=== PATIENT | male | born 1940 | race Caucasian/White ===

== ENCOUNTER 2020-04-28 11:06 | Outpatient (CLI) | payer OTHER, SELFPAY ==
[2020-04-28 11:53] LABS: Basophils Percent Auto 0.7 % (0.2-1.2); Eosinophils Absolute Auto 0.3 K/mm3 (0-0.3); Eosinophils Percent Auto 4.1 % (0-4.4); Hematocrit 39.8 % (42.0-52.0); Hemoglobin 13.3 g/dL (14.0-18.0); Immature Granulocyte Absolute 0.02 K/mm3 (0.00-0.031); Immature Granulocyte Percent A 0.3 % (0-0.5); Lymphocytes Absolute Auto 1.04 K/mm3 (0.9-3.2); Mean Corpuscular HGB Conc 33.4 g/dl (32-36); Mean Corpuscular Hemoglobin 31.4 pg (26-34); Mean Corpuscular Volume 93.9 fl (80-100); Mean Platelet Volume 10.3 fl (7.4-10.4); Monocytes Absolute Auto 0.9 K/mm3 (0.1-0.6); Monocytes Percent Auto 14.2 % (2.6-8.5); Neutrophils Absolute Auto 3.9 K/mm3 (1.3-6.7); Neutrophils Percent Auto 63.7 % (45.5-73.1); Platelet Count Result 193 k/mm3 (150-375); Red Blood Count 4.24 M/mm3 (4.6-6.20); White Blood Count 6.1 K/mm3 (4.5-10.0)
[2020-04-28 12:00] LABS: Add Urine Microscopic? YES; Appearance Urine Clear (Clear); Bilirubin Urine Negative (Negative); Blood Urine Negative (Negative); Color Urine Yellow (Yellow); Glucose Urine UA 1+ mg/dL (Negative); Ketones Urine Negative (Negative); Leukocyte Esterase Ur Negative LEU/UL (NEGATIVE); Mucus Urine Rare /lpf; Nitrate Urine Negative (Negative); Protein Urine Negative (Negative); RBC Urine 0-2 /hpf (0-2); Specific Grav Ur 1.014 (1.001-1.035); Urobilinogen Urine Negative mg/dL (<2.0); WBC Urine 0-3 /hpf (0-3)
[2020-04-28 12:05] LABS: Alanine Aminotransferase 19 U/L (4-50); Albumin Level 4.1 g/dL (3.5-5.1); Alkaline Phosphatase 49 U/L (38-126); Anion Gap 9 mmol/L (8-16); Aspartate Amino Transferase 22 U/L (17-59); Bilirubin,Total 0.3 mg/dL (0.2-1.3); Blood Urea Nitrogen 14 mg/dL (9-20); Calcium 9.5 mg/dL (8.4-10.2); Carbon Dioxide 29 mmol/L (22-30); Chloride 103 mmol/L (98-107); Cholesterol 138 mg/dL (0-200); Creatine Kinase 101 U/L (55-170); Estimated Glomerular Filt Rate > 60; Glucose 181 mg/dL (75-110); HDL Direct 45 mg/dL; Potassium 4.6 mmol/L (3.4-5.0); Sodium 141 mmol/L (137-145); Triglycerides 148 mg/dL (<150)
[2020-04-28 12:17] LABS: LDL Cholesterol Direct 77 mg/dL
[2020-04-28 12:23] LABS: Creatinine Urine 61.7 mg/dL
[2020-04-28 12:29] LABS: MALB Creatinine Ratio 45.5 mg/g (0-30); Microalbumin Urine Random 28.1 mg/L (0-16.7)
[2020-04-28 12:36] LABS: Vitamin D 25 Hydroxy 51.5 ng/mL
[2020-04-29 11:33] LABS: Hemoglobin A1C 7.3 % (<5.7)
== END 2020-04-28 11:07 | disposition home or self-care (01) ==
LOC: ANHLAB 11:16
PROVIDERS: PCP Internal Medicine; Visit Provider Internal Medicine
DX: E11.9 Type 2 diabetes mellitus without complications (principal); Z13.29 Encounter for screening for other suspected endocrine disorder; Z13.21 Encounter for screening for nutritional disorder; Z13.228 Encounter for screening for other metabolic disorders; Z13.0 Encounter for screening for diseases of the blood and blood-forming organs and certain disorders involving the immune mechanism
CPT/HCPCS: 36415; 80053; 80061; 81001; 82043; 82306; 82550; 83036; 84443; 85025

== ENCOUNTER 2025-03-27 08:26 | Inpatient (IN) | payer MEDICARE, SELFPAY ==
--- OUTSIDE RECORDS SUMMARY | 2010-05-13 03:30 | XMS_ITS | Continuity of Care Document ---
Author Organization [facility] Address [address] [place] [address] [address] [place] [address] Phone Care Team Providers Care Cash Applications Associate Name Role Phone Luis Alberto Luna Unavailable Unavailable Procedures Procedure Date Office/outpatient Visit, Est Eye Exam & Treatment Refraction Eye Exam & Treatment Refraction Office/outpatient Visit, Est Advance Directives Directive Yes / No Effective Date File Name No Information Encounters Encounter Description Practice Location Reason(s) For Visit Diagnoses Date Provider Providers Copied on Encounter Office/outpat ient Visit, Est [facility], [address] [place] [address] [address], [place], [place], [address], tel:[phone] SEC [facility] No Information 5-201 0 Jeremy Sahu. [facility] [place] , [address], [place], [place], [facility], . tel:[phone] [facility], [address] [place] [address] [address], [place], [place], [address], [place] tel:[phone] SEC [facility] [place] No Information Sep- 0-201 0 Jeremy Sahu. [address] [facility] [place] [address], [address], [place], [place], [facility], [place]. tel:[phone] [facility], [address], [place], [place], [address], tel:[phone] [facility] [place] No Information Mar-0 9-200 9 Jeremy Sahu. [address] [facility] , [address], [place], [address], [place]. tel:[phone] Office/outpat ient Visit, [facility] Eye [facility], [address], [place], [place], [address], [place] tel:[phone] SEC [facility] No Information 200 8 Jeremy Sahu. [address] [facility] , [address], [place], [address], [place]. tel:[phone] Family History Family Member Type Diagnosis Age [...]
[2025-03-27] VITALS (32 sets, daily range): BP systolic 93–170; BP diastolic 51–92; PULSE 93–124; RESP 20–45; TEMP 36.7–38.6; O2SAT 92–99; BMI 31.1
--- NOTE | ~2025-03-27 | XR_ITS ---
EXAMINATION: XR catheter cholangiogram DATE: 03/31/2025 08:30 INDICATION: Assess cystic and common duct patency TECHNIQUE: Multiple fluoroscopic images of the right upper quadrant were obtained during injection of 60 mL Omnipaque 240 water-soluble contrast and flush with 20 mL sterile saline through the patient's percutaneous cholecystostomy tube. A total of 12 fluoroscopic images were recorded. The amount of fluoroscopy time used during this procedure was 0.7 minutes. Total DAP was 7.955 mGycm^2. COMPARISON: Chest CT dated 03/27/2025 FINDINGS: Cholecystostomy tube with distal loop formed within the fundus of the gallbladder. Contrast injection demonstrates a lucent filling defect within the gallbladder which persists following evacuation of the contrast consistent with a gallstone. Contrast extends into the cystic duct and outlines a small ovoid lucent filling defect in mid duct likely representing an additional obstructing stone. Contrast does not extend beyond the mid cystic duct with no opacification of the common bile duct. A bilobed atherosclerotic calcification in the common hepatic artery project slightly lateral to the lower thoracic spine as confirmed on prior CT. IMPRESSION: 1. Cholelithiasis with obstructing filling defect in the mid cystic duct likely representing a small gallstone. Reviewed, dictated and finalized at location A.
--- NOTE | ~2025-03-27 | US_ITS ---
EXAMINATION: US perc cholecystostomy w imag DATE: 03/27/2025 16:15 INDICATION: Acute cholecystitis TECHNIQUE: The procedure including the risks and benefits was discussed with the patient. Risks discussed included bleeding including hemorrhage and bile peritonitis. Oral and written consent were obtained. The patient was confirmed to be receiving appropriate antibiotic coverage. The skin overlying the liver and gallbladder was prepped and draped in usual sterile fashion. Anesthetic was administered with 1% lidocaine subcutaneously. An 8.5 Fr catheter was inserted directly into the gallbladder by trocar technique. The metal stiffener and trocar needle were removed, and the pigtail tip was locked. Bile was aspirated and sent for culture. The catheter was stitched to the skin with suture. There w ere no immediate complications. FINDINGS: The gallbladder is dilated with wall thickening and stones and sludge, consistent with acute cholecystitis. Ultrasound images demonstrate the catheter within the gallbladder. 120 mL bile was aspirated with 60 cm per Gram stain and aerobic, anaerobic and fungal cultures. Final images show the formed pigtail catheter tip in the gallbladder. IMPRESSION: 1. Successful ultrasound-guided cholecystostomy tube placement. 2. 60 mL bile was sent for aerobic, anaerobic, and fungal cultures. 3. The catheter will be managed by Dr. Whelan. A catheter cholangiogram may be performed not less than 48 hours after tube placement if clinically indicated to assess cystic duct patency. If cholecystectomy is not eventually performed and the infectious episode has resolved, the tube may be removed over a guidewire, preferably not less than 3 weeks after placement to allow time for a mature catheter tract to form to prevent bile leakage and peritonitis. Reviewed, dictated and finalized at location A. IMPRESSION: 1. Successful ultrasound-guided cholecystostomy tube placement. 2. 60 mL bile was sent for aerobic, anaerobic, and fungal cultures. 3. The catheter will be managed by Dr. Whelan. A catheter cholangiogram may be pe rformed not less than 48 hours after tube placement if clinically indicated to assess cystic duct patency. If cholecystectomy is not eventually performed and the infectious episode has resolved, the tube may be removed over a guidewire, preferably not less than 3 weeks after placement to allow time for a mature ca theter tract to form to prevent bile leakage and peritonitis.
--- NOTE | ~2025-03-27 | CT_ITS ---
EXAMINATION: CT cervical spine wo bruna, 03/27/2025 9:10 CDT HISTORY: trauma COMPARISON: No comparisons available. Technique: Axial images were obtained of the spine per protocol. One or more of the following dose reduction techniques were used: automated exposure control, adjustment of the mA and/or kV according to patient size, use of iterative reconstruction technique. Unless otherwise stated, incidental findings do not require dedicated follow up imaging Findings: Grade 1 anterolisthesis of C3 on C4 and C4-C5, no fracture is identified. Moderate loss of disc height at C4-5 C5-6 and C6-7 with moderate canal and foraminal stenosis, outpatient MRI is suggested. Soft tissues unremarkable Impression: No acute abnormality. Reviewed, dictated and finalized at location A. Impression: No acute abnormality.
--- NOTE | ~2025-03-27 | XR_ITS ---
EXAMINATION: XR chest 1V portable DATE: 03/29/2025 14:59 INDICATION: Shortness of breath TECHNIQUE: frontal view of the chest was obtained. COMPARISON: Chest radiograph and CT dated 03/27/2025 FINDINGS: Unchanged linear band of discoid atelectasis/scarring in the right lower lobe extending caudally from the accessory fissure the basilar segments of the superior segment. No other airspace opacities, pulmonary edema, pleural effusion or pneumothorax. Heart size is normal. There are bridging osteophytes at multiple levels consistent with diffuse idiopathic skeletal hyperostosis (DISH). IMPRESSION: 1. Mild discoid atelectasis/scarring in the right lower lobe. No other acute cardiopulmonary disease. Reviewed, dictated and finalized at location A. IMPRESSION: 1. Mild discoid atelectasis/scarring in the right lower lobe. No other acute ca rdiopulmonary disease.
--- NOTE | ~2025-03-27 | XR_ITS ---
EXAMINATION: XR chest 1V, 03/27/2025 9:15 CDT HISTORY: weakness COMPARISON: No comparisons available. Technique: Single view. Findings: The lungs are clear, no effusion. No pneumothorax. Heart is normal size. Mediastinal and hilar contours are within normal limits. Bony thorax no acute abnormality. Impression: No acute cardiopulmonary abnormality. Reviewed, dictated and finalized at location A. Impression: No acute cardiopulmonary abnormality.
--- NOTE | ~2025-03-27 | CT_ITS ---
EXAMINATION: CT brain wo bruna, 03/27/2025 9:10 CDT HISTORY: trauma COMPARISON: No comparisons available. Technique: Axial images obtained of the brain without contrast. One or more of the following dose reduction techniques were used: automated exposure control, adjustment of the mA and/or kV according to patient size, use of iterative reconstruction technique. Findings: No acute hemorrhage or infarct. Moderate probable chronic periventricular ischemic changes, no midline shift or mass effect, no extra-axial fluid collections. Mastoid air cells unremarkable. Severe right maxillary sinusitis with underlying polyp formation suspected. No acute fracture. No significant facial or scalp soft tissue swelling evident. No radiopaque foreign body is seen. Impression: 1.No acute intracranial abnormality. Reviewed, dictated and finalized at location A. Impression: 1.No acute intracranial abnormality.
--- NOTE | ~2025-03-27 | CT_ITS ---
EXAMINATION: CT chest abdomen pelvis w con, 03/27/2025 10:10 CDT HISTORY: Generalized weakness COMPARISON: No comparisons available. TECHNIQUE: CT scan of the chest, abdomen and pelvis was performed with contrast Isovue 300, 92cc injected IV. One or more of the following dose reduction techniques were used: automated exposure control, adjustment of the mA and/or kV according to patient size, use of iterative reconstruction technique. Unless otherwise stated, incidental findings do not require dedicated follow up imaging FINDINGS: CT chest: No significant coronary calcification is present ([id number]) LUNGS: No tracheomalacia. No bronchiectasis. Minimal emphysematous changes. No areas of bullous formation. No significant pulmonary fibrotic changes. Basilar areas of linear atelectasis. Elevation left hemidiaphragm. HEART AND PERICARDIUM: Within normal limits. AORTA: Normal caliber aorta. MEDIASTINUM: Unremarkable. THYROID: The thyroid is unremarkable. CT abdomen: LIVER: The liver demonstrates a heterogeneous appearance. Within the liver adjacent to the gallbladder there are rim-enhancing subcentimeter foci suspicious for abscess formation of the largest 1 x 1 cm. The main portal vein is patent. There is no intrahepatic bile duct dilatation. SPLEEN: Unremarkable, no splenomegaly. KIDNEYS: Right Kidney: Right kidney midpole 2 mm calculus, no hydronephrosis or hydroureter ureter. Left Kidney: Unremarkable. No calculi. No hydronephrosis ADRENAL GLANDS: Unremarkable. PANCREAS: Mild pancreatic atrophy. GALLBLADDER/BILIARY: The gallbladder is distended with hyperemia of the gallbladder, thickening of the gallbladder wall and pericholecystic fluid., No gross cholelithiasis. The CBD appears normal. STOMACH AND ESOPHAGUS: Visualized stomach and esophagus within normal limits. BOWEL/MESENTERY: Severe diverticulosis, no colitis or diverticulitis. Appendix normal. There is stranding within the mesentery in the right upper quadrant. No dilated small bowel loops. RETROPERITONEUM: Unremarkable AORTA/VASCULATURE: Normal caliber aorta. FREE FLUID OR FREE AIR: No free fluid.. CT pelvis: SOLID ORGANS/REPRODUCTIVE: The prostate is enlarged, correlate with PSA. BLADDER: Within normal limits. LYMPHADENOPATHY: No lymphadenopathy. OSSEOUS STRUCTURES: Moderate degenerative changes lumbar spine, no sclerotic or lytic lesions. There are severe degenerative changes of the left glenohumeral joint. OVERLYING SOFT TISSUES: Moderate fat-containing umbilical hernia. Small bilateral fat-containing inguinal hernia. IMPRESSION: 1. Findings are concerning for acute cholecystitis, questionable areas of liver abscess formation detailed above. Reviewed, dictated and finalized at location A.
--- NOTE | ~2025-03-27 | US_ITS ---
US abdomen limited INDICATION: Cholecystitis PROCEDURE: Realtime right upper abdominal ultrasound. COMPARISON: CT dated 03/27/2025 FINDINGS: The pancreas is normal without focal mass or pancreatic ductal dilation. Gallbladder wall appears thickened. There is intrahepatic biliary dilatation. There is fatty infiltration of the liver. There is a focal hyperechoic lesion measuring 2.2 cm adjacent to the gallbladder, nonspecific. No definite abscess identified. There is questionable trace pericholecystic fluid. There is hepatomegaly. Free fluid noted adjacent to the left hepatic lobe posteriorly. Study limited by bowel gas and patient body habitus. There is normal directional flow in the portal vein. IMPRESSION: 1: Hepatomegaly with fatty infiltration of the liver. Hyperechoic lesion present adjacent to the gallbladder wall, indeterminate. There is possible pericholecystic fluid. There is gallbladder wall thickening. Findings suspicious for cholecystitis. Clinically correlate. No definite abscess identified. Reviewed, dictated and finalized at location O. IMPRESSION: 1: Hepatomegaly with fatty infiltration of the liver. Hyperechoic lesion presen t adjacent to the gallbladder wall, indeterminate. There is possible pericholec ystic fluid. There is gallbladder wall thickening. Findings suspicious for chol ecystitis. Clinically correlate. No definite abscess identified.
--- NOTE | 2025-03-27 08:35 | ED.GENADULT ---
HPI - General Adult General Chief complaint: Weakness Stated complaint: weakness History of Present Illness HPI narrative: 84-year-old male presented to the emergency department for evaluation increased generalized weakness over the last 4 days. Patient denies any specific complaints other than feeling increased generalized weakness. Patient did have a ground level fall yesterday and struck his head. Patient denies any loss of consciousness. Patient denies any chest pain or shortness of breath, denies any nausea vomiting or diarrhea. Denies any coughs cold symptoms fevers. denies any pain with urination. After further conversation patient states he has been having some bilateral upper abdominal pain for the last few days. Patient has had no previous abdominal surgeries. Patient is on insulin for type 2 diabetes. Related Data Home Medications ?Medication ?Instructions ?Recorded ?Confirmed ?Last Taken ?Type amlodipine 10 mg tablet 10 mg PO DAILY 06/25/19 03/27/25 07/05/19 History atenolol 100 mg tablet 50 mg PO DAILY 06/25/19 03/27/25 07/05/19 History cetirizine 10 mg capsule (Zyrtec) 10 mg PO DAILY 06/25/19 03/27/25 07/04/19 History finasteride 5 mg tablet 5 mg PO DAILY 06/25/19 03/27/25 07/04/19 History glipizide 5 mg tablet 5 mg PO DAILY 06/25/19 03/27/25 07/05/19 History liraglutide 0.6 mg/0.1 mL (18 mg/3 1.8 mg subcut DAILY 06/25/19 03/27/25 07/06/19 History mL) subcutaneous pen injector (Victoza 3-Ricardo) lisinopril 40 mg tablet 40 mg PO DAILY 06/25/19 03/27/25 07/04/19 History metformin 1,000 mg tablet 1,000 mg PO BID 06/25/19 03/27/25 07/04/19 History msqctkfj-zs-jvdeu 300 mcg-K 60 1 tablet PO DAILY 06/25/19 03/27/25 07/04/19 History mcg-lycop 600 mcg-lutein 300 mcg tablet (Centrum Silver Men) omega 4-ojq-ibt-fish oil 1,000 mg 1 cap PO DAILY 06/25/19 03/27/25 07/04/19 History (120 mg-180 mg) capsule (Fish Oil) simvastatin 80 mg tablet 80 mg PO HS 06/25/19 03/27/25 07/04/19 History tamsulosin 0.4 mg capsule (Flomax) 0.4 mg PO HS 06/25/19 03/27/25 07/04/19 History Allergies Allergy/AdvReac Type Severity Reaction Status Date / Time No Known Allergies Allergy Verified 03/27/25 08:43 Review of Systems Review of Systems: All systems reviewed & are unremarkable except as noted in HPI and below [facility] Past Medical History Medical History (Updated 03/27/25 @ 17:33 by Tom Sarkar MD) Umbilical hernia DJD (degenerative joint disease) BPH (benign prostatic hyperplasia) DMII (diabetes mellitus, type 2) Hypertension Hyperlipidemia IVETT (obstructive sleep apnea) CPAP CAD (coronary artery disease) Surgical History Surgical History (Updated 07/12/19 @ 13:31 by Ld Alegria) H/O hemorrhoidectomy (~1979) Status post total left knee replacement (~07/07/19) History of total right knee replacement (~2006) History of coronary artery stent placement (~12/1998) 1998 Family History Family History Mother Family history of Alzheimer's disease Father Family history of heart disease in male family member before age 55 Social History Social History Social History: Patient lives with , gAgie, whom he designates as his surrogate decision maker. He is listed as a full code. His primary is Dr. Underwood. 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) Smoking status: Current every day smoker Tobacco type: cigars Additional smoking assessment comments: 2 cigars/day Alcohol intake: current Drinks per week: 1 Substance use: never Substance use type: does not use Lack of Transportation: No Lack of Food: Never True Current Housing: I Have Housing Concerned About Future Housing: No Difficulty Paying Gas/Electric Bills: No Difficulty Paying for Meds: No Currently Unemployed: No Education: Decline to Answer Difficulty w/ Childcare or Family Care: No Additional living arrangements comments: Lives with at home Occupation/Education: retired Gender identity (if verbalized by the patient): Male Spiritual care concerns: No Agree to blood products: Yes Exam Narrative: APPEARANCE: Ill-appearing HEAD: normocephalic, atraumatic. EYES: PERRLA/EOMI, conjunctivae clear. NOSE: Normal no drainage EARS:TMS clear with good light reflex. THROAT: Pharynx clear, no exudate. NECK: Supple. No adenopathy, no masses. RESPIRATORY: Airway patent, respirations nonlabored. Clear to auscultation bilaterally, no rales, rhonchi, wheezing. CARDIOVASCULAR: Regular rate and rhythm without murmurs rubs or gallops. ABDOMINAL: My upper quadrant tenderness to palpation MUSCULOSKELETAL: Moves all extremities. Strength/ROM intact, No edema, No calf tenderness. NEURO: Alert. Cranial nerves II through XII intact. Grossly intact SKIN: Warm, dry. Normal Color Course Vital Signs Vital signs: Vital Signs Temperature 98.1 F 03/27/25 08:26 Pulse Rate 93 03/27/25 08:26 Respiratory Rate 26 H 03/27/25 08:26 Blood Pressure 112/63 03/27/25 08:26 Pulse Oximetry 98 03/27/25 08:26 Oxygen Delivery Room Air 03/27/25 08:26 Temperature 101.4 F H 03/27/25 16:00 Pulse Rate 118 H 03/27/25 16:00 Respiratory Rate 32 H 03/27/25 16:00 Blood Pressure 136/67 03/27/25 16:00 Pulse Oximetry 98 03/27/25 16:00 Oxygen Delivery Nasal Cannula 03/27/25 11:06 Oxygen Flow Rate 2 03/27/25 11:06 Medical Decision Making [facility] Narrative Medical decision making narrative: 84-year-old male present to the emergency department for evaluation for increased generalized weakness over the last 4 days with abdominal pain. Patient is currently afebrile but does have a leukocytosis of 15 and hemoglobin of 13.1. Patient's INR is 1.1. Patient does have a creatinine of 1.62 which is higher than his typical baseline. Patient's blood glucose was elevated at 252. Patient was treated with 1 L of lactated Ringer's. Patient's initial lactic acid was 1.7. Patient has no elevation in T bili AST ALT alk-phos or lipase. Patient's CRP is elevated at 44.9. The patient's urine was not significant for urinary tract infection. Patient was negative for influenza RSV and for COVID. Patient did have a fall with head injury yesterday but patient had negative CT head and cervical spine. CT chest abdomen pelvis was ordered to evaluate for source of infection and does show evidence of acute cholecystitis. Patient does have a reproducible right upper quadrant tenderness to palpation. Blood cultures were ordered and patient was provided Zosyn for infection. Surgery was consulted. Differential Diagnosis Differential Diagnosis: Subdural hematoma, subarachnoid hemorrhage, cervical spine fracture, pneumonia, COVID, RSV influenza, UTI, appendicitis, cholecystitis, colitis, diverticulitis Vital Signs Vital Signs: Vital Signs Temperature 98.1 F 03/27/25 08:26 Pulse Rate 93 03/27/25 08:26 Respiratory Rate 26 H 03/27/25 08:26 Blood Pressure 112/63 03/27/25 08:26 Pulse Oximetry 98 03/27/25 08:26 Oxygen Delivery Room Air 03/27/25 08:26 Temperature 101.4 F H 03/27/25 16:00 Pulse Rate 118 H 03/27/25 16:00 Respiratory Rate 32 H 03/27/25 16:00 Blood Pressure 136/67 03/27/25 16:00 Pulse Oximetry 98 03/27/25 16:00 Oxygen Delivery Nasal Cannula 03/27/25 11:06 Oxygen Flow Rate 2 03/27/25 11:06 Lab Data Lab results reviewed: Yes I reviewed the patient's lab results. 03/27/25 08:46 03/27/25 08:46 Labs: Lab Results 03/27/25 Range/Units 08:46 WBC 15.0 H (4.5-10.0) K/mm3 RBC 4.38 L (4.6-6.20) M/mm3 Hgb 13.1 L (14.0-18.0) g/dL Hct 39.6 L (42.0-52.0) % MCV 90.4 (80-100) fl MCH 29.9 (26-34) pg MCHC 33.1 (32-36) g/dl RDW 14.3 (11.5-14.5) % Plt Count 79 L D (150-375) k/mm3 MPV 11.9 H (7.4-10.4) fl Immature Gran % (Auto) 0.4 (0-0.5) % Neut % (Auto) 90.5 H (45.5-73.1) % Lymph % (Auto) 1.8 L (18.3-44.2) % [place] % (Auto) 7.1 (2.6-8.5) % Eos % (Auto) 0.0 (0-4.4) % Baso % (Auto) 0.2 (0.2-1.2) % Lymph # (Auto) 0.27 L (0.9-3.2) K/mm3 [place] # (Auto) 1.1 H (0.1-0.6) K/mm3 Eos # (Auto) 0.0 (0-0.3) K/mm3 Baso # (Auto) 0.0 (0.0-0.1) K/mm3 Abs Immat Gran (auto) 0.06 H (0.00-0.031) K/mm3 Absolute Neuts (auto) 13.6 H (1.3-6.7) K/mm3 Absolute Nucleated RBC 0.000 (0.0-0.012) K/mm3 Nucleated RBC % 0.0 (0.0-0.2) % % Immature Plt Fraction 9.7 (0.9-11.2) % PT 14.8 H (11.1-14.7) Seconds INR 1.1 APTT 26.9 (22.3-36.8) Seconds Sodium 135 L (137-145) mmol/L Potassium 3.5 (3.4-5.0) mmol/L Chloride 99 (98-107) mmol/L Carbon Dioxide 26 (22-30) mmol/L Anion Gap 10 (4-12) mmol/L BUN 54 H D (9-20) mg/dL Creatinine 1.62 H (0.7-1.3) mg/dL Estim Creat Clear Calc 39 ml/min Estimated GFR 41 L (59 - ) Glucose 252 H (65-110) mg/dL Hemoglobin A1c 7.0 H (<5.7) % Lactic Acid 1.7 (0.7-2.0) mmol/L Calcium 8.8 (8.4-10.2) mg/dL Total Bilirubin 1.2 (0.2-1.3) mg/dL AST 51 (17-59) U/L ALT 50 (6-50) U/L Alkaline Phosphatase 88 (38-126) U/L Total Creatine Kinase 274 H (55-170) U/L C-Reactive Protein 44.9 H (<1.0) mg/dL NT-Pro-B Natriuret Pep 2170 H (19.9-100) pg/mL Total Protein 6.7 (6.3-8.2) g/dL Albumin 3.4 L (3.5-5.1) g/dL Lipase 48 (23-300) U/L Procalcitonin 5.0 ng/mL Urine Color Dark yellow (Yellow) Urine Appearance Turbid H (Clear) Urine pH 5.0 (5.0-9.0) Ur Specific [place] 1.022 (1.001-1.035) Urine Protein 2+ H (Negative) mg/dL Urine Glucose (UA) Negative (Negative) mg/dL Urine Ketones Trace H (Negative) mg/dL Ur Blood (Man) Negative (Negative) Urine Nitrate Negative (Negative) Urine Bilirubin 1+ H (Negative) Urine Urobilinogen 1.0 (<2.0) mg/dL Add Ur Microanalysis Reviewed Leukocyte Esterase Rfl Trace H (Negative) KEYON/UL Urine RBC 0-2 (0-2) /hpf Urine WBC 0-5 (0-3) /hpf Ur Squamous Epith Cells Few (Few) /hpf Urine Bacteria None seen /hpf Urine Casts >20 Hyaline Casts Present (None) /lpf Influenza A (RT-PCR) Negative (Negative) Influenza B (RT-PCR) Negative (Negative) RSV (RT-PCR) Negative (Negative) SARS-CoV-2 RNA (RT-PCR) Negative (Negative) Imaging Data Radiologist's impression: Impressions Head CT 03/27/25 09:20 Impression: 1.No acute intracranial abnormality. Cervical Spine CT 03/27/25 09:22 Impression: No acute abnormality. Chest X-Ray 03/27/25 09:28 Impression: No acute cardiopulmonary abnormality. Chest/Abdomen/Pelvis CT 03/27/25 10:27 IMPRESSION: 1. Findings are concerning for acute cholecystitis, questionable areas of liver abscess formation detailed above. Abdomen Ultrasound 03/27/25 11:42 IMPRESSION: 1: Hepatomegaly with fatty infiltration of the liver. Hyperechoic lesion present adjacent to the gallbladder wall, indeterminate. There is possible pericholecystic fluid. There is gallbladder wall thickening. Findings suspicious for cholecystitis. Clinically correlate. No definite abscess identified. Discharge Plan Discharge Clinical Impression: Acute cholecystitis Patient Disposition: Still a Patient Condition: Serious
[2025-03-27 08:55] LABS: Hematocrit 39.6 % (42.0-52.0); Hemoglobin 13.1 g/dL (14.0-18.0); Immature Granulocyte Percent A 0.4 % (0-0.5); Immature Platelet Fraction Pct 9.7 % (0.9-11.2); Lymphocytes Absolute Auto 0.27 K/mm3 (0.9-3.2); Mean Corpuscular HGB Conc 33.1 g/dl (32-36); Mean Corpuscular Hemoglobin 29.9 pg (26-34); Mean Corpuscular Volume 90.4 fl (80-100); Nucleated Red Blood Cells Absolute Auto 0.000 K/mm3 (0.0-0.012); Nucleated Red Blood Cells Perc 0.0 % (0.0-0.2); Platelet Count Result 79 k/mm3 (150-375); Red Blood Count 4.38 M/mm3 (4.6-6.20); White Blood Count 15.0 K/mm3 (4.5-10.0)
[2025-03-27 09:07] LABS: INR 1.1; Prothrombin Time 14.8 Seconds (11.1-14.7)
[2025-03-27 09:08] LABS: Partial Thromboplastin Time 26.9 Seconds (22.3-36.8)
[2025-03-27 09:13] LABS: Alanine Aminotransferase 50 U/L (6-50); Albumin Level 3.4 g/dL (3.5-5.1); Alkaline Phosphatase 88 U/L (38-126); Anion Gap 10 mmol/L (4-12); Aspartate Amino Transferase 51 U/L (17-59); Bilirubin,Total 1.2 mg/dL (0.2-1.3); Blood Urea Nitrogen 54 mg/dL (9-20); Calcium 8.8 mg/dL (8.4-10.2); Carbon Dioxide 26 mmol/L (22-30); Chloride 99 mmol/L (98-107); Estimated CRCL calculation 39 ml/min; Estimated Glomerular Filt Rate 41; Glucose 252 mg/dL (65-110); Lipase 48 U/L (23-300); Potassium 3.5 mmol/L (3.4-5.0); Sodium 135 mmol/L (137-145); Total Protein 6.7 g/dL (6.3-8.2)
[2025-03-27 09:17] LABS: Add Urine Microscopic? YES; Appearance Urine Turbid (Clear); Glucose Urine UA Negative (Negative); Leukocyte Esterase Ur Trace LEU/UL (Negative); Need Manual Microscopic Reviewed; Nitrate Urine Negative (Negative); Non Pathogenic Casts >20; Specific Grav Ur 1.022 (1.001-1.035)
[2025-03-27 09:30] LABS: Influenza A QL RT-PCR Negative (Negative); Influenza B QL RT-PCR Negative (Negative); RSV RNA, RT-PCR Negative (Negative); SARS-CoV-2 RNA PCR Negative (Negative)
[2025-03-27] MEDS: LACTATED RINGERS 1,000 ML 999 ML IV CONT ×3 (09:41→17:15)
[2025-03-27 09:44] LABS: CRP 44.9 mg/dL (<1.0)
[2025-03-27 09:59] LABS: Procalcitonin 5.0 ng/mL
--- NOTE | 2025-03-27 10:54 | ECG_ITS ---
Test Date: 2025-03-27 10:58:48 Measurements Intervals [place] Rate: 116 P: 29 [place]: 112 QRS: -48 QRSD: 133 T: 104 QT: 332 QTc: 461 Interpretive Statements SINUS TACHYCARDIA LEFT AXIS DEVIATION LEFT BUNDLE BRANCH BLOCK BASELINE ARTIFACT- I, II, AVR, AVL ABNORMAL ECG No previous ECG available for comparison Electronically Signed On 03-27-2025 11:13:36 CDT by Christiano Jara D.O.
--- NOTE | 2025-03-27 12:21 | P.HP_ITS ---
H&P: HPI History of Present Illness Date/Time: 03/27/25 12:21 Chief Complaint: Acute weakness Narrative: 84-year-old male past medical history BPH, diabetes, hypertension hyperlipidemia and CAD presents the hospital with acute weakness. Patient states that he has had increased weakness over the last 4 days. Yesterday he fell and hit his head. Per family may states that the patient will not complain of pain or other issues. His daughters believe that he laid on the floor for a while as he fell until the night at his did not know about it. He may laid on the floor for as long as 2-3 hours. Even though patient is on oxygen using accessory muscles he denies that he is in pain or that he short of breath. Family denies a history of CHF. Lab work in the ED shows leukocytosis at 15.0, hemoglobin 13.1, sodium of 135, BUN of 54, creatinine of 1.62 with baseline being 0.8 GFR 41, glucose is 252, UA is turbid with trace leukocytes esterase negative for nitrates. Influenza A/B RSV COVID negative. Head CT negative for acute processes. Cervical CT negative for acute process. Chest x-ray negative for acute process. CT abdomen shows findings concerning for acute cholecystitis and questionable areas of liver abscess. Hyperechoic lesion present adjacent to the gallbladder wall, indeterminate. There is possible pericholecystic fluid. There is gallbladder wall thickening. Findings suspicious for cholecystitis. Patient was started on Zosyn and surgery was consulted. Review of Systems Review of Systems: 12 systems were reviewed and are negativ e except for as per HPI. [facility] Past Medical History Medical History (Updated 03/27/25 @ 23:54 by Cherelle Castro, AME) Umbilical hernia DJD (degenerative joint disease) BPH (benign prostatic hyperplasia) DMII (diabetes mellitus, type 2) Hypertension Hyperlipidemia IVETT (obstructive sleep apnea) CPAP CAD (coronary artery disease) Surgical History Surgical History (Updated 07/12/19 @ 13:31 by Ld Alegria) H/O hemorrhoidectomy (~1979) Status post total left knee replacement (~07/07/19) History of total right knee replacement (~2006) History of coronary artery stent placement (~12/1998) 1998 Family History Family History Mother Family history of Alzheimer's disease Father Family history of heart disease in male family member before age 55 Social History Social History Social History: Patient lives with , Aggie, whom he designates as his surrogate decision maker. He is listed as a full code. His primary is Dr. Underwood. 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) Smoking status: Current every day smoker Tobacco type: cigars Additional smoking assessment comments: 2 cigars/day Alcohol intake: current Drinks per week: 1 Substance use: never Substance use type: does not use Lack of Transportation: No Lack of Food: Never True Current Housing: I Have Housing Concerned About Future Housing: No Difficulty Paying Gas/Electric Bills: No Difficulty Paying for Meds: No Currently Unemployed: No Education: Decline to Answer Difficulty w/ Childcare or Family Care: No Additional living arrangements comments: Lives with at home Occupation/Education: retired Gender identity (if verbalized by the patient): Male Spiritual care concerns: No Agree to blood products: Yes Meds Home Medications and Allergies Home Medications ?Medication ?Instructions ?Recorded ?Confirmed ?Type amlodipine 10 mg tablet 10 mg PO DAILY 06/25/1902/28 History atenolol 100 mg tablet 50 mg PO DAILY 06/25/1902/28 History cetirizine 10 mg capsule (Zyrtec) 10 mg PO DAILY 06/2503/27/25 History finasteride 5 mg tablet 5 mg PO DAILY 06/25/1903/27 History glipizide 5 mg tablet 5 mg PO DAILY 06/25/1903/27 History liraglutide 0.6 mg/0.1 mL (18 mg/3 1.8 mg subcut DAILY 06/25/19 03/27/25 History mL) subcutaneous pen injector (Victoza 3-Ricardo) lisinopril 40 mg tablet 40 mg PO DAILY 06/25/1902/28 History metformin 1,000 mg tablet 1,000 mg PO BID 06/25/19 History bgwrcfbu-uf-dormx 300 mcg-K 60 1 tablet PO DAILY 06/2503/27/25 History mcg-lycop 600 mcg-lutein 300 mcg tablet (Centrum Silver Men) omega 8-wzg-weg-fish oil 1,000 mg 1 cap PO DAILY 06/2503/27/25 History (120 mg-180 mg) capsule (Fish Oil) simvastatin 80 mg tablet 80 mg PO HS 06/25/19 5 History tamsulosin 0.4 mg capsule (Flomax) 0.4 mg PO HS 03/27/25 History aspirin 325 mg tablet,delayed 325 mg PO BID #60 tabs 1 09/09/18 03/27/25 Rx release (Ecotrin) celecoxib 200 mg capsule (Celebrex) 200 mg PO BIDWM #6 0 caps 07/09/19 03/27/25 Rx cephalexin 500 mg capsule 500 mg PO Q6HR #26 caps 06/2903/27/25 Rx docusate sodium 100 mg capsule 100 mg PO Q12HR #60 cap s 07/09/19 03/27/25 Rx enoxaparin 30 mg/0.3 mL 30 mg (0.3 mL) subcut Q12HR #25 mL 07/09/19 03/27/25 Rx subcutaneous syringe oxycodone 5 mg capsule 2.5 mg (1/2 x 5 mg) PO Q4HR #50 07/09/19 03/27/25 Rx caps polyethylene glycol 3350 17 gram 17 g PO QAM #30 ea 03/27/25 Rx oral powder packet (Miralax) Allergies Allergy/AdvReac Type Severity Reaction Status Date / Time No Known Allergies Allergy Verified 03/27/25 08:43 Vital Signs Vital Signs - 24 hr 03/27/25 08:26 03/27/25 08:34 03/27/25 08:44 Temperature 98.1 F Pulse Rate 93 95 94 Respiratory Rate 26 H 30 H Blood Pressure 112/63 112/63 Pulse Oximetry 98 95 Oxygen Delivery Room Air Oxygen Flow Rate 03/27/25 08:47 03/27/25 08:57 03/27/25 09:02 Temperature Pulse Rate 96 93 Respiratory Rate 23 H 34 H Blood Pressure 124/55 L 117/51 L Pulse Oximetry 98 94 99 Oxygen Delivery Room Air Oxygen Flow Rate 03/27/25 10:03 03/27/25 10:39 03/27/25 10:40 Temperature Pulse Rate 95 117 H 116 H Respiratory Rate 25 H 30 H 31 H Blood Pressure 129/76 149/89 H Pulse Oximetry 92 93 94 Oxygen Delivery Oxygen Flow Rate 03/27/25 10:45 03/27/25 10:46 03/27/25 11:00 Temperature 99.3 F Pulse Rate 116 H 115 H 117 H Respiratory Rate 27 H 45 H 30 H Blood Pressure 145/68 H 153/82 H Pulse Oximetry 93 93 98 Oxygen Delivery Oxygen Flow Rate 03/27/25 11:01 03/27/25 11:06 03/27/25 11:15 Temperature Pulse Rate 116 H 119 H Respiratory Rate 31 H 30 H Blood Pressure Pulse Oximetry 97 97 98 Oxygen Delivery Nasal Cannula Oxygen Flow Rate 2 03/27/25 11:17 03/27/25 11:30 03/27/25 11:46 Temperature Pulse Rate 123 H 124 H 115 H Respiratory Rate 34 H 29 H Blood Pressure Pulse Oximetry 97 Oxygen Delivery Oxygen Flow Rate 03/27/25 12:00 03/27/25 12:14 03/27/25 12:15 Temperature Pulse Rate 113 H 117 H 118 H Respiratory Rate 34 H 33 H 33 H Blood Pressure 160/87 H 168/86 H Pulse Oximetry 97 98 98 Oxygen Delivery Oxygen Flow Rate Exam Narrative: General: Mild distress HEENT: normocephalic, atraumatic. Mucous membranes moist. EOMI, PERRLA, bilate ral sclera anicteric, no conjunctival injection. Neck supple without JVD, lymphadenopathy, or bruit. Respiratory: clear to ascultation bilaterally. No rales/rhonic/wheezes. Tachypneic Cardiovascular: Regular rate and rhythm, normal S1-S2 upon ascultation. No murmurs, rubs, or clicks. PMI is nondisplaced, capillary refill less than 3 second. Abdomen: Obese Soft, round, no pulsatile masses, nondistended aNo rebound, no guarding. No CVA tenderness, no hepatosplenomegaly. Bowel sounds present to all four quadrants. No high pitch or tinkling sounds, resonant to percussion. Positive Delvalle sign Extremities: No cyanosis, clubbing, Pulses are palpable 2/2. Active ROM to all four extremities. 1+ Neuro: Alert and orientated x 4. PERRLA. Cranial nerves 2-12 intact without focal deficit. Skin: Warm, dry, and intact, without rash, erythema, or lesion. Psych: pleasant, cooperative, normal speech, normal affect, no hallucinations, no dysarthia H&P: Results Labs Labs: Short CBC 03/27/25 Range/Units 08:46 WBC 15.0 H (4.5-10.0) K/mm3 Hgb 13.1 L (14.0-18.0) g/dL Hct 39.6 L (42.0-52.0) % Plt Count 79 L D (150-375) k/mm3 BMP 03/27/25 08:46 Sodium 135 L Potassium 3.5 Chloride 99 Carbon Dioxide 26 BUN 54 H D Creatinine 1.62 H Glucose 252 H Calcium 8.8 Liver Function 03/27/25 Range/Units 08:46 Total Bilirubin 1.2 (0.2-1.3) mg/dL AST 51 (17-59) U/L ALT 50 (6-50) U/L Alkaline Phosphatase 88 (38-126) U/L Albumin 3.4 L (3.5-5.1) g/dL Urine 03/27/25 Range/Units 08:46 Urine Color Dark yellow (Yellow) Urine Appearance Turbid H (Clear) Urine pH 5.0 (5.0-9.0) Ur Specific [place] 1.022 (1.001-1.035) Urine Protein 2+ H (Negative) mg/dL Urine Glucose (UA) Negative (Negative) mg/dL Assessment and Plan Assessment and plan (1) Acute cholecystitis: Code(s): K81.0 - Acute cholecystitis Status: Acute Assessment and Plan: Surgery consulted Plan for percutaneous cholecystostomy tube today NPO IV Zosyn Gallbladder cultures pending Blood cultures pending (2) Elevated brain natriuretic peptide (BNP) level: Code(s): R79.89 - Other specified abnormal findings of blood chemistry Status: Acute Assessment and Plan: Patient appears to be in acute respiratory distress with hypoxia however he has no known lung disease, he has received aggressive fluid hydration today, family denies history of CHF, patient has 1+ lower extremity edema BMP ordered is slightly elevated Echocardiogram pending (3) JAYY (acute kidney injury): Code(s): N17.9 - Acute kidney failure, unspecified Status: Acute Assessment and Plan: 2 L IV fluid followed by IVF BMP in the morning (4) Hypertension: Code(s): I10 - Essential (primary) hypertension Status: Acute Assessment and Plan: Holding antihypertensives due to soft blood pressure (5) CAD (coronary artery disease): Code(s): I25.10 - Atherosclerotic heart disease of [place] coronary artery without angina pectoris Status: Acute Assessment and Plan: Continue aspirin, statin Holding blood pressure meds due to hypotension (6) Hyperlipidemia: Code(s): E78.5 - Hyperlipidemia, unspecified Status: Acute Assessment and Plan: Continue statin (7) DMII (diabetes mellitus, type 2): Code(s): E11.9 - Type 2 diabetes mellitus without complications Status: Acute Assessment and Plan: Hold home oral diabetic medications while in hospital Joel HEARD Patient will need a diabetic diet (8) BPH (benign prostatic hyperplasia): Code(s): N40.0 - Benign prostatic hyperplasia without lower urinary tract symptoms Status: Acute Assessment and Plan: Restart Proscar and Flomax (9) Tachycardia: Code(s): R00.0 - Tachycardia, unspecified Status: Acute Assessment and Plan: Patient is still tachycardic after aggressive fluid hydration Restart atenolol Quality VTE Prophylaxis VTE prophylaxis: mechanical ordered If No VTE Prophylaxis Answer both mechanical and pharmacologic: Reason no pharmacologic proph: medical contraindication Hospitalist MIPS Advance Care Plan I have confirmed that the patient's Advanced Care Plan is present, code status is documented, or surrogate decision maker is listed in patient medical record.: Yes Medication Reconciliation I have utilized all available resources to obtain, update and review the patients current medications (includes all prescriptions, OTC, herbals, cannabis, and nutritional supplements).: Yes
--- NOTE | 2025-03-27 12:48 | ADMGEN ---
This patient, Alban Graff, was admitted to IMU Room 201-01 @ 1248. Patient/family oriented to hospital policies and general routines including ID bracelet, bed and alarms, visiting hours, pain management, procedures, bathroom and other care routines, personal items, smoking policy, room service/diet, and visiting hours. Information on how to activate the Rapid Response Team has been discussed. Patient/Family are encouraged to report perceived risks to care and to ask questions if they do not understand what they are told or what they should do.
[2025-03-27] MEDS: PIPERACILLIN/TAZOBACTAM SOD 3.375 GM in SODIUM CHLORIDE 0.9% IV 50 ML 100 ML IVPB ×2 (13:19→18:34)
[2025-03-27] MEDS: LACTATED RINGERS 1,000 ML 125 ML IV CONT ×2 (13:20→22:40)
[2025-03-27] MEDS: MORPHINE SULFATE (*CRX) 2 MG/ML INJ IV PUSH ×2 (13:22→18:22)
--- NOTE | 2025-03-27 13:33 | PM.CNGS ---
Assessment and Plan Assessment and plan (1) Acute cholecystitis: Code(s): K81.0 - Acute cholecystitis Status: Acute Assessment and Plan: Patient initially presented to the ED this morning for generalized weakness, but later admitted to upper abdominal pain that have been going on for a few days. Denies any nausea or vomiting. CT scan was obtained and demonstrated a distended and hyperemic gallbladder with wall thickening and pericholecystic fluid. Also demonstrated was a rim enhancing foci in the liver suspicious for abscess formation. Ultrasound was then performed and demonstrated michel megaly with fatty infiltration of the liver. Hyperechoic lesion present adjacent to the gallbladder wall. Patient has been tachycardic and tachypneic since admission. Elevated blood pressures with most recent 170/79. Afebrile. WBC 15.0. Patient is not a great surgical candidate due to his health status and comorbidities at this time, so ultrasound-guided percutaneous cholecystostomy tube has been ordered. Patient may need laparoscopic cholecystectomy in the future, but other medical issues need to be addressed first. We will continue to monitor with serial abdominal exams and labs. Continue IV antibiotics and fluids. Continue pain control with morphine. (2) Hypertension: Code(s): I10 - Essential (primary) hypertension Status: Acute Assessment and Plan: Manage per hospitalist team (3) Hyperlipidemia: Code(s): E78.5 - Hyperlipidemia, unspecified Status: Acute (4) JAYY (acute kidney injury): Code(s): N17.9 - Acute kidney failure, unspecified Status: Acute Plan Discussed patient's case and plan of care with Dr. Whelan. History of Present Illness Consult details Consult date: 03/27/25 Reason for consult: other (Acute cholecystitis) Requesting physician: Tom Sarkar MD Narrative: Patient is an 84-year-old male with history of diabetes, hypertension, hyperlipidemia, and CAD who we have been asked to see in surgical consultation for acute cholecystitis. Patient presented to the ED this morning with complaints of generalized weakness. Per chart review and family at bedside, patient did have a ground level fall yesterday and struck his head. Denies loss of consciousness. Head CT and cervical spine CT demonstrated no acute abnormalities. Patient later admitted that he had been having some upper abdominal pain for the past few days. A CT of the abdomen and pelvis was obtained and demonstrated a distended gallbladder with hyperemia and thickening of the wall and pericholecystic fluid concerning for cholecystitis. Also noted was a rim enhancing subcentimeter foci suspicious for abscess formation on the liver. Right upper quadrant ultrasound was then performed and demonstrated hepatomegaly with fatty infiltration of the liver. Hyperechoic lesion present adjacent to the gallbladder wall, indeterminate. There is possible pericholecystic fluid there is gallbladder wall thickening. Findings suspicious for cholecystitis. Labs demonstrated a white blood cell count of 15.0. Hemoglobin 13.1. BUN and creatinine elevated. Bilirubin and all other liver enzymes normal. Tachycardic, tachypneic, and hypertensive. Currently on 2 L of oxygen via nasal cannula satting at 98. Patient denies any history of abdominal surgeries. Denies nausea or vomiting. Started on Zosyn. Patient was admitted to medical floor. [facility] Past Medical History Medical History (Updated 03/27/25 @ 12:54 by Cherelle Castro, YARN EXAMINER) Umbilical hernia DJD (degenerative joint disease) BPH (benign prostatic hyperplasia) DMII (diabetes mellitus, type 2) Hypertension Hyperlipidemia IVETT (obstructive sleep apnea) CPAP CAD (coronary artery disease) Surgical History Surgical History (Updated 07/12/19 @ 13:31 by Ld Alegria) H/O hemorrhoidectomy (~1979) Status post total left knee replacement (~07/07/19) History of total right knee replacement (~2006) History of coronary artery stent placement (~12/1998) 1998 Family History Family History Mother Family history of Alzheimer's disease Father Family history of heart disease in male family member before age 55 Social History Social History Social History: Patient lives with , Aggie, whom he designates as his surrogate decision maker. He is listed as a full code. His primary is Dr. Underwood. 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) Smoking status: Current some day smoker Tobacco type: cigars Alcohol intake: current Drinks per week: 2 Substance use: never Additional living arrangements comments: Lives with at home Occupation/Education: retired Gender identity (if verbalized by the patient): Male Spiritual care concerns: No Agree to blood products: Yes Meds Home Medications and Allergies Home Medications ?Medication ?Instructions ?Recorded ?Confirmed ?Type amlodipine 10 mg tablet 10 mg PO DAILY 06/25/19 07/07/19 History aspirin 81 mg tablet,delayed 81 mg PO DAILY 06/25/19 07/07/19 History release (Aspir-) atenolol 100 mg tablet 50 mg PO DAILY 06/25/19 07/07/19 History cetirizine 10 mg capsule (Zyrtec) 10 mg PO DAILY 06/25/19 07/07/19 History finasteride 5 mg tablet 5 mg PO DAILY 06/25/19 07/07/19 History glipizide 5 mg tablet 5 mg PO DAILY 06/25/19 07/07/19 History liraglutide 0.6 mg/0.1 mL (18 mg/3 1.8 mg subcut DAILY 06/25/19 07/07/19 History mL) subcutaneous pen injector (Victoza 3-Ricardo) lisinopril 40 mg tablet 40 mg PO DAILY 06/25/19 07/07/19 History metformin 1,000 mg tablet 1,000 mg PO BID 06/25/19 07/07/19 History dfaddrkj-ur-ciqks 300 mcg-K 60 1 tablet PO DAILY 06/25/19 07/07/19 History mcg-lycop 600 mcg-lutein 300 mcg tablet (Centrum Silver Men) omega 0-drs-ywt-fish oil 1,000 mg 1 cap PO DAILY 06/25/19 07/07/19 History (120 mg-180 mg) capsule (Fish Oil) simvastatin 80 mg tablet 80 mg PO HS 06/25/19 07/07/19 History tamsulosin 0.4 mg capsule (Flomax) 0.4 mg PO HS 06/25/19 07/07/19 History aspirin 325 mg tablet,delayed 325 mg PO BID #60 tabs 07/09/19 Rx release (Ecotrin) celecoxib 200 mg capsule (Celebrex) 200 mg PO BIDWM #60 caps 07/09/19 Rx cephalexin 500 mg capsule 500 mg PO Q6HR #26 caps 07/09/19 Rx docusate sodium 100 mg capsule 100 mg PO Q12HR #60 caps 07/09/19 Rx enoxaparin 30 mg/0.3 mL 30 mg (0.3 mL) subcut Q12HR #25 mL 07/09/19 Rx subcutaneous syringe oxycodone 5 mg capsule 2.5 mg (1/2 x 5 mg) PO Q4HR #50 07/09/19 Rx caps polyethylene glycol 3350 17 gram 17 g PO QAM #30 ea 07/09/19 Rx oral powder packet (Miralax) Allergies Allergy/AdvReac Type Severity Reaction Status Date / Time No Known Allergies Allergy Verified 03/27/25 08:43 Vital Signs Vital Signs - 24 hr 03/27/25 08:26 03/27/25 08:34 03/27/25 08:44 Temperature 98.1 F Pulse Rate 93 95 94 Respiratory Rate 26 H 30 H Blood Pressure 112/63 112/63 Pulse Oximetry 98 95 Oxygen Delivery Room Air Oxygen Flow Rate 03/27/25 08:47 03/27/25 08:57 03/27/25 09:02 Temperature Pulse Rate 96 93 Respiratory Rate 23 H 34 H Blood Pressure 124/55 L 117/51 L Pulse Oximetry 98 94 99 Oxygen Delivery Room Air Oxygen Flow Rate 03/27/25 10:03 03/27/25 10:39 03/27/25 10:40 Temperature Pulse Rate 95 117 H 116 H Respiratory Rate 25 H 30 H 31 H Blood Pressure 129/76 149/89 H Pulse Oximetry 92 93 94 Oxygen Delivery Oxygen Flow Rate 03/27/25 10:45 03/27/25 10:46 03/27/25 11:00 Temperature 99.3 F Pulse Rate 116 H 115 H 117 H Respiratory Rate 27 H 45 H 30 H Blood Pressure 145/68 H 153/82 H Pulse Oximetry 93 93 98 Oxygen Delivery Oxygen Flow Rate 03/27/25 11:01 03/27/25 11:06 03/27/25 11:15 Temperature Pulse Rate 116 H 119 H Respiratory Rate 31 H 30 H Blood Pressure Pulse Oximetry 97 97 98 Oxygen Delivery Nasal Cannula Oxygen Flow Rate 2 03/27/25 11:17 03/27/25 11:30 03/27/25 11:46 Temperature Pulse Rate 123 H 124 H 115 H Respiratory Rate 34 H 29 H Blood Pressure Pulse Oximetry 97 Oxygen Delivery Oxygen Flow Rate 03/27/25 12:00 03/27/25 12:14 03/27/25 12:15 Temperature Pulse Rate 113 H 117 H 118 H Respiratory Rate 34 H 33 H 33 H Blood Pressure 160/87 H 168/86 H Pulse Oximetry 97 98 98 Oxygen Delivery Oxygen Flow Rate 03/27/25 12:16 03/27/25 12:30 03/27/25 12:31 Temperature Pulse Rate 119 H 122 H 122 H Respiratory Rate 30 H 37 H 29 H Blood Pressure 167/92 H Pulse Oximetry 98 98 Oxygen Delivery Oxygen Flow Rate 03/27/25 13:17 Temperature 99.5 F Pulse Rate 123 H Respiratory Rate 39 H Blood Pressure 170/79 H Pulse Oximetry 98 Oxygen Delivery Oxygen Flow Rate Exam Const: General: comfortable and no acute distress Eyes: General: appearance normal, both eyes and all related structures Neck: Neck: supple Resp: Other: Tachypneic Cardio: Rate: tachycardic GI: Inspection: non-distended GI Palp: Yes Soft to palpation, Yes Tenderness to palpation present (GI) (Focal tenderness to right upper quadrant) and Yes Hernia present umbilical (Reducible) 3-10 cm : General: Yes bladder normal to palpation Skin: General skin exam: normal color and no rashes or lesions noted Neuro: Speech: normal speech Sensory Exam: normal sensation Extrem: General: normal to inspection Psych: Mental Status: mental status grossly normal Results Labs 03/27/25 08:46 03/27/25 08:46 Labs: Abnormal lab results 03/27/25 03/27/25 Range/Units 08:46 11:57 WBC 15.0 H (4.5-10.0) K/mm3 RBC 4.38 L (4.6-6.20) M/mm3 Hgb 13.1 L (14.0-18.0) g/dL Hct 39.6 L (42.0-52.0) % Plt Count 79 L D (150-375) k/mm3 MPV 11.9 H (7.4-10.4) fl Neut % (Auto) 90.5 H (45.5-73.1) % Lymph % (Auto) 1.8 L (18.3-44.2) % Lymph # (Auto) 0.27 L (0.9-3.2) K/mm3 [place] # (Auto) 1.1 H (0.1-0.6) K/mm3 Abs Immat Gran (auto) 0.06 H (0.00-0.031) K/mm3 Absolute Neuts (auto) 13.6 H (1.3-6.7) K/mm3 PT 14.8 H (11.1-14.7) Seconds Sodium 135 L (137-145) mmol/L BUN 54 H D (9-20) mg/dL Creatinine 1.62 H (0.7-1.3) mg/dL Estimated GFR 41 L (59 - ) Glucose 252 H (65-110) mg/dL POC Capillary Glucose 206 H (65-105) mg/dl C-Reactive Protein 44.9 H (<1.0) mg/dL Albumin 3.4 L (3.5-5.1) g/dL Urine Appearance Turbid H (Clear) Urine Protein 2+ H (Negative) mg/dL Urine Ketones Trace H (Negative) mg/dL Urine Bilirubin 1+ H (Negative) Leukocyte Esterase Rfl Trace H (Negative) KEYON/UL Diabetes panel 03/27/25 Range/Units 08:46 Sodium 135 L (137-145) mmol/L Potassium 3.5 (3.4-5.0) mmol/L Chloride 99 (98-107) mmol/L Carbon Dioxide 26 (22-30) mmol/L BUN 54 H D (9-20) mg/dL Creatinine 1.62 H (0.7-1.3) mg/dL Glucose 252 H (65-110) mg/dL Calcium 8.8 (8.4-10.2) mg/dL AST 51 (17-59) U/L ALT 50 (6-50) U/L Alkaline Phosphatase 88 (38-126) U/L Total Protein 6.7 (6.3-8.2) g/dL Albumin 3.4 L (3.5-5.1) g/dL Calcium panel 03/27/25 Range/Units 08:46 Calcium 8.8 (8.4-10.2) mg/dL Albumin 3.4 L (3.5-5.1) g/dL Pituitary panel 03/27/25 Range/Units 08:46 Sodium 135 L (137-145) mmol/L Potassium 3.5 (3.4-5.0) mmol/L Chloride 99 (98-107) mmol/L Carbon Dioxide 26 (22-30) mmol/L BUN 54 H D (9-20) mg/dL Creatinine 1.62 H (0.7-1.3) mg/dL Glucose 252 H (65-110) mg/dL Calcium 8.8 (8.4-10.2) mg/dL Adrenal panel 03/27/25 Range/Units 08:46 Sodium 135 L (137-145) mmol/L Potassium 3.5 (3.4-5.0) mmol/L Chloride 99 (98-107) mmol/L Carbon Dioxide 26 (22-30) mmol/L BUN 54 H D (9-20) mg/dL Creatinine 1.62 H (0.7-1.3) mg/dL Glucose 252 H (65-110) mg/dL Calcium 8.8 (8.4-10.2) mg/dL Total Bilirubin 1.2 (0.2-1.3) mg/dL AST 51 (17-59) U/L ALT 50 (6-50) U/L Alkaline Phosphatase 88 (38-126) U/L Total Protein 6.7 (6.3-8.2) g/dL Albumin 3.4 L (3.5-5.1) g/dL All other labs normal.
[2025-03-27 14:30] LABS: Hemoglobin A1C 7.0 % (<5.7)
[2025-03-27 16:28] LABS: Creatine Kinase 274 U/L (55-170)
[2025-03-27 16:38] LABS: NT Pro B Type Natriuretic Pept 2170 pg/mL (19.9-100)
[2025-03-27] MEDS: ACETAMINOPHEN 325 MG TABLET 650 MG PO (18:22)
[2025-03-27] MEDS: SIMVASTATIN 20 MG TABLET 80 MG PO (21:23)
[2025-03-28] VITALS (16 sets, daily range): BP systolic 110–143; BP diastolic 60–77; PULSE 74–105; RESP 18–22; TEMP 36.4–37.1; O2SAT 93–97
--- NOTE | 2025-03-28 | ECHO_ITS ---
Patient Info Name: Alban Graff Age: 84 years : 1940 Gender: Male Ht: 72 in Wt: 229 lbs BSA: 2.32 m2 HR: 95 bpm BP: 111 / 73 mmHg Technical Quality: Good Exam Date: 03/28/2025 7:48 AM Patient Status: I Admit Date: 03/27/2025 Exam Type: CA echo doppler color flow Complete two-dimensional, color flow and Doppler transthoracic echocardiogram is performed. Staff Referring Physician: Tom Sarkar Senior Bookkeeper: Nika Li Attending Provider: Rashawn Jasmine MD Summary 1. Complete two-dimensional, color flow and Doppler transthoracic echocardiogram is performed. 2. Left ventricular systolic function is normal, estimated at 60-65. 3. There is moderately increased left ventricular wall thickness. 4. The left ventricular diastolic function is grade II diastolic dysfunction. 5. Left atrial chamber dimension is moderately enlarged. 6. There is mild mitral valve regurgitation. 7. There is mild mitral valve calcification. 8. There is mild tricuspid valve regurgitation. 9. Moderate pulmonary hypertension, estimated pulmonary arterial systolic pressure is 50 mmHg. Left Ventricle Left ventricular chamber dimension is normal. Left ventricular systolic function is normal, estimated at 60-65. There is moderately increased left ventricular wall thickness. Left ventricular septal wall motion is normal. The left ventricular diastolic function is grade II diastolic dysfunction. Right Ventricle Right ventricular chamber dimension is normal. Right ventricular systolic function is normal. Left Atria Left atrial chamber dimension is moderately enlarged. Right Atria Right atrial chamber dimension is normal. Aortic Valve The aortic valve is probable trileaflet. There is moderate aortic valve sclerosis. There is no aortic valve stenosis. There is no aortic valve regurgitation. Pulmonic Valve The pulmonic valve is normal. There is no pulmonic valve stenosis. There is no pulmonic regurgitation. Mitral Valve The mitral valve has normal leaflets. There is no mitral valve stenosis. There is mild mitral valve regurgitation. There is mild mitral valve calcification. Tricuspid Valve The tricuspid valve leaflets are normal. There is no significant tricuspid valve stenosis. There is mild tricuspid valve regurgitation. Moderate pulmonary hypertension, estimated pulmonary arterial systolic pressure is 50 mmHg. Pericardium/Pleural The pericardium appears normal. There is no pericardial effusion. Inferior Vena Cava Dilated inferior vena cava with <50% collapse upon inspiration consistent with normal right atrial pressure, 5 mmHg. Aorta The aortic root size at the sinus of Valsalva is normal. The prox ascending aorta size is normal. Left Ventricular Outflow Tract Name Value Normal LVOT 2D LVOT Diameter 2.0 cm LVOT Doppler LVOT Peak Velocity 198 cm/s LVOT Peak Gradient 14 mmHg LVOT Mean Gradient 7 mmHg LVOT VTI 42 cm LVOT VTI/AV VTI Ratio 0.8 LVOT Stroke Volume 139 ml Pulmonic Valve Name Value Normal RVOT Doppler RVOT Peak Velocity 94 cm/s RVOT Peak Gradient 4 mmHg PV Doppler PV Peak Velocity 125 cm/s PV Peak Gradient 6 mmHg Mitral Valve Name Value Normal MV Doppler MV Peak Gradient 14 mmHg MV Mean Gradient 8 mmHg MV PHT 82 ms MV Area (PHT) 2.7 cm2 4.0-5.0 MV Area (Cont Eq VTI) 2.5 cm2 MV Diastolic Function MV E Peak Velocity 6 cm/s MV A Peak Velocity 5 cm/s MV E/A 1.1 MV Decel Time (PW) 93 ms MV Annular TDI MV E/e' (Septal) 12.8 MV E/e' (Lateral) 14.2 MV E/e' (Average) 13.5 Tricuspid Valve Name Value Normal TV Regurgitation Doppler TR Peak Velocity 337 cm/s TR Peak Gradient 45 mmHg Estimated PAP/RSVP RA Pressure 5 mmHg <=5 PA Systolic Pressure 50 mmHg <36 RV Systolic Pressure 50 mmHg <36 Aorta Name Value Normal Ascending Aorta Sinus of Valsalva Diameter 3.8 cm 3.1-3.7 Sinus of Valsalva Index 1.6 cm/m2 1.5-1.9 Ao [place] Diameter 3.2 cm 2.6-3.2 Aortic Valve Name Value Normal AV Doppler AV Peak Velocity 272 cm/s AV Peak Gradient 28 mmHg AV Mean Gradient 15 mmHg AV VTI 56 cm AV Area (Cont Eq VTI) 2.5 cm2 >=3.0 AV Area (Cont Eq Kar) 2.4 cm2 AV DI (Kar) 0.73 AV Regurgitation 2D LVOT Area 3.3 cm2 Ventricles Name Value Normal LV Dimensions 2D/MM IVS Diastolic Thickness (2D) 1.4 cm 0.6-1.0 LVID Diastole (2D) 5.4 cm 4.2-5.8 LVIW Diastolic Thickness (2D) 0.9 cm 0.6-1.0 LVID Systole (2D) 3.3 cm 2.5-4.0 LVOT Diameter 2.0 cm LV Mass (2D Cubed) 250.49 g 88.00-224.00 LV Mass Index (2D Cubed) 108 g/m2 49-115 Relative Wall Thickness (2D) 0.32 <=0.42 LV Fractional Shortening/Ejection Fraction 2D/MM LV Fractional Shortening (2D) 37 % 25-43 LV EF (2D Teichholz) 69 % LV Diastolic Volume (4C MOD) 113 ml LV EF (4C MOD) 54 % LV Diastolic Volume (2C MOD) 132 ml LV EF (2C MOD) 53 % LV Diastolic Volume (BP MOD) 123 ml 62-150 LV Diastolic Volume Index (BP MOD) 53 ml/m2 34-74 LV Systolic Volume (BP MOD) 58 ml 21-61 LV Systolic Volume Index (BP MOD) 25 ml/m2 11-31 LV EF (BP MOD) 53 % 52-72 LV Diastolic Length (4C) 8.6 cm LV Systolic Length (4C) 7.1 cm LV Stroke Volume (4C MOD) 60 ml RV Dimensions 2D/MM TAPSE 2.0 cm >=1.7 Atria Name Value Normal LA Dimensions LA Volume (4C A-L) 89 ml LA Volume (BP A-L) 92 ml RA Dimensions RA Systolic Major [place] Length (4C) 6.6 cm 2.1-2.7 RA Area (4C) 14.0 cm2 <=18.0 Report Signatures
[2025-03-28] MEDS: INSULIN ASPART (*BKC) 100 UNITS/ML SUB-Q ×3 (00:29→20:15)
[2025-03-28] MEDS: ALBUMIN HUMAN 25% 25 GM/100 ML 200 ML IVPB (00:30)
[2025-03-28] MEDS: PIPERACILLIN/TAZOBACTAM SOD 3.375 GM in SODIUM CHLORIDE 0.9% IV 50 ML 100 ML IVPB ×4 (00:32→20:15)
[2025-03-28 04:15] LABS: Hematocrit 32.8 % (42.0-52.0); Hemoglobin 10.6 g/dL (14.0-18.0); Immature Platelet Fraction Pct 12.6 % (0.9-11.2); Mean Corpuscular HGB Conc 32.3 g/dl (32-36); Mean Corpuscular Hemoglobin 29.9 pg (26-34); Mean Corpuscular Volume 92.4 fl (80-100); Red Blood Count 3.55 M/mm3 (4.6-6.20); White Blood Count 15.6 K/mm3 (4.5-10.0)
[2025-03-28 04:28] LABS: Platelet Count Result 54 k/mm3 (150-375)
[2025-03-28 04:39] LABS: Anion Gap 8 mmol/L (4-12); Blood Urea Nitrogen 53 mg/dL (9-20); Calcium 8.0 mg/dL (8.4-10.2); Carbon Dioxide 25 mmol/L (22-30); Chloride 104 mmol/L (98-107); Estimated CRCL calculation 45 ml/min; Estimated Glomerular Filt Rate 52; Glucose 229 mg/dL (65-110); Potassium 3.7 mmol/L (3.4-5.0); Sodium 137 mmol/L (137-145)
[2025-03-28 04:43] LABS: Band Neutrophils Percent 1 % (0-6); Eosinophils Absolute Manual 0.15 K/mm3 (0.02-0.50); Eosinophils Percent Manual 1 % (0-4); Lymphocytes Absolute Manual 1.24 K/mm3 (1.1-4.5); Lymphocytes Percent Manual 8.0 % (18-44); Monocytes Absolute Manual 1.09 K/mm3 (0.1-0.90); Monocytes Percent Manual 7 % (3-9); Neutrophils Absolute Manual 13.10 K/mm3 (1.3-6.7); Neutrophils Percent Manual 83 % (46-73); Total Cells Counted 100
[2025-03-28 04:44] LABS: Anisocytosis 1+; Burr Cells 1+; Ovalocytes 1+; Schistocytes None Seen
[2025-03-28 05:47] LABS: CRP 32.8 mg/dL (<1.0)
[2025-03-28] MEDS: LACTATED RINGERS 1,000 ML 125 ML IV CONT ×2 (06:15→15:29)
[2025-03-28] MEDS: ASPIRIN 325 MG ENTERIC TABLET PO ×2 (08:23→20:34)
[2025-03-28] MEDS: LORATADINE 10 MG TABLET PO (08:23)
[2025-03-28] MEDS: DOCUSATE SODIUM 100 MG CAPSULE PO ×2 (08:23→20:35)
[2025-03-28] MEDS: FINASTERIDE 5 MG TABLET PO (08:23)
[2025-03-28] MEDS: ACETAMINOPHEN 325 MG TABLET 650 MG PO (08:23)
[2025-03-28] MEDS: CELECOXIB 200 MG CAPSULE PO (08:23)
--- NOTE | 2025-03-28 15:49 | PM.PNGS ---
Progress Note: A&P Assessment and Plan (1) Cholelithiasis and acute cholecystitis without obstruction: Code(s): K80.00 - Calculus of gallbladder with acute cholecystitis without obstruction Status: Acute Assessment and Plan: Improving after cholecystostomy tube placed yesterday. Patient is still septic with altered mental status, fever, tachycardia. Continue IV Zosyn and catheter drainage (2) CAD (coronary artery disease): Qualifiers: Coronary Disease-Associated Artery/Lesion type: [place] artery [place] vs. 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: without senior care use Diabetes mellitus complication status: without complication Qualified Code(s): E11.9 - Type 2 diabetes mellitus without complications Code(s): E11.9 - Type 2 diabetes mellitus without complications Status: Chronic (4) IVETT (obstructive sleep apnea): Code(s): G47.33 - Obstructive sleep apnea (adult) (pediatric) Status: Chronic Assessment and Plan: On CPAP (5) Umbilical hernia: Qualifiers: Obstruction and gangrene presence: without obstruction or gangrene Qualified Code(s): K42.9 - Umbilical hernia without obstruction or gangrene Code(s): K42.9 - Umbilical hernia without obstruction or gangrene Status: Chronic Assessment and Plan: Reducible (6) Thrombocytopenia: Code(s): D69.6 - Thrombocytopenia, unspecified Status: Acute Assessment and Plan: 79,000 yesterday, 54,000 today. Continue to watch, no active bleeding Subjective Subjective Date/Time Seen: 03/28/25 15:49 Patient reports: feels better, pain is less, tolerating liquids well, no bowel movement and fever Review of Systems Review of Systems: All systems reviewed & are unremarkable except as noted in HPI and below (HPI) Exam Const: General: cooperative, comfortable, alert and awake Nutritional Appearance: overweight Orientation/consciousness: No oriented to person, oriented to place ([facility]) and oriented to time (February) Other: Patient febrile to 38.6? at 4:00 p.m. and 6:30 p.m. yesterday, this was following placement cholecystostomy tube Resp: Effort & Inspection: normal respiratory effort, no audible wheezes, no cough, no stridor and not tachypneic Auscultation: clear to auscultation bilaterally, no crackles, no rhonchi and no wheezes Cardio: Rate: tachycardic (Improving) Rhythm: regular rhythm Heart sounds: no murmurs and no rubs GI: Inspection: non-distended and other (Cholecystostomy tube draining bloody bile) GI Palp: Yes Soft to palpation, No Tenderness to palpation present (GI) and No Guarding due to palpation present (GI) Auscultation: Hypoactive bowel sounds present Urinary Catheter: Urinary Catheter: patent and draining Neuro: General: oriented to place, oriented to time and moves all extremities Cranial nerves: Yes facial symmetry and Yes Midline tongue present Speech: normal speech Objective Data Vital Signs Vital Signs: Vital Signs - 24 hr 03/27/25 16:00 03/27/25 16:00 03/27/25 16:00 Temperature 38.6 C H Pulse Rate 118 H 118 H Respiratory Rate 32 H Blood Pressure 136/67 Pulse Oximetry 98 98 Oxygen Delivery Nasal Cannula Oxygen Flow Rate 2 Fraction of Inspired Oxygen 03/27/25 18:00 03/27/25 18:22 03/27/25 19:22 Temperature 38.6 C H 36.9 C Pulse Rate 107 H Respiratory Rate Blood Pressure Pulse Oximetry Oxygen Delivery Oxygen Flow Rate Fraction of Inspired Oxygen 03/27/25 20:00 03/27/25 20:00 03/27/25 20:38 Temperature 36.9 C Pulse Rate 124 H 105 H 124 H Respiratory Rate 20 20 Blood Pressure 93/53 L Pulse Oximetry 94 94 Oxygen Delivery CPAP Oxygen Flow Rate Fraction of Inspired Oxygen 21 03/27/25 22:00 03/27/25 23:40 03/28/25 00:00 Temperature 37.1 C Pulse Rate 100 74 Respiratory Rate 22 H Blood Pressure 110/64 Pulse Oximetry 93 Oxygen Delivery Room Air Oxygen Flow Rate Fraction of Inspired Oxygen 03/28/25 00:00 03/28/25 00:08 03/28/25 02:00 Temperature Pulse Rate 76 74 75 Respiratory Rate 22 H Blood Pressure Pulse Oximetry 93 Oxygen Delivery CPAP Oxygen Flow Rate Fraction of Inspired Oxygen 21 03/28/25 04:00 03/28/25 04:00 03/28/25 04:00 Temperature 37.1 C Pulse Rate 93 93 85 Respiratory Rate 18 18 Blood Pressure 122/60 Pulse Oximetry 95 95 Oxygen Delivery CPAP Oxygen Flow Rate Fraction of Inspired Oxygen 21 03/28/25 06:00 03/28/25 07:59 03/28/25 08:00 Temperature 36.4 C Pulse Rate 82 91 Respiratory Rate 20 Blood Pressure 133/65 Pulse Oximetry 95 95 Oxygen Delivery Room Air Oxygen Flow Rate Fraction of Inspired Oxygen 03/28/25 08:00 03/28/25 10:00 03/28/25 11:38 Temperature 36.6 C Pulse Rate 92 104 H 89 Respiratory Rate 20 Blood Pressure 132/63 Pulse Oximetry 94 Oxygen Delivery Oxygen Flow Rate Fraction of Inspired Oxygen 03/28/25 12:00 Temperature Pulse Rate Respiratory Rate Blood Pressure Pulse Oximetry 94 Oxygen Delivery Room Air Oxygen Flow Rate Fraction of Inspired Oxygen Intake/Output Intake/Output: Intake & Output 03/25/25 03/26/25 03/27/25 03/28/25 23:59 23:59 23:59 23:59 Intake Total 4100 3497.9 Output Total 630 418 Balance 3470 3079.9 Meds/Results Medications: Active Medications Generic Name Dose Route Start Last Admin Trade Name Freq PRN Reason Stop Dose Admin Acetaminophen 650 mg 03/27/25 16:53 03/28/25 08:23 Acetaminophen 325 Mg Tablet PO 650 mg Q6H PRN Administration Mild Pain (1-3) or Fever Aspirin 325 mg 03/28/25 09:00 03/28/25 08:23 Aspirin 325 Mg Enteric Tablet PO 325 mg Q12HR CEE Administration Celecoxib 200 mg 03/28/25 08:00 03/28/25 08:23 Celecoxib 200 Mg Capsule PO 200 mg BIDWM CEE Administration Dextrose 12.5 gm 03/27/25 13:42 Dextrose 50% 25 Gm/50 Ml Syringe IV PUSH PRN PRN Hypoglycemia Protocol Docusate Sodium 100 mg 03/28/25 09:00 03/28/25 08:23 Docusate Sodium 100 Mg Capsule PO 100 mg Q12HR CEE Administration Finasteride 5 mg 03/28/25 09:00 03/28/25 08:23 Finasteride 5 Mg Tablet PO 5 mg DAILY CEE Administration Glucagon 1 mg 03/27/25 13:42 Glucagon For Inj 1 Mg Vial IM PRN PRN Hypoglycemia Protocol Glucose 15 gm 03/27/25 13:42 Glucose Oral Gel 15 Gm Of Glucse In 37.5 Gm Tube PO PRN PRN Hypoglycemia Protocol Piperacillin Sod/Tazobactam 50 mls @ 100 mls/hr 03/27/25 18:00 03/28/25 12:35 Sod 3.375 gm/ Sodium Chloride IVPB Infused Q6HR CEE Infusion Lactated Ringer's 1,000 mls @ 125 mls/hr 03/27/25 11:55 03/28/25 15:29 Lr - Lactated Ringers Iv IV CONT 125 mls/hr .Q8H CEE Administration Dextrose 1,000 mls @ 100 mls/hr 03/27/25 13:42 Dextrose 5% 1,000 Ml IVPB PRN PRN Hypoglycemia Protocol Insulin Aspart 2 - 5 units 03/27/25 18:00 03/28/25 12:07 Insulin Aspart (*Bkc) 100 Units/Ml SUB-Q 3 units Q6HR CEE Administration Protocol Loratadine 10 mg 03/28/25 09:00 03/28/25 08:23 Loratadine 10 Mg Tablet PO 10 mg QAM CEE Administration Morphine Sulfate 2 mg 03/27/25 13:02 03/27/25 18:22 Morphine Sulfate (*Crx) 2 Mg/Ml Inj IV PUSH 2 mg Q2HR PRN Administration Pain Rated 7-10 Ondansetron HCl 4 mg 03/27/25 11:54 Ondansetron Inj 4 Mg/2 Ml Vial IV PUSH Q4H PRN Nausea Perflutren Lipid Microsphere 0 ml 03/27/25 16:47 Perflutren Lipid Microspheres 1.5 Ml Vial Diluted To 10 Ml Total Volume IV PUSH 03/30/25 16:47 ONCE PRN adequate visualization Protocol Simvastatin 80 mg 03/27/25 21:00 03/27/25 21:23 Simvastatin 20 Mg Tablet PO 80 mg HS CEE Administration Tamsulosin HCl 0.4 mg 03/27/25 21:00 03/28/25 00:04 Tamsulosin Hcl 0.4 Mg Capsule PO Not Given HS CEE Radiology Results: ITS Impressions Head CT 03/27/25 09:20 Impression: 1.No acute intracranial abnormality. Cervical Spine CT 03/27/25 09:22 Impression: No acute abnormality. Chest X-Ray 03/27/25 09:28 Impression: No acute cardiopulmonary abnormality. Chest/Abdomen/Pelvis CT 03/27/25 10:27 IMPRESSION: 1. Findings are concerning for acute cholecystitis, questionable areas of liver abscess formation detailed above. Abdomen Ultrasound 03/27/25 11:42 IMPRESSION: 1: Hepatomegaly with fatty infiltration of the liver. Hyperechoic lesion present adjacent to the gallbladder wall, indeterminate. There is possible pericholecystic fluid. There is gallbladder wall thickening. Findings suspicious for cholecystitis. Clinically correlate. No definite abscess identified. Cholecystostomy 03/27/25 16:29 IMPRESSION: 1. Successful ultrasound-guided cholecystostomy tube placement. 2. 60 mL bile was sent for aerobic, anaerobic, and fungal cultures. 3. The catheter will be managed by Dr. Whelan. A catheter cholangiogram may be performed not less than 48 hours after tube placement if clinically indicated to assess cystic duct patency. If cholecystectomy is not eventually performed and the infectious episode has resolved, the tube may be removed over a guidewire, preferably not less than 3 weeks after placement to allow time for a mature catheter tract to form to prevent bile leakage and peritonitis. Labs Labs: Laboratory Results - last 24 hr 03/27/25 03/27/25 03/28/25 08:46 18:13 00:10 WBC RBC Hgb Hct MCV MCH MCHC RDW Plt Count MPV Immature Gran % (Auto) Neut % (Auto) Lymph % (Auto) Luna % (Auto) Eos % (Auto) Baso % (Auto) Lymph # (Auto) Luna # (Auto) Eos # (Auto) Baso # (Auto) Abs Immat Gran (auto) Absolute Neuts (auto) Absolute Nucleated RBC Total Counted Neutrophils % (Manual) Band Neutrophils % Lymphocytes % (Manual) Monocytes % (Manual) Eosinophils % (Manual) Nucleated RBC % Abs Neuts (Manual) Abs Lymphs (Manual) Abs Monocytes (Manual) Absolute Eos (Manual) Platelet Estimate % Immature Plt Fraction Anisocytosis Ovalocytes Steve Cells Schistocytes Sodium Potassium Chloride Carbon Dioxide Anion Gap BUN Creatinine Estim Creat Clear Calc Estimated GFR Glucose POC Capillary Glucose 233 H 276 H Calcium Total Creatine Kinase 274 H C-Reactive Protein NT-Pro-B Natriuret Pep 2170 H 03/28/25 03/28/25 03/28/25 03:30 05:50 11:28 WBC 15.6 H RBC 3.55 L Hgb 10.6 L Hct 32.8 L MCV 92.4 MCH 29.9 MCHC 32.3 RDW 14.8 H Plt Count 54 L MPV 13.0 H Immature Gran % (Auto) Not Reportable Neut % (Auto) Not Reportable Lymph % (Auto) Not Reportable Luna % (Auto) Not Reportable Eos % (Auto) Not Reportable Baso % (Auto) Not Reportable Lymph # (Auto) Not Reportable Luna # (Auto) Not Reportable Eos # (Auto) Not Reportable Baso # (Auto) Not Reportable Abs Immat Gran (auto) Not Reportable Absolute Neuts (auto) Not Reportable Absolute Nucleated RBC Not Reportable Total Counted 100 Neutrophils % (Manual) 83 H Band Neutrophils % 1 Lymphocytes % (Manual) 8.0 L Monocytes % (Manual) 7 Eosinophils % (Manual) 1 Nucleated RBC % Not Reportable Abs Neuts (Manual) 13.10 H Abs Lymphs (Manual) 1.24 Abs Monocytes (Manual) 1.09 H Absolute Eos (Manual) 0.15 Platelet Estimate Decreased % Immature Plt Fraction 12.6 H Anisocytosis 1+ Ovalocytes 1+ Steve Cells 1+ Schistocytes None seen Sodium 137 Potassium 3.7 Chloride 104 Carbon Dioxide 25 Anion Gap 8 BUN 53 H Creatinine 1.31 H Estim Creat Clear Calc 45 Estimated GFR 52 L Glucose 229 H POC Capillary Glucose 191 H 257 H Calcium 8.0 L Total Creatine Kinase C-Reactive Protein 32.8 H NT-Pro-B Natriuret Pep Platelet count decreased today to 54,000
--- NOTE | 2025-03-28 16:40 | P.PNIM_ITS ---
Progress Note: A&P Assessment and Plan (1) Sepsis: Code(s): A41.9 - Sepsis, unspecified organism Status: Acute Assessment and Plan: Patient presents with weakness and found to have fever, tachycardia, thrombocy topenia, leukocytosis and JAYY. CT Ch/A/P showing acute cholecystitis with possible 1cm liver abscess. Source of sepsis is acute cholecystitis with possible liver abscess. Received 30cc/kg and started on IV fluids. Cholecystostomy tube placed by IR (03/27) BCx - pending GB Culture - pending Started on Zosyn (03/27). WBC unchanged but tachycardia better and fever resolving. Continue IV abx. Follow up on Cx results. (2) Acute cholecystitis: Code(s): K81.0 - Acute cholecystitis Status: Acute Assessment and Plan: General Surgery consulted and appreciate their input Percutaneous cholecystostomy tube placed. Tube management per GenSurg Diet started. Follow up on Cx results. Continue IV abx. (3) Liver abscess: Code(s): K75.0 - Abscess of liver Status: Acute Assessment and Plan: As above. (4) Acute respiratory distress: Code(s): R06.03 - Acute respiratory distress Status: Acute Assessment and Plan: BNP 2170. Given his age, this is only mildly elevated. He appeared in acute respiratory distress with hypoxia in ED but imaging did not show CHF. He received aggressive fluid hydration in ED Echo showing EF 60-65% and Grade II diastolic dysfunction. Moderate pHTN noted. [place] that his tachypnea was related to the sepsis picture and less likely fluid overload On room air now. Monitor UOP. Monitor resp status (5) Atrial fib/flutter, transient: Code(s): I48.91 - Unspecified atrial fibrillation; I48.92 - Unspecified atrial flutter Status: Acute Assessment and Plan: Patient with transient AFib overnight felt related to sepsis picture. Converted to NSR spontaneously. Echo as above. [id number] 5 (HTN, Age, DM, CAD) He remains off Atenolol currently. No Heparin drip due to low plt count. Cardiology consult. Change ASA to Eliquis if and when able. Check TSH (6) JAYY (acute kidney injury): Code(s): N17.9 - Acute kidney failure, unspecified Status: Acute Assessment and Plan: No recent Cr to review. Cr 1.6 on admission. Received appropriate fluid resuscitation in ED. Repeat Cr 1.3 today. UOP not brisk. Remains on IV fluids. Wean off IV fluids. Follow (7) Hypertension: Code(s): I10 - Essential (primary) hypertension Status: Acute Assessment and Plan: Patient's blood pressure was reviewed on 03/28 Blood pressure remains well controlled. Will continue to monitor (8) CAD (coronary artery disease): Qualifiers: Coronary Disease-Associated Artery/Lesion type: [place] artery [place] vs. transplanted heart: [place] heart Associated angina: unspecified whether angina present Qualified Code(s): I25.10 - Atherosclerotic heart disease of [place] coronary artery without angina pectoris Code(s): I25.10 - Atherosclerotic heart disease of [place] coronary artery without angina pectoris Status: Chronic Assessment and Plan: Patient with CAD s/p stent placement. Continue Zocor and ASA. 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 Continue AccuCheks covering with sliding scale. Hypoglycemia protocol available as needed. Add lantus at night since diet resumed. Continue to monitor (10) BPH (benign prostatic hyperplasia): Code(s): N40.0 - Benign prostatic hyperplasia without lower urinary tract symptoms Status: Acute Assessment and Plan: Patient with urine retention requiring Jeffrey placement. Related to above. Proscar and Flomax restarted Voiding trial when patient more ambulatory (11) Fall: Code(s): W19.XXXA - Unspecified fall, initial encounter Status: Acute Assessment and Plan: Patient did have a ground level fall 03/26 and struck his head. Patient denies any loss of consciousness. CT head showing no acute findings CT cervical spine showing no acute process Start PT/OT (12) Thrombocytopenia: Code(s): D69.6 - Thrombocytopenia, unspecified Status: Acute Assessment and Plan: Plt count normal in 2019 but no values since Plt count 79K -> 54K MPV elevated. Possibly consumptive from infection vs chronic. Follow Plan DVT Prophylaxis - SCDs Code status - full Subjective Date/time seen: 03/28/25 16:40 Interval history: 84yo male with BPH, DM, HTN, HLD and CAD presents the hospital with acute weakness. Slept okay. Tolerated CPAP. no abd paulino. No BM . No n/v. No Cp or SOb Exam Narrative: Tm 101.4 97.8 132/63 89 20 94% ra Gen - NARD Chest - bibasilar rhonchi, nml RR CV - RRR S1/S2; Tele showing AFib overnight that converted to NSR. Abd - Soft, NT/ND, Positive BS. RUQ cholecystostomy drain in place with bilious fluid with old blood in bag. - Jeffrey secured draining clear yellow urine Ext - periankle pedal edema Psych - Nml mood and affect Skin - Warm and dry Objective Data Vital Signs Vital Signs: Vital Signs - 24 hr 03/27/25 18:00 03/27/25 18:22 03/27/25 19:22 Temperature 101.4 F H 98.4 F Pulse Rate 107 H Respiratory Rate Blood Pressure Pulse Oximetry Oxygen Delivery Fraction of Inspired Oxygen 03/27/25 20:00 03/27/25 20:00 03/27/25 20:38 Temperature 98.4 F Pulse Rate 124 H 105 H 124 H Respiratory Rate 20 20 Blood Pressure 93/53 L Pulse Oximetry 94 94 Oxygen Delivery CPAP Fraction of Inspired Oxygen 03/27/25 22:00 03/27/25 23:40 03/28/25 00:00 Temperature 98.7 F Pulse Rate 100 74 Respiratory Rate 22 H Blood Pressure 110/64 Pulse Oximetry 93 Oxygen Delivery Room Air Fraction of Inspired Oxygen 03/28/25 00:00 03/28/25 00:08 03/28/25 02:00 Temperature Pulse Rate 76 74 75 Respiratory Rate 22 H Blood Pressure Pulse Oximetry 93 Oxygen Delivery CPAP Fraction of Inspired Oxygen 03/28/25 04:00 03/28/25 04:00 03/28/25 04:00 Temperature 98.8 F Pulse Rate 93 93 85 Respiratory Rate 18 18 Blood Pressure 122/60 Pulse Oximetry 95 95 Oxygen Delivery CPAP Fraction of Inspired Oxygen 03/28/25 06:00 03/28/25 07:59 03/28/25 08:00 Temperature 97.6 F Pulse Rate 82 91 Respiratory Rate 20 Blood Pressure 133/65 Pulse Oximetry 95 95 Oxygen Delivery Room Air Fraction of Inspired Oxygen 03/28/25 08:00 03/28/25 10:00 03/28/25 11:38 Temperature 97.8 F Pulse Rate 92 104 H 89 Respiratory Rate 20 Blood Pressure 132/63 Pulse Oximetry 94 Oxygen Delivery Fraction of Inspired Oxygen 03/28/25 12:00 Temperature Pulse Rate Respiratory Rate Blood Pressure Pulse Oximetry 94 Oxygen Delivery Room Air Fraction of Inspired Oxygen Intake/Output Intake/Output: Intake & Output 03/25/25 03/26/25 03/27/25 03/28/25 23:59 23:59 23:59 23:59 Intake Total 4100 3497.9 Output Total 630 418 Balance 3470 3079.9 Meds/Results Medications: Active Medications Generic Name Dose Route Start Last Admin Trade Name Freq PRN Reason Stop Dose Admin Acetaminophen 650 mg 03/27/25 16:53 03/28/25 08:23 Acetaminophen 325 Mg Tablet PO 650 mg Q6H PRN Administration Mild Pain (1-3) or Fever Aspirin 325 mg 03/28/25 09:00 03/28/25 08:23 Aspirin 325 Mg Enteric Tablet PO 325 mg Q12HR CEE Administration Celecoxib 200 mg 03/28/25 08:00 03/28/25 08:23 Celecoxib 200 Mg Capsule PO 200 mg BIDWM CEE Administration Dextrose 12.5 gm 03/27/25 13:42 Dextrose 50% 25 Gm/50 Ml Syringe IV PUSH PRN PRN Hypoglycemia Protocol Docusate Sodium 100 mg 03/28/25 09:00 03/28/25 08:23 Docusate Sodium 100 Mg Capsule PO 100 mg Q12HR CEE Administration Finasteride 5 mg 03/28/25 09:00 03/28/25 08:23 Finasteride 5 Mg Tablet PO 5 mg DAILY CEE Administration Glucagon 1 mg 03/27/25 13:42 Glucagon For Inj 1 Mg Vial IM PRN PRN Hypoglycemia Protocol Glucose 15 gm 03/27/25 13:42 Glucose Oral Gel 15 Gm Of Glucse In 37.5 Gm Tube PO PRN PRN Hypoglycemia Protocol Piperacillin Sod/Tazobactam 50 mls @ 100 mls/hr 03/27/25 18:00 03/28/25 12:35 Sod 3.375 gm/ Sodium Chloride IVPB Infused Q6HR CEE Infusion Lactated Ringer's 1,000 mls @ 125 mls/hr 03/27/25 11:55 03/28/25 15:29 Lr - Lactated Ringers Iv IV CONT 125 mls/hr .Q8H CEE Administration Dextrose 1,000 mls @ 100 mls/hr 03/27/25 13:42 Dextrose 5% 1,000 Ml IVPB PRN PRN Hypoglycemia Protocol Insulin Aspart 2 - 5 units 03/27/25 18:00 03/28/25 12:07 Insulin Aspart (*Bkc) 100 Units/Ml SUB-Q 3 units Q6HR CEE Administration Protocol Loratadine 10 mg 03/28/25 09:00 03/28/25 08:23 Loratadine 10 Mg Tablet PO 10 mg QAM CEE Administration Morphine Sulfate 2 mg 03/27/25 13:02 03/27/25 18:22 Morphine Sulfate (*Crx) 2 Mg/Ml Inj IV PUSH 2 mg Q2HR PRN Administration Pain Rated 7-10 Ondansetron HCl 4 mg 03/27/25 11:54 Ondansetron Inj 4 Mg/2 Ml Vial IV PUSH Q4H PRN Nausea Perflutren Lipid Microsphere 0 ml 03/27/25 16:47 Perflutren Lipid Microspheres 1.5 Ml Vial Diluted To 10 Ml Total Volume IV PUSH 03/30/25 16:47 ONCE PRN adequate visualization Protocol Simvastatin 80 mg 03/27/25 21:00 03/27/25 21:23 Simvastatin 20 Mg Tablet PO 80 mg HS CEE Administration Tamsulosin HCl 0.4 mg 03/27/25 21:00 03/28/25 00:04 Tamsulosin Hcl 0.4 Mg Capsule PO Not Given HS CEE Radiology Results: ITS Impressions Head CT 03/27/25 09:20 Impression: 1.No acute intracranial abnormality. Cervical Spine CT 03/27/25 09:22 Impression: No acute abnormality. Chest X-Ray 03/27/25 09:28 Impression: No acute cardiopulmonary abnormality. Chest/Abdomen/Pelvis CT 03/27/25 10:27 IMPRESSION: 1. Findings are concerning for acute cholecystitis, questionable areas of liver abscess formation detailed above. Abdomen Ultrasound 03/27/25 11:42 IMPRESSION: 1: Hepatomegaly with fatty infiltration of the liver. Hyperechoic lesion present adjacent to the gallbladder wall, indeterminate. There is possible pericholecystic fluid. There is gallbladder wall thickening. Findings suspicious for cholecystitis. Clinically correlate. No definite abscess identified. Cholecystostomy 03/27/25 16:29 IMPRESSION: 1. Successful ultrasound-guided cholecystostomy tube placement. 2. 60 mL bile was sent for aerobic, anaerobic, and fungal cultures. 3. The catheter will be managed by Dr. Whelan. A catheter cholangiogram may be performed not less than 48 hours after tube placement if clinically indicated to assess cystic duct patency. If cholecystectomy is not eventually performed and the infectious episode has resolved, the tube may be removed over a guidewire, preferably not less than 3 weeks after placement to allow time for a mature catheter tract to form to prevent bile leakage and peritonitis. Labs Labs: Laboratory Results - last 24 hr 03/27/25 03/28/25 03/28/25 18:13 00:10 03:30 WBC 15.6 H RBC 3.55 L Hgb 10.6 L Hct 32.8 L MCV 92.4 MCH 29.9 MCHC 32.3 RDW 14.8 H Plt Count 54 L MPV 13.0 H Immature Gran % (Auto) Not Reportable Neut % (Auto) Not Reportable Lymph % (Auto) Not Reportable Cloud % (Auto) Not Reportable Eos % (Auto) Not Reportable Baso % (Auto) Not Reportable Lymph # (Auto) Not Reportable [place] # (Auto) Not Reportable Eos # (Auto) Not Reportable Baso # (Auto) Not Reportable Abs Immat Gran (auto) Not Reportable Absolute Neuts (auto) Not Reportable Absolute Nucleated RBC Not Reportable Total Counted 100 Neutrophils % (Manual) 83 H Band Neutrophils % 1 Lymphocytes % (Manual) 8.0 L Monocytes % (Manual) 7 Eosinophils % (Manual) 1 Nucleated RBC % Not Reportable Abs Neuts (Manual) 13.10 H Abs Lymphs (Manual) 1.24 Abs Monocytes (Manual) 1.09 H Absolute Eos (Manual) 0.15 Platelet Estimate Decreased % Immature Plt Fraction 12.6 H Anisocytosis 1+ Ovalocytes 1+ [place] Cells 1+ Schistocytes None seen Sodium 137 Potassium 3.7 Chloride 104 Carbon Dioxide 25 Anion Gap 8 BUN 53 H Creatinine 1.31 H Estim Creat Clear Calc 45 Estimated GFR 52 L Glucose 229 H POC Capillary Glucose 233 H 276 H Calcium 8.0 L C-Reactive Protein 32.8 H 03/28/25 03/28/25 03/28/25 05:50 11:28 15:45 WBC RBC Hgb Hct MCV MCH MCHC RDW Plt Count MPV Immature Gran % (Auto) Neut % (Auto) Lymph % (Auto) Cloud % (Auto) Eos % (Auto) Baso % (Auto) Lymph # (Auto) [place] # (Auto) Eos # (Auto) Baso # (Auto) Abs Immat Gran (auto) Absolute Neuts (auto) Absolute Nucleated RBC Total Counted Neutrophils % (Manual) Band Neutrophils % Lymphocytes % (Manual) Monocytes % (Manual) Eosinophils % (Manual) Nucleated RBC % Abs Neuts (Manual) Abs Lymphs (Manual) Abs Monocytes (Manual) Absolute Eos (Manual) Platelet Estimate % Immature Plt Fraction Anisocytosis Ovalocytes Steve Cells Schistocytes Sodium Potassium Chloride Carbon Dioxide Anion Gap BUN Creatinine Estim Creat Clear Calc Estimated GFR Glucose POC Capillary Glucose 191 H 257 H 326 H Calcium C-Reactive Protein
[2025-03-28] MEDS: INSULIN GLARGINE (*BKC) 100 UNITS/ML 10 UNITS SUB-Q (20:21)
[2025-03-28] MEDS: SIMVASTATIN 20 MG TABLET 80 MG PO (20:35)
[2025-03-28] MEDS: TAMSULOSIN HCL 0.4 MG CAPSULE PO (20:36)
[2025-03-29] VITALS (18 sets, daily range): BP systolic 121–152; BP diastolic 73–87; PULSE 99–131; RESP 17–28; TEMP 36.3–37.1; O2SAT 96–99
[2025-03-29] MEDS: INSULIN ASPART (*BKC) 100 UNITS/ML SUB-Q ×5 (00:17→21:17)
[2025-03-29] MEDS: PIPERACILLIN/TAZOBACTAM SOD 3.375 GM in SODIUM CHLORIDE 0.9% IV 50 ML 100 ML IVPB ×5 (00:17→23:30)
[2025-03-29 04:09] LABS: Hematocrit 38.8 % (42.0-52.0); Hemoglobin 12.4 g/dL (14.0-18.0); Immature Granulocyte Percent A 0.6 % (0-0.5); Immature Platelet Fraction Pct 12.4 % (0.9-11.2); Lymphocytes Absolute Auto 0.48 K/mm3 (0.9-3.2); Mean Corpuscular HGB Conc 32.0 g/dl (32-36); Mean Corpuscular Hemoglobin 29.2 pg (26-34); Mean Corpuscular Volume 91.5 fl (80-100); Nucleated Red Blood Cells Absolute Auto 0.000 K/mm3 (0.0-0.012); Nucleated Red Blood Cells Perc 0.0 % (0.0-0.2); Platelet Count Result 56 k/mm3 (150-375); Red Blood Count 4.24 M/mm3 (4.6-6.20); White Blood Count 14.0 K/mm3 (4.5-10.0)
[2025-03-29 04:32] LABS: Alanine Aminotransferase 141 U/L (6-50); Albumin Level 2.9 g/dL (3.5-5.1); Alkaline Phosphatase 92 U/L (38-126); Anion Gap 7 mmol/L (4-12); Aspartate Amino Transferase 202 U/L (17-59); Bilirubin,Total 1.4 mg/dL (0.2-1.3); Blood Urea Nitrogen 46 mg/dL (9-20); Calcium 8.3 mg/dL (8.4-10.2); Carbon Dioxide 27 mmol/L (22-30); Chloride 103 mmol/L (98-107); Estimated CRCL calculation 56 ml/min; Estimated Glomerular Filt Rate > 60; Glucose 248 mg/dL (65-110); Potassium 3.1 mmol/L (3.4-5.0); Sodium 137 mmol/L (137-145); Total Protein 5.7 g/dL (6.3-8.2)
[2025-03-29 04:56] LABS: CRP 21.0 mg/dL (<1.0)
[2025-03-29 05:00] LABS: Thyroid Stimulating Hormone Reflex 1.390 uIU/mL (0.465-4.68)
--- NOTE | 2025-03-29 06:50 | PC.NURSE ---
03/28/252139-Pt's , Aggie Graff called and updated this RN with Pt's current medication list via Pt's home medication bottles. Pt's home medication list updated in the computer.
[2025-03-29] MEDS: ASPIRIN 81 MG ENTERIC TABLET PO (08:25)
[2025-03-29] MEDS: FINASTERIDE 5 MG TABLET PO (08:26)
[2025-03-29] MEDS: POTASSIUM CHLORIDE 20 MEQ ER TABLET 40 MEQ PO (08:26)
[2025-03-29] MEDS: LORATADINE 10 MG TABLET PO (08:26)
--- NOTE | 2025-03-29 10:30 | P.CONCA_ITS ---
Assessment and Plan Assessment and plan (1) Paroxysmal atrial fibrillation: Code(s): I48.0 - Paroxysmal atrial fibrillation Status: Acute Plan Proximal atrial fibrillation with RVR Sepsis acute cholecystitis status post cholecystectomy Hypertension controlled Thrombocytopenia Hypokalemia JAYY improving Coronary artery disease history of PCI Morbid obesity Plan Start metoprolol 25 mg q.i.d. Start oral anticoagulation 1 platelet count is stable and improving History of Present Illness History of Present Illness Consult date/time: 03/29/25 10:30 Reason For Visit: Acute Cholecystitis/Liver Abscess Narrative: 84-year-old male patient presents to the hospital with acute weakness and found down by his daughter. He was breathing hard and was in significant pain with shortness of breath. He was noted to have leukocytosis acute cholecystitis with possible liver abscess. Status post cholecystectomy and drainage of abscess. Patient was improving and noted to have atrial fibrillation with RVR on telemetry. Patient does not recall any history of atrial fibrillation. 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 He is listed as a full code. His primary is Dr. Underwood. 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) Smoking status: Current every day smoker Tobacco type: cigars Additional smoking assessment comments: 2 cigars/day Alcohol intake: current Drinks per week: 1 Substance use: never Substance use type: does not use Lack of Transportation: No Lack of Food: Never True Current Housing: I Have Housing Concerned About Future Housing: No Difficulty Paying Gas/Electric Bills: No Difficulty Paying for Meds: No Currently Unemployed: No Education: Decline to Answer Difficulty w/ Childcare or Family Care: No Additional living arrangements comments: Lives with at home Occupation/Education: retired Gender identity (if verbalized by the patient): Male Spiritual care concerns: No Agree to blood products: Yes Meds Home Medications and Allergies Home Medications ?Medication ?Instructions ?Recorded ?Confirmed ?Type amlodipine 10 mg tablet 10 mg PO DAILY 06/25/1903/01 History atenolol 100 mg tablet 50 mg PO DAILY 06/25/1903/01 History cetirizine 10 mg capsule (Zyrtec) 10 mg PO DAILY 06/2503/28/25 History finasteride 5 mg tablet 5 mg PO DAILY 06/25/1903/28 History glipizide 5 mg tablet 10 mg PO DAILY 06/25/1903/01 History lisinopril 40 mg tablet 40 mg PO DAILY 06/25/1903/01 History metformin 1,000 mg tablet 1,000 mg PO BID 06/25/19 History raohocyz-sm-zkveb 300 mcg-K 60 1 tablet PO DAILY 06/2503/28/25 History mcg-lycop 600 mcg-lutein 300 mcg tablet (Centrum Silver Men) omega 8-tmu-rzy-fish oil 1,000 mg 1 cap PO DAILY 06/2503/28/25 History (120 mg-180 mg) capsule (Fish Oil) simvastatin 80 mg tablet 40 mg PO HS 06/25/19 5 History insulin degludec 100 unit/mL (3 10 unit subcut QPM 03/28/25 History mL) subcutaneous pen (Tresiba FlexTouch U-100 insulin) Prevagen w/Apoaequorin and Vitamin 50 mg PO DAILY 03/0103/29/25 History D ascorbic acid (vitamin C) 1,000 mg 1,000 mg PO DAILY 0 03/29/25 03/29/25 History tablet (Vitamin C) aspirin 81 mg tablet 81 mg PO DAILY 03/29/2503/01 History vitamins A,C,Z-nylb-yjgldj 4,296 1 cap PO DAILY 03/29/25 History mcg-226 mg-90 mg capsule (PreserVision AREDS) Allergies Allergy/AdvReac Type Severity Reaction Status Date / Time No Known Allergies Allergy Verified 03/27/25 08:43 Vital Signs Vital Signs - 24 hr 03/28/25 11:38 03/28/25 12:00 03/28/25 14:00 Temperature 36.6 C Pulse Rate 89 96 Respiratory Rate 20 Blood Pressure 132/63 Pulse Oximetry 94 94 Oxygen Delivery Room Air Fraction of Inspired Oxygen 03/28/25 16:00 03/28/25 16:00 03/28/25 16:00 Temperature 36.4 C Pulse Rate 90 94 Respiratory Rate 20 Blood Pressure 143/65 H Pulse Oximetry 96 96 Oxygen Delivery Room Air Fraction of Inspired Oxygen 03/28/25 18:00 03/28/25 20:00 03/28/25 20:00 Temperature 36.9 C Pulse Rate 96 103 H 105 H Respiratory Rate 20 Blood Pressure 138/77 Pulse Oximetry 97 Oxygen Delivery Fraction of Inspired Oxygen 03/28/25 20:08 03/28/25 22:00 03/29/25 00:00 Temperature 36.9 C Pulse Rate 103 H 104 H 118 H Respiratory Rate 20 18 Blood Pressure 152/84 H Pulse Oximetry 97 98 Oxygen Delivery Room Air Fraction of Inspired Oxygen 03/29/25 00:00 03/29/25 00:03 03/29/25 00:13 Temperature Pulse Rate 106 H 118 H Respiratory Rate 18 Blood Pressure Pulse Oximetry 98 Oxygen Delivery Autopap CPAP Fraction of Inspired Oxygen 03/29/25 01:21 03/29/25 04:00 03/29/25 04:00 Temperature 37.1 C Pulse Rate 99 117 H 113 H Respiratory Rate 18 Blood Pressure 152/80 H Pulse Oximetry 97 Oxygen Delivery Fraction of Inspired Oxygen 03/29/25 04:00 03/29/25 05:13 03/29/25 07:57 Temperature Pulse Rate 113 H 114 H 124 H Respiratory Rate 18 20 Blood Pressure Pulse Oximetry 97 97 Oxygen Delivery CPAP Room Air Fraction of Inspired Oxygen 03/29/25 08:00 03/29/25 08:34 Temperature 36.7 C Pulse Rate 122 H Respiratory Rate 28 H Blood Pressure 121/73 Pulse Oximetry 96 Oxygen Delivery Room Air Fraction of Inspired Oxygen Exam 2 Const: General: comfortable and no acute distress Other: Able to lie flat HENMT: Face/Nose/Sinus: Normal nares present and no epistaxis Mouth: Yes moist mucous membranes Eyes: Sclera: sclerae normal Pupils: Equal, round and reactive pupils present Neck: Neck: supple and no JVD Carotids: no bruits Resp: Auscultation: clear to auscultation bilaterally and lung sounds not diminished Other: No chest wall tenderness Cardio: Rate: regular rate Rhythm: regular rhythm Heart sounds: no gallops, no murmurs and no rubs GI: GI Palp: Yes Soft to palpation and No Tenderness to palpation present (GI) Auscultation: normal bowel sounds Skin: General skin exam: normal color, rashes and/or lesions noted and no erythema Other: Warm Neuro: Cranial nerves: Yes Equal, round and reactive pupils present Speech: normal speech Other: No obvious focal deficit or facial asymmetry Extrem: General: no edema Other: Normal capillary refills Intact distal pulses. Results Labs and Meds 03/29/25 03:38 03/29/25 03:38 Lab results: Cardiac Enzymes 03/29/25 Range/Units 03:38 AST 202 H (17-59) U/L CBC 03/29/25 Range/Units 03:38 WBC 14.0 H (4.5-10.0) K/mm3 RBC 4.24 L (4.6-6.20) M/mm3 Hgb 12.4 L (14.0-18.0) g/dL Hct 38.8 L (42.0-52.0) % Plt Count 56 L (150-375) k/mm3 Lymph # (Auto) 0.48 L (0.9-3.2) K/mm3 [place] # (Auto) 1.5 H (0.1-0.6) K/mm3 Eos # (Auto) 0.1 (0-0.3) K/mm3 Baso # (Auto) 0.0 (0.0-0.1) K/mm3 Comprehensive Metabolic Panel 03/29/25 Range/Units 03:38 Sodium 137 (137-145) mmol/L Potassium 3.1 L (3.4-5.0) mmol/L Chloride 103 (98-107) mmol/L Carbon Dioxide 27 (22-30) mmol/L BUN 46 H (9-20) mg/dL Creatinine 1.08 (0.7-1.3) mg/dL Glucose 248 H (65-110) mg/dL Calcium 8.3 L (8.4-10.2) mg/dL AST 202 H (17-59) U/L ALT 141 H (6-50) U/L Alkaline Phosphatase 92 (38-126) U/L Total Protein 5.7 L (6.3-8.2) g/dL Albumin 2.9 L (3.5-5.1) g/dL Intake and Output 03/28/25 03/29/25 03/29/25 23:59 07:59 15:59 Intake Total 896.3 613.7 Output Total 635 965 Balance 261.3 -351.3 Intake: IV 656.3 493.7 Lactated Ringers 1,000 ml @ 60 606.3 393.7 mls/hr IV CONT .[id number] [facility] Rx# :[id number] Piperacillin/Tazobactam Sod 3. 50 100 375 gm In Sodium Chloride 0.9% IV 50 ml @ 100 mls/hr IVPB Q6HR [facility] Rx#:[id number] Oral 240 120 Output: Catheter Urine 475 950 Urethral Catheter 475 950 Drain 160 15 Percutaneous Right Upper 160 15 Abdomen Other: Number of Bowel Movements Today 0 0 Patient Weight 03/29/25 23:59 Weight 107.1 kg
[2025-03-29] MEDS: METOPROLOL TARTRATE 25 MG TABLET PO ×2 (13:00→21:14)
--- NOTE | 2025-03-29 14:37 | PM.IMPN ---
Progress Note: A&P Assessment and Plan (1) Sepsis: Code(s): A41.9 - Sepsis, unspecified organism Status: Acute Assessment and Plan: Patient presents with weakness and found to have fever, tachycardia, thrombocytopenia, leukocytosis and JAYY. CT Ch/A/P showing acute cholecystitis with possible 1cm liver abscess. Source of sepsis is acute cholecystitis with possible liver abscess. Received 30cc/kg and started on IV fluids. Cholecystostomy tube placed by IR (03/27) BCx - NGTD Gram stain noted but GB Culture pending Started on Zosyn (03/27). WBC slightly better. Tachycardia but related to AFib with RVR. Fever has resolved. Continue IV abx. Follow up on Cx results. (2) Acute cholecystitis: Code(s): K81.0 - Acute cholecystitis Status: Acute Assessment and Plan: General Surgery consulted and appreciate their input Percutaneous cholecystostomy tube placed. Tube management per GenSurg Diet started. Follow up on Cx results. Continue IV abx. (3) Liver abscess: Code(s): K75.0 - Abscess of liver Status: Acute Assessment and Plan: As above. (4) Acute respiratory distress: Code(s): R06.03 - Acute respiratory distress Status: Acute Assessment and Plan: BNP 2170. Given his age, this is only mildly elevated. He appeared in acute respiratory distress with hypoxia in ED but imaging did not show CHF. He received aggressive fluid hydration in ED Echo showing EF 60-65% and Grade II diastolic dysfunction. Moderate pHTN noted. [place] that his tachypnea was related to the sepsis. Sepsis picture better but still tachypneic. Remains on room air. Consider fluid overload. Monitor UOP. Monitor resp status. Check CXR. Re-check BNP (5) Atrial fib/flutter, transient: Code(s): I48.91 - Unspecified atrial fibrillation; I48.92 - Unspecified atrial flutter Status: Acute Assessment and Plan: Patient with paroxysmal AFib with recurrence overnight felt related to sepsis picture. Echo as above. [id number] (HTN, Age, DM, CAD) TSH normal. He was on Atenolol on admission but changed to metoprolol. No Heparin drip due to low plt count. Cardiology consulted and appreciate their input. Continue ASA for now. Add Eliquis if and when able. Check TSH (6) JAYY (acute kidney injury): Code(s): N17.9 - Acute kidney failure, unspecified Status: Acute Assessment and Plan: No recent Cr to review. Cr 1.6 on admission. Received appropriate fluid resuscitation in ED. Repeat Cr 1.08 today. UOP better. He is off IV fluids. Follow (7) Hypertension: Code(s): I10 - Essential (primary) hypertension Status: Acute Assessment and Plan: Patient's blood pressure was reviewed on 03/29 Blood pressure remains reasonably well controlled. Metoprolol added. Will continue to monitor (8) CAD (coronary artery disease): Qualifiers: Coronary Disease-Associated Artery/Lesion type: [place] artery [place] vs. transplanted heart: [place] heart Associated angina: unspecified whether angina present Qualified Code(s): I25.10 - Atherosclerotic heart disease of [place] coronary artery without angina pectoris Code(s): I25.10 - Atherosclerotic heart disease of [place] coronary artery without angina pectoris Status: Chronic Assessment and Plan: Patient with CAD s/p stent placement. Continue Zocor and ASA. Atenolol changed to metoprolol Patient is not on high dose ASA; changed to ASA 81mg daily (9) DMII (diabetes mellitus, type 2): Qualifiers: Diabetes mellitus salvage determiner insulin use: without care home use Diabetes mellitus complication status: without complication Qualified Code(s): E11.9 - Type 2 diabetes mellitus without complications Code(s): E11.9 - Type 2 diabetes mellitus without complications Status: Chronic Assessment and Plan: The patient's blood glucose was reviewed on 03/29 he takes Tresiba, metformin and glipizide at home Glucose poorly controlled. Continue AccuCheks covering with sliding scale. Hypoglycemia protocol available as needed. Advance lantus. Continue diabetic diet. Continue to monitor (10) BPH (benign prostatic hyperplasia): Code(s): N40.0 - Benign prostatic hyperplasia without lower urinary tract symptoms Status: Acute Assessment and Plan: Patient with urine retention requiring Jeffrey placement. Related to above. Proscar restarted. Was not on Flomax at home but will continue since he has retention. Voiding trial when patient more ambulatory (11) Fall: Code(s): W19.XXXA - Unspecified fall, initial encounter Status: Acute Assessment and Plan: Patient did have a ground level fall 03/26 and struck his head. Patient denies any loss of consciousness. CT head showing no acute findings CT cervical spine showing no acute process Continue PT/OT (12) Thrombocytopenia: Code(s): D69.6 - Thrombocytopenia, unspecified Status: Acute Assessment and Plan: Plt count normal in 2019 but no values since Plt count 79K -> 54K -> 56K MPV elevated. Possibly consumptive from infection vs chronic. Follow Plan DVT Prophylaxis - SCDs Code status - full Subjective Date/time seen: 03/29/25 14:37 Interval history: 84yo male with BPH, DM, HTN, HLD and CAD presents the hospital with acute weakness. No hx of AFib. No CP or SOB. Went back into AFib overnight. No n/v. Still feels very weak. Therapy had patient up to a chair. No abd pain. No recent BM. No abd pain with eating. Eating okay. Exam Narrative: AF 98.0 146/83 116 28 98% ra Gen - NARD Chest - bibasilar crackles, nml RR CV - irregularly irregular; Tele showing back in AFib overnight since last night Abd - Soft, NT/ND, Positive BS. RUQ cholecystostomy drain in place with bilious red fluid in bag - Jeffrey secured draining clear yellow urine Ext - periankle pedal edema Psych - Nml mood and affect Skin - Warm and dry Objective Data Vital Signs Vital Signs: Vital Signs - 24 hr 03/28/25 16:00 03/28/25 16:00 03/28/25 16:00 Temperature 97.6 F Pulse Rate 90 94 Respiratory Rate 20 Blood Pressure 143/65 H Pulse Oximetry 96 96 Oxygen Delivery Room Air Fraction of Inspired Oxygen 03/28/25 18:00 03/28/25 20:00 03/28/25 20:00 Temperature 98.4 F Pulse Rate 96 103 H 105 H Respiratory Rate 20 Blood Pressure 138/77 Pulse Oximetry 97 Oxygen Delivery Fraction of Inspired Oxygen 03/28/25 20:08 03/28/25 22:00 03/29/25 00:00 Temperature 98.5 F Pulse Rate 103 H 104 H 118 H Respiratory Rate 20 18 Blood Pressure 152/84 H Pulse Oximetry 97 98 Oxygen Delivery Room Air Fraction of Inspired Oxygen 03/29/25 00:00 03/29/25 00:03 03/29/25 00:13 Temperature Pulse Rate 106 H 118 H Respiratory Rate 18 Blood Pressure Pulse Oximetry 98 Oxygen Delivery Autopap CPAP Fraction of Inspired Oxygen 21 03/29/25 01:21 03/29/25 04:00 03/29/25 04:00 Temperature 98.7 F Pulse Rate 99 117 H 113 H Respiratory Rate 18 Blood Pressure 152/80 H Pulse Oximetry 97 Oxygen Delivery Fraction of Inspired Oxygen 03/29/25 04:00 03/29/25 05:13 03/29/25 07:57 Temperature Pulse Rate 113 H 114 H 124 H Respiratory Rate 18 20 Blood Pressure Pulse Oximetry 97 97 Oxygen Delivery CPAP Room Air Fraction of Inspired Oxygen 21 03/29/25 08:00 03/29/25 08:00 03/29/25 08:34 Temperature 98.1 F Pulse Rate 122 H Respiratory Rate 28 H Blood Pressure 121/73 Pulse Oximetry 96 98 Oxygen Delivery Room Air Room Air Fraction of Inspired Oxygen 03/29/25 12:00 03/29/25 12:00 03/29/25 13:00 Temperature 98.0 F Pulse Rate 122 H 116 H Respiratory Rate 28 H Blood Pressure 146/83 H Pulse Oximetry 98 98 Oxygen Delivery Room Air Fraction of Inspired Oxygen Intake/Output Intake/Output: Intake & Output 03/26/25 03/27/25 03/28/25 03/29/25 23:59 23:59 23:59 23:59 Intake Total 4100 4394.2 663.7 Output Total 630 1053 965 Balance 3470 3341.2 -301.3 Meds/Results Medications: Active Medications Generic Name Dose Route Start Last Admin Trade Name Freq PRN Reason Stop Dose Admin Acetaminophen 650 mg 03/27/25 16:53 03/28/25 08:23 Acetaminophen 325 Mg Tablet PO 650 mg Q6H PRN Administration Mild Pain (1-3) or Fever Aspirin 81 mg 03/29/25 09:00 03/29/25 08:25 Aspirin 81 Mg Enteric Tablet PO 81 mg QAM CEE Administration Dextrose 12.5 gm 03/27/25 13:42 Dextrose 50% 25 Gm/50 Ml Syringe IV PUSH PRN PRN Hypoglycemia Protocol Docusate Sodium 100 mg 03/28/25 09:00 03/29/25 08:29 Docusate Sodium 100 Mg Capsule PO Not Given Q12HR [facility] Finasteride 5 mg 03/28/25 09:00 03/29/25 08:26 Finasteride 5 Mg Tablet PO 5 mg DAILY CEE Administration Glucagon 1 mg 03/27/25 13:42 Glucagon For Inj 1 Mg Vial IM PRN PRN Hypoglycemia Protocol Glucose 15 gm 03/27/25 13:42 Glucose Oral Gel 15 Gm Of Glucse In 37.5 Gm Tube PO PRN PRN Hypoglycemia Protocol Piperacillin Sod/Tazobactam 50 mls @ 100 mls/hr 03/27/25 18:00 03/29/25 12:12 Sod 3.375 gm/ Sodium Chloride IVPB Infused Q6HR CEE Infusion Dextrose 1,000 mls @ 100 mls/hr 03/27/25 13:42 Dextrose 5% 1,000 Ml IVPB PRN PRN Hypoglycemia Protocol Insulin Aspart 2 - 5 units 03/27/25 18:00 03/29/25 11:50 Insulin Aspart (*Bkc) 100 Units/Ml SUB-Q 3 units Q6HR CEE Administration Protocol Insulin Glargine 15 units 03/29/25 21:00 Insulin Glargine (*Bkc) 100 Units/Ml SUB-Q HS CEE Loratadine 10 mg 03/28/25 09:00 03/29/25 08:26 Loratadine 10 Mg Tablet PO 10 mg QAM CEE Administration Metoprolol Tartrate 25 mg 03/29/25 14:00 03/29/25 13:00 Metoprolol Tartrate 25 Mg Tablet PO 25 mg Q8HR CEE Administration Morphine Sulfate 2 mg 03/27/25 13:02 03/27/25 18:22 Morphine Sulfate (*Crx) 2 Mg/Ml Inj IV PUSH 2 mg Q2HR PRN Administration Pain Rated 7-10 Ondansetron HCl 4 mg 03/27/25 11:54 Ondansetron Inj 4 Mg/2 Ml Vial IV PUSH Q4H PRN Nausea Perflutren Lipid Microsphere 0 ml 03/27/25 16:47 Perflutren Lipid Microspheres 1.5 Ml Vial Diluted To 10 Ml Total Volume IV PUSH 03/30/25 16:47 ONCE PRN adequate visualization Protocol Simvastatin 80 mg 03/27/25 21:00 03/28/25 20:35 Simvastatin 20 Mg Tablet PO 80 mg HS CEE Administration Tamsulosin HCl 0.4 mg 03/27/25 21:00 03/28/25 20:36 Tamsulosin Hcl 0.4 Mg Capsule PO 0.4 mg HS CEE Administration Radiology Results: ITS Impressions Head CT 03/27/25 09:20 Impression: 1.No acute intracranial abnormality. Cervical Spine CT 03/27/25 09:22 Impression: No acute abnormality. Chest X-Ray 03/27/25 09:28 Impression: No acute cardiopulmonary abnormality. Chest/Abdomen/Pelvis CT 03/27/25 10:27 IMPRESSION: 1. Findings are concerning for acute cholecystitis, questionable areas of liver abscess formation detailed above. Abdomen Ultrasound 03/27/25 11:42 IMPRESSION: 1: Hepatomegaly with fatty infiltration of the liver. Hyperechoic lesion present adjacent to the gallbladder wall, indeterminate. There is possible pericholecystic fluid. There is gallbladder wall thickening. Findings suspicious for cholecystitis. Clinically correlate. No definite abscess identified. Cholecystostomy 03/27/25 16:29 IMPRESSION: 1. Successful ultrasound-guided cholecystostomy tube placement. 2. 60 mL bile was sent for aerobic, anaerobic, and fungal cultures. 3. The catheter will be managed by Dr. Whelan. A catheter cholangiogram may be performed not less than 48 hours after tube placement if clinically indicated to assess cystic duct patency. If cholecystectomy is not eventually performed and the infectious episode has resolved, the tube may be removed over a guidewire, preferably not less than 3 weeks after placement to allow time for a mature catheter tract to form to prevent bile leakage and peritonitis. Labs Labs: Laboratory Results - last 24 hr 03/28/25 03/28/25 03/28/25 15:45 20:09 23:58 WBC RBC Hgb Hct MCV MCH MCHC RDW Plt Count MPV Immature Gran % (Auto) Neut % (Auto) Lymph % (Auto) [place] % (Auto) Eos % (Auto) Baso % (Auto) Lymph # (Auto) [place] # (Auto) Eos # (Auto) Baso # (Auto) Abs Immat Gran (auto) Absolute Neuts (auto) Absolute Nucleated RBC Nucleated RBC % % Immature Plt Fraction Sodium Potassium Chloride Carbon Dioxide Anion Gap BUN Creatinine Estim Creat Clear Calc Estimated GFR Glucose POC Capillary Glucose 326 H 306 H 229 H Calcium Total Bilirubin AST ALT Alkaline Phosphatase C-Reactive Protein Total Protein Albumin TSH (Reflex) 03/29/25 03/29/25 03/29/25 03:38 06:05 11:46 WBC 14.0 H RBC 4.24 L Hgb 12.4 L Hct 38.8 L MCV 91.5 MCH 29.2 MCHC 32.0 RDW 14.8 H Plt Count 56 L MPV 12.8 H Immature Gran % (Auto) 0.6 H Neut % (Auto) 84.9 H Lymph % (Auto) 3.4 L [place] % (Auto) 10.5 H Eos % (Auto) 0.4 Baso % (Auto) 0.2 Lymph # (Auto) 0.48 L [place] # (Auto) 1.5 H Eos # (Auto) 0.1 Baso # (Auto) 0.0 Abs Immat Gran (auto) 0.08 H Absolute Neuts (auto) 11.9 H Absolute Nucleated RBC 0.000 Nucleated RBC % 0.0 % Immature Plt Fraction 12.4 H Sodium 137 Potassium 3.1 L Chloride 103 Carbon Dioxide 27 Anion Gap 7 BUN 46 H Creatinine 1.08 Estim Creat Clear Calc 56 Estimated GFR > 60 Glucose 248 H POC Capillary Glucose 256 H 251 H Calcium 8.3 L Total Bilirubin 1.4 H AST 202 H ALT 141 H Alkaline Phosphatase 92 C-Reactive Protein 21.0 H Total Protein 5.7 L Albumin 2.9 L TSH (Reflex) 1.390
--- NOTE | 2025-03-29 17:16 | PM.PNGS ---
Progress Note: A&P Assessment and Plan (1) Cholelithiasis and acute cholecystitis without obstruction: Code(s): K80.00 - Calculus of gallbladder with acute cholecystitis without obstruction Status: Acute Assessment and Plan: Continues to improve. Will advance to regular diabetic diet. Afebrile but still some tachycardia and tachypnea. White cell count still 14,000. Mental status improving. Continue IV antibiotics. Discussed patient with Dr. Jasmine. (2) CAD (coronary artery disease): Qualifiers: Coronary Disease-Associated Artery/Lesion type: [place] artery [place] vs. transplanted heart: [place] heart Associated angina: unspecified whether angina present Qualified Code(s): I25.10 - Atherosclerotic heart disease of [place] coronary artery without angina pectoris Code(s): I25.10 - Atherosclerotic heart disease of [place] coronary artery without angina pectoris Status: Chronic (3) DMII (diabetes mellitus, type 2): Qualifiers: Diabetes mellitus assisted insulin use: without assisted use Diabetes mellitus complication status: without complication Qualified Code(s): E11.9 - Type 2 diabetes mellitus without complications Code(s): E11.9 - Type 2 diabetes mellitus without complications Status: Chronic (4) IVETT (obstructive sleep apnea): Code(s): G47.33 - Obstructive sleep apnea (adult) (pediatric) Status: Chronic Assessment and Plan: On CPAP (5) Umbilical hernia: Qualifiers: Obstruction and gangrene presence: without obstruction or gangrene Qualified Code(s): K42.9 - Umbilical hernia without obstruction or gangrene Code(s): K42.9 - Umbilical hernia without obstruction or gangrene Status: Chronic Assessment and Plan: Reducible, asymptomatic (6) Thrombocytopenia: Code(s): D69.6 - Thrombocytopenia, unspecified Status: Acute Assessment and Plan: 79,000 03/27, 54,000 8/, 56,000 today. Continue to monitor, no active bleeding Subjective Subjective Date/Time Seen: 03/29/25 17:16 Patient reports: feels better, pain is less, tolerating a regular diet, no bowel movement and afebrile Review of Systems Review of Systems: All systems reviewed & are unremarkable except as noted in HPI and below (HPI) Exam Const: General: cooperative, comfortable, alert, awake and other (More awake and alert) Nutritional Appearance: well nourished Orientation/consciousness: patient oriented x3 GI: Inspection: no abdominal wall ecchymosis, non-distended and other (Bloody bile draining from cholecystostomy tube) GI Palp: Yes Soft to palpation and No Tenderness to palpation present (GI) Auscultation: normal bowel sounds Objective Data Vital Signs Vital Signs: Vital Signs - 24 hr 03/28/25 18:00 03/28/25 20:00 03/28/25 20:00 Temperature 36.9 C Pulse Rate 96 103 H 105 H Respiratory Rate 20 Blood Pressure 138/77 Pulse Oximetry 97 Oxygen Delivery Fraction of Inspired Oxygen 03/28/25 20:08 03/28/25 22:00 03/29/25 00:00 Temperature 36.9 C Pulse Rate 103 H 104 H 118 H Respiratory Rate 20 18 Blood Pressure 152/84 H Pulse Oximetry 97 98 Oxygen Delivery Room Air Fraction of Inspired Oxygen 03/29/25 00:00 03/29/25 00:03 03/29/25 00:13 Temperature Pulse Rate 106 H 118 H Respiratory Rate 18 Blood Pressure Pulse Oximetry 98 Oxygen Delivery Autopap CPAP Fraction of Inspired Oxygen 21 03/29/25 01:21 03/29/25 04:00 03/29/25 04:00 Temperature 37.1 C Pulse Rate 99 117 H 113 H Respiratory Rate 18 Blood Pressure 152/80 H Pulse Oximetry 97 Oxygen Delivery Fraction of Inspired Oxygen 03/29/25 04:00 03/29/25 05:13 03/29/25 07:57 Temperature Pulse Rate 113 H 114 H 124 H Respiratory Rate 18 20 Blood Pressure Pulse Oximetry 97 97 Oxygen Delivery CPAP Room Air Fraction of Inspired Oxygen 21 03/29/25 08:00 03/29/25 08:00 03/29/25 08:00 Temperature 36.7 C Pulse Rate 122 H 120 H Respiratory Rate 28 H Blood Pressure 121/73 Pulse Oximetry 96 98 Oxygen Delivery Room Air Fraction of Inspired Oxygen 03/29/25 08:34 03/29/25 10:00 03/29/25 12:00 Temperature 36.7 C Pulse Rate 116 H 122 H Respiratory Rate 28 H Blood Pressure 146/83 H Pulse Oximetry 98 Oxygen Delivery Room Air Fraction of Inspired Oxygen 03/29/25 12:00 03/29/25 12:00 03/29/25 13:00 Temperature Pulse Rate 131 H 116 H Respiratory Rate Blood Pressure Pulse Oximetry 98 Oxygen Delivery Room Air Fraction of Inspired Oxygen 03/29/25 14:00 03/29/25 16:00 03/29/25 16:00 Temperature 36.3 C L Pulse Rate 115 H 119 H Respiratory Rate 24 H Blood Pressure 147/87 H Pulse Oximetry 98 98 Oxygen Delivery Room Air Fraction of Inspired Oxygen Intake/Output Intake/Output: Intake & Output 03/26/25 03/27/25 03/28/25 03/29/25 23:59 23:59 23:59 23:59 Intake Total 4100 4394.2 663.7 Output Total 630 1053 965 Balance 3470 3341.2 -301.3 Meds/Results Medications: Active Medications Generic Name Dose Route Start Last Admin Trade Name Freq PRN Reason Stop Dose Admin Acetaminophen 650 mg 03/27/25 16:53 03/28/25 08:23 Acetaminophen 325 Mg Tablet PO 650 mg Q6H PRN Administration Mild Pain (1-3) or Fever Aspirin 81 mg 03/29/25 09:00 03/29/25 08:25 Aspirin 81 Mg Enteric Tablet PO 81 mg QAM CEE Administration Dextrose 12.5 gm 03/27/25 13:42 Dextrose 50% 25 Gm/50 Ml Syringe IV PUSH PRN PRN Hypoglycemia Protocol Docusate Sodium 100 mg 03/28/25 09:00 03/29/25 08:29 Docusate Sodium 100 Mg Capsule PO Not Given Q12HR CEE Finasteride 5 mg 03/28/25 09:00 03/29/25 08:26 Finasteride 5 Mg Tablet PO 5 mg DAILY CEE Administration Glucagon 1 mg 03/27/25 13:42 Glucagon For Inj 1 Mg Vial IM PRN PRN Hypoglycemia Protocol Glucose 15 gm 03/27/25 13:42 Glucose Oral Gel 15 Gm Of Glucse In 37.5 Gm Tube PO PRN PRN Hypoglycemia Protocol Piperacillin Sod/Tazobactam 50 mls @ 100 mls/hr 03/27/25 18:00 03/29/25 12:12 Sod 3.375 gm/ Sodium Chloride IVPB Infused Q6HR CEE Infusion Dextrose 1,000 mls @ 100 mls/hr 03/27/25 13:42 Dextrose 5% 1,000 Ml IVPB PRN PRN Hypoglycemia Protocol Insulin Aspart 2 - 5 units 03/27/25 18:00 03/29/25 11:50 Insulin Aspart (*Bkc) 100 Units/Ml SUB-Q 3 units Q6HR CEE Administration Protocol Insulin Glargine 15 units 03/29/25 21:00 Insulin Glargine (*Bkc) 100 Units/Ml SUB-Q HS CEE Loratadine 10 mg 03/28/25 09:00 03/29/25 08:26 Loratadine 10 Mg Tablet PO 10 mg QAM CEE Administration Metoprolol Tartrate 25 mg 03/29/25 14:00 03/29/25 13:00 Metoprolol Tartrate 25 Mg Tablet PO 25 mg Q8HR CEE Administration Morphine Sulfate 2 mg 03/27/25 13:02 03/27/25 18:22 Morphine Sulfate (*Crx) 2 Mg/Ml Inj IV PUSH 2 mg Q2HR PRN Administration Pain Rated 7-10 Ondansetron HCl 4 mg 03/27/25 11:54 Ondansetron Inj 4 Mg/2 Ml Vial IV PUSH Q4H PRN Nausea Perflutren Lipid Microsphere 0 ml 03/27/25 16:47 Perflutren Lipid Microspheres 1.5 Ml Vial Diluted To 10 Ml Total Volume IV PUSH 03/30/25 16:47 ONCE PRN adequate visualization Protocol Simvastatin 80 mg 03/27/25 21:00 03/28/25 20:35 Simvastatin 20 Mg Tablet PO 80 mg HS CEE Administration Tamsulosin HCl 0.4 mg 03/27/25 21:00 03/28/25 20:36 Tamsulosin Hcl 0.4 Mg Capsule PO 0.4 mg HS CEE Administration Radiology Results: ITS Impressions Head CT 03/27/25 09:20 Impression: 1.No acute intracranial abnormality. Cervical Spine CT 03/27/25 09:22 Impression: No acute abnormality. Chest/Abdomen/Pelvis CT 03/27/25 10:27 IMPRESSION: 1. Findings are concerning for acute cholecystitis, questionable areas of liver abscess formation detailed above. Abdomen Ultrasound 03/27/25 11:42 IMPRESSION: 1: Hepatomegaly with fatty infiltration of the liver. Hyperechoic lesion present adjacent to the gallbladder wall, indeterminate. There is possible pericholecystic fluid. There is gallbladder wall thickening. Findings suspicious for cholecystitis. Clinically correlate. No definite abscess identified. Cholecystostomy 03/27/25 16:29 IMPRESSION: 1. Successful ultrasound-guided cholecystostomy tube placement. 2. 60 mL bile was sent for aerobic, anaerobic, and fungal cultures. 3. The catheter will be managed by Dr. Whelan. A catheter cholangiogram may be performed not less than 48 hours after tube placement if clinically indicated to assess cystic duct patency. If cholecystectomy is not eventually performed and the infectious episode has resolved, the tube may be removed over a guidewire, preferably not less than 3 weeks after placement to allow time for a mature catheter tract to form to prevent bile leakage and peritonitis. Labs Labs: Laboratory Results - last 24 hr 03/28/25 03/28/25 03/29/25 20:09 23:58 03:38 WBC 14.0 H RBC 4.24 L Hgb 12.4 L Hct 38.8 L MCV 91.5 MCH 29.2 MCHC 32.0 RDW 14.8 H Plt Count 56 L MPV 12.8 H Immature Gran % (Auto) 0.6 H Neut % (Auto) 84.9 H Lymph % (Auto) 3.4 L [place] % (Auto) 10.5 H Eos % (Auto) 0.4 Baso % (Auto) 0.2 Lymph # (Auto) 0.48 L [place] # (Auto) 1.5 H Eos # (Auto) 0.1 Baso # (Auto) 0.0 Abs Immat Gran (auto) 0.08 H Absolute Neuts (auto) 11.9 H Absolute Nucleated RBC 0.000 Nucleated RBC % 0.0 % Immature Plt Fraction 12.4 H Sodium 137 Potassium 3.1 L Chloride 103 Carbon Dioxide 27 Anion Gap 7 BUN 46 H Creatinine 1.08 Estim Creat Clear Calc 56 Estimated GFR > 60 Glucose 248 H POC Capillary Glucose 306 H 229 H Calcium 8.3 L Total Bilirubin 1.4 H AST 202 H ALT 141 H Alkaline Phosphatase 92 C-Reactive Protein 21.0 H Total Protein 5.7 L Albumin 2.9 L TSH (Reflex) 1.390 03/29/25 03/29/25 06:05 11:46 WBC RBC Hgb Hct MCV MCH MCHC RDW Plt Count MPV Immature Gran % (Auto) Neut % (Auto) Lymph % (Auto) [place] % (Auto) Eos % (Auto) Baso % (Auto) Lymph # (Auto) [place] # (Auto) Eos # (Auto) Baso # (Auto) Abs Immat Gran (auto) Absolute Neuts (auto) Absolute Nucleated RBC Nucleated RBC % % Immature Plt Fraction Sodium Potassium Chloride Carbon Dioxide Anion Gap BUN Creatinine Estim Creat Clear Calc Estimated GFR Glucose POC Capillary Glucose 256 H 251 H Calcium Total Bilirubin AST ALT Alkaline Phosphatase C-Reactive Protein Total Protein Albumin TSH (Reflex)
[2025-03-29] MEDS: SIMVASTATIN 20 MG TABLET 80 MG PO (21:13)
[2025-03-29] MEDS: DOCUSATE SODIUM 100 MG CAPSULE PO (21:13)
[2025-03-29] MEDS: TAMSULOSIN HCL 0.4 MG CAPSULE PO (21:13)
[2025-03-29] MEDS: MELATONIN 5 MG TABLET PO (21:13)
[2025-03-29] MEDS: INSULIN GLARGINE (*BKC) 100 UNITS/ML 15 UNITS SUB-Q (21:17)
[2025-03-30] VITALS (18 sets, daily range): BP systolic 118–143; BP diastolic 65–87; PULSE 85–119; RESP 17–24; TEMP 36.6–36.8; O2SAT 97–99
[2025-03-30 03:48] LABS: Hematocrit 34.9 % (42.0-52.0); Hemoglobin 11.6 g/dL (14.0-18.0); Immature Granulocyte Percent A 1.4 % (0-0.5); Immature Platelet Fraction Pct 9.4 % (0.9-11.2); Lymphocytes Absolute Auto 0.58 K/mm3 (0.9-3.2); Mean Corpuscular HGB Conc 33.2 g/dl (32-36); Mean Corpuscular Hemoglobin 30.1 pg (26-34); Mean Corpuscular Volume 90.6 fl (80-100); Nucleated Red Blood Cells Absolute Auto 0.000 K/mm3 (0.0-0.012); Nucleated Red Blood Cells Perc 0.0 % (0.0-0.2); Red Blood Count 3.85 M/mm3 (4.6-6.20); White Blood Count 14.1 K/mm3 (4.5-10.0)
[2025-03-30 03:58] LABS: INR 1.0; Prothrombin Time 13.8 Seconds (11.1-14.7)
[2025-03-30 03:59] LABS: Partial Thromboplastin Time 26.6 Seconds (22.3-36.8)
[2025-03-30 04:09] LABS: Alanine Aminotransferase 114 U/L (6-50); Albumin Level 2.7 g/dL (3.5-5.1); Alkaline Phosphatase 86 U/L (38-126); Anion Gap 6 mmol/L (4-12); Aspartate Amino Transferase 71 U/L (17-59); Bilirubin,Total 1.4 mg/dL (0.2-1.3); Blood Urea Nitrogen 33 mg/dL (9-20); Calcium 8.2 mg/dL (8.4-10.2); Carbon Dioxide 25 mmol/L (22-30); Chloride 104 mmol/L (98-107); Estimated CRCL calculation 64 ml/min; Estimated Glomerular Filt Rate > 60; Glucose 275 mg/dL (65-110); Magnesium 2.3 mg/dL (1.6-2.3); Potassium 3.3 mmol/L (3.4-5.0); Sodium 135 mmol/L (137-145); Total Protein 5.4 g/dL (6.3-8.2)
[2025-03-30 04:13] LABS: NT Pro B Type Natriuretic Pept 3450 pg/mL (19.9-100)
[2025-03-30 04:14] LABS: Platelet Count Result 82 k/mm3 (150-375)
[2025-03-30 04:28] LABS: CRP 8.7 mg/dL (<1.0)
[2025-03-30] MEDS: METOPROLOL TARTRATE 25 MG TABLET PO (05:48)
[2025-03-30] MEDS: PIPERACILLIN/TAZOBACTAM SOD 3.375 GM in SODIUM CHLORIDE 0.9% IV 50 ML 100 ML IVPB ×4 (05:49→23:53)
[2025-03-30] MEDS: DOCUSATE SODIUM 100 MG CAPSULE PO ×2 (08:43→20:18)
[2025-03-30] MEDS: ASPIRIN 81 MG ENTERIC TABLET PO (08:44)
[2025-03-30] MEDS: FINASTERIDE 5 MG TABLET PO (08:44)
[2025-03-30] MEDS: LORATADINE 10 MG TABLET PO (08:44)
[2025-03-30] MEDS: POTASSIUM CHLORIDE 20 MEQ ER TABLET 40 MEQ PO (08:44)
[2025-03-30] MEDS: INSULIN ASPART (*BKC) 100 UNITS/ML SUB-Q ×4 (08:44→20:21)
--- NOTE | 2025-03-30 10:42 | PM.PNCARD ---
Progress Note: A&P Assessment and Plan (1) Atrial fib/flutter, transient: Code(s): I48.91 - Unspecified atrial fibrillation; I48.92 - Unspecified atrial flutter Status: Acute Plan Persistent atrial fibrillation with RVR Sepsis acute cholecystitis status post cholecystectomy Hypertension controlled Thrombocytopenia Hypokalemia Coronary artery disease history of PCI Morbid obesity Plan Increase metoprolol to 100 mg BID Start oral anticoagulation when platelet count is stable and improving Subjective Date/time seen: 03/30/25 10:42 Interval history: seen for atrial fibrillation with rapid ventricular response No acute events Telemetry AFib with RVR heart rate 100 Review of Systems Review of Systems: All systems reviewed & are unremarkable except as noted in HPI and below Exam Const: General: comfortable and no acute distress Other: Able to lie flat HENMT: Face/Nose/Sinus: Normal nares present and no epistaxis Mouth: Yes moist mucous membranes Eyes: Sclera: sclerae normal Pupils: Equal, round and reactive pupils present Neck: Neck: supple and no JVD Carotids: no bruits Resp: Auscultation: clear to auscultation bilaterally and lung sounds not diminished Other: No chest wall tenderness Cardio: Rate: regular rate Rhythm: regular rhythm Heart sounds: no gallops, no murmurs and no rubs GI: GI Palp: Yes Soft to palpation and No Tenderness to palpation present (GI) Auscultation: normal bowel sounds Skin: General skin exam: normal color, rashes and/or lesions noted and no erythema Other: Warm Neuro: Cranial nerves: Yes Equal, round and reactive pupils present Speech: normal speech Other: No obvious focal deficit or facial asymmetry Extrem: General: no edema Other: Normal capillary refills Intact distal pulses. Objective Data Vital Signs Vital Signs: Vital Signs - 24 hr 03/29/25 12:00 03/29/25 12:00 03/29/25 12:00 Temperature 36.7 C Pulse Rate 122 H 131 H Respiratory Rate 28 H Blood Pressure 146/83 H Pulse Oximetry 98 98 Oxygen Delivery Room Air Fraction of Inspired Oxygen 03/29/25 13:00 03/29/25 14:00 03/29/25 16:00 Temperature Pulse Rate 116 H 115 H Respiratory Rate Blood Pressure Pulse Oximetry 98 Oxygen Delivery Room Air Fraction of Inspired Oxygen 03/29/25 16:00 03/29/25 16:00 03/29/25 18:00 Temperature 36.3 C L Pulse Rate 119 H 122 H 120 H Respiratory Rate 24 H Blood Pressure 147/87 H Pulse Oximetry 98 Oxygen Delivery Fraction of Inspired Oxygen 03/29/25 19:12 03/29/25 20:00 03/29/25 20:00 Temperature 36.9 C Pulse Rate 112 H 120 H 120 H Respiratory Rate 17 17 Blood Pressure 133/75 Pulse Oximetry 99 99 Oxygen Delivery Room Air Fraction of Inspired Oxygen 21 03/29/25 21:14 03/29/25 22:00 03/29/25 22:02 Temperature Pulse Rate 120 H 114 H Respiratory Rate Blood Pressure Pulse Oximetry Oxygen Delivery CPAP Fraction of Inspired Oxygen 03/29/25 23:58 03/29/25 23:58 03/30/25 00:00 Temperature 36.7 C Pulse Rate 102 H 102 H 99 Respiratory Rate 20 17 Blood Pressure 118/72 Pulse Oximetry 99 98 Oxygen Delivery CPAP Fraction of Inspired Oxygen 21 03/30/25 02:00 03/30/25 02:57 03/30/25 03:56 Temperature 36.8 C Pulse Rate 104 H 110 H 104 H Respiratory Rate 17 17 Blood Pressure 139/76 Pulse Oximetry 97 97 Oxygen Delivery CPAP Fraction of Inspired Oxygen 21 03/30/25 03:56 03/30/25 05:48 03/30/25 06:00 Temperature Pulse Rate 104 H 104 H 104 H Respiratory Rate Blood Pressure Pulse Oximetry Oxygen Delivery Fraction of Inspired Oxygen 03/30/25 07:22 03/30/25 09:40 Temperature 36.6 C Pulse Rate 104 H Respiratory Rate 20 Blood Pressure 143/87 H Pulse Oximetry 99 Oxygen Delivery Room Air Fraction of Inspired Oxygen Intake/Output Intake/Output: Intake & Output 03/27/25 03/28/25 03/29/25 03/30/25 23:59 23:59 23:59 23:59 Intake Total 4100 4394.2 1683.7 340 Output Total 630 1053 1865 870 Balance 3470 3341.2 -181.3 -530 Meds/Results Medications: Active Medications Generic Name Dose Route Start Last Admin Trade Name Freq PRN Reason Stop Dose Admin Acetaminophen 650 mg 03/27/25 16:53 03/28/25 08:23 Acetaminophen 325 Mg Tablet PO 650 mg Q6H PRN Administration Mild Pain (1-3) or Fever Aspirin 81 mg 03/29/25 09:00 03/30/25 08:44 Aspirin 81 Mg Enteric Tablet PO 81 mg QAM CEE Administration Dextrose 12.5 gm 03/27/25 13:42 Dextrose 50% 25 Gm/50 Ml Syringe IV PUSH PRN PRN Hypoglycemia Protocol Docusate Sodium 100 mg 03/28/25 09:00 03/30/25 08:43 Docusate Sodium 100 Mg Capsule PO 100 mg Q12HR CEE Administration Finasteride 5 mg 03/28/25 09:00 03/30/25 08:44 Finasteride 5 Mg Tablet PO 5 mg DAILY CEE Administration Glucagon 1 mg 03/27/25 13:42 Glucagon For Inj 1 Mg Vial IM PRN PRN Hypoglycemia Protocol Glucose 15 gm 03/27/25 13:42 Glucose Oral Gel 15 Gm Of Glucse In 37.5 Gm Tube PO PRN PRN Hypoglycemia Protocol Piperacillin Sod/Tazobactam 50 mls @ 100 mls/hr 03/27/25 18:00 03/30/25 06:20 Sod 3.375 gm/ Sodium Chloride IVPB Infused Q6HR CEE Infusion Dextrose 1,000 mls @ 100 mls/hr 03/27/25 13:42 Dextrose 5% 1,000 Ml IVPB PRN PRN Hypoglycemia Protocol Insulin Aspart 1 - 2 units 03/29/25 21:00 03/29/25 21:17 Insulin Aspart (*Bkc) 100 Units/Ml SUB-Q 1 units HS CEE Administration Protocol Insulin Aspart 2 - 5 units 03/30/25 08:00 03/30/25 08:44 Insulin Aspart (*Bkc) 100 Units/Ml SUB-Q 3 units TIDWM CEE Administration Protocol Insulin Glargine 15 units 03/29/25 21:00 03/29/25 21:17 Insulin Glargine (*Bkc) 100 Units/Ml SUB-Q 15 units HS CEE Administration Loratadine 10 mg 03/28/25 09:00 03/30/25 08:44 Loratadine 10 Mg Tablet PO 10 mg QAM CEE Administration Melatonin 5 mg 03/29/25 21:00 03/29/25 21:13 Melatonin 5 Mg Tablet PO 5 mg HS CEE Administration Metoprolol Tartrate 25 mg 03/29/25 14:00 03/30/25 05:48 Metoprolol Tartrate 25 Mg Tablet PO 25 mg Q8HR CEE Administration Morphine Sulfate 2 mg 03/27/25 13:02 03/27/25 18:22 Morphine Sulfate (*Crx) 2 Mg/Ml Inj IV PUSH 2 mg Q2HR PRN Administration Pain Rated 7-10 Ondansetron HCl 4 mg 03/27/25 11:54 Ondansetron Inj 4 Mg/2 Ml Vial IV PUSH Q4H PRN Nausea Perflutren Lipid Microsphere 0 ml 03/27/25 16:47 Perflutren Lipid Microspheres 1.5 Ml Vial Diluted To 10 Ml Total Volume IV PUSH 03/30/25 16:47 ONCE PRN adequate visualization Protocol Simvastatin 80 mg 03/27/25 21:00 03/29/25 21:13 Simvastatin 20 Mg Tablet PO 80 mg HS CEE Administration Tamsulosin HCl 0.4 mg 03/27/25 21:00 03/29/25 21:13 Tamsulosin Hcl 0.4 Mg Capsule PO 0.4 mg HS CEE Administration Radiology Results: ITS Impressions Head CT 03/27/25 09:20 Impression: 1.No acute intracranial abnormality. Cervical Spine CT 03/27/25 09:22 Impression: No acute abnormality. Chest/Abdomen/Pelvis CT 03/27/25 10:27 IMPRESSION: 1. Findings are concerning for acute cholecystitis, questionable areas of liver abscess formation detailed above. Abdomen Ultrasound 03/27/25 11:42 IMPRESSION: 1: Hepatomegaly with fatty infiltration of the liver. Hyperechoic lesion present adjacent to the gallbladder wall, indeterminate. There is possible pericholecystic fluid. There is gallbladder wall thickening. Findings suspicious for cholecystitis. Clinically correlate. No definite abscess identified. Cholecystostomy 03/27/25 16:29 IMPRESSION: 1. Successful ultrasound-guided cholecystostomy tube placement. 2. 60 mL bile was sent for aerobic, anaerobic, and fungal cultures. 3. The catheter will be managed by Dr. Whelan. A catheter cholangiogram may be performed not less than 48 hours after tube placement if clinically indicated to assess cystic duct patency. If cholecystectomy is not eventually performed and the infectious episode has resolved, the tube may be removed over a guidewire, preferably not less than 3 weeks after placement to allow time for a mature catheter tract to form to prevent bile leakage and peritonitis. Chest X-Ray 03/29/25 17:28 IMPRESSION: 1. Mild discoid atelectasis/scarring in the right lower lobe. No other acute cardiopulmonary disease. Labs Labs: Laboratory Results - last 24 hr 03/29/25 03/29/25 03/29/25 11:46 16:48 20:16 WBC RBC Hgb Hct MCV MCH MCHC RDW Plt Count MPV Immature Gran % (Auto) Neut % (Auto) Lymph % (Auto) [place] % (Auto) Eos % (Auto) Baso % (Auto) Lymph # (Auto) [place] # (Auto) Eos # (Auto) Baso # (Auto) Abs Immat Gran (auto) Absolute Neuts (auto) Absolute Nucleated RBC Nucleated RBC % % Immature Plt Fraction PT INR APTT Sodium Potassium Chloride Carbon Dioxide Anion Gap BUN Creatinine Estim Creat Clear Calc Estimated GFR Glucose POC Capillary Glucose 251 H 296 H 287 H Calcium Magnesium Total Bilirubin AST ALT Alkaline Phosphatase C-Reactive Protein NT-Pro-B Natriuret Pep Total Protein Albumin 03/30/25 03/30/25 03:21 07:27 WBC 14.1 H RBC 3.85 L Hgb 11.6 L Hct 34.9 L MCV 90.6 MCH 30.1 MCHC 33.2 RDW 14.6 H Plt Count 82 L MPV 12.8 H Immature Gran % (Auto) 1.4 H Neut % (Auto) 83.5 H Lymph % (Auto) 4.1 L [place] % (Auto) 10.6 H Eos % (Auto) 0.3 Baso % (Auto) 0.1 L Lymph # (Auto) 0.58 L [place] # (Auto) 1.5 H Eos # (Auto) 0.0 Baso # (Auto) 0.0 Abs Immat Gran (auto) 0.20 H Absolute Neuts (auto) 11.7 H Absolute Nucleated RBC 0.000 Nucleated RBC % 0.0 % Immature Plt Fraction 9.4 PT 13.8 INR 1.0 APTT 26.6 Sodium 135 L Potassium 3.3 L Chloride 104 Carbon Dioxide 25 Anion Gap 6 BUN 33 H D Creatinine 0.92 Estim Creat Clear Calc 64 Estimated GFR > 60 Glucose 275 H POC Capillary Glucose 282 H Calcium 8.2 L Magnesium 2.3 Total Bilirubin 1.4 H AST 71 H ALT 114 H Alkaline Phosphatase 86 C-Reactive Protein 8.7 H NT-Pro-B Natriuret Pep 3450 H Total Protein 5.4 L Albumin 2.7 L
--- NOTE | 2025-03-30 12:08 | PM.PNGS ---
Progress Note: A&P Assessment and Plan (1) Gram-negative bacteremia: Code(s): R78.81 - Bacteremia Status: Acute Assessment and Plan: both sets of blood cultures were positive for Gram-negative rods. Cultures were drawn on 03/27/2025. Patient did have fever to 38.6 on that day. He also had his cholecystostomy tube placed on 03/27/2025. bile sent for Gram stain and culture when cholecystostomy tube was placed. Bile also showing gram-negative rods on Gram stain. Believe the bacteremia is due to severe cholecystitis and sepsis. (2) Cholelithiasis and acute cholecystitis without obstruction: Code(s): K80.00 - Calculus of gallbladder with acute cholecystitis without obstruction Status: Acute Assessment and Plan: no complaints of abdominal pain. No upper abdominal tenderness. Pigtail catheter draining bile. Patient tolerating diabetic diet. Will get cholecystogram tomorrow. White blood cell count still 14,000. LFTs slightly better than yesterday but still elevated. (3) Paroxysmal atrial fibrillation: Code(s): I48.0 - Paroxysmal atrial fibrillation Status: Acute Assessment and Plan: Metoprolol dose increased. Anticoagulation to be started once platelet count more normal and stable. Will start prophylactic dose of Lovenox has platelet count is up to 82,000 today. (4) Thrombocytopenia: Code(s): D69.6 - Thrombocytopenia, unspecified Status: Acute Assessment and Plan: Platelet count up to 82,000 today. Continue to monitor, no active bleeding (5) CAD (coronary artery disease): Qualifiers: Coronary Disease-Associated Artery/Lesion type: [place] artery [place] vs. 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 (7) IVETT (obstructive sleep apnea): Code(s): G47.33 - Obstructive sleep apnea (adult) (pediatric) Status: Chronic Assessment and Plan: On CPAP (8) Umbilical hernia: Qualifiers: Obstruction and gangrene presence: without obstruction or gangrene Qualified Code(s): K42.9 - Umbilical hernia without obstruction or gangrene Code(s): K42.9 - Umbilical hernia without obstruction or gangrene Status: Chronic Assessment and Plan: Reducible, asymptomatic Subjective Subjective Date/Time Seen: 03/30/25 12:08 Post Op day: 3 ( day 3 after cholecystostomy tube placed) Patient reports: no new complaints ( Only complaint is that his buttocks and lower back are sore from the bed. Denies abdominal pain), pain is less ( no abdominal pain nausea or emesis, tolerating diabetic diet), voiding w/o difficulty, no bowel movement and afebrile Review of Systems Review of Systems: All systems reviewed & are unremarkable except as noted in HPI and below ( HPI) Exam Const: General: alert, awake, tired appearing and uncomfortable; No acute distress GI: Inspection: non-distended and other ( bile draining from cholecystostomy tube) GI Palp: Yes Soft to palpation and No Tenderness to palpation present (GI) Auscultation: normal bowel sounds Objective Data Vital Signs Vital Signs: Vital Signs - 24 hr 03/29/25 13:00 03/29/25 14:00 03/29/25 16:00 Temperature Pulse Rate 116 H 115 H Respiratory Rate Blood Pressure Pulse Oximetry 98 Oxygen Delivery Room Air Fraction of Inspired Oxygen 03/29/25 16:00 03/29/25 16:00 03/29/25 18:00 Temperature 36.3 C L Pulse Rate 119 H 122 H 120 H Respiratory Rate 24 H Blood Pressure 147/87 H Pulse Oximetry 98 Oxygen Delivery Fraction of Inspired Oxygen 03/29/25 19:12 03/29/25 20:00 03/29/25 20:00 Temperature 36.9 C Pulse Rate 112 H 120 H 120 H Respiratory Rate 17 17 Blood Pressure 133/75 Pulse Oximetry 99 99 Oxygen Delivery Room Air Fraction of Inspired Oxygen 21 03/29/25 21:14 03/29/25 22:00 03/29/25 22:02 Temperature Pulse Rate 120 H 114 H Respiratory Rate Blood Pressure Pulse Oximetry Oxygen Delivery CPAP Fraction of Inspired Oxygen 03/29/25 23:58 03/29/25 23:58 03/30/25 00:00 Temperature 36.7 C Pulse Rate 102 H 102 H 99 Respiratory Rate 20 17 Blood Pressure 118/72 Pulse Oximetry 99 98 Oxygen Delivery CPAP Fraction of Inspired Oxygen 03/30/25 02:00 03/30/25 02:57 03/30/25 03:56 Temperature 36.8 C Pulse Rate 104 H 110 H 104 H Respiratory Rate 17 17 Blood Pressure 139/76 Pulse Oximetry 97 97 Oxygen Delivery CPAP Fraction of Inspired Oxygen 03/30/25 03:56 03/30/25 05:48 03/30/25 06:00 Temperature Pulse Rate 104 H 104 H 104 H Respiratory Rate Blood Pressure Pulse Oximetry Oxygen Delivery Fraction of Inspired Oxygen 03/30/25 07:22 03/30/25 08:00 03/30/25 09:40 Temperature 36.6 C Pulse Rate 104 H Respiratory Rate 20 Blood Pressure 143/87 H Pulse Oximetry 99 99 Oxygen Delivery Room Air Room Air Fraction of Inspired Oxygen 03/30/25 11:41 Temperature 36.8 C Pulse Rate 109 H Respiratory Rate 24 H Blood Pressure 136/80 Pulse Oximetry 98 Oxygen Delivery Fraction of Inspired Oxygen Intake/Output Intake/Output: Intake & Output 03/27/25 03/28/25 03/29/25 03/30/25 23:59 23:59 23:59 23:59 Intake Total 4100 4394.2 1683.7 340 Output Total 630 1053 1865 870 Balance 3470 3341.2 -181.3 -530 Meds/Results Medications: Active Medications Generic Name Dose Route Start Last Admin Trade Name Freq PRN Reason Stop Dose Admin Acetaminophen 650 mg 03/27/25 16:53 03/28/25 08:23 Acetaminophen 325 Mg Tablet PO 650 mg Q6H PRN Administration Mild Pain (1-3) or Fever Aspirin 81 mg 03/29/25 09:00 03/30/25 08:44 Aspirin 81 Mg Enteric Tablet PO 81 mg QAM CEE Administration Dextrose 12.5 gm 03/27/25 13:42 Dextrose 50% 25 Gm/50 Ml Syringe IV PUSH PRN PRN Hypoglycemia Protocol Docusate Sodium 100 mg 03/28/25 09:00 03/30/25 08:43 Docusate Sodium 100 Mg Capsule PO 100 mg Q12HR CEE Administration Finasteride 5 mg 03/28/25 09:00 03/30/25 08:44 Finasteride 5 Mg Tablet PO 5 mg DAILY CEE Administration Glucagon 1 mg 03/27/25 13:42 Glucagon For Inj 1 Mg Vial IM PRN PRN Hypoglycemia Protocol Glucose 15 gm 03/27/25 13:42 Glucose Oral Gel 15 Gm Of Glucse In 37.5 Gm Tube PO PRN PRN Hypoglycemia Protocol Piperacillin Sod/Tazobactam 50 mls @ 100 mls/hr 03/27/25 18:00 03/30/25 06:20 Sod 3.375 gm/ Sodium Chloride IVPB Infused Q6HR CEE Infusion Dextrose 1,000 mls @ 100 mls/hr 03/27/25 13:42 Dextrose 5% 1,000 Ml IVPB PRN PRN Hypoglycemia Protocol Insulin Aspart 1 - 2 units 03/29/25 21:00 03/29/25 21:17 Insulin Aspart (*Bkc) 100 Units/Ml SUB-Q 1 units HS CEE Administration Protocol Insulin Aspart 2 - 5 units 03/30/25 08:00 03/30/25 08:44 Insulin Aspart (*Bkc) 100 Units/Ml SUB-Q 3 units TIDWM CEE Administration Protocol Insulin Glargine 15 units 03/29/25 21:00 03/29/25 21:17 Insulin Glargine (*Bkc) 100 Units/Ml SUB-Q 15 units HS CEE Administration Loratadine 10 mg 03/28/25 09:00 03/30/25 08:44 Loratadine 10 Mg Tablet PO 10 mg QAM CEE Administration Melatonin 5 mg 03/29/25 21:00 03/29/25 21:13 Melatonin 5 Mg Tablet PO 5 mg HS CEE Administration Metoprolol Tartrate 100 mg 03/30/25 21:00 Metoprolol Tartrate 50 Mg Tab PO Q12HR CEE Morphine Sulfate 2 mg 03/27/25 13:02 03/27/25 18:22 Morphine Sulfate (*Crx) 2 Mg/Ml Inj IV PUSH 2 mg Q2HR PRN Administration Pain Rated 7-10 Ondansetron HCl 4 mg 03/27/25 11:54 Ondansetron Inj 4 Mg/2 Ml Vial IV PUSH Q4H PRN Nausea Perflutren Lipid Microsphere 0 ml 03/27/25 16:47 Perflutren Lipid Microspheres 1.5 Ml Vial Diluted To 10 Ml Total Volume IV PUSH 03/30/25 16:47 ONCE PRN adequate visualization Protocol Simvastatin 80 mg 03/27/25 21:00 03/29/25 21:13 Simvastatin 20 Mg Tablet PO 80 mg HS CEE Administration Tamsulosin HCl 0.4 mg 03/27/25 21:00 03/29/25 21:13 Tamsulosin Hcl 0.4 Mg Capsule PO 0.4 mg HS CEE Administration Radiology Results: ITS Impressions Head CT 03/27/25 09:20 Impression: 1.No acute intracranial abnormality. Cervical Spine CT 03/27/25 09:22 Impression: No acute abnormality. Chest/Abdomen/Pelvis CT 03/27/25 10:27 IMPRESSION: 1. Findings are concerning for acute cholecystitis, questionable areas of liver abscess formation detailed above. Abdomen Ultrasound 03/27/25 11:42 IMPRESSION: 1: Hepatomegaly with fatty infiltration of the liver. Hyperechoic lesion present adjacent to the gallbladder wall, indeterminate. There is possible pericholecystic fluid. There is gallbladder wall thickening. Findings suspicious for cholecystitis. Clinically correlate. No definite abscess identified. Cholecystostomy 03/27/25 16:29 IMPRESSION: 1. Successful ultrasound-guided cholecystostomy tube placement. 2. 60 mL bile was sent for aerobic, anaerobic, and fungal cultures. 3. The catheter will be managed by Dr. Whelan. A catheter cholangiogram may be performed not less than 48 hours after tube placement if clinically indicated to assess cystic duct patency. If cholecystectomy is not eventually performed and the infectious episode has resolved, the tube may be removed over a guidewire, preferably not less than 3 weeks after placement to allow time for a mature catheter tract to form to prevent bile leakage and peritonitis. Chest X-Ray 03/29/25 17:28 IMPRESSION: 1. Mild discoid atelectasis/scarring in the right lower lobe. No other acute cardiopulmonary disease. Labs Labs: Laboratory Results - last 24 hr 03/29/25 03/29/25 03/29/25 11:46 16:48 20:16 WBC RBC Hgb Hct MCV MCH MCHC RDW Plt Count MPV Immature Gran % (Auto) Neut % (Auto) Lymph % (Auto) [place] % (Auto) Eos % (Auto) Baso % (Auto) Lymph # (Auto) [place] # (Auto) Eos # (Auto) Baso # (Auto) Abs Immat Gran (auto) Absolute Neuts (auto) Absolute Nucleated RBC Nucleated RBC % % Immature Plt Fraction PT INR APTT Sodium Potassium Chloride Carbon Dioxide Anion Gap BUN Creatinine Estim Creat Clear Calc Estimated GFR Glucose POC Capillary Glucose 251 H 296 H 287 H Calcium Magnesium Total Bilirubin AST ALT Alkaline Phosphatase C-Reactive Protein NT-Pro-B Natriuret Pep Total Protein Albumin 03/30/25 03/30/25 03:21 07:27 WBC 14.1 H RBC 3.85 L Hgb 11.6 L Hct 34.9 L MCV 90.6 MCH 30.1 MCHC 33.2 RDW 14.6 H Plt Count 82 L MPV 12.8 H Immature Gran % (Auto) 1.4 H Neut % (Auto) 83.5 H Lymph % (Auto) 4.1 L [place] % (Auto) 10.6 H Eos % (Auto) 0.3 Baso % (Auto) 0.1 L Lymph # (Auto) 0.58 L [place] # (Auto) 1.5 H Eos # (Auto) 0.0 Baso # (Auto) 0.0 Abs Immat Gran (auto) 0.20 H Absolute Neuts (auto) 11.7 H Absolute Nucleated RBC 0.000 Nucleated RBC % 0.0 % Immature Plt Fraction 9.4 PT 13.8 INR 1.0 APTT 26.6 Sodium 135 L Potassium 3.3 L Chloride 104 Carbon Dioxide 25 Anion Gap 6 BUN 33 H D Creatinine 0.92 Estim Creat Clear Calc 64 Estimated GFR > 60 Glucose 275 H POC Capillary Glucose 282 H Calcium 8.2 L Magnesium 2.3 Total Bilirubin 1.4 H AST 71 H ALT 114 H Alkaline Phosphatase 86 C-Reactive Protein 8.7 H NT-Pro-B Natriuret Pep 3450 H Total Protein 5.4 L Albumin 2.7 L Both sets blood cultures from 03/27/2025 are positive for Gram-negative rods
[2025-03-30] MEDS: ENOXAPARIN 40 MG/0.4 ML SYRINGE SUB-Q (12:58)
--- NOTE | 2025-03-30 15:34 | P.PNIM_ITS ---
Progress Note: A&P Assessment and Plan (1) Sepsis: Code(s): A41.9 - Sepsis, unspecified organism Status: Acute Assessment and Plan: Patient presents with weakness and found to have fever, tachycardia, thrombocy topenia, leukocytosis and JAYY. CT Ch/A/P showing acute cholecystitis with possible 1cm liver abscess. Source of sepsis is acute cholecystitis with possible liver abscess. Received 30cc/kg and started on IV fluids. Cholecystostomy tube placed by IR (03/27) BCx - EColi in both sets paulino sensitive. Gram stain noted but GB Culture growing GNB. Started on Zosyn (03/27). WBC about the same but CRP trending down. Tachycardia but related to AFib with RVR. Fever has resolved. Continue IV abx. (2) Acute cholecystitis: Code(s): K81.0 - Acute cholecystitis Status: Acute Assessment and Plan: General Surgery consulted and appreciate their input Percutaneous cholecystostomy tube placed. Tube management per GenSurg Diet started. Continue IV abx. (3) Liver abscess: Code(s): K75.0 - Abscess of liver Status: Acute Assessment and Plan: As above. May need repeat imaging to show resolution of abscess (4) Acute respiratory distress: Code(s): R06.03 - Acute respiratory distress Status: Acute Assessment and Plan: BNP 2170. Given his age, this is only mildly elevated. He appeared in acute respiratory distress with hypoxia in ED but imaging did not show CHF. He received aggressive fluid hydration in ED Echo showing EF 60-65% and Grade II diastolic dysfunction. Moderate pHTN noted. Groom that his tachypnea was related to the sepsis. Was still tachypneic but repeat CXR clear. Remains on room air. Monitor UOP. Monitor resp status. (5) Atrial fib/flutter, transient: Code(s): I48.91 - Unspecified atrial fibrillation; I48.92 - Unspecified atrial flutter Status: Acute Assessment and Plan: Patient with paroxysmal AFib with recurrence overnight felt related to sepsis picture. Echo as above. [id number] (HTN, Age, DM, CAD) TSH normal. He was on Atenolol on admission but changed to metoprolol. Metoprolol advanced. No Heparin drip due to low plt count. Cardiology consulted and appreciate their input. Continue ASA for now. Add Eliquis if and when able. (6) JAYY (acute kidney injury): Code(s): N17.9 - Acute kidney failure, unspecified Status: Acute Assessment and Plan: No recent Cr to review. Cr 1.6 on admission. Received appropriate fluid resuscitation in ED. Repeat Cr 0.9 today. UOP much better. Follow (7) Hypertension: Code(s): I10 - Essential (primary) hypertension Status: Acute Assessment and Plan: Patient's blood pressure was reviewed on 03/30 Blood pressure remains well controlled. Metoprolol added and dose advanced. Will continue to monitor (8) CAD (coronary artery disease): Qualifiers: Coronary Disease-Associated Artery/Lesion type: [place] artery [place] vs. transplanted heart: [place] heart Associated angina: unspecified whether angina present Qualified Code(s): I25.10 - Atherosclerotic heart disease of [place] coronary artery without angina pectoris Code(s): I25.10 - Atherosclerotic heart disease of [place] coronary artery without angina pectoris Status: Chronic Assessment and Plan: Patient with CAD s/p stent placement. Continue Zocor and ASA. Atenolol changed to metoprolol (9) DMII (diabetes mellitus, type 2): Qualifiers: Diabetes mellitus intermediate accountant insulin use: without [facility] use Diabetes mellitus complication status: without complication Qualified Code(s): E11.9 - Type 2 diabetes mellitus without complications Code(s): E11.9 - Type 2 diabetes mellitus without complications Status: Chronic Assessment and Plan: The patient's blood glucose was reviewed on 03/30 He takes Tresiba, metformin and glipizide at home but currently on hold Glucose poorly controlled. Continue AccuCheks covering with sliding scale. Hypoglycemia protocol available as needed. Advance lantus again. Continue diabetic diet. Continue to monitor (10) BPH (benign prostatic hyperplasia): Code(s): N40.0 - Benign prostatic hyperplasia without lower urinary tract symptoms Status: Acute Assessment and Plan: Patient with urine retention requiring Jeffrey placement. Related to above. Proscar restarted. Was not on Flomax at home but will continue since he has retention. Voiding trial today since ambulating well. (11) Fall: Code(s): W19.XXXA - Unspecified fall, initial encounter Status: Acute Assessment and Plan: Patient did have a ground level fall 03/26 and struck his head. Patient denies any loss of consciousness. CT head showing no acute findings CT cervical spine showing no acute process Continue PT/OT (12) Thrombocytopenia: Code(s): D69.6 - Thrombocytopenia, unspecified Status: Acute Assessment and Plan: Plt count normal in 2019 but no values since Plt count 79K -> 54K -> 56K -> 82K MPV elevated. Possibly consumptive from infection vs chronic. Follow Plan DVT Prophylaxis - SCDs Code status - full Subjective Date/time seen: 03/30/25 15:34 Interval history: 84yo male with BPH, DM, HTN, HLD and CAD presents the hospital with acute weakness. Walking in room. No CP or SOB. No n/v. No abd pain. Eating okay. Family and they were updated with patient's permission. Exam Narrative: AF 98.2 136/80 115 24 98% ra Gen - NARD Chest - CTA bilaterally, nml RR CV - irregularly irregular; Tele showing back in AFib with mild RVR (HR<120) Abd - Soft, NT/ND, Positive BS. RUQ cholecystostomy drain in place with bilious red fluid in bag - Jeffrey secured draining clear yellow urine Ext - no pedal edema Psych - Nml mood and affect Skin - Warm and dry Objective Data Vital Signs Vital Signs: Vital Signs - 24 hr 03/29/25 16:00 03/29/25 16:00 03/29/25 16:00 Temperature 97.4 F L Pulse Rate 119 H 122 H Respiratory Rate 24 H Blood Pressure 147/87 H Pulse Oximetry 98 98 Oxygen Delivery Room Air Fraction of Inspired Oxygen 03/29/25 18:00 03/29/25 19:12 03/29/25 20:00 Temperature 98.5 F Pulse Rate 120 H 112 H 120 H Respiratory Rate 17 17 Blood Pressure 133/75 Pulse Oximetry 99 99 Oxygen Delivery Room Air Fraction of Inspired Oxygen 21 03/29/25 20:00 03/29/25 21:14 03/29/25 22:00 Temperature Pulse Rate 120 H 120 H 114 H Respiratory Rate Blood Pressure Pulse Oximetry Oxygen Delivery Fraction of Inspired Oxygen 03/29/25 22:02 03/29/25 23:58 03/29/25 23:58 Temperature Pulse Rate 102 H 102 H Respiratory Rate 20 Blood Pressure Pulse Oximetry 99 Oxygen Delivery CPAP CPAP Fraction of Inspired Oxygen 03/30/25 00:00 03/30/25 02:00 03/30/25 02:57 Temperature 98.0 F 98.3 F Pulse Rate 99 104 H 110 H Respiratory Rate 17 17 Blood Pressure 118/72 139/76 Pulse Oximetry 98 97 Oxygen Delivery Fraction of Inspired Oxygen 03/30/25 03:56 03/30/25 03:56 03/30/25 05:48 Temperature Pulse Rate 104 H 104 H 104 H Respiratory Rate 17 Blood Pressure Pulse Oximetry 97 Oxygen Delivery CPAP Fraction of Inspired Oxygen 03/30/25 06:00 03/30/25 07:22 03/30/25 08:00 Temperature 97.8 F Pulse Rate 104 H 104 H Respiratory Rate 20 Blood Pressure 143/87 H Pulse Oximetry 99 99 Oxygen Delivery Room Air Fraction of Inspired Oxygen 03/30/25 08:00 03/30/25 09:40 03/30/25 10:00 Temperature Pulse Rate 109 H 107 H Respiratory Rate Blood Pressure Pulse Oximetry Oxygen Delivery Room Air Fraction of Inspired Oxygen 03/30/25 11:41 03/30/25 12:00 03/30/25 12:00 Temperature 98.2 F Pulse Rate 109 H 115 H Respiratory Rate 24 H Blood Pressure 136/80 Pulse Oximetry 98 98 Oxygen Delivery Room Air Fraction of Inspired Oxygen Intake/Output Intake/Output: Intake & Output 03/27/25 03/28/25 03/29/25 03/30/25 23:59 23:59 23:59 23:59 Intake Total 4100 4394.2 1683.7 580 Output Total 630 1053 1865 870 Balance 3470 3341.2 -181.3 -290 Meds/Results Medications: Active Medications Generic Name Dose Route Start Last Admin Trade Name Freq PRN Reason Stop Dose Admin Acetaminophen 650 mg 03/27/25 16:53 03/28/25 08:23 Acetaminophen 325 Mg Tablet PO 650 mg Q6H PRN Administration Mild Pain (1-3) or Fever Aspirin 81 mg 03/29/25 09:00 03/30/25 08:44 Aspirin 81 Mg Enteric Tablet PO 81 mg QAM CEE Administration Dextrose 12.5 gm 03/27/25 13:42 Dextrose 50% 25 Gm/50 Ml Syringe IV PUSH PRN PRN Hypoglycemia Protocol Docusate Sodium 100 mg 03/28/25 09:00 03/30/25 08:43 Docusate Sodium 100 Mg Capsule PO 100 mg Q12HR CEE Administration Enoxaparin Sodium 40 mg 03/31/25 09:00 Enoxaparin 40 Mg/0.4 Ml Syringe SUB-Q DAILY CEE Finasteride 5 mg 03/28/25 09:00 03/30/25 08:44 Finasteride 5 Mg Tablet PO 5 mg DAILY CEE Administration Glucagon 1 mg 03/27/25 13:42 Glucagon For Inj 1 Mg Vial IM PRN PRN Hypoglycemia Protocol Glucose 15 gm 03/27/25 13:42 Glucose Oral Gel 15 Gm Of Glucse In 37.5 Gm Tube PO PRN PRN Hypoglycemia Protocol Piperacillin Sod/Tazobactam 50 mls @ 100 mls/hr 03/27/25 18:00 03/30/25 12:16 Sod 3.375 gm/ Sodium Chloride IVPB 100 mls/hr Q6HR CEE Administration Dextrose 1,000 mls @ 100 mls/hr 03/27/25 13:42 Dextrose 5% 1,000 Ml IVPB PRN PRN Hypoglycemia Protocol Insulin Aspart 1 - 2 units 03/29/25 21:00 03/29/25 21:17 Insulin Aspart (*Bkc) 100 Units/Ml SUB-Q 1 units HS CEE Administration Protocol Insulin Aspart 2 - 5 units 03/30/25 08:00 03/30/25 12:16 Insulin Aspart (*Bkc) 100 Units/Ml SUB-Q 3 units TIDWM CEE Administration Protocol Insulin Glargine 15 units 03/29/25 21:00 03/29/25 21:17 Insulin Glargine (*Bkc) 100 Units/Ml SUB-Q 15 units HS CEE Administration Loratadine 10 mg 03/28/25 09:00 03/30/25 08:44 Loratadine 10 Mg Tablet PO 10 mg QAM CEE Administration Melatonin 5 mg 03/29/25 21:00 03/29/25 21:13 Melatonin 5 Mg Tablet PO 5 mg HS CEE Administration Metoprolol Tartrate 100 mg 03/30/25 21:00 Metoprolol Tartrate 50 Mg Tab PO Q12HR CEE Morphine Sulfate 2 mg 03/27/25 13:02 03/27/25 18:22 Morphine Sulfate (*Crx) 2 Mg/Ml Inj IV PUSH 2 mg Q2HR PRN Administration Pain Rated 7-10 Ondansetron HCl 4 mg 03/27/25 11:54 Ondansetron Inj 4 Mg/2 Ml Vial IV PUSH Q4H PRN Nausea Perflutren Lipid Microsphere 0 ml 03/27/25 16:47 Perflutren Lipid Microspheres 1.5 Ml Vial Diluted To 10 Ml Total Volume IV PUSH 03/30/25 16:47 ONCE PRN adequate visualization Protocol Simvastatin 80 mg 03/27/25 21:00 03/29/25 21:13 Simvastatin 20 Mg Tablet PO 80 mg HS CEE Administration Tamsulosin HCl 0.4 mg 03/27/25 21:00 03/29/25 21:13 Tamsulosin Hcl 0.4 Mg Capsule PO 0.4 mg HS CEE Administration Radiology Results: ITS Impressions Head CT 03/27/25 09:20 Impression: 1.No acute intracranial abnormality. Cervical Spine CT 03/27/25 09:22 Impression: No acute abnormality. Chest/Abdomen/Pelvis CT 03/27/25 10:27 IMPRESSION: 1. Findings are concerning for acute cholecystitis, questionable areas of liver abscess formation detailed above. Abdomen Ultrasound 03/27/25 11:42 IMPRESSION: 1: Hepatomegaly with fatty infiltration of the liver. Hyperechoic lesion present adjacent to the gallbladder wall, indeterminate. There is possible pericholecystic fluid. There is gallbladder wall thickening. Findings suspicious for cholecystitis. Clinically correlate. No definite abscess identified. Cholecystostomy 03/27/25 16:29 IMPRESSION: 1. Successful ultrasound-guided cholecystostomy tube placement. 2. 60 mL bile was sent for aerobic, anaerobic, and fungal cultures. 3. The catheter will be managed by Dr. Whelan. A catheter cholangiogram may be performed not less than 48 hours after tube placement if clinically indicated to assess cystic duct patency. If cholecystectomy is not eventually performed and the infectious episode has resolved, the tube may be removed over a guidewire, preferably not less than 3 weeks after placement to allow time for a mature catheter tract to form to prevent bile leakage and peritonitis. Chest X-Ray 03/29/25 17:28 IMPRESSION: 1. Mild discoid atelectasis/scarring in the right lower lobe. No other acute cardiopulmonary disease. Labs Labs: Laboratory Results - last 24 hr 03/29/25 03/29/25 03/30/25 16:48 20:16 03:21 WBC 14.1 H RBC 3.85 L Hgb 11.6 L Hct 34.9 L MCV 90.6 MCH 30.1 MCHC 33.2 RDW 14.6 H Plt Count 82 L MPV 12.8 H Immature Gran % (Auto) 1.4 H Neut % (Auto) 83.5 H Lymph % (Auto) 4.1 L [place] % (Auto) 10.6 H Eos % (Auto) 0.3 Baso % (Auto) 0.1 L Lymph # (Auto) 0.58 L [place] # (Auto) 1.5 H Eos # (Auto) 0.0 Baso # (Auto) 0.0 Abs Immat Gran (auto) 0.20 H Absolute Neuts (auto) 11.7 H Absolute Nucleated RBC 0.000 Nucleated RBC % 0.0 % Immature Plt Fraction 9.4 PT 13.8 INR 1.0 APTT 26.6 Sodium 135 L Potassium 3.3 L Chloride 104 Carbon Dioxide 25 Anion Gap 6 BUN 33 H D Creatinine 0.92 Estim Creat Clear Calc 64 Estimated GFR > 60 Glucose 275 H POC Capillary Glucose 296 H 287 H Calcium 8.2 L Magnesium 2.3 Total Bilirubin 1.4 H AST 71 H ALT 114 H Alkaline Phosphatase 86 C-Reactive Protein 8.7 H NT-Pro-B Natriuret Pep 3450 H Total Protein 5.4 L Albumin 2.7 L 03/30/25 03/30/25 07:27 11:34 WBC RBC Hgb Hct MCV MCH MCHC RDW Plt Count MPV Immature Gran % (Auto) Neut % (Auto) Lymph % (Auto) [place] % (Auto) Eos % (Auto) Baso % (Auto) Lymph # (Auto) [place] # (Auto) Eos # (Auto) Baso # (Auto) Abs Immat Gran (auto) Absolute Neuts (auto) Absolute Nucleated RBC Nucleated RBC % % Immature Plt Fraction PT INR APTT Sodium Potassium Chloride Carbon Dioxide Anion Gap BUN Creatinine Estim Creat Clear Calc Estimated GFR Glucose POC Capillary Glucose 282 H 277 H Calcium Magnesium Total Bilirubin AST ALT Alkaline Phosphatase C-Reactive Protein NT-Pro-B Natriuret Pep Total Protein Albumin
--- NOTE | 2025-03-30 16:51 | PC.NURSE ---
Jeffrey cath removed from patient at 1635. 650ml of addie colored urine drained from bag. Patient tolerated well. Voiced no complaints or concerns at this time. Family at bedside. Call light in reach. Chair alarm on. Will continue to monitor. Adri Abbott RN
[2025-03-30] MEDS: TAMSULOSIN HCL 0.4 MG CAPSULE PO (20:18)
[2025-03-30] MEDS: SIMVASTATIN 20 MG TABLET 80 MG PO (20:18)
[2025-03-30] MEDS: MELATONIN 5 MG TABLET PO (20:19)
[2025-03-30] MEDS: INSULIN GLARGINE (*BKC) 100 UNITS/ML 25 UNITS SUB-Q (20:20)
[2025-03-30] MEDS: METOPROLOL TARTRATE 50 MG TAB 100 MG PO (20:20)
[2025-03-31] VITALS (19 sets, daily range): BP systolic 128–152; BP diastolic 70–93; PULSE 63–136; RESP 17–24; TEMP 36.3–37.1; O2SAT 97–100
[2025-03-31 04:07] LABS: Hematocrit 36.8 % (42.0-52.0); Hemoglobin 12.0 g/dL (14.0-18.0); Immature Granulocyte Percent A 2.6 % (0-0.5); Lymphocytes Absolute Auto 1.18 K/mm3 (0.9-3.2); Mean Corpuscular HGB Conc 32.6 g/dl (32-36); Mean Corpuscular Hemoglobin 29.8 pg (26-34); Mean Corpuscular Volume 91.3 fl (80-100); Nucleated Red Blood Cells Absolute Auto 0.000 K/mm3 (0.0-0.012); Nucleated Red Blood Cells Perc 0.0 % (0.0-0.2); Platelet Count Result 152 k/mm3 (150-375); Red Blood Count 4.03 M/mm3 (4.6-6.20); White Blood Count 13.8 K/mm3 (4.5-10.0)
[2025-03-31 04:31] LABS: Alanine Aminotransferase 110 U/L (6-50); Albumin Level 2.9 g/dL (3.5-5.1); Alkaline Phosphatase 91 U/L (38-126); Anion Gap 6 mmol/L (4-12); Aspartate Amino Transferase 76 U/L (17-59); Bilirubin,Total 1.0 mg/dL (0.2-1.3); Blood Urea Nitrogen 27 mg/dL (9-20); Calcium 8.3 mg/dL (8.4-10.2); Carbon Dioxide 26 mmol/L (22-30); Chloride 104 mmol/L (98-107); Estimated CRCL calculation 65 ml/min; Estimated Glomerular Filt Rate > 60; Glucose 271 mg/dL (65-110); Potassium 3.4 mmol/L (3.4-5.0); Sodium 136 mmol/L (137-145); Total Protein 5.7 g/dL (6.3-8.2)
[2025-03-31] MEDS: PIPERACILLIN/TAZOBACTAM SOD 3.375 GM in SODIUM CHLORIDE 0.9% IV 50 ML 100 ML IVPB ×2 (05:19→12:16)
[2025-03-31] MEDS: FINASTERIDE 5 MG TABLET PO (09:26)
[2025-03-31] MEDS: LORATADINE 10 MG TABLET PO (09:26)
[2025-03-31] MEDS: ASPIRIN 81 MG ENTERIC TABLET PO (09:26)
[2025-03-31] MEDS: DOCUSATE SODIUM 100 MG CAPSULE PO ×2 (09:26→21:10)
[2025-03-31] MEDS: METOPROLOL TARTRATE 50 MG TAB 100 MG PO ×2 (09:26→21:10)
[2025-03-31] MEDS: ENOXAPARIN 40 MG/0.4 ML SYRINGE SUB-Q (09:26)
[2025-03-31] MEDS: INSULIN ASPART (*BKC) 100 UNITS/ML SUB-Q ×4 (09:27→17:04)
[2025-03-31] MEDS: POTASSIUM CHLORIDE 20 MEQ ER TABLET 40 MEQ PO (09:40)
--- NOTE | 2025-03-31 11:55 | P.PNGS_ITS ---
Progress Note: A&P Assessment and Plan (1) Gram-negative bacteremia: Code(s): R78.81 - Bacteremia Status: Acute Assessment and Plan: * Both blood and gallbladder cultures positive for E. coli. Bacteremia likely due to severe cholecystitis and sepsis. Afebrile overnight. WBC 13.8, down from 14.1 yesterday. * Continue IV Zosyn. (2) Cholelithiasis and acute cholecystitis without obstruction: Code(s): K80.00 - Calculus of gallbladder with acute cholecystitis without obstruction Status: Acute Assessment and Plan: * Denies any abdominal pain. Catheter draining brownish bile. Patient tolerating diabetic diet without nausea or vomiting. * Cholangiogram demonstrated cholelithiasis with obstruction filling defect in the mid cystic duct likely representing a small gallstone. * WBC slowly downtrending at 13.8. LFTs improving. (3) Paroxysmal atrial fibrillation: Code(s): I48.0 - Paroxysmal atrial fibrillation Status: Acute Assessment and Plan: Platelets up to 152 today. Continue prophylactic lovenox. (4) Thrombocytopenia: Code(s): D69.6 - Thrombocytopenia, unspecified Status: Acute Assessment and Plan: Resolved - Platelet count up to 152,000 today. Continue to monitor, no active bleeding. (5) CAD (coronary artery disease): Qualifiers: Coronary Disease-Associated Artery/Lesion type: [place] artery [place] vs. transplanted heart: [place] heart Associated angina: unspecified whether angina present Qualified Code(s): I25.10 - Atherosclerotic heart disease of [place] coronary artery without angina pectoris Code(s): I25.10 - Atherosclerotic heart disease of [place] coronary artery without angina pectoris Status: Chronic (6) DMII (diabetes mellitus, type 2): Qualifiers: Diabetes mellitus group home insulin use: without group home use Diabetes mellitus complication status: without complication Qualified Code(s): E11.9 - Type 2 diabetes mellitus without complications Code(s): E11.9 - Type 2 diabetes mellitus without complications Status: Chronic Assessment and Plan: Blood sugars still running in the 250s and sometimes 300s. (7) IVETT (obstructive sleep apnea): Code(s): G47.33 - Obstructive sleep apnea (adult) (pediatric) Status: Chronic Assessment and Plan: On CPAP (8) Umbilical hernia: Qualifiers: Obstruction and gangrene presence: without obstruction or gangrene Qualified Code(s): K42.9 - Umbilical hernia without obstruction or gangrene Code(s): K42.9 - Umbilical hernia without obstruction or gangrene Status: Chronic Assessment and Plan: Reducible, asymptomatic Plan Discussed patient's case and plan of care with Dr. Whelan. Subjective Subjective Date/Time Seen: 03/31/25 11:55 Patient reports: no new complaints, tolerating a regular diet (Diabetic diet), flatus and no bowel movement Interval history: Patient is doing well today. No new complaints. No abdominal pain. Sitting up in chair. Slightly tachycardic overnight. Exam Const: General: comfortable and no acute distress Objective Data Vital Signs Vital Signs: Vital Signs - 24 hr 03/30/25 12:00 03/30/25 12:00 03/30/25 14:00 Temperature Pulse Rate 115 H 115 H Respiratory Rate Blood Pressure Pulse Oximetry 98 Oxygen Delivery Room Air Fraction of Inspired Oxygen 03/30/25 15:59 03/30/25 16:00 03/30/25 16:00 Temperature 98.2 F Pulse Rate 119 H 109 H Respiratory Rate 20 Blood Pressure 142/71 H Pulse Oximetry 98 99 Oxygen Delivery Room Air Fraction of Inspired Oxygen 03/30/25 18:00 03/30/25 20:00 03/30/25 20:00 Temperature Pulse Rate 119 H 117 H 117 H Respiratory Rate 20 Blood Pressure Pulse Oximetry 99 Oxygen Delivery Room Air Fraction of Inspired Oxygen 03/30/25 20:00 03/30/25 20:20 03/30/25 20:36 Temperature 98.2 F Pulse Rate 111 H 85 Respiratory Rate 18 Blood Pressure 122/65 Pulse Oximetry 99 Oxygen Delivery CPAP Fraction of Inspired Oxygen 03/30/25 22:00 03/31/25 00:00 03/31/25 00:00 Temperature Pulse Rate 102 H 96 96 Respiratory Rate 18 Blood Pressure Pulse Oximetry 99 Oxygen Delivery Room Air Fraction of Inspired Oxygen 03/31/25 00:00 03/31/25 02:00 03/31/25 03:52 Temperature 98.7 F Pulse Rate 98 91 107 H Respiratory Rate 18 18 Blood Pressure 128/70 Pulse Oximetry 98 99 Oxygen Delivery CPAP Fraction of Inspired Oxygen 03/31/25 03:52 03/31/25 04:00 03/31/25 06:00 Temperature 98.5 F Pulse Rate 107 H 106 H 109 H Respiratory Rate 24 H Blood Pressure 130/71 Pulse Oximetry 99 Oxygen Delivery Fraction of Inspired Oxygen 03/31/25 07:42 03/31/25 08:00 03/31/25 08:00 Temperature 97.5 F L Pulse Rate 101 H 106 H Respiratory Rate 24 H Blood Pressure 151/93 H Pulse Oximetry 98 Oxygen Delivery Room Air Fraction of Inspired Oxygen 03/31/25 09:26 03/31/25 10:00 Temperature Pulse Rate 136 H 90 Respiratory Rate Blood Pressure Pulse Oximetry Oxygen Delivery Fraction of Inspired Oxygen Intake/Output Intake/Output: Intake & Output 03/28/25 03/29/25 03/30/25 03/31/25 23:59 23:59 23:59 23:59 Intake Total 4394.2 1683.7 2020 460 Output Total 1053 1865 1470 490 Balance 3341.2 -181.3 550 -30 Meds/Results Medications: Active Medications Generic Name Dose Route Start Last Admin Trade Name Freq PRN Reason Stop Dose Admin Acetaminophen 650 mg 03/27/25 16:53 03/28/25 08:23 Acetaminophen 325 Mg Tablet PO 650 mg Q6H PRN Administration Mild Pain (1-3) or Fever Aspirin 81 mg 03/29/25 09:00 03/31/25 09:26 Aspirin 81 Mg Enteric Tablet PO 81 mg QAM CEE Administration Dextrose 12.5 gm 03/27/25 13:42 Dextrose 50% 25 Gm/50 Ml Syringe IV PUSH PRN PRN Hypoglycemia Protocol Docusate Sodium 100 mg 03/28/25 09:00 03/31/25 09:26 Docusate Sodium 100 Mg Capsule PO 100 mg Q12HR CEE Administration Enoxaparin Sodium 40 mg 03/31/25 09:00 03/31/25 09:26 Enoxaparin 40 Mg/0.4 Ml Syringe SUB-Q 40 mg DAILY CEE Administration Finasteride 5 mg 03/28/25 09:00 03/31/25 09:26 Finasteride 5 Mg Tablet PO 5 mg DAILY CEE Administration Glucagon 1 mg 03/27/25 13:42 Glucagon For Inj 1 Mg Vial IM PRN PRN Hypoglycemia Protocol Glucose 15 gm 03/27/25 13:42 Glucose Oral Gel 15 Gm Of Glucse In 37.5 Gm Tube PO PRN PRN Hypoglycemia Protocol Piperacillin Sod/Tazobactam 50 mls @ 100 mls/hr 03/27/25 18:00 03/31/25 05:50 Sod 3.375 gm/ Sodium Chloride IVPB Infused Q6HR CEE Infusion Dextrose 1,000 mls @ 100 mls/hr 03/27/25 13:42 Dextrose 5% 1,000 Ml IVPB PRN PRN Hypoglycemia Protocol Insulin Aspart 1 - 2 units 03/29/25 21:00 03/30/25 20:21 Insulin Aspart (*Bkc) 100 Units/Ml SUB-Q 2 units HS CEE Administration Protocol Insulin Aspart 2 - 5 units 03/30/25 08:00 03/31/25 09:27 Insulin Aspart (*Bkc) 100 Units/Ml SUB-Q 3 units TIDWM CEE Administration Protocol Insulin Glargine 25 units 03/30/25 21:00 03/30/25 20:20 Insulin Glargine (*Bkc) 100 Units/Ml SUB-Q 25 units HS CEE Administration Loratadine 10 mg 03/28/25 09:00 03/31/25 09:26 Loratadine 10 Mg Tablet PO 10 mg QAM CEE Administration Melatonin 5 mg 03/29/25 21:00 03/30/25 20:19 Melatonin 5 Mg Tablet PO 5 mg HS CEE Administration Metoprolol Tartrate 100 mg 03/30/25 21:00 03/31/25 09:26 Metoprolol Tartrate 50 Mg Tab PO 100 mg Q12HR CEE Administration Morphine Sulfate 2 mg 03/27/25 13:02 03/27/25 18:22 Morphine Sulfate (*Crx) 2 Mg/Ml Inj IV PUSH 2 mg Q2HR PRN Administration Pain Rated 7-10 Ondansetron HCl 4 mg 03/27/25 11:54 Ondansetron Inj 4 Mg/2 Ml Vial IV PUSH Q4H PRN Nausea Simvastatin 80 mg 03/27/25 21:00 03/30/25 20:18 Simvastatin 20 Mg Tablet PO 80 mg HS CEE Administration Tamsulosin HCl 0.4 mg 03/27/25 21:00 03/30/25 20:18 Tamsulosin Hcl 0.4 Mg Capsule PO 0.4 mg HS CEE Administration Radiology Results: ITS Impressions Head CT 03/27/25 09:20 Impression: 1.No acute intracranial abnormality. Cervical Spine CT 03/27/25 09:22 Impression: No acute abnormality. Chest/Abdomen/Pelvis CT 03/27/25 10:27 IMPRESSION: 1. Findings are concerning for acute cholecystitis, questionable areas of liver abscess formation detailed above. Abdomen Ultrasound 03/27/25 11:42 IMPRESSION: 1: Hepatomegaly with fatty infiltration of the liver. Hyperechoic lesion present adjacent to the gallbladder wall, indeterminate. There is possible pericholecystic fluid. There is gallbladder wall thickening. Findings suspicious for cholecystitis. Clinically correlate. No definite abscess identified. Cholecystostomy 03/27/25 16:29 IMPRESSION: 1. Successful ultrasound-guided cholecystostomy tube placement. 2. 60 mL bile was sent for aerobic, anaerobic, and fungal cultures. 3. The catheter will be managed by Dr. Whelan. A catheter cholangiogram may be performed not less than 48 hours after tube placement if clinically indicated to assess cystic duct patency. If cholecystectomy is not eventually performed and the infectious episode has resolved, the tube may be removed over a guidewire, preferably not less than 3 weeks after placement to allow time for a mature catheter tract to form to prevent bile leakage and peritonitis. Chest X-Ray 03/29/25 17:28 IMPRESSION: 1. Mild discoid atelectasis/scarring in the right lower lobe. No other acute cardiopulmonary disease. Cholangiogram 03/31/25 09:32 IMPRESSION: 1. Cholelithiasis with obstructing filling defect in the mid cystic duct likely representing a small gallstone. Labs Labs: Laboratory Results - last 24 hr 03/30/25 03/30/25 03/30/25 11:34 15:40 19:48 WBC RBC Hgb Hct MCV MCH MCHC RDW Plt Count MPV Immature Gran % (Auto) Neut % (Auto) Lymph % (Auto) [place] % (Auto) Eos % (Auto) Baso % (Auto) Lymph # (Auto) [place] # (Auto) Eos # (Auto) Baso # (Auto) Abs Immat Gran (auto) Absolute Neuts (auto) Absolute Nucleated RBC Nucleated RBC % Sodium Potassium Chloride Carbon Dioxide Anion Gap BUN Creatinine Estim Creat Clear Calc Estimated GFR Glucose POC Capillary Glucose 277 H 245 H 323 H Calcium Total Bilirubin AST ALT Alkaline Phosphatase Total Protein Albumin 03/31/25 03/31/25 03/31/25 03:46 07:39 11:22 WBC 13.8 H RBC 4.03 L Hgb 12.0 L Hct 36.8 L MCV 91.3 MCH 29.8 MCHC 32.6 RDW 14.4 Plt Count 152 D MPV 11.9 H Immature Gran % (Auto) 2.6 H Neut % (Auto) 75.2 H Lymph % (Auto) 8.5 L [place] % (Auto) 12.6 H Eos % (Auto) 0.5 Baso % (Auto) 0.6 Lymph # (Auto) 1.18 [place] # (Auto) 1.7 H Eos # (Auto) 0.1 Baso # (Auto) 0.1 Abs Immat Gran (auto) 0.36 H Absolute Neuts (auto) 10.4 H Absolute Nucleated RBC 0.000 Nucleated RBC % 0.0 Sodium 136 L Potassium 3.4 Chloride 104 Carbon Dioxide 26 Anion Gap 6 BUN 27 H Creatinine 0.92 Estim Creat Clear Calc 65 Estimated GFR > 60 Glucose 271 H POC Capillary Glucose 261 H 286 H Calcium 8.3 L Total Bilirubin 1.0 AST 76 H ALT 110 H Alkaline Phosphatase 91 Total Protein 5.7 L Albumin 2.9 L
--- NOTE | 2025-03-31 12:46 | PM.IMPN ---
Progress Note: A&P Assessment and Plan (1) Sepsis: Code(s): A41.9 - Sepsis, unspecified organism Status: Acute Assessment and Plan: Patient presents with weakness and found to have fever, tachycardia, thrombocytopenia, leukocytosis and JAYY. CT Ch/A/P showing acute cholecystitis with possible 1cm liver abscess. Source of sepsis is acute cholecystitis with possible liver abscess. Received 30cc/kg and started on IV fluids. Cholecystostomy tube placed by IR (03/27) BCx - EColi in both sets paulino sensitive. GB Culture growing EColi Started on Zosyn (03/27). WBC about the same but CRP trending down. Tachycardia but related to AFib with RVR. Fever has resolved. Continue IV abx. (2) Acute cholecystitis: Code(s): K81.0 - Acute cholecystitis Status: Acute Assessment and Plan: General Surgery consulted and appreciate their input Percutaneous cholecystostomy tube placed. Cholangiogram showing cholelithiasis with obstructing filling defect in mid cystic duct. Tube management per GenSurg Diet started. Continue IV abx. (3) Liver abscess: Code(s): K75.0 - Abscess of liver Status: Acute Assessment and Plan: As above. May need repeat imaging to show resolution of abscess (4) Acute respiratory distress: Code(s): R06.03 - Acute respiratory distress Status: Acute Assessment and Plan: BNP 2170. Given his age, this is only mildly elevated. He appeared in acute respiratory distress with hypoxia in ED but imaging did not show CHF. He received aggressive fluid hydration in ED. Echo showing EF 60-65% and Grade II diastolic dysfunction. Moderate pHTN noted. [place] that his tachypnea was related to the sepsis. Repeat BNP higher but repeat CXR was clear. Remains on room air. Fluid positive +7L. Monitor UOP. Monitor resp status. Lasix X1 (5) Atrial fib/flutter, transient: Code(s): I48.91 - Unspecified atrial fibrillation; I48.92 - Unspecified atrial flutter Status: Acute Assessment and Plan: Patient with paroxysmal AFib with recurrence overnight felt related to sepsis picture. Echo as above. [id number] (HTN, Age, DM, CAD) TSH normal. He was on Atenolol on admission but changed to metoprolol. Metoprolol advanced. No Heparin drip due to low plt count. Cardiology consulted and appreciate their input. Platelet count better. Continue ASA for now. Add Eliquis if and when able. (6) JAYY (acute kidney injury): Code(s): N17.9 - Acute kidney failure, unspecified Status: Acute Assessment and Plan: No recent Cr to review. Cr 1.6 on admission. Received appropriate fluid resuscitation in ED. Repeat Cr 0.9 today. UOP much better. Follow (7) Hypertension: Code(s): I10 - Essential (primary) hypertension Status: Acute Assessment and Plan: Patient's blood pressure was reviewed on 03/31 Blood pressure remains well controlled. Metoprolol added and dose advanced. Will continue to monitor (8) CAD (coronary artery disease): Qualifiers: Associated angina: unspecified whether angina present Coronary Disease-Associated Artery/Lesion type: [place] artery [place] vs. transplanted heart: [place] heart Qualified Code(s): I25.10 - Atherosclerotic heart disease of [place] coronary artery without angina pectoris Code(s): I25.10 - Atherosclerotic heart disease of [place] coronary artery without angina pectoris Status: Chronic Assessment and Plan: Patient with CAD s/p stent placement. Continue Zocor and ASA. Atenolol changed to metoprolol (9) DMII (diabetes mellitus, type 2): Qualifiers: Diabetes mellitus complication status: without complication Diabetes mellitus halfway insulin use: without halfway use Qualified Code(s): E11.9 - Type 2 diabetes mellitus without complications Code(s): E11.9 - Type 2 diabetes mellitus without complications Status: Chronic Assessment and Plan: The patient's blood glucose was reviewed on 03/31 He takes Tresiba, metformin and glipizide at home but currently on hold Glucose poorly controlled. Continue AccuCheks covering with sliding scale. Hypoglycemia protocol available as needed. Advance lantus again. Add meal time insulin. Continue diabetic diet. Continue to monitor (10) BPH (benign prostatic hyperplasia): Code(s): N40.0 - Benign prostatic hyperplasia without lower urinary tract symptoms Status: Acute Assessment and Plan: Patient with urine retention requiring Jeffrey placement. Related to above. Proscar restarted. Was not on Flomax at home but will continue since he has retention. Voiding trial was successful. Monitor (11) Fall: Code(s): W19.XXXA - Unspecified fall, initial encounter Status: Acute Assessment and Plan: Patient did have a ground level fall 03/26 and struck his head. Patient denies any loss of consciousness. CT head showing no acute findings CT cervical spine showing no acute process Continue PT/OT (12) Thrombocytopenia: Code(s): D69.6 - Thrombocytopenia, unspecified Status: Acute Assessment and Plan: Plt count normal in 2019 but no values since Plt count 79K -> 54K -> 56K -> 82K -> 152K MPV elevated. Possibly consumptive from infection. Platelet count is normal now. Follow Plan DVT Prophylaxis - Lovenox Code status - full Subjective Date/time seen: 03/31/25 12:46 Interval history: 84yo male with BPH, DM, HTN, HLD and CAD presents the hospital with acute weakness. Trouble sleeping last night. Denies CP or SOB. No n/v. No recent BM. Passing flatus. Walking in halls. Eating okay. Exam Narrative: AF 97.4 132/80 89 18 99% ra Gen - NARD Chest - distant BS in the bases o/w clear CV - irregularly irregular; Tele showing AFib with controlled rate Abd - Soft, NT/ND, Positive BS. RUQ dressing clean, dry and intact. Cholecystostomy drain in place with reddish bilious fluid in bag Ext - no pedal edema Psych - Nml mood and affect Skin - Warm and dry Objective Data Vital Signs Vital Signs: Vital Signs - 24 hr 03/30/25 14:00 03/30/25 15:59 03/30/25 16:00 Temperature 98.2 F Pulse Rate 115 H 119 H Respiratory Rate 20 Blood Pressure 142/71 H Pulse Oximetry 98 99 Oxygen Delivery Room Air Fraction of Inspired Oxygen 03/30/25 16:00 03/30/25 18:00 03/30/25 20:00 Temperature Pulse Rate 109 H 119 H 117 H Respiratory Rate 20 Blood Pressure Pulse Oximetry 99 Oxygen Delivery Room Air Fraction of Inspired Oxygen 21 03/30/25 20:00 03/30/25 20:00 03/30/25 20:20 Temperature 98.2 F Pulse Rate 117 H 111 H 85 Respiratory Rate 18 Blood Pressure 122/65 Pulse Oximetry 99 Oxygen Delivery Fraction of Inspired Oxygen 03/30/25 20:36 03/30/25 22:00 03/31/25 00:00 Temperature Pulse Rate 102 H 96 Respiratory Rate 18 Blood Pressure Pulse Oximetry 99 Oxygen Delivery CPAP Room Air Fraction of Inspired Oxygen 21 03/31/25 00:00 03/31/25 00:00 03/31/25 02:00 Temperature 98.7 F Pulse Rate 96 98 91 Respiratory Rate 18 Blood Pressure 128/70 Pulse Oximetry 98 Oxygen Delivery Fraction of Inspired Oxygen 03/31/25 03:52 03/31/25 03:52 03/31/25 04:00 Temperature 98.5 F Pulse Rate 107 H 107 H 106 H Respiratory Rate 18 24 H Blood Pressure 130/71 Pulse Oximetry 99 99 Oxygen Delivery CPAP Fraction of Inspired Oxygen 21 03/31/25 06:00 03/31/25 07:42 03/31/25 08:00 Temperature 97.5 F L Pulse Rate 109 H 101 H Respiratory Rate 24 H Blood Pressure 151/93 H Pulse Oximetry 98 Oxygen Delivery Room Air Fraction of Inspired Oxygen 03/31/25 08:00 03/31/25 09:26 03/31/25 10:00 Temperature Pulse Rate 106 H 136 H 90 Respiratory Rate Blood Pressure Pulse Oximetry Oxygen Delivery Fraction of Inspired Oxygen 03/31/25 12:00 03/31/25 12:00 Temperature 97.4 F L Pulse Rate 89 Respiratory Rate 18 Blood Pressure 132/80 Pulse Oximetry 99 Oxygen Delivery Room Air Fraction of Inspired Oxygen Intake/Output Intake/Output: Intake & Output 03/28/25 03/29/25 03/30/25 03/31/25 23:59 23:59 23:59 23:59 Intake Total 4394.2 1683.7 2020 460 Output Total 1053 1865 1470 690 Balance 3341.2 -181.3 550 -230 Meds/Results Medications: Active Medications Generic Name Dose Route Start Last Admin Trade Name Freq PRN Reason Stop Dose Admin Acetaminophen 650 mg 03/27/25 16:53 03/28/25 08:23 Acetaminophen 325 Mg Tablet PO 650 mg Q6H PRN Administration Mild Pain (1-3) or Fever Aspirin 81 mg 03/29/25 09:00 03/31/25 09:26 Aspirin 81 Mg Enteric Tablet PO 81 mg QAM CEE Administration Dextrose 12.5 gm 03/27/25 13:42 Dextrose 50% 25 Gm/50 Ml Syringe IV PUSH PRN PRN Hypoglycemia Protocol Docusate Sodium 100 mg 03/28/25 09:00 03/31/25 09:26 Docusate Sodium 100 Mg Capsule PO 100 mg Q12HR CEE Administration Enoxaparin Sodium 40 mg 03/31/25 09:00 03/31/25 09:26 Enoxaparin 40 Mg/0.4 Ml Syringe SUB-Q 40 mg DAILY CEE Administration Finasteride 5 mg 03/28/25 09:00 03/31/25 09:26 Finasteride 5 Mg Tablet PO 5 mg DAILY CEE Administration Glucagon 1 mg 03/27/25 13:42 Glucagon For Inj 1 Mg Vial IM PRN PRN Hypoglycemia Protocol Glucose 15 gm 03/27/25 13:42 Glucose Oral Gel 15 Gm Of Glucse In 37.5 Gm Tube PO PRN PRN Hypoglycemia Protocol Piperacillin Sod/Tazobactam 50 mls @ 100 mls/hr 03/27/25 18:00 03/31/25 12:16 Sod 3.375 gm/ Sodium Chloride IVPB 100 mls/hr Q6HR CEE Administration Dextrose 1,000 mls @ 100 mls/hr 03/27/25 13:42 Dextrose 5% 1,000 Ml IVPB PRN PRN Hypoglycemia Protocol Insulin Aspart 1 - 2 units 03/29/25 21:00 03/30/25 20:21 Insulin Aspart (*Bkc) 100 Units/Ml SUB-Q 2 units HS CEE Administration Protocol Insulin Aspart 2 - 5 units 03/30/25 08:00 03/31/25 12:16 Insulin Aspart (*Bkc) 100 Units/Ml SUB-Q 3 units TIDWM CEE Administration Protocol Insulin Glargine 25 units 03/30/25 21:00 03/30/25 20:20 Insulin Glargine (*Bkc) 100 Units/Ml SUB-Q 25 units HS CEE Administration Loratadine 10 mg 03/28/25 09:00 03/31/25 09:26 Loratadine 10 Mg Tablet PO 10 mg QAM CEE Administration Melatonin 5 mg 03/29/25 21:00 03/30/25 20:19 Melatonin 5 Mg Tablet PO 5 mg HS CEE Administration Metoprolol Tartrate 100 mg 03/30/25 21:00 03/31/25 09:26 Metoprolol Tartrate 50 Mg Tab PO 100 mg Q12HR CEE Administration Morphine Sulfate 2 mg 03/27/25 13:02 03/27/25 18:22 Morphine Sulfate (*Crx) 2 Mg/Ml Inj IV PUSH 2 mg Q2HR PRN Administration Pain Rated 7-10 Ondansetron HCl 4 mg 03/27/25 11:54 Ondansetron Inj 4 Mg/2 Ml Vial IV PUSH Q4H PRN Nausea Simvastatin 80 mg 03/27/25 21:00 03/30/25 20:18 Simvastatin 20 Mg Tablet PO 80 mg HS CEE Administration Tamsulosin HCl 0.4 mg 03/27/25 21:00 03/30/25 20:18 Tamsulosin Hcl 0.4 Mg Capsule PO 0.4 mg HS CEE Administration Radiology Results: ITS Impressions Head CT 03/27/25 09:20 Impression: 1.No acute intracranial abnormality. Cervical Spine CT 03/27/25 09:22 Impression: No acute abnormality. Chest/Abdomen/Pelvis CT 03/27/25 10:27 IMPRESSION: 1. Findings are concerning for acute cholecystitis, questionable areas of liver abscess formation detailed above. Abdomen Ultrasound 03/27/25 11:42 IMPRESSION: 1: Hepatomegaly with fatty infiltration of the liver. Hyperechoic lesion present adjacent to the gallbladder wall, indeterminate. There is possible pericholecystic fluid. There is gallbladder wall thickening. Findings suspicious for cholecystitis. Clinically correlate. No definite abscess identified. Cholecystostomy 03/27/25 16:29 IMPRESSION: 1. Successful ultrasound-guided cholecystostomy tube placement. 2. 60 mL bile was sent for aerobic, anaerobic, and fungal cultures. 3. The catheter will be managed by Dr. Whelan. A catheter cholangiogram may be performed not less than 48 hours after tube placement if clinically indicated to assess cystic duct patency. If cholecystectomy is not eventually performed and the infectious episode has resolved, the tube may be removed over a guidewire, preferably not less than 3 weeks after placement to allow time for a mature catheter tract to form to prevent bile leakage and peritonitis. Chest X-Ray 03/29/25 17:28 IMPRESSION: 1. Mild discoid atelectasis/scarring in the right lower lobe. No other acute cardiopulmonary disease. Cholangiogram 03/31/25 09:32 IMPRESSION: 1. Cholelithiasis with obstructing filling defect in the mid cystic duct likely representing a small gallstone. Labs Labs: Laboratory Results - last 24 hr 03/30/25 03/30/25 03/31/25 15:40 19:48 03:46 WBC 13.8 H RBC 4.03 L Hgb 12.0 L Hct 36.8 L MCV 91.3 MCH 29.8 MCHC 32.6 RDW 14.4 Plt Count 152 D MPV 11.9 H Immature Gran % (Auto) 2.6 H Neut % (Auto) 75.2 H Lymph % (Auto) 8.5 L [place] % (Auto) 12.6 H Eos % (Auto) 0.5 Baso % (Auto) 0.6 Lymph # (Auto) 1.18 [place] # (Auto) 1.7 H Eos # (Auto) 0.1 Baso # (Auto) 0.1 Abs Immat Gran (auto) 0.36 H Absolute Neuts (auto) 10.4 H Absolute Nucleated RBC 0.000 Nucleated RBC % 0.0 Sodium 136 L Potassium 3.4 Chloride 104 Carbon Dioxide 26 Anion Gap 6 BUN 27 H Creatinine 0.92 Estim Creat Clear Calc 65 Estimated GFR > 60 Glucose 271 H POC Capillary Glucose 245 H 323 H Calcium 8.3 L Total Bilirubin 1.0 AST 76 H ALT 110 H Alkaline Phosphatase 91 Total Protein 5.7 L Albumin 2.9 L 03/31/25 03/31/25 07:39 11:22 WBC RBC Hgb Hct MCV MCH MCHC RDW Plt Count MPV Immature Gran % (Auto) Neut % (Auto) Lymph % (Auto) [place] % (Auto) Eos % (Auto) Baso % (Auto) Lymph # (Auto) [place] # (Auto) Eos # (Auto) Baso # (Auto) Abs Immat Gran (auto) Absolute Neuts (auto) Absolute Nucleated RBC Nucleated RBC % Sodium Potassium Chloride Carbon Dioxide Anion Gap BUN Creatinine Estim Creat Clear Calc Estimated GFR Glucose POC Capillary Glucose 261 H 286 H Calcium Total Bilirubin AST ALT Alkaline Phosphatase Total Protein Albumin
[2025-03-31] MEDS: FUROSEMIDE INJ 40 MG/4 ML VIAL 20 MG IV PUSH (14:22)
--- NOTE | 2025-03-31 16:51 | WPDIDCN ---
Assessment and Plan Assessment and plan (1) Cholelithiasis and acute cholecystitis without obstruction: Code(s): K80.00 - Calculus of gallbladder with acute cholecystitis without obstruction Status: Acute (2) Liver abscess: Code(s): K75.0 - Abscess of liver Status: Acute (3) E coli bacteremia: Code(s): R78.81 - Bacteremia; B96.20 - Unspecified Escherichia coli [E. coli] as the cause of diseases classified elsewhere Status: Acute Plan Cholelithiasis with acute cholecystitis and status post cholecystostomy drain placement. -- drainage culture positive for relatively pansensitive E coli. -- significant and rapid clinical improvement post cholecystostomy drain placement. E coli bacteremia with sepsis secondary to the above. Clinically improving. CT suggesting clover-gallbladder micro abscesses associated with the above cholecystitis. Plan: -- based on cultures would deescalate antibiotics by changing Zosyn to Unasyn 3 g IV q.6 hours. -- will plan a more extensive course of IV antibiotics given the association of clover- gallbladder liver micro abscesses; however, based on limited abscess size, likely association with E coli organism, and rapid clinical improvement post cholecystostomy drain placement should be able to complete treatment with oral antibiotics such as Augmentin. Further recommendations to follow. Thank you for the consult. Patient was seen via video telehealth consultation with the assistance of staff. Chart, data, and patient independently reviewed. Patient was located at [facility] while I was located in [facility] office. Received verbal consent from patient. HPI Data of Consult Date/Time: 03/31/25 16:51 Requesting Physician: Jonathan Jasmine MD Primary Care Provider: Naseem Underwood, Consult Narrative Reason for consult: Acute cholecystitis status post cholecystostomy tube tube placement Narrative: Alban Graff is a 84 year old male who presented to the ED 03/27/2025 with a several-day history of increasing weakness resulting in fall. Patient down for several hours and may have hit his head. Found to have a white count of 15, a creatinine increased to 1.62 from normal baseline, and hyperglycemia. CT of the head unremarkable. Chest x-ray unremarkable. However, CT scan identified acute cholecystitis with questionable areas of liver abscess ( within the liver adjacent to the gallbladder there are rim enhancing subcentimeter foci suspicious for abscess formation with the largest 1 x 1 cm ). Status post cholecystostomy tube placement 03/27/2025. Presentation blood cultures as well as cholecystostomy fluid drain culture positive for relatively pansensitive E coli. Patient has been receiving Zosyn. Cholangiogram performed today identifies cholelithiasis with obstructing filling defect in the mid cystic duct likely representing a small gallstone. Past medical history significant for diabetes, hypertension, hyperlipidemia, coronary artery disease, and BPH. Review of Systems Review of Systems: He specifically denies right upper quadrant tenderness at site of cholecystostomy tube. No nausea or vomiting. All systems reviewed & are unremarkable except as noted in HPI and below [facility] Past Medical History Medical History (Updated 03/31/25 @ 17:03 by Yaya Lu MD) Umbilical hernia DJD (degenerative joint disease) BPH (benign prostatic hyperplasia) DMII (diabetes mellitus, type 2) Hypertension Hyperlipidemia IVETT (obstructive sleep apnea) CPAP CAD (coronary artery disease) Surgical History Surgical History (Updated 07/12/19 @ 13:31 by Ld Alegria) H/O hemorrhoidectomy (~1979) Status post total left knee replacement (~07/07/19) History of total right knee replacement (~2006) History of coronary artery stent placement (~12/1998) 1998 Family History Family History Mother Family history of Alzheimer's disease Father Family history of heart disease in male family member before age 55 Social History Social History Social History: Patient lives with , Aggie, whom he designates as his surrogate decision maker. He is listed as a full code. His primary is Dr. Underwood. 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) Smoking status: Current every day smoker Tobacco type: cigars Additional smoking assessment comments: 2 cigars/day Alcohol intake: current Drinks per week: 1 Substance use: never Substance use type: does not use Lack of Transportation: No Lack of Food: Never True Current Housing: I Have Housing Concerned About Future Housing: No Difficulty Paying Gas/Electric Bills: No Difficulty Paying for Meds: No Currently Unemployed: No Education: Decline to Answer Difficulty w/ Childcare or Family Care: No Additional living arrangements comments: Lives with at home Occupation/Education: retired Gender identity (if verbalized by the patient): Male Spiritual care concerns: No Agree to blood products: Yes Meds Home Medications and Allergies Home Medications ?Medication ?Instructions ?Recorded ?Confirmed ?Type amlodipine 10 mg tablet 10 mg PO DAILY 06/25/19 03/28/25 History atenolol 100 mg tablet 50 mg PO DAILY 06/25/19 03/29/25 History cetirizine 10 mg capsule (Zyrtec) 10 mg PO DAILY 06/25/19 03/28/25 History finasteride 5 mg tablet 5 mg PO DAILY 06/25/19 03/28/25 History glipizide 5 mg tablet 10 mg PO DAILY 06/25/19 03/29/25 History lisinopril 40 mg tablet 40 mg PO DAILY 06/25/19 03/28/25 History metformin 1,000 mg tablet 1,000 mg PO BID 06/25/19 03/29/25 History uwlnsyft-ba-wrbka 300 mcg-K 60 1 tablet PO DAILY 06/25/19 03/28/25 History mcg-lycop 600 mcg-lutein 300 mcg tablet (Centrum Silver Men) omega 4-mgc-lkg-fish oil 1,000 mg 1 cap PO DAILY 06/25/19 03/28/25 History (120 mg-180 mg) capsule (Fish Oil) simvastatin 80 mg tablet 40 mg PO HS 06/25/19 03/29/25 History insulin degludec 100 unit/mL (3 10 unit subcut QPM 03/28/25 03/28/25 History mL) subcutaneous pen (Tresiba FlexTouch U-100 insulin) Prevagen w/Apoaequorin and Vitamin 50 mg PO DAILY 03/29/25 03/29/25 History D ascorbic acid (vitamin C) 1,000 mg 1,000 mg PO DAILY 03/29/25 03/29/25 History tablet (Vitamin C) aspirin 81 mg tablet 81 mg PO DAILY 03/29/25 03/29/25 History vitamins A,C,H-wfrb-fblbzh 4,296 1 cap PO DAILY 03/29/25 03/29/25 History mcg-226 mg-90 mg capsule (PreserVision AREDS) Allergies Allergy/AdvReac Type Severity Reaction Status Date / Time No Known Allergies Allergy Verified 03/27/25 08:43 Vital Signs Vital Signs - 24 hr 03/30/25 18:00 03/30/25 20:00 03/30/25 20:00 Temperature Pulse Rate 119 H 117 H 117 H Respiratory Rate 20 Blood Pressure Pulse Oximetry 99 Oxygen Delivery Room Air Fraction of Inspired Oxygen 21 03/30/25 20:00 03/30/25 20:20 03/30/25 20:36 Temperature 98.2 F Pulse Rate 111 H 85 Respiratory Rate 18 Blood Pressure 122/65 Pulse Oximetry 99 Oxygen Delivery CPAP Fraction of Inspired Oxygen 03/30/25 22:00 03/31/25 00:00 03/31/25 00:00 Temperature Pulse Rate 102 H 96 96 Respiratory Rate 18 Blood Pressure Pulse Oximetry 99 Oxygen Delivery Room Air Fraction of Inspired Oxygen 21 03/31/25 00:00 03/31/25 02:00 03/31/25 03:52 Temperature 98.7 F Pulse Rate 98 91 107 H Respiratory Rate 18 18 Blood Pressure 128/70 Pulse Oximetry 98 99 Oxygen Delivery CPAP Fraction of Inspired Oxygen 03/31/25 03:52 03/31/25 04:00 03/31/25 06:00 Temperature 98.5 F Pulse Rate 107 H 106 H 109 H Respiratory Rate 24 H Blood Pressure 130/71 Pulse Oximetry 99 Oxygen Delivery Fraction of Inspired Oxygen 03/31/25 07:42 03/31/25 08:00 03/31/25 08:00 Temperature 97.5 F L Pulse Rate 101 H 106 H Respiratory Rate 24 H Blood Pressure 151/93 H Pulse Oximetry 98 Oxygen Delivery Room Air Fraction of Inspired Oxygen 03/31/25 09:26 03/31/25 10:00 03/31/25 12:00 Temperature 97.4 F L Pulse Rate 136 H 90 89 Respiratory Rate 18 Blood Pressure 132/80 Pulse Oximetry 99 Oxygen Delivery Fraction of Inspired Oxygen 03/31/25 12:00 03/31/25 12:00 03/31/25 14:00 Temperature Pulse Rate 63 88 Respiratory Rate Blood Pressure Pulse Oximetry Oxygen Delivery Room Air Fraction of Inspired Oxygen 03/31/25 15:55 03/31/25 16:00 Temperature 97.5 F L Pulse Rate 88 Respiratory Rate 18 Blood Pressure 139/71 Pulse Oximetry 99 Oxygen Delivery Room Air Fraction of Inspired Oxygen Exam Narrative: He is awake, alert, and nontoxic in appearance. Normocephalic without conjunctivitis. Normal pulmonary effort. Abdomen without significant distention. Right upper quadrant with cholecystostomy tube drainage system. Bile-colored fluid in collecting bag. No right upper quadrant tenderness tenderness palpation. No rash. Results Labs 03/31/25 03:46 03/31/25 03:46 Labs: Short CBC 03/31/25 Range/Units 03:46 WBC 13.8 H (4.5-10.0) K/mm3 Hgb 12.0 L (14.0-18.0) g/dL Hct 36.8 L (42.0-52.0) % Plt Count 152 D (150-375) k/mm3 BMP 03/31/25 03:46 Sodium 136 L Potassium 3.4 Chloride 104 Carbon Dioxide 26 BUN 27 H Creatinine 0.92 Glucose 271 H Calcium 8.3 L Liver Function 03/31/25 Range/Units 03:46 Total Bilirubin 1.0 (0.2-1.3) mg/dL AST 76 H (17-59) U/L ALT 110 H (6-50) U/L Alkaline Phosphatase 91 (38-126) U/L Albumin 2.9 L (3.5-5.1) g/dL
[2025-03-31] MEDS: AMPICILLIN SODIUM/SULBACTAM 3 GM in SODIUM CHLORIDE 0.9% IV 100 ML 200 ML IVPB (17:03)
[2025-03-31] MEDS: SIMVASTATIN 20 MG TABLET 40 MG PO (21:09)
[2025-03-31] MEDS: TAMSULOSIN HCL 0.4 MG CAPSULE PO (21:09)
[2025-03-31] MEDS: MELATONIN 5 MG TABLET PO (21:11)
[2025-03-31] MEDS: INSULIN GLARGINE (*BKC) 100 UNITS/ML 34 UNITS SUB-Q (21:24)
[2025-04-01] VITALS (18 sets, daily range): BP systolic 123–184; BP diastolic 63–78; PULSE 69–92; RESP 17–25; TEMP 36.4–37; O2SAT 97–99
[2025-04-01] MEDS: AMPICILLIN SODIUM/SULBACTAM 3 GM in SODIUM CHLORIDE 0.9% IV 100 ML 200 ML IVPB ×2 (00:08→06:04)
[2025-04-01 04:14] LABS: Hematocrit 35.7 % (42.0-52.0); Hemoglobin 11.3 g/dL (14.0-18.0); Mean Corpuscular HGB Conc 31.7 g/dl (32-36); Mean Corpuscular Hemoglobin 29.9 pg (26-34); Mean Corpuscular Volume 94.4 fl (80-100); Platelet Count Result 173 k/mm3 (150-375); Red Blood Count 3.78 M/mm3 (4.6-6.20); White Blood Count 10.5 K/mm3 (4.5-10.0)
[2025-04-01 04:28] LABS: Alanine Aminotransferase 94 U/L (6-50); Albumin Level 2.7 g/dL (3.5-5.1); Alkaline Phosphatase 72 U/L (38-126); Anion Gap 6 mmol/L (4-12); Aspartate Amino Transferase 58 U/L (17-59); Bilirubin,Total 0.7 mg/dL (0.2-1.3); Blood Urea Nitrogen 22 mg/dL (9-20); Calcium 8.1 mg/dL (8.4-10.2); Carbon Dioxide 26 mmol/L (22-30); Chloride 106 mmol/L (98-107); Estimated CRCL calculation 66 ml/min; Estimated Glomerular Filt Rate > 60; Glucose 118 mg/dL (65-110); Sodium 138 mmol/L (137-145); Total Protein 5.4 g/dL (6.3-8.2)
[2025-04-01 04:37] LABS: Band Neutrophils Percent 8 % (0-6); Eosinophils Absolute Manual 0.42 K/mm3 (0.02-0.50); Eosinophils Percent Manual 4 % (0-4); Lymphocytes Absolute Manual 0.52 K/mm3 (1.1-4.5); Lymphocytes Percent Manual 5.0 % (18-44); Monocytes Absolute Manual 0.31 K/mm3 (0.1-0.90); Monocytes Percent Manual 3 % (3-9); Neutrophils Absolute Manual 9.24 K/mm3 (1.3-6.7); Neutrophils Percent Manual 80 % (46-73); Total Cells Counted 100
[2025-04-01 04:39] LABS: Burr Cells 2+; Ovalocytes 1+; Schistocytes None Seen
[2025-04-01 05:30] LABS: Potassium 3.5 mmol/L (3.4-5.0)
[2025-04-01] MEDS: INSULIN ASPART (*BKC) 100 UNITS/ML SUB-Q ×4 (09:21→18:04)
[2025-04-01] MEDS: LORATADINE 10 MG TABLET PO (09:23)
[2025-04-01] MEDS: METOPROLOL TARTRATE 50 MG TAB 100 MG PO (09:23)
[2025-04-01] MEDS: FINASTERIDE 5 MG TABLET PO (09:24)
[2025-04-01] MEDS: ASPIRIN 81 MG ENTERIC TABLET PO (09:24)
[2025-04-01] MEDS: DOCUSATE SODIUM 100 MG CAPSULE PO ×2 (09:24→20:44)
[2025-04-01] MEDS: ENOXAPARIN 40 MG/0.4 ML SYRINGE SUB-Q (09:24)
--- NOTE | 2025-04-01 10:15 | P.PNCA_ITS ---
Progress Note: A&P Assessment and Plan (1) Atrial fib/flutter, transient: Code(s): I48.91 - Unspecified atrial fibrillation; I48.92 - Unspecified atrial flutter Status: Acute Assessment and Plan: Will lower metoprolol down to 50 mg p.o. b.i.d.. If no plans to pursue inpatient cholecystectomy, would start anticoagulation with Eliquis 5 mg p.o. b.i.d.. If starting anticoagulation, DC enoxaparin. KCL 40 mEq p.o. x1 because of hypokalemia today. Will check an EKG Plan Persistent atrial fibrillation with RVR Sepsis acute cholecystitis status post cholecystectomy Hypertension controlled Thrombocytopenia Hypokalemia Coronary artery disease history of PCI Morbid obesity Hypokalemia Plan Lowering metoprolol because he is back in sinus rhythm. Replacing potassium. Will check an EKG today. Subjective Date/time seen: 04/01/25 10:15 Interval history: 84-year-old admitted with cholecystitis. Date of service 04/01/2025: Now back in sinus rhythm. Feeling better. No chest pain or shortness of breath Review of Systems Review of Systems: All systems reviewed & are unremarkable except as noted in HPI and below Constitutional: Constitutional: Denies body ache(s) Eyes: Eyes: Denies blurry vision ENT: Reports Normal hearing present Cardiovascular: Cardiovascular: Denies chest pain Respiratory: Respiratory: Denies chest congestion Gastrointestinal: Gastrointestinal: Denies abdominal pain Exam Narrative: Appears stated age Const: General: comfortable and no acute distress Other: Able to lie flat HENMT: Face/Nose/Sinus: Normal nares present and no epistaxis Mouth: Yes moist mucous membranes Eyes: General: appearance normal, both eyes and all related structures Sclera: sclerae normal Neck: Neck: supple and no JVD Carotids: no bruits Resp: Auscultation: clear to auscultation bilaterally and lung sounds not diminished Other: No chest wall tenderness Cardio: Rate: regular rate Rhythm: regular rhythm Heart sounds: no gallops, no murmurs and no rubs GI: Auscultation: normal bowel sounds Skin: General skin exam: normal color, rashes and/or lesions noted and no erythema Other: Warm Neuro: Speech: normal speech Sensory Exam: normal sensation Other: No obvious focal deficit or facial asymmetry Extrem: General: no edema Other: Normal capillary refills Intact distal pulses. Psych: Mental Status: mental status grossly normal Objective Data Vital Signs Vital Signs: Vital Signs - 24 hr 03/31/25 12:00 03/31/25 12:00 03/31/25 12:00 Temperature 36.3 C L Pulse Rate 89 63 Respiratory Rate 18 Blood Pressure 132/80 Pulse Oximetry 99 Oxygen Delivery Room Air 03/31/25 14:00 03/31/25 15:55 03/31/25 16:00 Temperature 36.4 C L Pulse Rate 88 88 Respiratory Rate 18 Blood Pressure 139/71 Pulse Oximetry 99 Oxygen Delivery Room Air 03/31/25 16:00 03/31/25 18:00 03/31/25 19:00 Temperature 36.3 C L Pulse Rate 91 95 96 Respiratory Rate 18 Blood Pressure 152/81 H Pulse Oximetry 98 Oxygen Delivery 03/31/25 20:00 03/31/25 20:00 03/31/25 20:00 Temperature Pulse Rate 96 83 Respiratory Rate Blood Pressure Pulse Oximetry 97 Oxygen Delivery CPAP Room Air 03/31/25 21:10 03/31/25 22:00 03/31/25 23:14 Temperature 36.7 C Pulse Rate 89 74 73 Respiratory Rate 17 Blood Pressure 146/80 H Pulse Oximetry 100 Oxygen Delivery 04/01/25 00:00 04/01/25 00:00 04/01/25 02:05 Temperature Pulse Rate 69 81 Respiratory Rate Blood Pressure Pulse Oximetry Oxygen Delivery CPAP 04/01/25 04:00 04/01/25 04:00 04/01/25 04:00 Temperature 36.9 C Pulse Rate 91 75 Respiratory Rate 17 Blood Pressure 184/78 H Pulse Oximetry 98 Oxygen Delivery CPAP 04/01/25 06:31 04/01/25 08:00 04/01/25 09:14 Temperature 36.4 C L Pulse Rate 81 87 Respiratory Rate 20 Blood Pressure 163/73 H Pulse Oximetry 98 99 Oxygen Delivery Room Air 04/01/25 09:23 Temperature Pulse Rate 92 Respiratory Rate Blood Pressure Pulse Oximetry Oxygen Delivery Intake/Output Intake/Output: Intake & Output 03/29/25 03/30/25 03/31/25 04/01/25 23:59 23:59 23:59 23:59 Intake Total 1683.7 2020 1040 200 Output Total 1865 1470 1290 550 Balance -181.3 550 -250 -350 Meds/Results Medications: Active Medications Generic Name Dose Route Start Last Admin Trade Name Freq PRN Reason Stop Dose Admin Acetaminophen 650 mg 03/27/25 16:53 03/28/25 08:23 Acetaminophen 325 Mg Tablet PO 650 mg Q6H PRN Administration Mild Pain (1-3) or Fever Aspirin 81 mg 03/29/25 09:00 04/01/25 09:24 Aspirin 81 Mg Enteric Tablet PO 81 mg QAM CEE Administration Dextrose 12.5 gm 03/27/25 13:42 Dextrose 50% 25 Gm/50 Ml Syringe IV PUSH PRN PRN Hypoglycemia Protocol Docusate Sodium 100 mg 03/28/25 09:00 04/01/25 09:24 Docusate Sodium 100 Mg Capsule PO 100 mg Q12HR CEE Administration Enoxaparin Sodium 40 mg 03/31/25 09:00 04/01/25 09:24 Enoxaparin 40 Mg/0.4 Ml Syringe SUB-Q 40 mg DAILY CEE Administration Finasteride 5 mg 03/28/25 09:00 04/01/25 09:24 Finasteride 5 Mg Tablet PO 5 mg DAILY CEE Administration Glucagon 1 mg 03/27/25 13:42 Glucagon For Inj 1 Mg Vial IM PRN PRN Hypoglycemia Protocol Glucose 15 gm 03/27/25 13:42 Glucose Oral Gel 15 Gm Of Glucse In 37.5 Gm Tube PO PRN PRN Hypoglycemia Protocol Dextrose 1,000 mls @ 100 mls/hr 03/27/25 13:42 Dextrose 5% 1,000 Ml IVPB PRN PRN Hypoglycemia Protocol Ampicillin Sodium/Sulbactam 100 mls @ 200 mls/hr 03/31/25 18:00 04/01/25 06:40 Sodium 3 gm/ Sodium Chloride IVPB Infused Q6H [facility] Infusion Insulin Aspart 1 - 2 units 03/29/25 21:00 03/31/25 21:29 Insulin Aspart (*Bkc) 100 Units/Ml SUB-Q Not Given HS [facility] Protocol Insulin Aspart 2 - 5 units 03/30/25 08:00 04/01/25 08:14 Insulin Aspart (*Bkc) 100 Units/Ml SUB-Q Not Given TIDWM [facility] Protocol Insulin Aspart 5 units 03/31/25 17:00 04/01/25 09:21 Insulin Aspart (*Bkc) 100 Units/Ml 0.05 units/kg (5 units) 5 units SUB-Q Administration TIDWM CEE Insulin Glargine 34 units 03/31/25 21:00 03/31/25 21:24 Insulin Glargine (*Bkc) 100 Units/Ml SUB-Q 34 units HS CEE Administration Loratadine 10 mg 03/28/25 09:00 04/01/25 09:23 Loratadine 10 Mg Tablet PO 10 mg QAM CEE Administration Melatonin 5 mg 03/29/25 21:00 03/31/25 21:11 Melatonin 5 Mg Tablet PO 5 mg HS CEE Administration Metoprolol Tartrate 100 mg 03/30/25 21:00 04/01/25 09:23 Metoprolol Tartrate 50 Mg Tab PO 100 mg Q12HR CEE Administration Morphine Sulfate 2 mg 03/27/25 13:02 03/27/25 18:22 Morphine Sulfate (*Crx) 2 Mg/Ml Inj IV PUSH 2 mg Q2HR PRN Administration Pain Rated 7-10 Ondansetron HCl 4 mg 03/27/25 11:54 Ondansetron Inj 4 Mg/2 Ml Vial IV PUSH Q4H PRN Nausea Polyethylene Glycol 17 gm 03/31/25 12:50 04/01/25 09:24 Polyethylene Glycol 3350 17 Gm Powd.Pack PO 17 gm QAM CEE Administration Simvastatin 40 mg 03/31/25 21:00 03/31/25 21:09 Simvastatin 20 Mg Tablet PO 40 mg HS CEE Administration Tamsulosin HCl 0.4 mg 03/27/25 21:00 03/31/25 21:09 Tamsulosin Hcl 0.4 Mg Capsule PO 0.4 mg HS CEE Administration Radiology Results: ITS Impressions Head CT 03/27/25 09:20 Impression: 1.No acute intracranial abnormality. Cervical Spine CT 03/27/25 09:22 Impression: No acute abnormality. Chest/Abdomen/Pelvis CT 03/27/25 10:27 IMPRESSION: 1. Findings are concerning for acute cholecystitis, questionable areas of liver abscess formation detailed above. Abdomen Ultrasound 03/27/25 11:42 IMPRESSION: 1: Hepatomegaly with fatty infiltration of the liver. Hyperechoic lesion present adjacent to the gallbladder wall, indeterminate. There is possible pericholecystic fluid. There is gallbladder wall thickening. Findings suspicious for cholecystitis. Clinically correlate. No definite abscess identified. Cholecystostomy 03/27/25 16:29 IMPRESSION: 1. Successful ultrasound-guided cholecystostomy tube placement. 2. 60 mL bile was sent for aerobic, anaerobic, and fungal cultures. 3. The catheter will be managed by Dr. Whelan. A catheter cholangiogram may be performed not less than 48 hours after tube placement if clinically indicated to assess cystic duct patency. If cholecystectomy is not eventually performed and the infectious episode has resolved, the tube may be removed over a guidewire, preferably not less than 3 weeks after placement to allow time for a mature catheter tract to form to prevent bile leakage and peritonitis. Chest X-Ray 03/29/25 17:28 IMPRESSION: 1. Mild discoid atelectasis/scarring in the right lower lobe. No other acute cardiopulmonary disease. Cholangiogram 03/31/25 09:32 IMPRESSION: 1. Cholelithiasis with obstructing filling defect in the mid cystic duct likely representing a small gallstone. Labs Labs: Laboratory Results - last 24 hr 03/31/25 03/31/25 04/01/25 11:22 16:21 03:54 WBC 10.5 H RBC 3.78 L Hgb 11.3 L Hct 35.7 L MCV 94.4 MCH 29.9 MCHC 31.7 L RDW 14.6 H Plt Count 173 MPV 11.4 H Immature Gran % (Auto) Not Reportable Neut % (Auto) Not Reportable Lymph % (Auto) Not Reportable [place] % (Auto) Not Reportable Eos % (Auto) Not Reportable Baso % (Auto) Not Reportable Lymph # (Auto) Not Reportable [place] # (Auto) Not Reportable Eos # (Auto) Not Reportable Baso # (Auto) Not Reportable Abs Immat Gran (auto) Not Reportable Absolute Neuts (auto) Not Reportable Absolute Nucleated RBC Not Reportable Total Counted 100 Neutrophils % (Manual) 80 H Band Neutrophils % 8 H Lymphocytes % (Manual) 5.0 L Monocytes % (Manual) 3 Eosinophils % (Manual) 4 Nucleated RBC % Not Reportable Abs Neuts (Manual) 9.24 H Abs Lymphs (Manual) 0.52 L Abs Monocytes (Manual) 0.31 Absolute Eos (Manual) 0.42 Platelet Estimate Adequate Ovalocytes 1+ Busby Cells 2+ Schistocytes None seen Sodium 138 Potassium 3.5 Chloride 106 Carbon Dioxide 26 Anion Gap 6 BUN 22 H Creatinine 0.89 Estim Creat Clear Calc 66 Estimated GFR > 60 Glucose 118 H POC Capillary Glucose 286 H 220 H Calcium 8.1 L Total Bilirubin 0.7 AST 58 ALT 94 H Alkaline Phosphatase 72 Total Protein 5.4 L Albumin 2.7 L 04/01/25 07:27 WBC RBC Hgb Hct MCV MCH MCHC RDW Plt Count MPV Immature Gran % (Auto) Neut % (Auto) Lymph % (Auto) [place] % (Auto) Eos % (Auto) Baso % (Auto) Lymph # (Auto) [place] # (Auto) Eos # (Auto) Baso # (Auto) Abs Immat Gran (auto) Absolute Neuts (auto) Absolute Nucleated RBC Total Counted Neutrophils % (Manual) Band Neutrophils % Lymphocytes % (Manual) Monocytes % (Manual) Eosinophils % (Manual) Nucleated RBC % Abs Neuts (Manual) Abs Lymphs (Manual) Abs Monocytes (Manual) Absolute Eos (Manual) Platelet Estimate Ovalocytes Steve Cells Schistocytes Sodium Potassium Chloride Carbon Dioxide Anion Gap BUN Creatinine Estim Creat Clear Calc Estimated GFR Glucose POC Capillary Glucose 145 H Calcium Total Bilirubin AST ALT Alkaline Phosphatase Total Protein Albumin
--- NOTE | 2025-04-01 10:20 | ECG_ITS ---
Test Date: 2025-04-01 13:13:54 Measurements Intervals [place] Rate: 76 P: 42 AK: 188 QRS: -43 QRSD: 125 T: 57 QT: 427 QTc: 482 Interpretive Statements SINUS RHYTHM POSSIBLE LEFT ATRIAL ENLARGEMENT [-0.1mV P-WAVE IN V1/V2] LEFT AXIS DEVIATION [QRS AXIS < -30] POSSIBLE RIGHT VENTRICULAR CONDUCTION DELAY [RSR (QR) IN V1/V2] SEPTAL MYOCARDIAL INFARCTION , OF INDETERMINATE AGE [40+ ms Q WAVE IN V1/V2] ABNORMAL ECG Compared to ECG 03/27/2025 10:58:48 Myocardial infarct finding now present Sinus tachycardia no longer present Left bundle-branch block no longer present Electronically Signed On 04-01-2025 15:39:35 CDT by Christian Paz M.D.
[2025-04-01] MEDS: POTASSIUM CHLORIDE 20 MEQ ER TABLET 40 MEQ PO (12:35)
[2025-04-01] MEDS: AMPICILLIN SODIUM/SULBACTAM 3 GM in SODIUM CHLORIDE 0.9% IV 100 ML IVPB ×2 (12:35→18:02)
--- NOTE | 2025-04-01 13:34 | P.PNGS_ITS ---
Progress Note: A&P Assessment and Plan (1) Gram-negative bacteremia: Code(s): R78.81 - Bacteremia Status: Acute Assessment and Plan: * Both blood and gallbladder cultures positive for E. coli. Bacteremia likely due to severe cholecystitis and sepsis. WBC trending down. * Continue antibiotics per ID who was consulted today. (2) Cholelithiasis and acute cholecystitis without obstruction: Code(s): K80.00 - Calculus of gallbladder with acute cholecystitis without obstruction Status: Acute Assessment and Plan: * Cholecystostomy tube functioning well. Cholangiogram demonstrated cholelithiasis with obstruction filling defect in the mid cystic duct likely representing a small gallstone. WBC count and LFTs continue to trend down. * If the patient is medically stable for discharge, he could be discharged with the cholecystostomy tube from a surgical standpoint and follow-up as an outpatient in the next 2 weeks to schedule an interval cholecystectomy. (3) Paroxysmal atrial fibrillation: Code(s): I48.0 - Paroxysmal atrial fibrillation Status: Acute Assessment and Plan: * Currently on prophylactic Lovenox. Cardiology is recommending starting Eliquis if he is not having an inpatient cholecystectomy. I discussed this with the Hospitalist, as timing of surgery depends on patient's medical status and narciso th of stay. If he is medically stable for discharge in the next few days, then he could be started on his anticoagulation and we can follow-up with him as an outpatient to schedule surgery. Although, if he remains in the hospital longer for IV antibiotics or other medical reasons, then we will continue to follow along to determine timing of surgery. (4) Thrombocytopenia: Code(s): D69.6 - Thrombocytopenia, unspecified Status: Acute Assessment and Plan: * Resolved (5) CAD (coronary artery disease): Qualifiers: Associated angina: unspecified whether angina present Coronary Disease- Associated Artery/Lesion type: [place] artery [place] vs. 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 (7) IVETT (obstructive sleep apnea): Code(s): G47.33 - Obstructive sleep apnea (adult) (pediatric) Status: Chronic (8) Umbilical hernia: Qualifiers: Obstruction and gangrene presence: without obstruction or gangrene Qualified Code(s): K42.9 - Umbilical hernia without obstruction or gangrene Code(s): K42.9 - Umbilical hernia without obstruction or gangrene Status: Chronic Assessment and Plan: * No acute issues, asymptomatic Plan Discussed patient's case and plan of care with Dr. Whelan. Subjective Subjective Date/Time Seen: 04/01/25 13:34 Patient reports: no new complaints, tolerating a regular diet and afebrile Interval history: Patient denies any abdominal pain, nausea, or vomiting. He reports eating well without issues. He does not have any specific complaints at this time. Exam Const: General: comfortable and no acute distress GI: Inspection: non-distended GI Palp: Yes Soft to palpation, No Tenderness to palpation present (GI), No Guarding due to palpation present (GI) and No Rebound tenderness present Auscultation: normal bowel sounds Other: Cholecystostomy tube with brown-bilious appearing output that is fairly clear. Dressing dry and intact. Objective Data Vital Signs Vital Signs: Vital Signs - 24 hr 03/31/25 14:00 03/31/25 15:55 03/31/25 16:00 Temperature 97.5 F L Pulse Rate 88 88 Respiratory Rate 18 Blood Pressure 139/71 Pulse Oximetry 99 Oxygen Delivery Room Air 03/31/25 16:00 03/31/25 18:00 03/31/25 19:00 Temperature 97.4 F L Pulse Rate 91 95 96 Respiratory Rate 18 Blood Pressure 152/81 H Pulse Oximetry 98 Oxygen Delivery 03/31/25 20:00 03/31/25 20:00 03/31/25 20:00 Temperature Pulse Rate 96 83 Respiratory Rate Blood Pressure Pulse Oximetry 97 Oxygen Delivery CPAP Room Air 03/31/25 21:10 03/31/25 22:00 03/31/25 23:14 Temperature 98.0 F Pulse Rate 89 74 73 Respiratory Rate 17 Blood Pressure 146/80 H Pulse Oximetry 100 Oxygen Delivery 04/01/25 00:00 04/01/25 00:00 04/01/25 02:05 Temperature Pulse Rate 69 81 Respiratory Rate Blood Pressure Pulse Oximetry Oxygen Delivery CPAP 04/01/25 04:00 04/01/25 04:00 04/01/25 04:00 Temperature 98.4 F Pulse Rate 91 75 Respiratory Rate 17 Blood Pressure 184/78 H Pulse Oximetry 98 Oxygen Delivery CPAP 04/01/25 06:31 04/01/25 08:00 04/01/25 08:00 Temperature 97.5 F L Pulse Rate 81 87 79 Respiratory Rate 20 Blood Pressure 163/73 H Pulse Oximetry 98 Oxygen Delivery 04/01/25 09:14 04/01/25 09:23 04/01/25 10:00 Temperature Pulse Rate 92 70 Respiratory Rate Blood Pressure Pulse Oximetry 99 Oxygen Delivery Room Air 04/01/25 11:28 Temperature 97.6 F Pulse Rate 75 Respiratory Rate 18 Blood Pressure 123/63 Pulse Oximetry 99 Oxygen Delivery Intake/Output Intake/Output: Intake & Output 03/29/25 03/30/25 03/31/25 04/01/25 23:59 23:59 23:59 23:59 Intake Total 1683.7 2020 1040 680 Output Total 1865 1470 1290 550 Balance -181.3 550 -250 130 Meds/Results Medications: Active Medications Generic Name Dose Route Start Last Admin Trade Name Freq PRN Reason Stop Dose Admin Acetaminophen 650 mg 03/27/25 16:53 03/28/25 08:23 Acetaminophen 325 Mg Tablet PO 650 mg Q6H PRN Administration Mild Pain (1-3) or Fever Aspirin 81 mg 03/29/25 09:00 04/01/25 09:24 Aspirin 81 Mg Enteric Tablet PO 81 mg QAM CEE Administration Dextrose 12.5 gm 03/27/25 13:42 Dextrose 50% 25 Gm/50 Ml Syringe IV PUSH PRN PRN Hypoglycemia Protocol Docusate Sodium 100 mg 03/28/25 09:00 04/01/25 09:24 Docusate Sodium 100 Mg Capsule PO 100 mg Q12HR CEE Administration Enoxaparin Sodium 40 mg 03/31/25 09:00 04/01/25 09:24 Enoxaparin 40 Mg/0.4 Ml Syringe SUB-Q 40 mg DAILY CEE Administration Finasteride 5 mg 03/28/25 09:00 04/01/25 09:24 Finasteride 5 Mg Tablet PO 5 mg DAILY CEE Administration Glucagon 1 mg 03/27/25 13:42 Glucagon For Inj 1 Mg Vial IM PRN PRN Hypoglycemia Protocol Glucose 15 gm 03/27/25 13:42 Glucose Oral Gel 15 Gm Of Glucse In 37.5 Gm Tube PO PRN PRN Hypoglycemia Protocol Dextrose 1,000 mls @ 100 mls/hr 03/27/25 13:42 Dextrose 5% 1,000 Ml IVPB PRN PRN Hypoglycemia Protocol Ampicillin Sodium/Sulbactam 100 mls @ 200 mls/hr 03/31/25 18:00 04/01/25 12:35 Sodium 3 gm/ Sodium Chloride IVPB 100 mls/hr Q6H CEE Administration Insulin Aspart 1 - 2 units 03/29/25 21:00 03/31/25 21:29 Insulin Aspart (*Bkc) 100 Units/Ml SUB-Q Not Given HS [facility] Protocol Insulin Aspart 2 - 5 units 03/30/25 08:00 04/01/25 12:41 Insulin Aspart (*Bkc) 100 Units/Ml SUB-Q 2 units TIDWM CEE Administration Protocol Insulin Aspart 5 units 03/31/25 17:00 04/01/25 12:40 Insulin Aspart (*Bkc) 100 Units/Ml 0.05 units/kg (5 units) 5 units SUB-Q Administration TIDWM CEE Insulin Glargine 34 units 03/31/25 21:00 03/31/25 21:24 Insulin Glargine (*Bkc) 100 Units/Ml SUB-Q 34 units HS CEE Administration Loratadine 10 mg 03/28/25 09:00 04/01/25 09:23 Loratadine 10 Mg Tablet PO 10 mg QAM CEE Administration Melatonin 5 mg 03/29/25 21:00 03/31/25 21:11 Melatonin 5 Mg Tablet PO 5 mg HS CEE Administration Metoprolol Tartrate 50 mg 04/01/25 21:00 Metoprolol Tartrate 50 Mg Tab PO Q12HR CEE Morphine Sulfate 2 mg 03/27/25 13:02 03/27/25 18:22 Morphine Sulfate (*Crx) 2 Mg/Ml Inj IV PUSH 2 mg Q2HR PRN Administration Pain Rated 7-10 Ondansetron HCl 4 mg 03/27/25 11:54 Ondansetron Inj 4 Mg/2 Ml Vial IV PUSH Q4H PRN Nausea Polyethylene Glycol 17 gm 03/31/25 12:50 04/01/25 09:24 Polyethylene Glycol 3350 17 Gm Powd.Pack PO 17 gm QAM CEE Administration Simvastatin 40 mg 03/31/25 21:00 03/31/25 21:09 Simvastatin 20 Mg Tablet PO 40 mg HS CEE Administration Tamsulosin HCl 0.4 mg 03/27/25 21:00 03/31/25 21:09 Tamsulosin Hcl 0.4 Mg Capsule PO 0.4 mg HS CEE Administration Radiology Results: ITS Impressions Head CT 03/27/25 09:20 Impression: 1.No acute intracranial abnormality. Cervical Spine CT 03/27/25 09:22 Impression: No acute abnormality. Chest/Abdomen/Pelvis CT 03/27/25 10:27 IMPRESSION: 1. Findings are concerning for acute cholecystitis, questionable areas of liver abscess formation detailed above. Abdomen Ultrasound 03/27/25 11:42 IMPRESSION: 1: Hepatomegaly with fatty infiltration of the liver. Hyperechoic lesion present adjacent to the gallbladder wall, indeterminate. There is possible pericholecystic fluid. There is gallbladder wall thickening. Findings suspicious for cholecystitis. Clinically correlate. No definite abscess identified. Cholecystostomy 03/27/25 16:29 IMPRESSION: 1. Successful ultrasound-guided cholecystostomy tube placement. 2. 60 mL bile was sent for aerobic, anaerobic, and fungal cultures. 3. The catheter will be managed by Dr. Whelan. A catheter cholangiogram may be performed not less than 48 hours after tube placement if clinically indicated to assess cystic duct patency. If cholecystectomy is not eventually performed and the infectious episode has resolved, the tube may be removed over a guidewire, preferably not less than 3 weeks after placement to allow time for a mature catheter tract to form to prevent bile leakage and peritonitis. Chest X-Ray 03/29/25 17:28 IMPRESSION: 1. Mild discoid atelectasis/scarring in the right lower lobe. No other acute cardiopulmonary disease. Cholangiogram 03/31/25 09:32 IMPRESSION: 1. Cholelithiasis with obstructing filling defect in the mid cystic duct likely representing a small gallstone. Labs Labs: Laboratory Results - last 24 hr 03/31/25 04/01/25 04/01/25 16:21 03:54 07:27 WBC 10.5 H RBC 3.78 L Hgb 11.3 L Hct 35.7 L MCV 94.4 MCH 29.9 MCHC 31.7 L RDW 14.6 H Plt Count 173 MPV 11.4 H Immature Gran % (Auto) Not Reportable Neut % (Auto) Not Reportable Lymph % (Auto) Not Reportable [place] % (Auto) Not Reportable Eos % (Auto) Not Reportable Baso % (Auto) Not Reportable Lymph # (Auto) Not Reportable [place] # (Auto) Not Reportable Eos # (Auto) Not Reportable Baso # (Auto) Not Reportable Abs Immat Gran (auto) Not Reportable Absolute Neuts (auto) Not Reportable Absolute Nucleated RBC Not Reportable Total Counted 100 Neutrophils % (Manual) 80 H Band Neutrophils % 8 H Lymphocytes % (Manual) 5.0 L Monocytes % (Manual) 3 Eosinophils % (Manual) 4 Nucleated RBC % Not Reportable Abs Neuts (Manual) 9.24 H Abs Lymphs (Manual) 0.52 L Abs Monocytes (Manual) 0.31 Absolute Eos (Manual) 0.42 Platelet Estimate Adequate Ovalocytes 1+ Steve Cells 2+ Schistocytes None seen Sodium 138 Potassium 3.5 Chloride 106 Carbon Dioxide 26 Anion Gap 6 BUN 22 H Creatinine 0.89 Estim Creat Clear Calc 66 Estimated GFR > 60 Glucose 118 H POC Capillary Glucose 220 H 145 H Calcium 8.1 L Total Bilirubin 0.7 AST 58 ALT 94 H Alkaline Phosphatase 72 Total Protein 5.4 L Albumin 2.7 L 04/01/25 11:14 WBC RBC Hgb Hct MCV MCH MCHC RDW Plt Count MPV Immature Gran % (Auto) Neut % (Auto) Lymph % (Auto) [place] % (Auto) Eos % (Auto) Baso % (Auto) Lymph # (Auto) [place] # (Auto) Eos # (Auto) Baso # (Auto) Abs Immat Gran (auto) Absolute Neuts (auto) Absolute Nucleated RBC Total Counted Neutrophils % (Manual) Band Neutrophils % Lymphocytes % (Manual) Monocytes % (Manual) Eosinophils % (Manual) Nucleated RBC % Abs Neuts (Manual) Abs Lymphs (Manual) Abs Monocytes (Manual) Absolute Eos (Manual) Platelet Estimate Ovalocytes Steve Cells Schistocytes Sodium Potassium Chloride Carbon Dioxide Anion Gap BUN Creatinine Estim Creat Clear Calc Estimated GFR Glucose POC Capillary Glucose 209 H Calcium Total Bilirubin AST ALT Alkaline Phosphatase Total Protein Albumin
--- NOTE | 2025-04-01 14:34 | P.PNINF_ITS ---
Progress Note: A&P Assessment and Plan (1) Cholelithiasis and acute cholecystitis without obstruction: Code(s): K80.00 - Calculus of gallbladder with acute cholecystitis without obstruction Status: Acute (2) Liver abscess: Code(s): K75.0 - Abscess of liver Status: Acute (3) E coli bacteremia: Code(s): R78.81 - Bacteremia; B96.20 - Unspecified Escherichia coli [E. coli] as the cause of diseases classified elsewhere Status: Acute Plan # Cholelithiasis with acute cholecystitis and status post cholecystostomy drain placement. -- drainage culture positive for relatively pansensitive E coli. -- significant and rapid clinical improvement post cholecystostomy drain placement. # E coli bacteremia with sepsis secondary to the above. Clinically improving. # CT suggesting [place]-gallbladder micro abscesses associated with the above cholecystitis. Plan: -- continue Unasyn 3 g IV q.6 hours until discharge. -- will plan a more extensive course of IV antibiotics given the association of [place]- gallbladder liver micro abscesses; however, based on limited abscess size, likely association with E coli organism, and rapid clinical improvement post cholecystostomy drain placement, should be able to complete treatment with oral antibiotics such as Augmentin 875mg Q 8 hours at discharge. Anticipate a total IV plus oral antibiotic course of 28 days. Patient was seen via video telehealth consultation with the assistance of staff. Chart, data, and patient independently reviewed. Patient was located at [facility] while I was located in [facility] office. Received verbal consent from patient. Subjective Date/time seen: 04/01/25 14:34 Interval history: 04/01/2025: Afebrile and with resolution of leukocytosis. Denies cholecystostomy tube site pain. Review of Systems Review of Systems: He specifically denies right upper quadrant tenderness at site of cholecystostomy tube. No nausea or vomiting. All systems reviewed & are unremarkable except as noted in HPI and below Exam Narrative: He is awake, alert, and nontoxic in appearance. Normocephalic without conjunctivitis. Normal pulmonary effort. Abdomen without significant distention. Right upper quadrant with cholecystostomy tube drainage system. Bile-colored fluid in collecting bag. No right upper quadrant tenderness tenderness palpation. No rash. Objective Data Vital Signs Vital Signs: Vital Signs - 24 hr 03/31/25 15:55 03/31/25 16:00 03/31/25 16:00 Temperature 97.5 F L Pulse Rate 88 91 Respiratory Rate 18 Blood Pressure 139/71 Pulse Oximetry 99 Oxygen Delivery Room Air 03/31/25 18:00 03/31/25 19:00 03/31/25 20:00 Temperature 97.4 F L Pulse Rate 95 96 96 Respiratory Rate 18 Blood Pressure 152/81 H Pulse Oximetry 98 97 Oxygen Delivery CPAP 03/31/25 20:00 03/31/25 20:00 03/31/25 21:10 Temperature Pulse Rate 83 89 Respiratory Rate Blood Pressure Pulse Oximetry Oxygen Delivery Room Air 03/31/25 22:00 03/31/25 23:14 04/01/25 00:00 Temperature 98.0 F Pulse Rate 74 73 Respiratory Rate 17 Blood Pressure 146/80 H Pulse Oximetry 100 Oxygen Delivery CPAP 04/01/25 00:00 04/01/25 02:05 04/01/25 04:00 Temperature Pulse Rate 69 81 Respiratory Rate Blood Pressure Pulse Oximetry Oxygen Delivery CPAP 04/01/25 04:00 04/01/25 04:00 04/01/25 06:31 Temperature 98.4 F Pulse Rate 91 75 81 Respiratory Rate 17 Blood Pressure 184/78 H Pulse Oximetry 98 Oxygen Delivery 04/01/25 08:00 04/01/25 08:00 04/01/25 09:14 Temperature 97.5 F L Pulse Rate 87 79 Respiratory Rate 20 Blood Pressure 163/73 H Pulse Oximetry 98 99 Oxygen Delivery Room Air 04/01/25 09:23 04/01/25 10:00 04/01/25 11:28 Temperature 97.6 F Pulse Rate 92 70 75 Respiratory Rate 18 Blood Pressure 123/63 Pulse Oximetry 99 Oxygen Delivery Intake/Output Intake/Output: Intake & Output 03/29/25 03/30/25 03/31/25 04/01/25 23:59 23:59 23:59 23:59 Intake Total 1683.7 2020 1040 680 Output Total 1865 1470 1290 550 Balance -181.3 550 -250 130 Meds/Results Medications: Active Medications Generic Name Dose Route Start Last Admin Trade Name Freq PRN Reason Stop Dose Admin Acetaminophen 650 mg 03/27/25 16:53 03/28/25 08:23 Acetaminophen 325 Mg Tablet PO 650 mg Q6H PRN Administration Mild Pain (1-3) or Fever Aspirin 81 mg 03/29/25 09:00 04/01/25 09:24 Aspirin 81 Mg Enteric Tablet PO 81 mg QAM CEE Administration Dextrose 12.5 gm 03/27/25 13:42 Dextrose 50% 25 Gm/50 Ml Syringe IV PUSH PRN PRN Hypoglycemia Protocol Docusate Sodium 100 mg 03/28/25 09:00 04/01/25 09:24 Docusate Sodium 100 Mg Capsule PO 100 mg Q12HR CEE Administration Enoxaparin Sodium 40 mg 03/31/25 09:00 04/01/25 09:24 Enoxaparin 40 Mg/0.4 Ml Syringe SUB-Q 40 mg DAILY CEE Administration Finasteride 5 mg 03/28/25 09:00 04/01/25 09:24 Finasteride 5 Mg Tablet PO 5 mg DAILY CEE Administration Glucagon 1 mg 03/27/25 13:42 Glucagon For Inj 1 Mg Vial IM PRN PRN Hypoglycemia Protocol Glucose 15 gm 03/27/25 13:42 Glucose Oral Gel 15 Gm Of Glucse In 37.5 Gm Tube PO PRN PRN Hypoglycemia Protocol Dextrose 1,000 mls @ 100 mls/hr 03/27/25 13:42 Dextrose 5% 1,000 Ml IVPB PRN PRN Hypoglycemia Protocol Ampicillin Sodium/Sulbactam 100 mls @ 200 mls/hr 03/31/25 18:00 04/01/25 12:35 Sodium 3 gm/ Sodium Chloride IVPB 100 mls/hr Q6H CEE Administration Insulin Aspart 1 - 2 units 03/29/25 21:00 03/31/25 21:29 Insulin Aspart (*Bkc) 100 Units/Ml SUB-Q Not Given HS [facility] Protocol Insulin Aspart 2 - 5 units 03/30/25 08:00 04/01/25 12:41 Insulin Aspart (*Bkc) 100 Units/Ml SUB-Q 2 units TIDWM [facility] Administration Protocol Insulin Aspart 5 units 03/31/25 17:00 04/01/25 12:40 Insulin Aspart (*Bkc) 100 Units/Ml 0.05 units/kg (5 units) 5 units SUB-Q Administration TIDWM [facility] Insulin Glargine 34 units 03/31/25 21:00 03/31/25 21:24 Insulin Glargine (*Bkc) 100 Units/Ml SUB-Q 34 units HS [facility] Administration Loratadine 10 mg 03/28/25 09:00 04/01/25 09:23 Loratadine 10 Mg Tablet PO 10 mg QAM CEE Administration Melatonin 5 mg 03/29/25 21:00 03/31/25 21:11 Melatonin 5 Mg Tablet PO 5 mg HS CEE Administration Metoprolol Tartrate 50 mg 04/01/25 21:00 Metoprolol Tartrate 50 Mg Tab PO Q12HR CEE Morphine Sulfate 2 mg 03/27/25 13:02 03/27/25 18:22 Morphine Sulfate (*Crx) 2 Mg/Ml Inj IV PUSH 2 mg Q2HR PRN Administration Pain Rated 7-10 Ondansetron HCl 4 mg 03/27/25 11:54 Ondansetron Inj 4 Mg/2 Ml Vial IV PUSH Q4H PRN Nausea Polyethylene Glycol 17 gm 03/31/25 12:50 04/01/25 09:24 Polyethylene Glycol 3350 17 Gm Powd.Pack PO 17 gm QAM CEE Administration Simvastatin 40 mg 03/31/25 21:00 03/31/25 21:09 Simvastatin 20 Mg Tablet PO 40 mg HS CEE Administration Tamsulosin HCl 0.4 mg 03/27/25 21:00 03/31/25 21:09 Tamsulosin Hcl 0.4 Mg Capsule PO 0.4 mg HS CEE Administration Radiology Results: ITS Impressions Head CT 03/27/25 09:20 Impression: 1.No acute intracranial abnormality. Cervical Spine CT 03/27/25 09:22 Impression: No acute abnormality. Chest/Abdomen/Pelvis CT 03/27/25 10:27 IMPRESSION: 1. Findings are concerning for acute cholecystitis, questionable areas of liver abscess formation detailed above. Abdomen Ultrasound 03/27/25 11:42 IMPRESSION: 1: Hepatomegaly with fatty infiltration of the liver. Hyperechoic lesion present adjacent to the gallbladder wall, indeterminate. There is possible pericholecystic fluid. There is gallbladder wall thickening. Findings suspicious for cholecystitis. Clinically correlate. No definite abscess identified. Cholecystostomy 03/27/25 16:29 IMPRESSION: 1. Successful ultrasound-guided cholecystostomy tube placement. 2. 60 mL bile was sent for aerobic, anaerobic, and fungal cultures. 3. The catheter will be managed by Dr. Whelan. A catheter cholangiogram may be performed not less than 48 hours after tube placement if clinically indicated to assess cystic duct patency. If cholecystectomy is not eventually performed and the infectious episode has resolved, the tube may be removed over a guidewire, preferably not less than 3 weeks after placement to allow time for a mature catheter tract to form to prevent bile leakage and peritonitis. Chest X-Ray 03/29/25 17:28 IMPRESSION: 1. Mild discoid atelectasis/scarring in the right lower lobe. No other acute cardiopulmonary disease. Cholangiogram 03/31/25 09:32 IMPRESSION: 1. Cholelithiasis with obstructing filling defect in the mid cystic duct likely representing a small gallstone. Labs Labs: Laboratory Results - last 24 hr 03/31/25 04/01/25 04/01/25 16:21 03:54 07:27 WBC 10.5 H RBC 3.78 L Hgb 11.3 L Hct 35.7 L MCV 94.4 MCH 29.9 MCHC 31.7 L RDW 14.6 H Plt Count 173 MPV 11.4 H Immature Gran % (Auto) Not Reportable Neut % (Auto) Not Reportable Lymph % (Auto) Not Reportable [place] % (Auto) Not Reportable Eos % (Auto) Not Reportable Baso % (Auto) Not Reportable Lymph # (Auto) Not Reportable [place] # (Auto) Not Reportable Eos # (Auto) Not Reportable Baso # (Auto) Not Reportable Abs Immat Gran (auto) Not Reportable Absolute Neuts (auto) Not Reportable Absolute Nucleated RBC Not Reportable Total Counted 100 Neutrophils % (Manual) 80 H Band Neutrophils % 8 H Lymphocytes % (Manual) 5.0 L Monocytes % (Manual) 3 Eosinophils % (Manual) 4 Nucleated RBC % Not Reportable Abs Neuts (Manual) 9.24 H Abs Lymphs (Manual) 0.52 L Abs Monocytes (Manual) 0.31 Absolute Eos (Manual) 0.42 Platelet Estimate Adequate Ovalocytes 1+ Steve Cells 2+ Schistocytes None seen Sodium 138 Potassium 3.5 Chloride 106 Carbon Dioxide 26 Anion Gap 6 BUN 22 H Creatinine 0.89 Estim Creat Clear Calc 66 Estimated GFR > 60 Glucose 118 H POC Capillary Glucose 220 H 145 H Calcium 8.1 L Total Bilirubin 0.7 AST 58 ALT 94 H Alkaline Phosphatase 72 Total Protein 5.4 L Albumin 2.7 L 04/01/25 11:14 WBC RBC Hgb Hct MCV MCH MCHC RDW Plt Count MPV Immature Gran % (Auto) Neut % (Auto) Lymph % (Auto) [place] % (Auto) Eos % (Auto) Baso % (Auto) Lymph # (Auto) [place] # (Auto) Eos # (Auto) Baso # (Auto) Abs Immat Gran (auto) Absolute Neuts (auto) Absolute Nucleated RBC Total Counted Neutrophils % (Manual) Band Neutrophils % Lymphocytes % (Manual) Monocytes % (Manual) Eosinophils % (Manual) Nucleated RBC % Abs Neuts (Manual) Abs Lymphs (Manual) Abs Monocytes (Manual) Absolute Eos (Manual) Platelet Estimate Ovalocytes [place] Cells Schistocytes Sodium Potassium Chloride Carbon Dioxide Anion Gap BUN Creatinine Estim Creat Clear Calc Estimated GFR Glucose POC Capillary Glucose 209 H Calcium Total Bilirubin AST ALT Alkaline Phosphatase Total Protein Albumin
--- NOTE | 2025-04-01 18:46 | PM.IMPN ---
Progress Note: A&P Assessment and Plan (1) Sepsis: Code(s): A41.9 - Sepsis, unspecified organism Status: Acute Assessment and Plan: Patient presents with weakness and found to have fever, tachycardia, thrombocytopenia, leukocytosis and JAYY. CT Ch/A/P showing acute cholecystitis with possible 1cm liver abscess. Source of sepsis is acute cholecystitis with possible liver abscess. Received 30cc/kg and started on IV fluids. Cholecystostomy tube placed by IR (03/27) BCx - EColi in both sets paulino sensitive. GB Culture growing EColi Started on Zosyn (03/27). WBC about the same but CRP trending down. Tachycardia but related to AFib with RVR. Fever has resolved. Continue IV abx. (2) Acute cholecystitis: Code(s): K81.0 - Acute cholecystitis Status: Acute Assessment and Plan: General Surgery consulted and appreciate their input Percutaneous cholecystostomy tube placed. Cholangiogram showing cholelithiasis with obstructing filling defect in mid cystic duct. Tube management per GenSurg Diet started. Continue IV abx. (3) Liver abscess: Code(s): K75.0 - Abscess of liver Status: Acute Assessment and Plan: As above. May need repeat imaging to show resolution of abscess (4) Acute respiratory distress: Code(s): R06.03 - Acute respiratory distress Status: Acute Assessment and Plan: BNP 2170. Given his age, this is only mildly elevated. He appeared in acute respiratory distress with hypoxia in ED but imaging did not show CHF. He received aggressive fluid hydration in ED. Echo showing EF 60-65% and Grade II diastolic dysfunction. Moderate pHTN noted. [place] that his tachypnea was related to the sepsis. Repeat BNP higher but repeat CXR was clear. Remains on room air. Fluid positive +7L. Monitor UOP. Monitor resp status. Lasix X1 (5) Atrial fib/flutter, transient: Code(s): I48.91 - Unspecified atrial fibrillation; I48.92 - Unspecified atrial flutter Status: Acute Assessment and Plan: Patient with paroxysmal AFib with recurrence overnight felt related to sepsis picture. Echo as above. [id number] (HTN, Age, DM, CAD) TSH normal. He was on Atenolol on admission but changed to metoprolol. Metoprolol advanced. No Heparin drip due to low plt count. Cardiology consulted and appreciate their input. Platelet count better. Continue ASA for now. Add Eliquis if and when able. (6) JAYY (acute kidney injury): Code(s): N17.9 - Acute kidney failure, unspecified Status: Acute Assessment and Plan: No recent Cr to review. Cr 1.6 on admission. Received appropriate fluid resuscitation in ED. Repeat Cr 0.9 today. UOP much better. Follow (7) Hypertension: Code(s): I10 - Essential (primary) hypertension Status: Acute Assessment and Plan: Patient's blood pressure was reviewed on 03/31 Blood pressure remains well controlled. Metoprolol added and dose advanced. Will continue to monitor (8) CAD (coronary artery disease): Qualifiers: Coronary Disease-Associated Artery/Lesion type: [place] artery [place] vs. transplanted heart: [place] heart Associated angina: unspecified whether angina present Qualified Code(s): I25.10 - Atherosclerotic heart disease of [place] coronary artery without angina pectoris Code(s): I25.10 - Atherosclerotic heart disease of [place] coronary artery without angina pectoris Status: Chronic Assessment and Plan: Patient with CAD s/p stent placement. Continue Zocor and ASA. Atenolol changed to metoprolol (9) DMII (diabetes mellitus, type 2): Qualifiers: Diabetes mellitus mcc insulin use: without longitudinal float operator use Diabetes mellitus complication status: without complication Qualified Code(s): E11.9 - Type 2 diabetes mellitus without complications Code(s): E11.9 - Type 2 diabetes mellitus without complications Status: Chronic Assessment and Plan: The patient's blood glucose was reviewed on 03/31 He takes Tresiba, metformin and glipizide at home but currently on hold Glucose poorly controlled. Continue AccuCheks covering with sliding scale. Hypoglycemia protocol available as needed. Advance lantus again. Add meal time insulin. Continue diabetic diet. Continue to monitor (10) BPH (benign prostatic hyperplasia): Code(s): N40.0 - Benign prostatic hyperplasia without lower urinary tract symptoms Status: Acute Assessment and Plan: Patient with urine retention requiring Jeffrey placement. Related to above. Proscar restarted. Was not on Flomax at home but will continue since he has retention. Voiding trial was successful. Monitor (11) Fall: Code(s): W19.XXXA - Unspecified fall, initial encounter Status: Acute Assessment and Plan: Patient did have a ground level fall 03/26 and struck his head. Patient denies any loss of consciousness. CT head showing no acute findings CT cervical spine showing no acute process Continue PT/OT (12) Thrombocytopenia: Code(s): D69.6 - Thrombocytopenia, unspecified Status: Acute Assessment and Plan: Plt count normal in 2019 but no values since Plt count 79K -> 54K -> 56K -> 82K -> 152K MPV elevated. Possibly consumptive from infection. Platelet count is normal now. Follow Plan DVT Prophylaxis - Lovenox Code status - full Assuming care on 04/01/2025: Leukocytosis continues to improve. He has rapid improvement and has been downgraded to Unasyn. No fevers. JAYY continues to be resolved. Agree with p.o. antibiotics on discharge per Infectious Disease lifestyle consultant. If he continues with this progression, discharge him on oral anticoagulants and have the biliary drain remain in follow-up with General surgery for interval cholecystectomy. He is currently rate controlled. Continue aspirin, Lovenox, metoprolol 50 mg p.o. b.i.d which was lower today by Cardiology. Potassium replace, recheck tomorrow along with magnesium. His blood sugars are currently in acceptable range, continue Lantus 34, NovoLog 5 units t.i.d.. All the patient's questions and concerns were answered to satisfaction. He voiced understanding and was content with the plan. Continue to monitor for bowel movement, not with to take for the laxatives for now. Abdominal exam benign. He wishes to be full code. Subjective Date/time seen: 04/01/25 18:46 Interval history: 84yo male with BPH, DM, HTN, HLD and CAD presents the hospital with acute weakness. No major acute overnight events. Patient is seen sitting up in chair. He is passing flatness but denies a bowel movement since Sunday prior to admission. He has taken MiraLax in the morning however refuses to take any further laxatives and wants to wait and see if he has bowel movement. Denies abdominal pain, nausea or vomiting, chest pain, shortness of breath. Review of Systems Review of Systems: All systems reviewed & are unremarkable except as noted in HPI and below (Subjective) Exam Narrative: Gen - NARD Chest - distant BS in the bases o/w clear CV - irregularly irregular Abd - Soft, NT/ND, Positive BS. RUQ dressing clean, dry and intact. Cholecystostomy drain in place with reddish bilious fluid in bag Ext - no pedal edema Psych - Nml mood and affect Skin - Warm and dry Objective Data Vital Signs Vital Signs: Vital Signs - 24 hr 03/31/25 19:00 03/31/25 20:00 03/31/25 20:00 Temperature 97.4 F L Pulse Rate 96 96 Respiratory Rate 18 Blood Pressure 152/81 H Pulse Oximetry 98 97 Oxygen Delivery CPAP Room Air 03/31/25 20:00 03/31/25 21:10 03/31/25 22:00 Temperature Pulse Rate 83 89 74 Respiratory Rate Blood Pressure Pulse Oximetry Oxygen Delivery 03/31/25 23:14 04/01/25 00:00 04/01/25 00:00 Temperature 98.0 F Pulse Rate 73 69 Respiratory Rate 17 Blood Pressure 146/80 H Pulse Oximetry 100 Oxygen Delivery CPAP 04/01/25 02:05 04/01/25 04:00 04/01/25 04:00 Temperature 98.4 F Pulse Rate 81 91 Respiratory Rate 17 Blood Pressure 184/78 H Pulse Oximetry 98 Oxygen Delivery CPAP 04/01/25 04:00 04/01/25 06:31 04/01/25 08:00 Temperature 97.5 F L Pulse Rate 75 81 87 Respiratory Rate 20 Blood Pressure 163/73 H Pulse Oximetry 98 Oxygen Delivery 04/01/25 08:00 04/01/25 09:14 04/01/25 09:23 Temperature Pulse Rate 79 92 Respiratory Rate Blood Pressure Pulse Oximetry 99 Oxygen Delivery Room Air 04/01/25 10:00 04/01/25 11:28 04/01/25 12:00 Temperature 97.6 F Pulse Rate 70 75 72 Respiratory Rate 18 Blood Pressure 123/63 Pulse Oximetry 99 Oxygen Delivery 04/01/25 16:00 04/01/25 16:21 Temperature 98.4 F Pulse Rate 78 82 Respiratory Rate 20 Blood Pressure 139/69 Pulse Oximetry 99 Oxygen Delivery Intake/Output Intake/Output: Intake & Output 03/29/25 03/30/25 03/31/25 04/01/25 23:59 23:59 23:59 23:59 Intake Total 1683.7 2020 1040 1220 Output Total 1865 1470 1290 1275 Balance -181.3 550 -250 -55 Meds/Results Medications: Active Medications Generic Name Dose Route Start Last Admin Trade Name Freq PRN Reason Stop Dose Admin Acetaminophen 650 mg 03/27/25 16:53 03/28/25 08:23 Acetaminophen 325 Mg Tablet PO 650 mg Q6H PRN Administration Mild Pain (1-3) or Fever Aspirin 81 mg 03/29/25 09:00 04/01/25 09:24 Aspirin 81 Mg Enteric Tablet PO 81 mg QAM CEE Administration Dextrose 12.5 gm 03/27/25 13:42 Dextrose 50% 25 Gm/50 Ml Syringe IV PUSH PRN PRN Hypoglycemia Protocol Docusate Sodium 100 mg 03/28/25 09:00 04/01/25 09:24 Docusate Sodium 100 Mg Capsule PO 100 mg Q12HR CEE Administration Enoxaparin Sodium 40 mg 03/31/25 09:00 04/01/25 09:24 Enoxaparin 40 Mg/0.4 Ml Syringe SUB-Q 40 mg DAILY CEE Administration Finasteride 5 mg 03/28/25 09:00 04/01/25 09:24 Finasteride 5 Mg Tablet PO 5 mg DAILY CEE Administration Glucagon 1 mg 03/27/25 13:42 Glucagon For Inj 1 Mg Vial IM PRN PRN Hypoglycemia Protocol Glucose 15 gm 03/27/25 13:42 Glucose Oral Gel 15 Gm Of Glucse In 37.5 Gm Tube PO PRN PRN Hypoglycemia Protocol Dextrose 1,000 mls @ 100 mls/hr 03/27/25 13:42 Dextrose 5% 1,000 Ml IVPB PRN PRN Hypoglycemia Protocol Ampicillin Sodium/Sulbactam 100 mls @ 200 mls/hr 03/31/25 18:00 04/01/25 18:02 Sodium 3 gm/ Sodium Chloride IVPB 100 mls/hr Q6H CEE Administration Insulin Aspart 1 - 2 units 03/29/25 21:00 03/31/25 21:29 Insulin Aspart (*Bkc) 100 Units/Ml SUB-Q Not Given HS [facility] Protocol Insulin Aspart 2 - 5 units 03/30/25 08:00 04/01/25 17:47 Insulin Aspart (*Bkc) 100 Units/Ml SUB-Q Not Given TIDWM [facility] Protocol Insulin Aspart 5 units 03/31/25 17:00 04/01/25 18:04 Insulin Aspart (*Bkc) 100 Units/Ml 0.05 units/kg (5 units) 5 units SUB-Q Administration TIDWM CEE Insulin Glargine 34 units 03/31/25 21:00 03/31/25 21:24 Insulin Glargine (*Bkc) 100 Units/Ml SUB-Q 34 units HS CEE Administration Loratadine 10 mg 03/28/25 09:00 04/01/25 09:23 Loratadine 10 Mg Tablet PO 10 mg QAM CEE Administration Melatonin 5 mg 03/29/25 21:00 03/31/25 21:11 Melatonin 5 Mg Tablet PO 5 mg HS CEE Administration Metoprolol Tartrate 50 mg 04/01/25 21:00 Metoprolol Tartrate 50 Mg Tab PO Q12HR CEE Morphine Sulfate 2 mg 03/27/25 13:02 03/27/25 18:22 Morphine Sulfate (*Crx) 2 Mg/Ml Inj IV PUSH 2 mg Q2HR PRN Administration Pain Rated 7-10 Ondansetron HCl 4 mg 03/27/25 11:54 Ondansetron Inj 4 Mg/2 Ml Vial IV PUSH Q4H PRN Nausea Polyethylene Glycol 17 gm 03/31/25 12:50 04/01/25 09:24 Polyethylene Glycol 3350 17 Gm Powd.Pack PO 17 gm QAM CEE Administration Simvastatin 40 mg 03/31/25 21:00 03/31/25 21:09 Simvastatin 20 Mg Tablet PO 40 mg HS CEE Administration Tamsulosin HCl 0.4 mg 03/27/25 21:00 03/31/25 21:09 Tamsulosin Hcl 0.4 Mg Capsule PO 0.4 mg HS CEE Administration Radiology Results: ITS Impressions Head CT 03/27/25 09:20 Impression: 1.No acute intracranial abnormality. Cervical Spine CT 03/27/25 09:22 Impression: No acute abnormality. Chest/Abdomen/Pelvis CT 03/27/25 10:27 IMPRESSION: 1. Findings are concerning for acute cholecystitis, questionable areas of liver abscess formation detailed above. Abdomen Ultrasound 03/27/25 11:42 IMPRESSION: 1: Hepatomegaly with fatty infiltration of the liver. Hyperechoic lesion present adjacent to the gallbladder wall, indeterminate. There is possible pericholecystic fluid. There is gallbladder wall thickening. Findings suspicious for cholecystitis. Clinically correlate. No definite abscess identified. Cholecystostomy 03/27/25 16:29 IMPRESSION: 1. Successful ultrasound-guided cholecystostomy tube placement. 2. 60 mL bile was sent for aerobic, anaerobic, and fungal cultures. 3. The catheter will be managed by Dr. Whelan. A catheter cholangiogram may be performed not less than 48 hours after tube placement if clinically indicated to assess cystic duct patency. If cholecystectomy is not eventually performed and the infectious episode has resolved, the tube may be removed over a guidewire, preferably not less than 3 weeks after placement to allow time for a mature catheter tract to form to prevent bile leakage and peritonitis. Chest X-Ray 03/29/25 17:28 IMPRESSION: 1. Mild discoid atelectasis/scarring in the right lower lobe. No other acute cardiopulmonary disease. Cholangiogram 03/31/25 09:32 IMPRESSION: 1. Cholelithiasis with obstructing filling defect in the mid cystic duct likely representing a small gallstone. Labs Labs: Laboratory Results - last 24 hr 03/31/25 04/01/25 04/01/25 21:23 03:54 07:27 WBC 10.5 H RBC 3.78 L Hgb 11.3 L Hct 35.7 L MCV 94.4 MCH 29.9 MCHC 31.7 L RDW 14.6 H Plt Count 173 MPV 11.4 H Immature Gran % (Auto) Not Reportable Neut % (Auto) Not Reportable Lymph % (Auto) Not Reportable [place] % (Auto) Not Reportable Eos % (Auto) Not Reportable Baso % (Auto) Not Reportable Lymph # (Auto) Not Reportable [place] # (Auto) Not Reportable Eos # (Auto) Not Reportable Baso # (Auto) Not Reportable Abs Immat Gran (auto) Not Reportable Absolute Neuts (auto) Not Reportable Absolute Nucleated RBC Not Reportable Total Counted 100 Neutrophils % (Manual) 80 H Band Neutrophils % 8 H Lymphocytes % (Manual) 5.0 L Monocytes % (Manual) 3 Eosinophils % (Manual) 4 Nucleated RBC % Not Reportable Abs Neuts (Manual) 9.24 H Abs Lymphs (Manual) 0.52 L Abs Monocytes (Manual) 0.31 Absolute Eos (Manual) 0.42 Platelet Estimate Adequate Ovalocytes 1+ Steve Cells 2+ Schistocytes None seen Sodium 138 Potassium 3.5 Chloride 106 Carbon Dioxide 26 Anion Gap 6 BUN 22 H Creatinine 0.89 Estim Creat Clear Calc 66 Estimated GFR > 60 Glucose 118 H POC Capillary Glucose 134 H 145 H Calcium 8.1 L Total Bilirubin 0.7 AST 58 ALT 94 H Alkaline Phosphatase 72 Total Protein 5.4 L Albumin 2.7 L 04/01/25 04/01/25 11:14 15:31 WBC RBC Hgb Hct MCV MCH MCHC RDW Plt Count MPV Immature Gran % (Auto) Neut % (Auto) Lymph % (Auto) [place] % (Auto) Eos % (Auto) Baso % (Auto) Lymph # (Auto) [place] # (Auto) Eos # (Auto) Baso # (Auto) Abs Immat Gran (auto) Absolute Neuts (auto) Absolute Nucleated RBC Total Counted Neutrophils % (Manual) Band Neutrophils % Lymphocytes % (Manual) Monocytes % (Manual) Eosinophils % (Manual) Nucleated RBC % Abs Neuts (Manual) Abs Lymphs (Manual) Abs Monocytes (Manual) Absolute Eos (Manual) Platelet Estimate Ovalocytes Steve Cells Schistocytes Sodium Potassium Chloride Carbon Dioxide Anion Gap BUN Creatinine Estim Creat Clear Calc Estimated GFR Glucose POC Capillary Glucose 209 H 178 H Calcium Total Bilirubin AST ALT Alkaline Phosphatase Total Protein Albumin
[2025-04-01] MEDS: SIMVASTATIN 20 MG TABLET 40 MG PO (20:44)
[2025-04-01] MEDS: MELATONIN 5 MG TABLET PO (20:44)
[2025-04-01] MEDS: METOPROLOL TARTRATE 50 MG TAB PO (20:45)
[2025-04-01] MEDS: TAMSULOSIN HCL 0.4 MG CAPSULE PO (20:45)
[2025-04-01] MEDS: INSULIN GLARGINE (*BKC) 100 UNITS/ML 34 UNITS SUB-Q (20:50)
[2025-04-02] VITALS (10 sets, daily range): BP systolic 140–160; BP diastolic 67–75; PULSE 72–93; RESP 18–24; TEMP 36.3–36.7; O2SAT 97–100
[2025-04-02] MEDS: AMPICILLIN SODIUM/SULBACTAM 3 GM in SODIUM CHLORIDE 0.9% IV 100 ML IVPB ×2 (00:43→06:01)
[2025-04-02 03:56] LABS: Hematocrit 32.7 % (42.0-52.0); Hemoglobin 10.7 g/dL (14.0-18.0); Immature Granulocyte Percent A 4.4 % (0-0.5); Lymphocytes Absolute Auto 1.09 K/mm3 (0.9-3.2); Mean Corpuscular HGB Conc 32.7 g/dl (32-36); Mean Corpuscular Hemoglobin 30.1 pg (26-34); Mean Corpuscular Volume 91.9 fl (80-100); Nucleated Red Blood Cells Absolute Auto 0.000 K/mm3 (0.0-0.012); Nucleated Red Blood Cells Perc 0.0 % (0.0-0.2); Platelet Count Result 243 k/mm3 (150-375); Red Blood Count 3.56 M/mm3 (4.6-6.20); White Blood Count 10.0 K/mm3 (4.5-10.0)
[2025-04-02 04:41] LABS: Alanine Aminotransferase 71 U/L (6-50); Albumin Level 2.6 g/dL (3.5-5.1); Alkaline Phosphatase 67 U/L (38-126); Anion Gap 3 mmol/L (4-12); Aspartate Amino Transferase 42 U/L (17-59); Bilirubin,Total 0.5 mg/dL (0.2-1.3); Blood Urea Nitrogen 17 mg/dL (9-20); CRP 2.8 mg/dL (<1.0); Calcium 8.0 mg/dL (8.4-10.2); Carbon Dioxide 29 mmol/L (22-30); Chloride 106 mmol/L (98-107); Estimated CRCL calculation 69 ml/min; Estimated Glomerular Filt Rate > 60; Glucose 75 mg/dL (65-110); Magnesium 2.2 mg/dL (1.6-2.3); Potassium 3.5 mmol/L (3.4-5.0); Sodium 138 mmol/L (137-145); Total Protein 5.2 g/dL (6.3-8.2)
[2025-04-02] MEDS: ASPIRIN 81 MG ENTERIC TABLET PO (09:27)
[2025-04-02] MEDS: ENOXAPARIN 40 MG/0.4 ML SYRINGE SUB-Q (09:27)
[2025-04-02] MEDS: FINASTERIDE 5 MG TABLET PO (09:27)
[2025-04-02] MEDS: LORATADINE 10 MG TABLET PO (09:27)
[2025-04-02] MEDS: DOCUSATE SODIUM 100 MG CAPSULE PO ×2 (09:27→20:39)
[2025-04-02] MEDS: METOPROLOL TARTRATE 50 MG TAB PO ×2 (09:27→20:40)
--- NOTE | 2025-04-02 11:12 | PC.NURSE ---
pt to 3M/S Rm. [id number] @1055 04/02/25 from [facility], via recliner.
--- NOTE | 2025-04-02 11:23 | P.PNINF_ITS ---
Progress Note: A&P Assessment and Plan (1) Cholelithiasis and acute cholecystitis without obstruction: Code(s): K80.00 - Calculus of gallbladder with acute cholecystitis without obstruction Status: Acute (2) Liver abscess: Code(s): K75.0 - Abscess of liver Status: Acute (3) E coli bacteremia: Code(s): R78.81 - Bacteremia; B96.20 - Unspecified Escherichia coli [E. coli] as the cause of diseases classified elsewhere Status: Acute Plan # Cholelithiasis with acute cholecystitis and status post cholecystostomy drain placement. -- drainage culture positive for relatively pansensitive E coli. -- significant and rapid clinical improvement post cholecystostomy drain placement. # E coli bacteremia with sepsis secondary to the above. Clinically improving. # CT suggesting clover-gallbladder micro abscesses associated with the above cholecystitis. Plan: -- continue Unasyn 3 g IV q.6 hours until discharge. -- will plan a more extensive course of antibiotics given the association of clover- gallbladder liver micro abscesses; however, based on limited abscess size, likely association with E coli organism, and rapid clinical improvement post cholecystostomy drain placement, should be able to complete treatment with oral antibiotics such as Augmentin 875mg q8 hours at discharge. Anticipate a total IV plus oral antibiotic course of 28 days-- He has completed 7 of 28 days, to date. Patient was seen via video telehealth consultation with the assistance of staff. Chart, data, and patient independently reviewed. Patient was located at [facility] while I was located in my [place] office. Received verbal consent from patient. Subjective Date/time seen: 04/02/25 11:23 Interval history: 04/01/2025: Afebrile and with resolution of leukocytosis. Denies cholecystostomy tube site pain. 04/02/2025: Afebrile with white blood cell count 10.0. Has been up walking in the hallway. Blood culture 04/01: Pending Review of Systems Review of Systems: He specifically denies right upper quadrant tenderness at site of cholecystostomy tube. No nausea or vomiting. All systems reviewed & are unremarkable except as noted in HPI and below Exam Narrative: He is awake, alert, and nontoxic in appearance. Normocephalic without conjunctivitis. Normal pulmonary effort. Abdomen without significant distention. Right upper quadrant with cholecystostomy tube drainage system. Bile-colored fluid in collecting bag. No rash. Objective Data Vital Signs Vital Signs: Vital Signs - 24 hr 04/01/25 11:28 04/01/25 12:00 04/01/25 16:00 Temperature 97.6 F Pulse Rate 75 72 78 Respiratory Rate 18 Blood Pressure 123/63 Pulse Oximetry 99 Oxygen Delivery 04/01/25 16:21 04/01/25 18:00 04/01/25 19:37 Temperature 98.4 F 98.6 F Pulse Rate 82 82 87 Respiratory Rate 20 22 H Blood Pressure 139/69 150/63 H Pulse Oximetry 99 97 Oxygen Delivery 04/01/25 19:53 04/01/25 20:00 04/01/25 20:45 Temperature Pulse Rate 88 85 84 Respiratory Rate Blood Pressure Pulse Oximetry Oxygen Delivery Room Air 04/01/25 23:55 04/02/25 00:00 04/02/25 04:00 Temperature 97.5 F L Pulse Rate 80 82 72 Respiratory Rate 25 H Blood Pressure 124/71 Pulse Oximetry 98 Oxygen Delivery 04/02/25 08:00 04/02/25 08:00 04/02/25 09:27 Temperature 97.6 F Pulse Rate 89 92 93 Respiratory Rate 18 Blood Pressure 140/67 Pulse Oximetry 97 Oxygen Delivery Intake/Output Intake/Output: Intake & Output 03/30/25 03/31/25 04/01/25 04/02/25 23:59 23:59 23:59 23:59 Intake Total 2019 1040 1320 340 Output Total 1470 1290 1275 805 Balance 550 -250 45 -465 Meds/Results Medications: Active Medications Generic Name Dose Route Start Last Admin Trade Name Freq PRN Reason Stop Dose Admin Acetaminophen 650 mg 03/27/25 16:53 03/28/25 08:23 Acetaminophen 325 Mg Tablet PO 650 mg Q6H PRN Administration Mild Pain (1-3) or Fever Aspirin 81 mg 03/29/25 09:00 04/02/25 09:27 Aspirin 81 Mg Enteric Tablet PO 81 mg QAM CEE Administration Dextrose 12.5 gm 03/27/25 13:42 Dextrose 50% 25 Gm/50 Ml Syringe IV PUSH PRN PRN Hypoglycemia Protocol Docusate Sodium 100 mg 03/28/25 09:00 04/02/25 09:27 Docusate Sodium 100 Mg Capsule PO 100 mg Q12HR CEE Administration Enoxaparin Sodium 40 mg 03/31/25 09:00 04/02/25 09:27 Enoxaparin 40 Mg/0.4 Ml Syringe SUB-Q 40 mg DAILY CEE Administration Finasteride 5 mg 03/28/25 09:00 04/02/25 09:27 Finasteride 5 Mg Tablet PO 5 mg DAILY CEE Administration Glucagon 1 mg 03/27/25 13:42 Glucagon For Inj 1 Mg Vial IM PRN PRN Hypoglycemia Protocol Glucose 15 gm 03/27/25 13:42 Glucose Oral Gel 15 Gm Of Glucse In 37.5 Gm Tube PO PRN PRN Hypoglycemia Protocol Dextrose 1,000 mls @ 100 mls/hr 03/27/25 13:42 Dextrose 5% 1,000 Ml IVPB PRN PRN Hypoglycemia Protocol Ampicillin Sodium/Sulbactam 100 mls @ 200 mls/hr 03/31/25 18:00 04/02/25 06:01 Sodium 3 gm/ Sodium Chloride IVPB 100 mls/hr Q6H CEE Administration Insulin Aspart 1 - 2 units 03/29/25 21:00 04/01/25 20:46 Insulin Aspart (*Bkc) 100 Units/Ml SUB-Q Not Given HS [facility] Protocol Insulin Aspart 2 - 5 units 03/30/25 08:00 04/02/25 09:23 Insulin Aspart (*Bkc) 100 Units/Ml SUB-Q Not Given TIDWM [facility] Protocol Insulin Aspart 5 units 03/31/25 17:00 04/02/25 09:23 Insulin Aspart (*Bkc) 100 Units/Ml 0.05 units/kg (5 units) Not Given SUB-Q TIDWM [facility] Insulin Glargine 34 units 03/31/25 21:00 04/01/25 20:50 Insulin Glargine (*Bkc) 100 Units/Ml SUB-Q 34 units HS CEE Administration Loratadine 10 mg 03/28/25 09:00 04/02/25 09:27 Loratadine 10 Mg Tablet PO 10 mg QAM CEE Administration Melatonin 5 mg 03/29/25 21:00 04/01/25 20:44 Melatonin 5 Mg Tablet PO 5 mg HS CEE Administration Metoprolol Tartrate 50 mg 04/01/25 21:00 04/02/25 09:27 Metoprolol Tartrate 50 Mg Tab PO 50 mg Q12HR CEE Administration Morphine Sulfate 2 mg 03/27/25 13:02 03/27/25 18:22 Morphine Sulfate (*Crx) 2 Mg/Ml Inj IV PUSH 2 mg Q2HR PRN Administration Pain Rated 7-10 Ondansetron HCl 4 mg 03/27/25 11:54 Ondansetron Inj 4 Mg/2 Ml Vial IV PUSH Q4H PRN Nausea Polyethylene Glycol 17 gm 03/31/25 12:50 04/02/25 09:27 Polyethylene Glycol 3350 17 Gm Powd.Pack PO 17 gm QAM CEE Administration Simvastatin 40 mg 03/31/25 21:00 04/01/25 20:44 Simvastatin 20 Mg Tablet PO 40 mg HS CEE Administration Tamsulosin HCl 0.4 mg 03/27/25 21:00 04/01/25 20:45 Tamsulosin Hcl 0.4 Mg Capsule PO 0.4 mg HS CEE Administration Radiology Results: ITS Impressions Head CT 03/27/25 09:20 Impression: 1.No acute intracranial abnormality. Cervical Spine CT 03/27/25 09:22 Impression: No acute abnormality. Chest/Abdomen/Pelvis CT 03/27/25 10:27 IMPRESSION: 1. Findings are concerning for acute cholecystitis, questionable areas of liver abscess formation detailed above. Abdomen Ultrasound 03/27/25 11:42 IMPRESSION: 1: Hepatomegaly with fatty infiltration of the liver. Hyperechoic lesion present adjacent to the gallbladder wall, indeterminate. There is possible pericholecystic fluid. There is gallbladder wall thickening. Findings suspicious for cholecystitis. Clinically correlate. No definite abscess identified. Cholecystostomy 03/27/25 16:29 IMPRESSION: 1. Successful ultrasound-guided cholecystostomy tube placement. 2. 60 mL bile was sent for aerobic, anaerobic, and fungal cultures. 3. The catheter will be managed by Dr. Whelan. A catheter cholangiogram may be performed not less than 48 hours after tube placement if clinically indicated to assess cystic duct patency. If cholecystectomy is not eventually performed and the infectious episode has resolved, the tube may be removed over a guidewire, preferably not less than 3 weeks after placement to allow time for a mature catheter tract to form to prevent bile leakage and peritonitis. Chest X-Ray 03/29/25 17:28 IMPRESSION: 1. Mild discoid atelectasis/scarring in the right lower lobe. No other acute cardiopulmonary disease. Cholangiogram 03/31/25 09:32 IMPRESSION: 1. Cholelithiasis with obstructing filling defect in the mid cystic duct likely representing a small gallstone. Labs Labs: Laboratory Results - last 24 hr 03/31/25 04/01/25 04/01/25 21:23 11:14 15:31 WBC RBC Hgb Hct MCV MCH MCHC RDW Plt Count MPV Immature Gran % (Auto) Neut % (Auto) Lymph % (Auto) [place] % (Auto) Eos % (Auto) Baso % (Auto) Lymph # (Auto) [place] # (Auto) Eos # (Auto) Baso # (Auto) Abs Immat Gran (auto) Absolute Neuts (auto) Absolute Nucleated RBC Nucleated RBC % Sodium Potassium Chloride Carbon Dioxide Anion Gap BUN Creatinine Estim Creat Clear Calc Estimated GFR Glucose POC Capillary Glucose 134 H 209 H 178 H Calcium Magnesium Total Bilirubin AST ALT Alkaline Phosphatase C-Reactive Protein Total Protein Albumin 04/01/25 04/02/25 04/02/25 20:23 03:46 07:19 WBC 10.0 RBC 3.56 L Hgb 10.7 L Hct 32.7 L MCV 91.9 MCH 30.1 MCHC 32.7 RDW 14.4 Plt Count 243 MPV 10.7 H Immature Gran % (Auto) 4.4 H Neut % (Auto) 68.9 Lymph % (Auto) 10.9 L [place] % (Auto) 12.0 H Eos % (Auto) 2.9 Baso % (Auto) 0.9 Lymph # (Auto) 1.09 [place] # (Auto) 1.2 H Eos # (Auto) 0.3 Baso # (Auto) 0.1 Abs Immat Gran (auto) 0.44 H Absolute Neuts (auto) 6.9 H Absolute Nucleated RBC 0.000 Nucleated RBC % 0.0 Sodium 138 Potassium 3.5 Chloride 106 Carbon Dioxide 29 Anion Gap 3 L BUN 17 Creatinine 0.90 Estim Creat Clear Calc 69 Estimated GFR > 60 Glucose 75 POC Capillary Glucose 155 H 71 Calcium 8.0 L Magnesium 2.2 Total Bilirubin 0.5 AST 42 ALT 71 H Alkaline Phosphatase 67 C-Reactive Protein 2.8 H Total Protein 5.2 L Albumin 2.6 L
[2025-04-02] MEDS: INSULIN ASPART (*BKC) 100 UNITS/ML SUB-Q ×2 (12:29→17:33)
[2025-04-02] MEDS: AMPICILLIN SODIUM/SULBACTAM 3 GM in SODIUM CHLORIDE 0.9% IV 100 ML 200 ML IVPB ×3 (12:29→23:31)
--- NOTE | 2025-04-02 16:21 | P.PNIM_ITS ---
Progress Note: A&P Assessment and Plan (1) Sepsis: Code(s): A41.9 - Sepsis, unspecified organism Status: Acute Assessment and Plan: Patient presents with weakness and found to have fever, tachycardia, thrombocy topenia, leukocytosis and JAYY. CT Ch/A/P showing acute cholecystitis with possible 1cm liver abscess. Source of sepsis is acute cholecystitis with possible liver abscess. Received 30cc/kg and started on IV fluids. Cholecystostomy tube placed by IR (03/27) BCx - EColi in both sets paulino sensitive. GB Culture growing EColi Started on Zosyn (03/27). Transitioned to Unasyn on 03/31/2025. Leukocytosis resolved. (2) Acute cholecystitis: Code(s): K81.0 - Acute cholecystitis Status: Acute Assessment and Plan: General Surgery consulted and appreciate their input Percutaneous cholecystostomy tube placed. Cholangiogram showing cholelithiasis with obstructing filling defect in mid cystic duct. Tube management per GenSurg Diet started. Continue IV abx. (3) Liver abscess: Code(s): K75.0 - Abscess of liver Status: Acute Assessment and Plan: As above. May need repeat imaging to show resolution of abscess (4) Acute respiratory distress: Code(s): R06.03 - Acute respiratory distress Status: Acute Assessment and Plan: BNP 2170. Given his age, this is only mildly elevated. He appeared in acute respiratory distress with hypoxia in ED but imaging did not show CHF. He received aggressive fluid hydration in ED. Echo showing EF 60-65% and Grade II diastolic dysfunction. Moderate pHTN noted. Maud that his tachypnea was related to the sepsis. Repeat BNP higher but repeat CXR was clear. Remains on room air. Monitor UOP. Monitor resp status. Lasix X1 (5) Atrial fib/flutter, transient: Code(s): I48.91 - Unspecified atrial fibrillation; I48.92 - Unspecified atrial flutter Status: Acute Assessment and Plan: Patient with paroxysmal AFib with recurrence overnight felt related to sepsis picture. Echo as above. [id number] (HTN, Age, DM, CAD) TSH normal. He was on Atenolol on admission but changed to metoprolol. Continue aspirin. Starting Eliquis 5 mg p.o. b.i.d. on 04/02/2025. Monitor platelet count and any signs of bleeding. (6) JAYY (acute kidney injury): Code(s): N17.9 - Acute kidney failure, unspecified Status: Acute Assessment and Plan: No recent Cr to review. Cr 1.6 on admission. Received appropriate fluid resuscitation in ED. Improved. (7) Hypertension: Code(s): I10 - Essential (primary) hypertension Status: Acute Assessment and Plan: At goal. Continue to monitor. (8) CAD (coronary artery disease): Qualifiers: Coronary Disease-Associated Artery/Lesion type: [place] artery [place] vs. transplanted heart: [place] heart Associated angina: unspecified whether angina present Qualified Code(s): I25.10 - Atherosclerotic heart disease of [place] coronary artery without angina pectoris Code(s): I25.10 - Atherosclerotic heart disease of [place] coronary artery without angina pectoris Status: Chronic Assessment and Plan: Patient with CAD s/p stent placement. Continue Zocor and ASA. Atenolol changed to metoprolol (9) DMII (diabetes mellitus, type 2): Qualifiers: Diabetes mellitus intermediate frame tender insulin use: without chcf use Diabetes mellitus complication status: without complication Qualified Code(s): E11.9 - Type 2 diabetes mellitus without complications Code(s): E11.9 - Type 2 diabetes mellitus without complications Status: Chronic Assessment and Plan: He takes Tresiba, metformin and glipizide at home but currently on hold Continue AccuCheks covering with sliding scale. Hypoglycemia protocol available as needed. Diabetic diet. Continue basal and bolus insulin. (10) BPH (benign prostatic hyperplasia): Code(s): N40.0 - Benign prostatic hyperplasia without lower urinary tract symptoms Status: Acute Assessment and Plan: Patient with urine retention requiring Jeffrey placement. Related to above. Proscar restarted. Was not on Flomax at home but will continue since he has retention. Voiding trial was successful. Monitor (11) Fall: Code(s): W19.XXXA - Unspecified fall, initial encounter Status: Acute Assessment and Plan: Patient did have a ground level fall 03/26 and struck his head. Patient denies any loss of consciousness. CT head showing no acute findings CT cervical spine showing no acute process Continue PT/OT (12) Thrombocytopenia: Code(s): D69.6 - Thrombocytopenia, unspecified Status: Acute Assessment and Plan: Platelet count normal in 2019. Decreased on admission to 79. Has since normalized. Plan DVT Prophylaxis -Eliquis Code status - full 04/02/2025 update: Sepsis has resolved. General surgery recommends outpatient follow-up and interval cholecystectomy. To leave with biliary drain. Heart rate controlled. Continue metoprolol 50 mg p.o. b.i.d.. Follow-up in ou tpatient setting with Cardiology Infectious Disease has been following. Zosyn changed to Unasyn and recommend p.o. antibiotics for 28 days total on discharge, appreciate their note. He has been placed on Eliquis 5 mg p.o. b.i.d. of course, that will need to be temporarily held when he is going for cholecystectomy. Patient lives with his who takes care of. Patient did have a fall before arrival. Initially the patient has been refusing home health and SNF even though that was advised by therapy initially. Had discussion with the daughter Marleen present on 04/02/2025. She is worried about his safety at home and is very reasonable during discussions. She reports she would like the patient to have at least home health and is definitely open to SNF. Will ask therapy to evaluate again and give updated recommendations. Called care coordination update but no answer, left message. Subjective Date/time seen: 04/02/25 16:21 Interval history: No acute overnight events. Daughter Marleen is at bedside. He lives with his who he takes care of. Daughter is concerned, please see assessment and plan for further information, otherwise the patient does not have any complaints. He still did not want to take further laxatives. Continue to monitor for bowel movement Review of Systems Review of Systems: All systems reviewed & are unremarkable except as noted in HPI and below (Subjective) Exam Const: General: comfortable and no acute distress HENMT: Mouth: Yes moist mucous membranes Eyes: Pupils: Equal, round and reactive pupils present Neck: Neck: supple Resp: Effort & Inspection: normal respiratory effort Auscultation: clear to auscultation bilaterally Cardio: Rate: regular rate Rhythm: regular rhythm GI: Inspection: non-distended GI Palp: Yes Soft to palpation and No Tenderness to palpation present (GI) Other: Biliary drain output with clear brown/greenish fluid Extrem: General: no edema Objective Data Vital Signs Vital Signs: Vital Signs - 24 hr 04/01/25 18:00 04/01/25 19:37 04/01/25 19:53 Temperature 98.6 F Pulse Rate 82 87 88 Respiratory Rate 22 H Blood Pressure 150/63 H Pulse Oximetry 97 Oxygen Delivery Room Air 04/01/25 20:00 04/01/25 20:45 04/01/25 23:55 Temperature 97.5 F L Pulse Rate 85 84 80 Respiratory Rate 25 H Blood Pressure 124/71 Pulse Oximetry 98 Oxygen Delivery 04/02/25 00:00 04/02/25 04:00 04/02/25 08:00 Temperature 97.6 F Pulse Rate 82 72 89 Respiratory Rate 18 Blood Pressure 140/67 Pulse Oximetry 97 Oxygen Delivery 04/02/25 08:00 04/02/25 09:27 04/02/25 12:05 Temperature Pulse Rate 92 93 80 Respiratory Rate Blood Pressure Pulse Oximetry Oxygen Delivery Intake/Output Intake/Output: Intake & Output 03/30/25 03/31/25 04/01/25 04/02/25 23:59 23:59 23:59 23:59 Intake Total 2019 1040 1320 780 Output Total 147 1290 1275 805 Balance 550 -250 45 -25 Meds/Results Medications: Active Medications Generic Name Dose Route Start Last Admin Trade Name Freq PRN Reason Stop Dose Admin Acetaminophen 650 mg 03/27/25 16:53 03/28/25 08:23 Acetaminophen 325 Mg Tablet PO 650 mg Q6H PRN Administration Mild Pain (1-3) or Fever Aspirin 81 mg 03/29/25 09:00 04/02/25 09:27 Aspirin 81 Mg Enteric Tablet PO 81 mg QAM CEE Administration Dextrose 12.5 gm 03/27/25 13:42 Dextrose 50% 25 Gm/50 Ml Syringe IV PUSH PRN PRN Hypoglycemia Protocol Docusate Sodium 100 mg 03/28/25 09:00 04/02/25 09:27 Docusate Sodium 100 Mg Capsule PO 100 mg Q12HR CEE Administration Enoxaparin Sodium 40 mg 03/31/25 09:00 04/02/25 09:27 Enoxaparin 40 Mg/0.4 Ml Syringe SUB-Q 40 mg DAILY CEE Administration Finasteride 5 mg 03/28/25 09:00 04/02/25 09:27 Finasteride 5 Mg Tablet PO 5 mg DAILY CEE Administration Glucagon 1 mg 03/27/25 13:42 Glucagon For Inj 1 Mg Vial IM PRN PRN Hypoglycemia Protocol Glucose 15 gm 03/27/25 13:42 Glucose Oral Gel 15 Gm Of Glucse In 37.5 Gm Tube PO PRN PRN Hypoglycemia Protocol Dextrose 1,000 mls @ 100 mls/hr 03/27/25 13:42 Dextrose 5% 1,000 Ml IVPB PRN PRN Hypoglycemia Protocol Ampicillin Sodium/Sulbactam 100 mls @ 200 mls/hr 03/31/25 18:00 04/02/25 12:59 Sodium 3 gm/ Sodium Chloride IVPB Infused Q6H CEE Infusion Insulin Aspart 1 - 2 units 03/29/25 21:00 04/01/25 20:46 Insulin Aspart (*Bkc) 100 Units/Ml SUB-Q Not Given HS [facility] Protocol Insulin Aspart 2 - 5 units 03/30/25 08:00 04/02/25 12:23 Insulin Aspart (*Bkc) 100 Units/Ml SUB-Q Not Given TIDWM [facility] Protocol Insulin Aspart 5 units 03/31/25 17:00 04/02/25 12:29 Insulin Aspart (*Bkc) 100 Units/Ml 0.05 units/kg (5 units) 5 units SUB-Q Administration TIDWM [facility] Insulin Glargine 34 units 03/31/25 21:00 04/01/25 20:50 Insulin Glargine (*Bkc) 100 Units/Ml SUB-Q 34 units HS CEE Administration Loratadine 10 mg 03/28/25 09:00 04/02/25 09:27 Loratadine 10 Mg Tablet PO 10 mg QAM [facility] Administration Melatonin 5 mg 03/29/25 21:00 04/01/25 20:44 Melatonin 5 Mg Tablet PO 5 mg HS [facility] Administration Metoprolol Tartrate 50 mg 04/01/25 21:00 04/02/25 09:27 Metoprolol Tartrate 50 Mg Tab PO 50 mg Q12HR CEE Administration Morphine Sulfate 2 mg 03/27/25 13:02 03/27/25 18:22 Morphine Sulfate (*Crx) 2 Mg/Ml Inj IV PUSH 2 mg Q2HR PRN Administration Pain Rated 7-10 Ondansetron HCl 4 mg 03/27/25 11:54 Ondansetron Inj 4 Mg/2 Ml Vial IV PUSH Q4H PRN Nausea Polyethylene Glycol 17 gm 03/31/25 12:50 09/04/25 09:27 Polyethylene Glycol 3350 17 Gm Powd.Pack PO 17 gm QAM CEE Administration Simvastatin 40 mg 03/31/25 21:00 04/01/25 20:44 Simvastatin 20 Mg Tablet PO 40 mg HS CEE Administration Tamsulosin HCl 0.4 mg 03/27/25 21:00 04/01/25 20:45 Tamsulosin Hcl 0.4 Mg Capsule PO 0.4 mg HS CEE Administration Radiology Results: ITS Impressions Head CT 03/27/25 09:20 Impression: 1.No acute intracranial abnormality. Cervical Spine CT 03/27/25 09:22 Impression: No acute abnormality. Chest/Abdomen/Pelvis CT 03/27/25 10:27 IMPRESSION: 1. Findings are concerning for acute cholecystitis, questionable areas of liver abscess formation detailed above. Abdomen Ultrasound 03/27/25 11:42 IMPRESSION: 1: Hepatomegaly with fatty infiltration of the liver. Hyperechoic lesion present adjacent to the gallbladder wall, indeterminate. There is possible pericholecystic fluid. There is gallbladder wall thickening. Findings suspicious for cholecystitis. Clinically correlate. No definite abscess identified. Cholecystostomy 03/27/25 16:29 IMPRESSION: 1. Successful ultrasound-guided cholecystostomy tube placement. 2. 60 mL bile was sent for aerobic, anaerobic, and fungal cultures. 3. The catheter will be managed by Dr. Whelan. A catheter cholangiogram may be performed not less than 48 hours after tube placement if clinically indicated to assess cystic duct patency. If cholecystectomy is not eventually performed and the infectious episode has resolved, the tube may be removed over a guidewire, preferably not less than 3 weeks after placement to allow time for a mature catheter tract to form to prevent bile leakage and peritonitis. Chest X-Ray 03/29/25 17:28 IMPRESSION: 1. Mild discoid atelectasis/scarring in the right lower lobe. No other acute cardiopulmonary disease. Cholangiogram 03/31/25 09:32 IMPRESSION: 1. Cholelithiasis with obstructing filling defect in the mid cystic duct likely representing a small gallstone. Labs Labs: Laboratory Results - last 24 hr 03/31/25 04/01/25 04/02/25 21:23 20:23 03:46 WBC 10.0 RBC 3.56 L Hgb 10.7 L Hct 32.7 L MCV 91.9 MCH 30.1 MCHC 32.7 RDW 14.4 Plt Count 243 MPV 10.7 H Immature Gran % (Auto) 4.4 H Neut % (Auto) 68.9 Lymph % (Auto) 10.9 L [place] % (Auto) 12.0 H Eos % (Auto) 2.9 Baso % (Auto) 0.9 Lymph # (Auto) 1.09 [place] # (Auto) 1.2 H Eos # (Auto) 0.3 Baso # (Auto) 0.1 Abs Immat Gran (auto) 0.44 H Absolute Neuts (auto) 6.9 H Absolute Nucleated RBC 0.000 Nucleated RBC % 0.0 Sodium 138 Potassium 3.5 Chloride 106 Carbon Dioxide 29 Anion Gap 3 L BUN 17 Creatinine 0.90 Estim Creat Clear Calc 69 Estimated GFR > 60 Glucose 75 POC Capillary Glucose 134 H 155 H Calcium 8.0 L Magnesium 2.2 Total Bilirubin 0.5 AST 42 ALT 71 H Alkaline Phosphatase 67 C-Reactive Protein 2.8 H Total Protein 5.2 L Albumin 2.6 L 04/02/25 04/02/25 07:19 11:18 WBC RBC Hgb Hct MCV MCH MCHC RDW Plt Count MPV Immature Gran % (Auto) Neut % (Auto) Lymph % (Auto) [place] % (Auto) Eos % (Auto) Baso % (Auto) Lymph # (Auto) [place] # (Auto) Eos # (Auto) Baso # (Auto) Abs Immat Gran (auto) Absolute Neuts (auto) Absolute Nucleated RBC Nucleated RBC % Sodium Potassium Chloride Carbon Dioxide Anion Gap BUN Creatinine Estim Creat Clear Calc Estimated GFR Glucose POC Capillary Glucose 71 141 H Calcium Magnesium Total Bilirubin AST ALT Alkaline Phosphatase C-Reactive Protein Total Protein Albumin
[2025-04-02] MEDS: INSULIN GLARGINE (*BKC) 100 UNITS/ML 34 UNITS SUB-Q (20:37)
[2025-04-02] MEDS: MELATONIN 5 MG TABLET PO (20:39)
[2025-04-02] MEDS: TAMSULOSIN HCL 0.4 MG CAPSULE PO (20:40)
[2025-04-02] MEDS: SIMVASTATIN 20 MG TABLET 40 MG PO (20:40)
[2025-04-02] MEDS: APIXABAN 5 MG TABLET PO (20:40)
[2025-04-03] VITALS (13 sets, daily range): BP systolic 128–151; BP diastolic 67–86; PULSE 71–91; RESP 16–24; TEMP 35.9–36.2; O2SAT 95–100
[2025-04-03] MEDS: AMPICILLIN SODIUM/SULBACTAM 3 GM in SODIUM CHLORIDE 0.9% IV 100 ML 200 ML IVPB ×4 (05:24→23:41)
[2025-04-03 06:46] LABS: Hematocrit 33.5 % (42.0-52.0); Hemoglobin 10.4 g/dL (14.0-18.0); Immature Granulocyte Percent A 4.2 % (0-0.5); Lymphocytes Absolute Auto 0.97 K/mm3 (0.9-3.2); Mean Corpuscular HGB Conc 31.0 g/dl (32-36); Mean Corpuscular Hemoglobin 29.4 pg (26-34); Mean Corpuscular Volume 94.6 fl (80-100); Nucleated Red Blood Cells Absolute Auto 0.000 K/mm3 (0.0-0.012); Nucleated Red Blood Cells Perc 0.0 % (0.0-0.2); Platelet Count Result 293 k/mm3 (150-375); Red Blood Count 3.54 M/mm3 (4.6-6.20); White Blood Count 9.7 K/mm3 (4.5-10.0)
[2025-04-03 07:14] LABS: Alanine Aminotransferase 57 U/L (6-50); Albumin Level 2.7 g/dL (3.5-5.1); Alkaline Phosphatase 75 U/L (38-126); Anion Gap 3 mmol/L (4-12); Aspartate Amino Transferase 42 U/L (17-59); Bilirubin,Total 0.5 mg/dL (0.2-1.3); Blood Urea Nitrogen 13 mg/dL (9-20); Calcium 8.1 mg/dL (8.4-10.2); Carbon Dioxide 29 mmol/L (22-30); Chloride 105 mmol/L (98-107); Estimated CRCL calculation 70 ml/min; Estimated Glomerular Filt Rate > 60; Glucose 70 mg/dL (65-110); Magnesium 2.2 mg/dL (1.6-2.3); Potassium 3.7 mmol/L (3.4-5.0); Sodium 137 mmol/L (137-145); Total Protein 5.5 g/dL (6.3-8.2)
[2025-04-03] MEDS: APIXABAN 5 MG TABLET PO ×2 (08:30→20:17)
[2025-04-03] MEDS: ASPIRIN 81 MG ENTERIC TABLET PO (08:30)
[2025-04-03] MEDS: METOPROLOL TARTRATE 50 MG TAB PO ×2 (08:30→20:18)
[2025-04-03] MEDS: DOCUSATE SODIUM 100 MG CAPSULE PO ×2 (08:31→20:17)
[2025-04-03] MEDS: FINASTERIDE 5 MG TABLET PO (08:31)
[2025-04-03] MEDS: LORATADINE 10 MG TABLET PO (08:31)
[2025-04-03] MEDS: INSULIN ASPART (*BKC) 100 UNITS/ML SUB-Q ×3 (08:32→17:18)
--- NOTE | 2025-04-03 10:20 | PCNWS ---
Weekly nutritional screen. Patient is tolerating current diet with adequate intake. No weight loss reported. No nutritional needs at this time.
--- NOTE | 2025-04-03 11:15 | WPDINFPN2 ---
Progress Note: A&P Assessment and Plan (1) Cholelithiasis and acute cholecystitis without obstruction: Code(s): K80.00 - Calculus of gallbladder with acute cholecystitis without obstruction Status: Acute (2) Liver abscess: Code(s): K75.0 - Abscess of liver Status: Acute (3) E coli bacteremia: Code(s): R78.81 - Bacteremia; B96.20 - Unspecified Escherichia coli [E. coli] as the cause of diseases classified elsewhere Status: Acute Plan # Cholelithiasis with acute cholecystitis and status post cholecystostomy drain placement. -- drainage culture positive for relatively pansensitive E coli. -- significant and rapid clinical improvement post cholecystostomy drain placement. # E coli bacteremia with sepsis secondary to the above. Clinically improving. # CT suggesting clover-gallbladder micro abscesses associated with the above cholecystitis. Plan: -- continue Unasyn 3 g IV q.6 hours until discharge. Okay for discharge from an ID standpoint as long as cleared by other physicians. -- will plan a more extensive course of antibiotics given the association of clover- gallbladder liver micro abscesses; however, based on limited abscess size, likely association with E coli organism, and rapid clinical improvement post cholecystostomy drain placement, should be able to complete treatment with oral antibiotics. -- Once cleared for discharge by other physicians would place patient on Augmentin 875mg q8 hours through 04/23/2025. He has completed 8 of 28 days, to date. Patient was seen via video telehealth consultation with the assistance of staff. Chart, data, and patient independently reviewed. Patient was located at [facility] while I was located in my [place] office. Received verbal consent from patient. Subjective Date/time seen: 04/03/25 11:15 Interval history: 04/01/2025: Afebrile and with resolution of leukocytosis. Denies cholecystostomy tube site pain. 04/02/2025: Afebrile with white blood cell count 10.0. Has been up walking in the hallway. 04/03/2025: Afebrile with white blood cell count normal. Reports having a non-diarrheal bowel movement. Blood culture 04/01: Negative at 24 hours. Review of Systems Review of Systems: He specifically denies right upper quadrant tenderness at site of cholecystostomy tube. No nausea or vomiting or diarrhea. All systems reviewed & are unremarkable except as noted in HPI and below Exam Narrative: He is awake, alert, and nontoxic in appearance. Sitting up in a chair. Normocephalic without conjunctivitis. Normal pulmonary effort. Abdomen without significant distention. Right upper quadrant with cholecystostomy tube drainage system. Bile-colored fluid in collecting bag. No rash. Objective Data Vital Signs Vital Signs: Vital Signs - 24 hr 04/02/25 12:05 04/02/25 16:00 04/02/25 16:02 Temperature 98.0 F Pulse Rate 80 86 85 Respiratory Rate 18 Blood Pressure 141/72 H Pulse Oximetry 100 Oxygen Delivery 04/02/25 20:40 04/02/25 20:40 04/02/25 21:00 Temperature Pulse Rate 86 86 Respiratory Rate Blood Pressure Pulse Oximetry Oxygen Delivery Room Air 04/02/25 21:25 04/03/25 00:00 04/03/25 04:00 Temperature 97.4 F L Pulse Rate 83 71 75 Respiratory Rate 24 H Blood Pressure 160/75 H Pulse Oximetry 99 Oxygen Delivery 04/03/25 06:11 04/03/25 08:30 04/03/25 08:37 Temperature 97.2 F L Pulse Rate 77 88 88 Respiratory Rate 24 H Blood Pressure 135/86 Pulse Oximetry 100 95 Oxygen Delivery Room Air 04/03/25 08:40 Temperature Pulse Rate Respiratory Rate Blood Pressure 134/67 Pulse Oximetry Oxygen Delivery Intake/Output Intake/Output: Intake & Output 03/31/25 04/01/25 04/02/25 04/03/25 23:59 23:59 23:59 23:59 Intake Total 1040 1320 1670 640 Output Total 1290 1275 1255 640 Balance -250 45 415 0 Meds/Results Medications: Active Medications Generic Name Dose Route Start Last Admin Trade Name Freq PRN Reason Stop Dose Admin Acetaminophen 650 mg 03/27/25 16:53 03/28/25 08:23 Acetaminophen 325 Mg Tablet PO 650 mg Q6H PRN Administration Mild Pain (1-3) or Fever Apixaban 5 mg 04/02/25 21:00 04/03/25 08:30 Apixaban 5 Mg Tablet PO 5 mg Q12HR CEE Administration Aspirin 81 mg 03/29/25 09:00 04/03/25 08:30 Aspirin 81 Mg Enteric Tablet PO 81 mg QAM CEE Administration Dextrose 12.5 gm 03/27/25 13:42 Dextrose 50% 25 Gm/50 Ml Syringe IV PUSH PRN PRN Hypoglycemia Protocol Docusate Sodium 100 mg 03/28/25 09:00 04/03/25 08:31 Docusate Sodium 100 Mg Capsule PO 100 mg Q12HR CEE Administration Finasteride 5 mg 03/28/25 09:00 04/03/25 08:31 Finasteride 5 Mg Tablet PO 5 mg DAILY CEE Administration Glucagon 1 mg 03/27/25 13:42 Glucagon For Inj 1 Mg Vial IM PRN PRN Hypoglycemia Protocol Glucose 15 gm 03/27/25 13:42 Glucose Oral Gel 15 Gm Of Glucse In 37.5 Gm Tube PO PRN PRN Hypoglycemia Protocol Dextrose 1,000 mls @ 100 mls/hr 03/27/25 13:42 Dextrose 5% 1,000 Ml IVPB PRN PRN Hypoglycemia Protocol Ampicillin Sodium/Sulbactam 100 mls @ 200 mls/hr 03/31/25 18:00 04/03/25 06:22 Sodium 3 gm/ Sodium Chloride IVPB Infused Q6H CEE Infusion Insulin Aspart 1 - 2 units 03/29/25 21:00 04/02/25 20:28 Insulin Aspart (*Bkc) 100 Units/Ml SUB-Q Not Given HS [facility] Protocol Insulin Aspart 2 - 5 units 03/30/25 08:00 04/03/25 08:27 Insulin Aspart (*Bkc) 100 Units/Ml SUB-Q Not Given TIDWM [facility] Protocol Insulin Aspart 5 units 03/31/25 17:00 04/03/25 08:32 Insulin Aspart (*Bkc) 100 Units/Ml 0.05 units/kg (5 units) 5 units SUB-Q Administration TIDWM [facility] Insulin Glargine 34 units 03/31/25 21:00 04/02/25 20:37 Insulin Glargine (*Bkc) 100 Units/Ml SUB-Q 34 units HS CEE Administration Loratadine 10 mg 03/28/25 09:00 04/03/25 08:31 Loratadine 10 Mg Tablet PO 10 mg QAM CEE Administration Melatonin 5 mg 03/29/25 21:00 04/02/25 20:39 Melatonin 5 Mg Tablet PO 5 mg HS CEE Administration Metoprolol Tartrate 50 mg 04/01/25 21:00 04/03/25 08:30 Metoprolol Tartrate 50 Mg Tab PO 50 mg Q12HR CEE Administration Morphine Sulfate 2 mg 03/27/25 13:02 03/27/25 18:22 Morphine Sulfate (*Crx) 2 Mg/Ml Inj IV PUSH 2 mg Q2HR PRN Administration Pain Rated 7-10 Ondansetron HCl 4 mg 03/27/25 11:54 Ondansetron Inj 4 Mg/2 Ml Vial IV PUSH Q4H PRN Nausea Polyethylene Glycol 17 gm 03/31/25 12:50 04/03/25 08:31 Polyethylene Glycol 3350 17 Gm Powd.Pack PO 17 gm QAM CEE Administration Simvastatin 40 mg 03/31/25 21:00 04/02/25 20:40 Simvastatin 20 Mg Tablet PO 40 mg HS CEE Administration Tamsulosin HCl 0.4 mg 03/27/25 21:00 04/02/25 20:40 Tamsulosin Hcl 0.4 Mg Capsule PO 0.4 mg HS CEE Administration Radiology Results: ITS Impressions Head CT 03/27/25 09:20 Impression: 1.No acute intracranial abnormality. Cervical Spine CT 03/27/25 09:22 Impression: No acute abnormality. Chest/Abdomen/Pelvis CT 03/27/25 10:27 IMPRESSION: 1. Findings are concerning for acute cholecystitis, questionable areas of liver abscess formation detailed above. Abdomen Ultrasound 03/27/25 11:42 IMPRESSION: 1: Hepatomegaly with fatty infiltration of the liver. Hyperechoic lesion present adjacent to the gallbladder wall, indeterminate. There is possible pericholecystic fluid. There is gallbladder wall thickening. Findings suspicious for cholecystitis. Clinically correlate. No definite abscess identified. Cholecystostomy 03/27/25 16:29 IMPRESSION: 1. Successful ultrasound-guided cholecystostomy tube placement. 2. 60 mL bile was sent for aerobic, anaerobic, and fungal cultures. 3. The catheter will be managed by Dr. Whelan. A catheter cholangiogram may be performed not less than 48 hours after tube placement if clinically indicated to assess cystic duct patency. If cholecystectomy is not eventually performed and the infectious episode has resolved, the tube may be removed over a guidewire, preferably not less than 3 weeks after placement to allow time for a mature catheter tract to form to prevent bile leakage and peritonitis. Chest X-Ray 03/29/25 17:28 IMPRESSION: 1. Mild discoid atelectasis/scarring in the right lower lobe. No other acute cardiopulmonary disease. Cholangiogram 03/31/25 09:32 IMPRESSION: 1. Cholelithiasis with obstructing filling defect in the mid cystic duct likely representing a small gallstone. Labs Labs: Laboratory Results - last 24 hr 04/02/25 04/02/25 04/02/25 11:18 16:34 19:25 WBC RBC Hgb Hct MCV MCH MCHC RDW Plt Count MPV Immature Gran % (Auto) Neut % (Auto) Lymph % (Auto) [place] % (Auto) Eos % (Auto) Baso % (Auto) Lymph # (Auto) [place] # (Auto) Eos # (Auto) Baso # (Auto) Abs Immat Gran (auto) Absolute Neuts (auto) Absolute Nucleated RBC Nucleated RBC % Sodium Potassium Chloride Carbon Dioxide Anion Gap BUN Creatinine Estim Creat Clear Calc Estimated GFR Glucose POC Capillary Glucose 141 H 141 H 133 H Calcium Magnesium Total Bilirubin AST ALT Alkaline Phosphatase Total Protein Albumin 04/03/25 04/03/25 05:39 07:43 WBC 9.7 RBC 3.54 L Hgb 10.4 L Hct 33.5 L MCV 94.6 MCH 29.4 MCHC 31.0 L RDW 14.6 H Plt Count 293 MPV 11.0 H Immature Gran % (Auto) 4.2 H Neut % (Auto) 70.2 Lymph % (Auto) 10.1 L [place] % (Auto) 11.7 H Eos % (Auto) 3.2 Baso % (Auto) 0.6 Lymph # (Auto) 0.97 [place] # (Auto) 1.1 H Eos # (Auto) 0.3 Baso # (Auto) 0.1 Abs Immat Gran (auto) 0.41 H Absolute Neuts (auto) 6.8 H Absolute Nucleated RBC 0.000 Nucleated RBC % 0.0 Sodium 137 Potassium 3.7 Chloride 105 Carbon Dioxide 29 Anion Gap 3 L BUN 13 Creatinine 0.88 Estim Creat Clear Calc 70 Estimated GFR > 60 Glucose 70 POC Capillary Glucose 83 Calcium 8.1 L Magnesium 2.2 Total Bilirubin 0.5 AST 42 ALT 57 H Alkaline Phosphatase 75 Total Protein 5.5 L Albumin 2.7 L
--- NOTE | 2025-04-03 13:53 | P.PNGS_ITS ---
Progress Note: A&P Assessment and Plan (1) Gram-negative bacteremia: Code(s): R78.81 - Bacteremia Status: Acute Assessment and Plan: * Both blood and gallbladder cultures positive for E. coli. Bacteremia likely due to severe cholecystitis and sepsis. WBC normalized at 9.7. Repeat cultures still pending. Spoke with ID pharmacist who agrees that patient can be discharged on course of oral antibiotics. (2) Cholelithiasis and acute cholecystitis without obstruction: Code(s): K80.00 - Calculus of gallbladder with acute cholecystitis without obstruction Status: Acute Assessment and Plan: * Cholecystostomy tube functioning well. Cholangiogram demonstrated cho lelithiasis with obstruction filling defect in the mid cystic duct likely representing a small gallstone. WBC count and LFTs continue to trend down. * Patient is surgically stable for discharge with cholecystostomy tube. He will follow up in outpatient clinic in 3 weeks to evaluate percutaneous drain and discuss laparoscopic cholecystectomy with Dr. Whelan. (3) Paroxysmal atrial fibrillation: Code(s): I48.0 - Paroxysmal atrial fibrillation Status: Acute Assessment and Plan: * Continue Eliquis. (4) Thrombocytopenia: Code(s): D69.6 - Thrombocytopenia, unspecified Status: Acute Assessment and Plan: * Resolved (5) CAD (coronary artery disease): Qualifiers: Coronary Disease-Associated Artery/Lesion type: [place] artery [place] vs. transplanted heart: [place] heart Associated angina: unspecified whether angina present Qualified Code(s): I25.10 - Atherosclerotic heart disease of [place] coronary artery without angina pectoris Code(s): I25.10 - Atherosclerotic heart disease of [place] coronary artery without angina pectoris Status: Chronic (6) DMII (diabetes mellitus, type 2): Qualifiers: Diabetes mellitus intermediate insulin use: without intermediate use Diabetes mellitus complication status: without complication Qualified Code(s): E11.9 - Type 2 diabetes mellitus without complications Code(s): E11.9 - Type 2 diabetes mellitus without complications Status: Chronic Assessment and Plan: Glucose 144 this morning. (7) IVETT (obstructive sleep apnea): Code(s): G47.33 - Obstructive sleep apnea (adult) (pediatric) Status: Chronic (8) Umbilical hernia: Qualifiers: Obstruction and gangrene presence: without obstruction or gangrene Qualified Code(s): K42.9 - Umbilical hernia without obstruction or gangrene Code(s): K42.9 - Umbilical hernia without obstruction or gangrene Status: Chronic Assessment and Plan: * No acute issues, asymptomatic Plan Discussed patient's case and plan of care with Dr. Whelan. Subjective Subjective Date/Time Seen: 04/03/25 13:53 Patient reports: no new complaints, feels better, tolerating a regular diet (diabetic) and bowel movement Interval history: Patient is doing well. No nausea or vomiting. Had a BM this morning. Minimal abdominal pain. Exam Const: General: comfortable and no acute distress GI: Inspection: no abdominal wall ecchymosis and non-distended GI Palp: Yes Soft to palpation and No Tenderness to palpation present (GI) Other: Cholecystostomy tube with brown-bilious appearing output that is fairly clear. Dressing dry and intact. Umbilical hernia present. Objective Data Vital Signs Vital Signs: Vital Signs - 24 hr 04/02/25 16:00 04/02/25 16:02 04/02/25 20:40 Temperature 98.0 F Pulse Rate 86 85 86 Respiratory Rate 18 Blood Pressure 141/72 H Pulse Oximetry 100 Oxygen Delivery 04/02/25 20:40 04/02/25 21:00 04/02/25 21:25 Temperature 97.4 F L Pulse Rate 86 83 Respiratory Rate 24 H Blood Pressure 160/75 H Pulse Oximetry 99 Oxygen Delivery Room Air 04/03/25 00:00 04/03/25 04:00 04/03/25 06:11 Temperature 97.2 F L Pulse Rate 71 75 77 Respiratory Rate 24 H Blood Pressure 135/86 Pulse Oximetry 100 Oxygen Delivery 04/03/25 08:30 04/03/25 08:37 04/03/25 08:40 Temperature Pulse Rate 88 88 Respiratory Rate Blood Pressure 134/67 Pulse Oximetry 95 Oxygen Delivery Room Air Intake/Output Intake/Output: Intake & Output 03/31/25 04/01/25 04/02/25 04/03/25 23:59 23:59 23:59 23:59 Intake Total 1040 1320 1670 640 Output Total 1290 1275 1255 640 Balance -250 45 415 0 Meds/Results Medications: Active Medications Generic Name Dose Route Start Last Admin Trade Name Freq PRN Reason Stop Dose Admin Acetaminophen 650 mg 03/27/25 16:53 03/28/25 08:23 Acetaminophen 325 Mg Tablet PO 650 mg Q6H PRN Administration Mild Pain (1-3) or Fever Apixaban 5 mg 04/02/25 21:00 04/03/25 08:30 Apixaban 5 Mg Tablet PO 5 mg Q12HR CEE Administration Aspirin 81 mg 03/29/25 09:00 04/03/25 08:30 Aspirin 81 Mg Enteric Tablet PO 81 mg QAM CEE Administration Dextrose 12.5 gm 03/27/25 13:42 Dextrose 50% 25 Gm/50 Ml Syringe IV PUSH PRN PRN Hypoglycemia Protocol Docusate Sodium 100 mg 03/28/25 09:00 04/03/25 08:31 Docusate Sodium 100 Mg Capsule PO 100 mg Q12HR CEE Administration Finasteride 5 mg 03/28/25 09:00 04/03/25 08:31 Finasteride 5 Mg Tablet PO 5 mg DAILY CEE Administration Glucagon 1 mg 03/27/25 13:42 Glucagon For Inj 1 Mg Vial IM PRN PRN Hypoglycemia Protocol Glucose 15 gm 03/27/25 13:42 Glucose Oral Gel 15 Gm Of Glucse In 37.5 Gm Tube PO PRN PRN Hypoglycemia Protocol Dextrose 1,000 mls @ 100 mls/hr 03/27/25 13:42 Dextrose 5% 1,000 Ml IVPB PRN PRN Hypoglycemia Protocol Ampicillin Sodium/Sulbactam 100 mls @ 200 mls/hr 03/31/25 18:00 04/03/25 12:38 Sodium 3 gm/ Sodium Chloride IVPB 200 mls/hr Q6H CEE Administration Insulin Aspart 1 - 2 units 03/29/25 21:00 04/02/25 20:28 Insulin Aspart (*Bkc) 100 Units/Ml SUB-Q Not Given [facility] Protocol Insulin Aspart 2 - 5 units 03/30/25 08:00 04/03/25 12:37 Insulin Aspart (*Bkc) 100 Units/Ml SUB-Q Not Given TIDWM [facility] Protocol Insulin Aspart 5 units 03/31/25 17:00 04/03/25 12:37 Insulin Aspart (*Bkc) 100 Units/Ml 0.05 units/kg (5 units) 5 units SUB-Q Administration TIDWM [facility] Insulin Glargine 34 units 03/31/25 21:00 04/02/25 20:37 Insulin Glargine (*Bkc) 100 Units/Ml SUB-Q 34 units HS [facility] Administration Loratadine 10 mg 03/28/25 09:00 04/03/25 08:31 Loratadine 10 Mg Tablet PO 10 mg QAM CEE Administration Melatonin 5 mg 03/29/25 21:00 04/02/25 20:39 Melatonin 5 Mg Tablet PO 5 mg HS CEE Administration Metoprolol Tartrate 50 mg 04/01/25 21:00 04/03/25 08:30 Metoprolol Tartrate 50 Mg Tab PO 50 mg Q12HR CEE Administration Morphine Sulfate 2 mg 03/27/25 13:02 03/27/25 18:22 Morphine Sulfate (*Crx) 2 Mg/Ml Inj IV PUSH 2 mg Q2HR PRN Administration Pain Rated 7-10 Ondansetron HCl 4 mg 03/27/25 11:54 Ondansetron Inj 4 Mg/2 Ml Vial IV PUSH Q4H PRN Nausea Polyethylene Glycol 17 gm 03/31/25 12:50 04/03/25 08:31 Polyethylene Glycol 3350 17 Gm Powd.Pack PO 17 gm QAM CEE Administration Simvastatin 40 mg 03/31/25 21:00 04/02/25 20:40 Simvastatin 20 Mg Tablet PO 40 mg HS CEE Administration Tamsulosin HCl 0.4 mg 03/27/25 21:00 04/02/25 20:40 Tamsulosin Hcl 0.4 Mg Capsule PO 0.4 mg HS CEE Administration Radiology Results: ITS Impressions Head CT 03/27/25 09:20 Impression: 1.No acute intracranial abnormality. Cervical Spine CT 03/27/25 09:22 Impression: No acute abnormality. Chest/Abdomen/Pelvis CT 03/27/25 10:27 IMPRESSION: 1. Findings are concerning for acute cholecystitis, questionable areas of liver abscess formation detailed above. Abdomen Ultrasound 03/27/25 11:42 IMPRESSION: 1: Hepatomegaly with fatty infiltration of the liver. Hyperechoic lesion present adjacent to the gallbladder wall, indeterminate. There is possible pericholecystic fluid. There is gallbladder wall thickening. Findings suspicious for cholecystitis. Clinically correlate. No definite abscess identified. Cholecystostomy 03/27/25 16:29 IMPRESSION: 1. Successful ultrasound-guided cholecystostomy tube placement. 2. 60 mL bile was sent for aerobic, anaerobic, and fungal cultures. 3. The catheter will be managed by Dr. Whelan. A catheter cholangiogram may be performed not less than 48 hours after tube placement if clinically indicated to assess cystic duct patency. If cholecystectomy is not eventually performed and the infectious episode has resolved, the tube may be removed over a guidewire, preferably not less than 3 weeks after placement to allow time for a mature catheter tract to form to prevent bile leakage and peritonitis. Chest X-Ray 03/29/25 17:28 IMPRESSION: 1. Mild discoid atelectasis/scarring in the right lower lobe. No other acute cardiopulmonary disease. Cholangiogram 03/31/25 09:32 IMPRESSION: 1. Cholelithiasis with obstructing filling defect in the mid cystic duct likely representing a small gallstone. Labs Labs: Laboratory Results - last 24 hr 04/02/25 04/02/25 04/03/25 16:34 19:25 05:39 WBC 9.7 RBC 3.54 L Hgb 10.4 L Hct 33.5 L MCV 94.6 MCH 29.4 MCHC 31.0 L RDW 14.6 H Plt Count 293 MPV 11.0 H Immature Gran % (Auto) 4.2 H Neut % (Auto) 70.2 Lymph % (Auto) 10.1 L [place] % (Auto) 11.7 H Eos % (Auto) 3.2 Baso % (Auto) 0.6 Lymph # (Auto) 0.97 [place] # (Auto) 1.1 H Eos # (Auto) 0.3 Baso # (Auto) 0.1 Abs Immat Gran (auto) 0.41 H Absolute Neuts (auto) 6.8 H Absolute Nucleated RBC 0.000 Nucleated RBC % 0.0 Sodium 137 Potassium 3.7 Chloride 105 Carbon Dioxide 29 Anion Gap 3 L BUN 13 Creatinine 0.88 Estim Creat Clear Calc 70 Estimated GFR > 60 Glucose 70 POC Capillary Glucose 141 H 133 H Calcium 8.1 L Magnesium 2.2 Total Bilirubin 0.5 AST 42 ALT 57 H Alkaline Phosphatase 75 Total Protein 5.5 L Albumin 2.7 L 04/03/25 04/03/25 07:43 11:50 WBC RBC Hgb Hct MCV MCH MCHC RDW Plt Count MPV Immature Gran % (Auto) Neut % (Auto) Lymph % (Auto) [place] % (Auto) Eos % (Auto) Baso % (Auto) Lymph # (Auto) [place] # (Auto) Eos # (Auto) Baso # (Auto) Abs Immat Gran (auto) Absolute Neuts (auto) Absolute Nucleated RBC Nucleated RBC % Sodium Potassium Chloride Carbon Dioxide Anion Gap BUN Creatinine Estim Creat Clear Calc Estimated GFR Glucose POC Capillary Glucose 83 144 H Calcium Magnesium Total Bilirubin AST ALT Alkaline Phosphatase Total Protein Albumin
--- NOTE | 2025-04-03 14:09 | P.PNIM_ITS ---
Progress Note: A&P Assessment and Plan (1) Sepsis: Code(s): A41.9 - Sepsis, unspecified organism Status: Acute Assessment and Plan: Patient presents with weakness and found to have fever, tachycardia, thrombocy topenia, leukocytosis and JAYY. CT Ch/A/P showing acute cholecystitis with possible 1cm liver abscess. Source of sepsis is acute cholecystitis with possible liver abscess. Received 30cc/kg and started on IV fluids. Cholecystostomy tube placed by IR (03/27) BCx - EColi in both sets paulino sensitive. GB Culture growing EColi Started on Zosyn (03/27). Transitioned to Unasyn on 03/31/2025. Leukocytosis resolved. (2) Acute cholecystitis: Code(s): K81.0 - Acute cholecystitis Status: Acute Assessment and Plan: General Surgery consulted and appreciate their input Percutaneous cholecystostomy tube placed. Cholangiogram showing cholelithiasis with obstructing filling defect in mid cystic duct. Tube management per GenSurg Diet started. Continue IV abx. (3) Liver abscess: Code(s): K75.0 - Abscess of liver Status: Acute Assessment and Plan: As above. May need repeat imaging to show resolution of abscess (4) Acute respiratory distress: Code(s): R06.03 - Acute respiratory distress Status: Acute Assessment and Plan: BNP 2170. Given his age, this is only mildly elevated. He appeared in acute respiratory distress with hypoxia in ED but imaging did not show CHF. He received aggressive fluid hydration in ED. Echo showing EF 60-65% and Grade II diastolic dysfunction. Moderate pHTN noted. [place] that his tachypnea was related to the sepsis. Repeat BNP higher but repeat CXR was clear. Remains on room air. Monitor UOP. Monitor resp status. Lasix X1 (5) Atrial fib/flutter, transient: Code(s): I48.91 - Unspecified atrial fibrillation; I48.92 - Unspecified atrial flutter Status: Acute Assessment and Plan: Patient with paroxysmal AFib with recurrence overnight felt related to sepsis picture. Echo as above. GET2BW1-Ebxy 5 (HTN, Age, DM, CAD) TSH normal. He was on Atenolol on admission but changed to metoprolol. Continue aspirin. Starting Eliquis 5 mg p.o. b.i.d. on 04/02/2025. Monitor platelet count and any signs of bleeding. (6) JAYY (acute kidney injury): Code(s): N17.9 - Acute kidney failure, unspecified Status: Acute Assessment and Plan: No recent Cr to review. Cr 1.6 on admission. Received appropriate fluid resuscitation in ED. Improved. (7) Hypertension: Code(s): I10 - Essential (primary) hypertension Status: Acute Assessment and Plan: At goal. Continue to monitor. (8) CAD (coronary artery disease): Qualifiers: Coronary Disease-Associated Artery/Lesion type: [place] artery [place] vs. transplanted heart: [place] heart Associated angina: unspecified whether angina present Qualified Code(s): I25.10 - Atherosclerotic heart disease of [place] coronary artery without angina pectoris Code(s): I25.10 - Atherosclerotic heart disease of [place] coronary artery without angina pectoris Status: Chronic Assessment and Plan: Patient with CAD s/p stent placement. Continue Zocor and ASA. Atenolol changed to metoprolol (9) DMII (diabetes mellitus, type 2): Qualifiers: Diabetes mellitus intermodal customer service insulin use: without alf use Diabetes mellitus complication status: without complication Qualified Code(s): E11.9 - Type 2 diabetes mellitus without complications Code(s): E11.9 - Type 2 diabetes mellitus without complications Status: Chronic Assessment and Plan: He takes Tresiba, metformin and glipizide at home but currently on hold Continue AccuCheks covering with sliding scale. Hypoglycemia protocol available as needed. Diabetic diet. Continue basal and bolus insulin. (10) BPH (benign prostatic hyperplasia): Code(s): N40.0 - Benign prostatic hyperplasia without lower urinary tract symptoms Status: Acute Assessment and Plan: Patient with urine retention requiring Jeffrey placement. Related to above. Proscar restarted. Was not on Flomax at home but will continue since he has retention. Voiding trial was successful. Monitor (11) Fall: Code(s): W19.XXXA - Unspecified fall, initial encounter Status: Acute Assessment and Plan: Patient did have a ground level fall 03/26 and struck his head. Patient denies any loss of consciousness. CT head showing no acute findings CT cervical spine showing no acute process Continue PT/OT (12) Thrombocytopenia: Code(s): D69.6 - Thrombocytopenia, unspecified Status: Acute Assessment and Plan: Platelet count normal in 2019. Decreased on admission to 79. Has since normalized. Plan DVT Prophylaxis -Eliquis Code status - full Disposition: PT OT re evaluation pending Subjective Date/time seen: 04/03/25 14:09 Interval history: No overnight events. Patient working with therapy. Feels stronger. No abdominal pain nausea vomiting. Remains afebrile. Review of Systems Review of Systems: All systems reviewed & are unremarkable except as noted in HPI and below (Subjective) Exam Narrative: Gen - NARD Chest - distant BS in the bases o/w clear CV - irregularly irregular Abd - Soft, NT/ND, Positive BS. RUQ dressing clean, dry and intact. Cholecystostomy drain in place with bilious fluid in bag Ext - no pedal edema Psych - Nml mood and affect Skin - Warm and dry Objective Data Vital Signs Vital Signs: Vital Signs - 24 hr 04/02/25 16:00 04/02/25 16:02 04/02/25 20:40 Temperature 98.0 F Pulse Rate 86 85 86 Respiratory Rate 18 Blood Pressure 141/72 H Pulse Oximetry 100 Oxygen Delivery 04/02/25 20:40 04/02/25 21:00 04/02/25 21:25 Temperature 97.4 F L Pulse Rate 86 83 Respiratory Rate 24 H Blood Pressure 160/75 H Pulse Oximetry 99 Oxygen Delivery Room Air 04/03/25 00:00 04/03/25 04:00 04/03/25 06:11 Temperature 97.2 F L Pulse Rate 71 75 77 Respiratory Rate 24 H Blood Pressure 135/86 Pulse Oximetry 100 Oxygen Delivery 04/03/25 08:30 04/03/25 08:37 04/03/25 08:40 Temperature Pulse Rate 88 88 Respiratory Rate Blood Pressure 134/67 Pulse Oximetry 95 Oxygen Delivery Room Air Intake/Output Intake/Output: Intake & Output 03/31/25 04/01/25 04/02/25 04/03/25 23:59 23:59 23:59 23:59 Intake Total 1040 1320 1670 640 Output Total 1290 1275 1255 640 Balance -250 45 415 0 Meds/Results Medications: Active Medications Generic Name Dose Route Start Last Admin Trade Name Freq PRN Reason Stop Dose Admin Acetaminophen 650 mg 03/27/25 16:53 03/28/25 08:23 Acetaminophen 325 Mg Tablet PO 650 mg Q6H PRN Administration Mild Pain (1-3) or Fever Apixaban 5 mg 04/02/25 21:00 04/03/25 08:30 Apixaban 5 Mg Tablet PO 5 mg Q12HR CEE Administration Aspirin 81 mg 03/29/25 09:00 04/03/25 08:30 Aspirin 81 Mg Enteric Tablet PO 81 mg QAM CEE Administration Dextrose 12.5 gm 03/27/25 13:42 Dextrose 50% 25 Gm/50 Ml Syringe IV PUSH PRN PRN Hypoglycemia Protocol Docusate Sodium 100 mg 03/28/25 09:00 04/03/25 08:31 Docusate Sodium 100 Mg Capsule PO 100 mg Q12HR CEE Administration Finasteride 5 mg 03/28/25 09:00 04/03/25 08:31 Finasteride 5 Mg Tablet PO 5 mg DAILY CEE Administration Glucagon 1 mg 03/27/25 13:42 Glucagon For Inj 1 Mg Vial IM PRN PRN Hypoglycemia Protocol Glucose 15 gm 03/27/25 13:42 Glucose Oral Gel 15 Gm Of Glucse In 37.5 Gm Tube PO PRN PRN Hypoglycemia Protocol Dextrose 1,000 mls @ 100 mls/hr 03/27/25 13:42 Dextrose 5% 1,000 Ml IVPB PRN PRN Hypoglycemia Protocol Ampicillin Sodium/Sulbactam 100 mls @ 200 mls/hr 03/31/25 18:00 04/03/25 12:38 Sodium 3 gm/ Sodium Chloride IVPB 200 mls/hr Q6H CEE Administration Insulin Aspart 1 - 2 units 03/29/25 21:00 04/02/25 20:28 Insulin Aspart (*Bkc) 100 Units/Ml SUB-Q Not Given [facility] Protocol Insulin Aspart 2 - 5 units 03/30/25 08:00 04/03/25 12:37 Insulin Aspart (*Bkc) 100 Units/Ml SUB-Q Not Given [facility] Protocol Insulin Aspart 5 units 03/31/25 17:00 04/03/25 12:37 Insulin Aspart (*Bkc) 100 Units/Ml 0.05 units/kg (5 units) 5 units SUB-Q Administration [facility] Insulin Glargine 34 units 03/31/25 21:00 04/02/25 20:37 Insulin Glargine (*Bkc) 100 Units/Ml SUB-Q 34 units HS [facility] Administration Loratadine 10 mg 03/28/25 09:00 04/03/25 08:31 Loratadine 10 Mg Tablet PO 10 mg QAM CEE Administration Melatonin 5 mg 03/29/25 21:00 04/02/25 20:39 Melatonin 5 Mg Tablet PO 5 mg HS CEE Administration Metoprolol Tartrate 50 mg 04/01/25 21:00 04/03/25 08:30 Metoprolol Tartrate 50 Mg Tab PO 50 mg Q12HR CEE Administration Morphine Sulfate 2 mg 03/27/25 13:02 03/27/25 18:22 Morphine Sulfate (*Crx) 2 Mg/Ml Inj IV PUSH 2 mg Q2HR PRN Administration Pain Rated 7-10 Ondansetron HCl 4 mg 03/27/25 11:54 Ondansetron Inj 4 Mg/2 Ml Vial IV PUSH Q4H PRN Nausea Polyethylene Glycol 17 gm 03/31/25 12:50 04/03/25 08:31 Polyethylene Glycol 3350 17 Gm Powd.Pack PO 17 gm QAM ECE Administration Simvastatin 40 mg 03/31/25 21:00 04/02/25 20:40 Simvastatin 20 Mg Tablet PO 40 mg HS CEE Administration Tamsulosin HCl 0.4 mg 03/27/25 21:00 04/02/25 20:40 Tamsulosin Hcl 0.4 Mg Capsule PO 0.4 mg HS CEE Administration Radiology Results: ITS Impressions Head CT 03/27/25 09:20 Impression: 1.No acute intracranial abnormality. Cervical Spine CT 03/27/25 09:22 Impression: No acute abnormality. Chest/Abdomen/Pelvis CT 03/27/25 10:27 IMPRESSION: 1. Findings are concerning for acute cholecystitis, questionable areas of liver abscess formation detailed above. Abdomen Ultrasound 03/27/25 11:42 IMPRESSION: 1: Hepatomegaly with fatty infiltration of the liver. Hyperechoic lesion present adjacent to the gallbladder wall, indeterminate. There is possible pericholecystic fluid. There is gallbladder wall thickening. Findings suspicious for cholecystitis. Clinically correlate. No definite abscess identified. Cholecystostomy 03/27/25 16:29 IMPRESSION: 1. Successful ultrasound-guided cholecystostomy tube placement. 2. 60 mL bile was sent for aerobic, anaerobic, and fungal cultures. 3. The catheter will be managed by Dr. Whelan. A catheter cholangiogram may be performed not less than 48 hours after tube placement if clinically indicated to assess cystic duct patency. If cholecystectomy is not eventually performed and the infectious episode has resolved, the tube may be removed over a guidewire, preferably not less than 3 weeks after placement to allow time for a mature catheter tract to form to prevent bile leakage and peritonitis. Chest X-Ray 03/29/25 17:28 IMPRESSION: 1. Mild discoid atelectasis/scarring in the right lower lobe. No other acute cardiopulmonary disease. Cholangiogram 03/31/25 09:32 IMPRESSION: 1. Cholelithiasis with obstructing filling defect in the mid cystic duct likely representing a small gallstone. Labs Labs: Laboratory Results - last 24 hr 04/02/25 04/02/25 04/03/25 16:34 19:25 05:39 WBC 9.7 RBC 3.54 L Hgb 10.4 L Hct 33.5 L MCV 94.6 MCH 29.4 MCHC 31.0 L RDW 14.6 H Plt Count 293 MPV 11.0 H Immature Gran % (Auto) 4.2 H Neut % (Auto) 70.2 Lymph % (Auto) 10.1 L Mcdowell % (Auto) 11.7 H Eos % (Auto) 3.2 Baso % (Auto) 0.6 Lymph # (Auto) 0.97 Mcdowell # (Auto) 1.1 H Eos # (Auto) 0.3 Baso # (Auto) 0.1 Abs Immat Gran (auto) 0.41 H Absolute Neuts (auto) 6.8 H Absolute Nucleated RBC 0.000 Nucleated RBC % 0.0 Sodium 137 Potassium 3.7 Chloride 105 Carbon Dioxide 29 Anion Gap 3 L BUN 13 Creatinine 0.88 Estim Creat Clear Calc 70 Estimated GFR > 60 Glucose 70 POC Capillary Glucose 141 H 133 H Calcium 8.1 L Magnesium 2.2 Total Bilirubin 0.5 AST 42 ALT 57 H Alkaline Phosphatase 75 Total Protein 5.5 L Albumin 2.7 L 04/03/25 04/03/25 07:43 11:50 WBC RBC Hgb Hct MCV MCH MCHC RDW Plt Count MPV Immature Gran % (Auto) Neut % (Auto) Lymph % (Auto) Mcdowell % (Auto) Eos % (Auto) Baso % (Auto) Lymph # (Auto) Mcdowell # (Auto) Eos # (Auto) Baso # (Auto) Abs Immat Gran (auto) Absolute Neuts (auto) Absolute Nucleated RBC Nucleated RBC % Sodium Potassium Chloride Carbon Dioxide Anion Gap BUN Creatinine Estim Creat Clear Calc Estimated GFR Glucose POC Capillary Glucose 83 144 H Calcium Magnesium Total Bilirubin AST ALT Alkaline Phosphatase Total Protein Albumin
[2025-04-03] MEDS: MELATONIN 5 MG TABLET PO (20:17)
[2025-04-03] MEDS: TAMSULOSIN HCL 0.4 MG CAPSULE PO (20:18)
[2025-04-03] MEDS: SIMVASTATIN 20 MG TABLET 40 MG PO (20:19)
[2025-04-03] MEDS: INSULIN GLARGINE (*BKC) 100 UNITS/ML 34 UNITS SUB-Q (20:19)
[2025-04-04] VITALS (7 sets, daily range): BP systolic 156; BP diastolic 98; PULSE 59–89; RESP 16; TEMP 36.2; O2SAT 94–100
[2025-04-04] MEDS: AMPICILLIN SODIUM/SULBACTAM 3 GM in SODIUM CHLORIDE 0.9% IV 100 ML 200 ML IVPB (05:12)
[2025-04-04 06:14] LABS: Hematocrit 35.4 % (42.0-52.0); Hemoglobin 11.0 g/dL (14.0-18.0); Immature Granulocyte Percent A 3.8 % (0-0.5); Lymphocytes Absolute Auto 0.98 K/mm3 (0.9-3.2); Mean Corpuscular HGB Conc 31.1 g/dl (32-36); Mean Corpuscular Hemoglobin 29.9 pg (26-34); Mean Corpuscular Volume 96.2 fl (80-100); Nucleated Red Blood Cells Absolute Auto 0.000 K/mm3 (0.0-0.012); Nucleated Red Blood Cells Perc 0.0 % (0.0-0.2); Platelet Count Result 310 k/mm3 (150-375); Red Blood Count 3.68 M/mm3 (4.6-6.20); White Blood Count 9.3 K/mm3 (4.5-10.0)
[2025-04-04 06:43] LABS: Alanine Aminotransferase 51 U/L (6-50); Albumin Level 2.9 g/dL (3.5-5.1); Alkaline Phosphatase 73 U/L (38-126); Anion Gap 6 mmol/L (4-12); Aspartate Amino Transferase 48 U/L (17-59); Bilirubin,Total 0.6 mg/dL (0.2-1.3); Blood Urea Nitrogen 13 mg/dL (9-20); Calcium 8.4 mg/dL (8.4-10.2); Carbon Dioxide 26 mmol/L (22-30); Chloride 106 mmol/L (98-107); Estimated CRCL calculation 69 ml/min; Estimated Glomerular Filt Rate > 60; Glucose 61 mg/dL (65-110); Potassium 3.8 mmol/L (3.4-5.0); Sodium 138 mmol/L (137-145); Total Protein 5.6 g/dL (6.3-8.2)
[2025-04-04] MEDS: METOPROLOL TARTRATE 50 MG TAB PO (09:39)
[2025-04-04] MEDS: ASPIRIN 81 MG ENTERIC TABLET PO (09:39)
[2025-04-04] MEDS: FINASTERIDE 5 MG TABLET PO (09:39)
[2025-04-04] MEDS: APIXABAN 5 MG TABLET PO (09:39)
[2025-04-04] MEDS: DOCUSATE SODIUM 100 MG CAPSULE PO (09:39)
[2025-04-04] MEDS: LORATADINE 10 MG TABLET PO (09:39)
--- NOTE | 2025-04-04 11:26 | PM.DS ---
DS: Admitting Diagnosis Discharge Date 04/04/2025 Admitting Diagnosis Cholecystitis DS: Discharge Diagnosis Discharge Diagnosis (1) Sepsis: Code(s): A41.9 - Sepsis, unspecified organism Status: Acute (2) Acute cholecystitis: Code(s): K81.0 - Acute cholecystitis Status: Acute (3) Liver abscess: Code(s): K75.0 - Abscess of liver Status: Acute (4) Acute respiratory distress: Code(s): R06.03 - Acute respiratory distress Status: Acute (5) Atrial fib/flutter, transient: Code(s): I48.91 - Unspecified atrial fibrillation; I48.92 - Unspecified atrial flutter Status: Acute (6) JAYY (acute kidney injury): Code(s): N17.9 - Acute kidney failure, unspecified Status: Acute (7) Hypertension: Code(s): I10 - Essential (primary) hypertension Status: Acute (8) CAD (coronary artery disease): Qualifiers: Associated angina: unspecified whether angina present Coronary Disease-Associated Artery/Lesion type: [place] artery [place] vs. transplanted heart: [place] heart Qualified Code(s): I25.10 - Atherosclerotic heart disease of [place] coronary artery without angina pectoris Code(s): I25.10 - Atherosclerotic heart disease of [place] coronary artery without angina pectoris Status: Chronic (9) DMII (diabetes mellitus, type 2): Qualifiers: Diabetes mellitus complication status: without complication Diabetes mellitus fdc insulin use: without fdc use Qualified Code(s): E11.9 - Type 2 diabetes mellitus without complications Code(s): E11.9 - Type 2 diabetes mellitus without complications Status: Chronic (10) BPH (benign prostatic hyperplasia): Code(s): N40.0 - Benign prostatic hyperplasia without lower urinary tract symptoms Status: Acute (11) Fall: Code(s): W19.XXXA - Unspecified fall, initial encounter Status: Acute (12) Thrombocytopenia: Code(s): D69.6 - Thrombocytopenia, unspecified Status: Acute DS: Summary Hospital Course Hospital Course: # Sepsis: Patient presents with weakness and found to have fever, tachycardia, thrombocytopenia, leukocytosis and JAYY. CT Ch/A/P showing acute cholecystitis with possible 1cm liver abscess. Source of sepsis is acute cholecystitis with possible liver abscess. Received 30cc/kg and started on IV fluids. Cholecystostomy tube placed by IR (03/27) BCx - EColi in both sets paulino sensitive. GB Culture growing EColi Started on Zosyn (03/27). Transitioned to Unasyn on 03/31/2025. Leukocytosis resolved. Switched to oral as recommended by Infectious Disease # Acute cholecystitis: General Surgery consulted and appreciate their input Percutaneous cholecystostomy tube placed. Cholangiogram showing cholelithiasis with obstructing filling defect in mid cystic duct. Tube management per GenSurg Diet started. Continue IV abx. Switched to oral at discharge as recommended by Infectious Disease # Liver abscess: As above. May need repeat imaging to show resolution of abscess # Acute respiratory distress: BNP 2170. Given his age, this is only mildly elevated. He appeared in acute respiratory distress with hypoxia in ED but imaging did not show CHF. He received aggressive fluid hydration in ED. Echo showing EF 60-65% and Grade II diastolic dysfunction. Moderate pHTN noted. Hinkley that his tachypnea was related to the sepsis. Repeat BNP higher but repeat CXR was clear. Remains on room air. Monitor UOP. Monitor resp status. Lasix X1 # Atrial fib/flutter, transient: Patient with paroxysmal AFib with recurrence overnight felt related to sepsis picture. Echo as above. [id number] (HTN, Age, DM, CAD) TSH normal. He was on Atenolol on admission but changed to metoprolol. Continue aspirin. Starting Eliquis 5 mg p.o. b.i.d. on 04/02/2025. Monitor platelet count and any signs of bleeding. # JAYY (acute kidney injury): No recent Cr to review. Cr 1.6 on admission. Received appropriate fluid resuscitation in ED. Improved. # Hypertension: At goal. Continue to monitor. # CAD (coronary artery disease): Patient with CAD s/p stent placement. Continue Zocor and ASA. Atenolol changed to metoprolol # DMII (diabetes mellitus, type 2): He takes Tresiba, metformin and glipizide at home but currently on hold Continue AccuCheks covering with sliding scale. Hypoglycemia protocol available as needed. Diabetic diet. Continue basal and bolus insulin. # BPH (benign prostatic hyperplasia): Patient with urine retention requiring Jeffrey placement. Related to above. Proscar restarted. Was not on Flomax at home but will continue since he has retention. Voiding trial was successful. Monitor # Fall: Patient did have a ground level fall 03/26 and struck his head. Patient denies any loss of consciousness. CT head showing no acute findings CT cervical spine showing no acute process Continue PT/OT # Thrombocytopenia: Platelet count normal in 2019. Decreased on admission to 79. Has since normalized. # DVT Prophylaxis -Eliquis # Code status - full # Disposition: PT OT re evaluation. Home with home health arranged. Time Spent with Patient Time attestation: Total time spent providing and/or coordinating discharge services: 35 minutes Exam Narrative: Gen - NARD Chest - distant BS in the bases o/w clear CV - irregularly irregular Abd - Soft, NT/ND, Positive BS. RUQ dressing clean, dry and intact. Cholecystostomy drain in place with bilious fluid in bag Ext - no pedal edema Psych - Nml mood and affect Skin - Warm and dry DS: Data Data Completed and Pending Completed studies during hospitalization: Exam Type: CA echo doppler color flow Complete two-dimensional, color flow and Doppler transthoracic echocardiogram is performed. Staff Referring Physician: Tom Sarkar Fitness Studies Teacher: Nika Li Attending Provider: Rashawn Jasmine MD Summary 1. Complete two-dimensional, color flow and Doppler transthoracic echocardiogram is performed. 2. Left ventricular systolic function is normal, estimated at 60-65. 3. There is moderately increased left ventricular wall thickness. 4. The left ventricular diastolic function is grade II diastolic dysfunction. 5. Left atrial chamber dimension is moderately enlarged. 6. There is mild mitral valve regurgitation. 7. There is mild mitral valve calcification. 8. There is mild tricuspid valve regurgitation. 9. Moderate pulmonary hypertension, estimated pulmonary arterial systolic pressure is 50 mmHg. Left Ventricle Left ventricular chamber dimension is normal. Left ventricular systolic function is normal, estimated at 60-65. There is moderately increased left ventricular wall thickness. Left ventricular septal wall motion is normal. The left ventricular diastolic function is grade II diastolic dysfunction. Right Ventricle Right ventricular chamber dimension is normal. Right ventricular systolic function is normal. Left Atria Left atrial chamber dimension is moderately enlarged. Right Atria Right atrial chamber dimension is normal. Aortic Valve The aortic valve is probable trileaflet. There is moderate aortic valve sclerosis. There is no aortic valve stenosis. There is no aortic valve regurgitation. Pulmonic Valve The pulmonic valve is normal. There is no pulmonic valve stenosis. There is no pulmonic regurgitation. Mitral Valve The mitral valve has normal leaflets. There is no mitral valve stenosis. There is mild mitral valve regurgitation. There is mild mitral valve calcification. Tricuspid Valve The tricuspid valve leaflets are normal. There is no significant tricuspid valve stenosis. There is mild tricuspid valve regurgitation. Moderate pulmonary hypertension, estimated pulmonary arterial systolic pressure is 50 mmHg. Pericardium/Pleural The pericardium appears normal. There is no pericardial effusion. Inferior Vena Cava Dilated inferior vena cava with <50% collapse upon inspiration consistent with normal right atrial pressure, 5 mmHg. Aorta The aortic root size at the sinus of Valsalva is normal. The prox ascending aorta size is normal. Labs on day of discharge: Labs from last 24 hours 04/04/25 04/04/25 04/04/25 08:27 07:59 05:04 WBC 9.3 RBC 3.68 L Hgb 11.0 L Hct 35.4 L MCV 96.2 MCH 29.9 MCHC 31.1 L RDW 14.8 H Plt Count 310 MPV 10.9 H Immature Gran % (Auto) 3.8 H Neut % (Auto) 69.6 Lymph % (Auto) 10.5 L Anderson % (Auto) 12.1 H Eos % (Auto) 3.2 Baso % (Auto) 0.8 Lymph # (Auto) 0.98 Anderson # (Auto) 1.1 H Eos # (Auto) 0.3 Baso # (Auto) 0.1 Abs Immat Gran (auto) 0.35 H Absolute Neuts (auto) 6.5 Absolute Nucleated RBC 0.000 Nucleated RBC % 0.0 Sodium 138 Potassium 3.8 Chloride 106 Carbon Dioxide 26 Anion Gap 6 BUN 13 Creatinine 0.89 Estim Creat Clear Calc 69 Estimated GFR > 60 Glucose 61 L POC Capillary Glucose 82 61 L Calcium 8.4 Total Bilirubin 0.6 AST 48 ALT 51 H Alkaline Phosphatase 73 Total Protein 5.6 L Albumin 2.9 L 04/03/25 04/03/25 04/03/25 19:16 16:36 11:50 WBC RBC Hgb Hct MCV MCH MCHC RDW Plt Count MPV Immature Gran % (Auto) Neut % (Auto) Lymph % (Auto) Anderson % (Auto) Eos % (Auto) Baso % (Auto) Lymph # (Auto) Anderson # (Auto) Eos # (Auto) Baso # (Auto) Abs Immat Gran (auto) Absolute Neuts (auto) Absolute Nucleated RBC Nucleated RBC % Sodium Potassium Chloride Carbon Dioxide Anion Gap BUN Creatinine Estim Creat Clear Calc Estimated GFR Glucose POC Capillary Glucose 128 H 96 144 H Calcium Total Bilirubin AST ALT Alkaline Phosphatase Total Protein Albumin Preliminary micro results at discharge 04/01/25 08:54 Blood Culture - Preliminary Blood 04/01/25 08:16 Blood Culture - Preliminary Blood 03/27/25 14:40 Fungal Culture - Preliminary Gallbladder Imaging Radiologist's impression: ITS Impressions Head CT 03/27/25 09:20 Impression: 1.No acute intracranial abnormality. Cervical Spine CT 03/27/25 09:22 Impression: No acute abnormality. Chest X-Ray 03/27/25 09:28 Impression: No acute cardiopulmonary abnormality. Chest/Abdomen/Pelvis CT 03/27/25 10:27 IMPRESSION: 1. Findings are concerning for acute cholecystitis, questionable areas of liver abscess formation detailed above. Abdomen Ultrasound 03/27/25 11:42 IMPRESSION: 1: Hepatomegaly with fatty infiltration of the liver. Hyperechoic lesion present adjacent to the gallbladder wall, indeterminate. There is possible pericholecystic fluid. There is gallbladder wall thickening. Findings suspicious for cholecystitis. Clinically correlate. No definite abscess identified. Cholecystostomy 03/27/25 16:29 IMPRESSION: 1. Successful ultrasound-guided cholecystostomy tube placement. 2. 60 mL bile was sent for aerobic, anaerobic, and fungal cultures. 3. The catheter will be managed by Dr. Whelan. A catheter cholangiogram may be performed not less than 48 hours after tube placement if clinically indicated to assess cystic duct patency. If cholecystectomy is not eventually performed and the infectious episode has resolved, the tube may be removed over a guidewire, preferably not less than 3 weeks after placement to allow time for a mature catheter tract to form to prevent bile leakage and peritonitis. Chest X-Ray 03/29/25 17:28 IMPRESSION: 1. Mild discoid atelectasis/scarring in the right lower lobe. No other acute cardiopulmonary disease. Cholangiogram 03/31/25 09:32 IMPRESSION: 1. Cholelithiasis with obstructing filling defect in the mid cystic duct likely representing a small gallstone. Discharge Plan Discharge Attending physician on discharge: Edwin Kelly Consulting providers: Osvaldo Whelan; Froylan Mohr; Sunil Carpio Discharging Clinician: Edwin Kelly Anticipated Discharge Date/Time: 04/04/25 11:30 Patient Disposition: Home with Home Health Service Activity: other - see discharge instructions Diet: diabetic Wound Care Instructions: other - see discharge instructions Discharge Instructions: Per Care Coordination, patient to discharge with [facility] services ([phone]) for PT/OT and mcfp services. Agency will call to arrange the initial visit. Please fax discharge instructions and medication sheets to [phone]. Schedule a follow-up with Dr. Whelan in 3 weeks in the office to discuss surgery and recheck the cholecystostomy tube. [phone] Cholecystostomy tube care: Empty and record output from 1-2 times daily. Keep drain dry, but okay to sponge bathe. Change the gauze dressing every 3 days. Patient Instructions: Antibiotic Form, Metoprolol (By mouth), Aspirin (By mouth), A-fib (Atrial Fibrillation) (DC), Safe Use of Anticoagulants (GEN), Blood Thinners (GEN) Patient Language: [place] Citizen Stand Alone Forms: General Discharge Information Follow-up/Referrals: Osvaldo Whelan MD [Physician, General Surgery] - 2 Weeks [facility],Naseem Maddox MD [Primary Care Provider] - 1 Week Discharge Medications: New polyethylene glycol 3350 [Miralax] 17 gram Powder In Packet 17 g PO QAM Qty: 30 0RF metoprolol tartrate 50 mg Tablet 50 mg PO Q12HR Qty: 60 0RF Eliquis 5 mg Tablet 5 mg PO Q12HR Qty: 60 0RF tamsulosin 0.4 mg Capsule 0.4 mg PO HS Qty: 30 0RF amoxicillin-pot clavulanate 875-125 mg tablet 1 tablet PO Q8H Qty: 60 0RF Continued simvastatin 80 mg Tablet 40 mg PO HS metformin 1,000 mg Tablet 1,000 mg PO BID Rx Instructions: Take with food. finasteride 5 mg Tablet 5 mg PO DAILY glipizide 5 mg Tablet 10 mg PO DAILY Rx Instructions: Take before breakfast. omega 0-kfh-sem-fish oil [Fish Oil] 1,000 mg (120 mg-180 mg) Capsule 1 cap PO DAILY Zyrtec 10 mg Capsule 10 mg PO DAILY Centrum Silver Men 300-600-300 mcg Tablet 1 tablet PO DAILY insulin degludec [Tresiba FlexTouch U-100] 100 unit/mL (3 mL) insulin pen 10 unit SUBCUT QPM aspirin 81 mg tablet 81 mg PO DAILY ascorbic acid (vitamin C) [Vitamin C] 1,000 mg tablet 1,000 mg PO DAILY PreserVision AREDS 4,296 mcg-226 mg-90 mg capsule 1 cap PO DAILY Prevagen w/Apoaequorin and Vitamin D 50 mg PO DAILY Discontinued atenolol 100 mg Tablet 50 mg PO DAILY amlodipine 10 mg Tablet 10 mg PO DAILY lisinopril 40 mg Tablet 40 mg PO DAILY Other Ambulatory Orders: Complete Blood Count with Diff (Routine) Timeframe: 1 Week Location: Determined by Patient Ordered By: Edwin Kelly Comprehensive Metabolic Panel (Routine) Timeframe: 1 Week Location: Determined by Patient Ordered By: Edwin Kelly Date of admission: 03/28/25 12:15 Primary Care Provider: KjNaseem Admitting Provider: Rashawn Jasmine Attending physician on admission: Rashawn Jasmine Condition: Improved
== END 2025-04-04 14:15 | disposition home health service (06) | DRG 871 ==
LOC: ANHED 08:45 → ANHIMU 12:49 → ANH3MEDSUR 04-02 10:46
PROVIDERS: Nurse Practitioner Gerontology; Surgery; Admitting Provider Internal Medicine; Emergency Provider Emergency Medicine; PCP Internal Medicine; Visit Provider Internal Medicine
DX: A41.51 Sepsis due to Escherichia coli [E. coli] (principal); K75.0 Abscess of liver; K80.00 Calculus of gallbladder with acute cholecystitis without obstruction; N17.9 Acute kidney failure, unspecified; R65.20 Severe sepsis without septic shock; K42.9 Umbilical hernia without obstruction or gangrene; I48.0 Paroxysmal atrial fibrillation; I25.10 Atherosclerotic heart disease of native coronary artery without angina pectoris; I11.9 Hypertensive heart disease without heart failure; E78.5 Hyperlipidemia, unspecified; D69.6 Thrombocytopenia, unspecified; R06.03 Acute respiratory distress; E11.65 Type 2 diabetes mellitus with hyperglycemia; N40.1 Benign prostatic hyperplasia with lower urinary tract symptoms; R33.8 Other retention of urine; E87.6 Hypokalemia; Z20.822 Contact with and (suspected) exposure to COVID-19; G47.33 Obstructive sleep apnea (adult) (pediatric); F17.290 Nicotine dependence, other tobacco product, uncomplicated; F10.90 Alcohol use, unspecified, uncomplicated; W18.30XA Fall on same level, unspecified, initial encounter; Z96.653 Presence of artificial knee joint, bilateral; Z79.4 Long term (current) use of insulin; Z79.82 Long term (current) use of aspirin; Z99.89 Dependence on other enabling machines and devices; Z95.5 Presence of coronary angioplasty implant and graft
CPT/HCPCS: 36415; 47490; 47531; 70450; 71045; 71260; 72125; 74177; 76705; 80048; 80053; 81001; 82550; 82948; 83036; 83605; 83690; 83735; 83880; 84145; 84443; 85025; 85055; 85610; 85730; 86140; 87040; 87070; 87075; 87101; 87205; 87637; 93005; 93306; 96361; 96365; 96366; 96367; 96375; 96376; 97110; 97161; 97165; 97530; 97535; 99285; A9270; C1729; G0378; J0295; J1650; J1815; J1938; J2270; J2543; J7120; P9047; Q9967

== ENCOUNTER 2025-05-04 16:39 | Outpatient (CLI) | payer MEDICARE, SELFPAY ==
--- OUTSIDE RECORDS SUMMARY | 2010-05-13 03:30 | XMS_ITS | Continuity of Care Document ---
Author Organization [facility] Address [address] [place] [address] [address] [place] [address] Phone Care Team Providers Care Network Engineering Advisor Name Role Phone Luis Alberot Luna Unavailable Unavailable Procedures Procedure Date Office/outpatient Visit, Est Eye Exam & Treatment Refraction Eye Exam & Treatment Refraction Office/outpatient Visit, Est Advance Directives Directive Yes / No Effective Date File Name No Information Encounters Encounter Description Practice Location Reason(s) For Visit Diagnoses Date Provider Providers Copied on Encounter Office/outpat ient Visit, Est [facility], [address] [place] [address] [address], [place], [place], [address], tel:[phone] SEC [facility] No Information 5-201 0 Jeremy Sahu. [facility] [place] , [address], [place], [place], [facility], . tel:[phone] [facility], [address] [place] [address] [address], [place], [place], [address], [place] tel:[phone] SEC [facility] [place] No Information Sep- 0-201 0 Jeremy Sahu. [address] [facility] [place], [address], [place], [place], [facility], [place]. tel:[phone] [facility], [address] [place] [address], [place], [place], [address], tel:[phone] SEC [facility] [place] No Information Mar-0 9-200 9 Jeremy Sahu. [address] [facility] , [address], [place], [address], [place]. tel:[phone] Office/outpat ient Visit, [facility] Eye [facility], [address] [place], [place], [place], [address], [place] tel:[phone] SEC [facility] No Information 200 8 Jeremy Sahu. [address] [facility] , [address], [place], [address], [place]. tel:[phone] Family History Family Member Type Diagnosis Age [...]
--- OUTSIDE RECORDS SUMMARY | 2025-05-04 16:43 | XMS_ITS | Encounter Summary ---
Author Organization [facility] Address [address] [place] [address] Care Team Providers Care Head Sulfide Operator Name Role Phone Naseem Underwood MD Primary Care Provider [phone] Henry Vasques MD Unavailable [phone] Encounter Details Date Type Department Care Team (Latest Contact Info) Description 04/27/2025 Scan [facility] Scanned, Doc Med Group Social History Tobacco Use Types Packs/Day Years Used Date Smoking Tobacco: Some Days Pipe Cigars Smokeless Tobacco: Never Comments:1-2 cigars a day. 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 Alcohol Use Standard Drinks/Week Comments Yes 3.3 (1 standard drink = 0.6 oz p ure alcohol) 2-4 cans of beer a week AUDIT-C Answer Date Recorded Frequency of Alcohol Consumption Not on file 10/08/2018 Average Number of Drinks 1 or 2 019 Frequency of Binge Drinking Not on file 09/27 PHQ-2 Answer Date Recorded Patient Health Questionnaire-2 Score 0 10/30/2024 Sex and Gender Information Value Date Recorded Sex Assigned at Male 10/30/2024 1:34 PM CDT Legal Sex Male 7:53 PM CDT Gender Identity Not on file Sexual Orientation Not on file documented as of this encounter Plan of Treatment Not on file documented as of this encounter Visit Diagnoses Not on filedocumented in this encounter Additional Health Concerns Assessment Noted Time PHQ-9 Depression Total Score: 0 09/21/19 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 [id number] [place], [place] [id number] [place] Stereotype Molder CARDIOVASCULAR DISEASE 02/26/19 documented as of this encounter
--- OUTSIDE RECORDS SUMMARY | 2025-05-04 16:43 | XMS_ITS | Encounter Summary ---
Author Organization [facility] Address [address] [place] [address] Care Team Providers Care Atomic Fuel Assembler Name Role Phone Naseem Underwood MD Primary Care Provider [phone] Henry Vasqeus MD Unavailable [phone] Reason for Visit * Reason Onset Date Comments Information 05/04/2025 Encounter Details Date Type Department Care Team (Late st Contact Info) Description 05/04/2025 Telephone [facility] Family & Internal Medicine [id number] [place] [address] Naseem Underwood MD [facility] [place], [place] [id number] Information Social History Tobacco Use Types Packs/Day Years Used Date Smoking Tobacco: Some Days Pipe Cigars Smokeless Tobacco: Never Comments:1-2 cigars a day. P rovider to bereavement counselor. Alcohol Use Standard Drinks/Week Comments Yes [...] on file documented as of this encounter Progress Notes * oLuisa Smith - 05/04/2025 12:44 PM CDT Cherelle the home health nurse called in to check on the medications that were sent in from [facility]. I didconfirm we had the request and they were pending approval. She wanted the Dr to know that his BP is high due to being out of the medications. He did not take one yesterday. His blood sugar has been in the 90's. It was 252 after he ate and then reading today she said was 122. Also wanted to let PCP know that he is not taking his metformin because it is giving him diarrhea. So he stopped taking it. You can reach Cherelle at [phone]. 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
--- OUTSIDE RECORDS SUMMARY | 2025-05-04 16:43 | XMS_ITS | Clinical Summary ---
Author Organization [facility] Address [address] [place] [address] Care Team Providers Care Saw Sharpener Name Role Phone Naseem Underwood MD Primary Care Provider Henry Vasques MD Unavailable Allergies Active Allergy Reactions Criticality Noted Date Comments Codeine Other (see comment) 10/08/2018 Feels hot and itchy Medications Multiple Vitamins-Minerals (CENTRUM SILVER) Tab Take 1 tablet by mouth daily. 11/03/19 16 Active fish oil 1000 MG Cap capsule Take 1 capsule (1,000 mg total) by mouth daily. 11/03/19 16 Active cetirizine (ZYRTEC) 10 MG tablet Take 1 tablet (10 mg total) by mouth daily as needed. 11/03/19 16 Active Lancets (FREESTYLE) lancets by Other route daily. 03/16/20 16 Active Insulin Pen Needle 31G X 5 MM Misc 11/04/19 16 Active vitamin D3, cholecalciferol, 10 MCG (400 UNIT) tablet Take 1 tablet (400 Units total) by mouth daily. 03/19/20 19 Active OneTouch Delica Lancets 33G MiscIndications:T ype 2 diabetes mellitus ([facility]) 1 Device by Does not apply route 2 (two) times a day. 200 each 1 08/18/19 22 Active ONETOUCH VERIO REFLECT w/Device KitIndications:Ty pe 2 diabetes mellitus ([facility]/HCC) USE TO TEST BLOOD GLUCOSE DAILY 1 kit 09/26/19 22 Active Multiple Vitamins-Minerals (PRESERVISION AREDS 2 OR) Take 1 capsule by mouth daily. Active CPAP MASKIndications:O bstructive sleep apnea of adult 1 Device by Apply to Face route daily. 1 Device 04/27/20 23 Active CPAP SUPPLIESIndicatio ns:Obstructive sleep apnea of adult 1 each by Does not apply route daily. 1 Device 05/04/20 23 Active insulin degludec (TRESIBA FLEXTOUCH) 100 UNIT/ML Solution Pen-injector injectionIndicati ons:Type 2 diabetes mellitus without complication, with long-term current use of insulin ([facility]) INJECT 10 UNITS INTO THE SKIN NIGHTLY AT BEDTIME 3 Pen 1 10/08/19 25 Active finasteride (PROSCAR) 5 MG tabletIndications :Benign localized hyperplasia of prostate with urinary obstruction TAKE 1 TABLET (5 MG TOTAL) BY MOUTH DAILY. 90 tablet 3 01/13/20 25 Active glipiZIDE (GLUCOTROL) 10 MG tabletIndications :Type 2 diabetes mellitus without complication, unspecified whether transit mechanic insulin use ([facility]) TAKE 1 TABLET BY MOUTH EVERY DAY BEFORE BREAKFAST 90 tablet 1 01/14/20 25 Active amoxicillin-clavu lanate (AUGMENTIN) 875-125 MG tablet Take 1 tablet (875 mg total) by mouth every 8 (eight) hours. Active Insulin Pen Needle (BD PEN NEEDLE MINI ULTRAFINE) 31G X 5 MM MiscIndications:T ype 2 diabetes mellitus without complication, with long-term current use of insulin ([facility] H[facility]/HCC) USE TO INJECT INSULIN ONCE DAILY 100 each 1 04/17/20 25 Active simvastatin (ZOCOR) 80 MG tabletIndications :Mixed hyperlipidemia TAKE ONE-HALF(1/2 ) TABLET BY MOUTH NIGHTLY AT BEDTIME 45 tablet 1 04/29/20 25 Active Blood Glucose Monitoring Suppl (CONTOUR PLUS BLUE) w/Device KitIndications:Ty pe 2 diabetes mellitus with other circulatory complication, with long-term current use of insulin ([facility] H[facility]/HCC),Type 2 diabetes mellitus without complication, with long-term current use of insulin ([facility]/HCC),Type 2 diabetes mellitus without complication, without long-term current use of insulin ([facility]/HCC) 1 kit by Does not apply route once for 1 dose. 1 kit 05/04/20 25 2024 Active Glucose Blood (CONTOUR PLUS TEST) test stripIndications: Type 2 diabetes mellitus with other circulatory complication, with long-term current use of insulin ([facility]) 1 strip by Other route 2 (two) times a day. 200 strip 3 05/04/20 25 Active Microlet Lancets MiscIndications:T ype 2 diabetes mellitus with other circulatory complication, with long-term current use of insulin ([facility]) 1 Lancet by Does not apply route 2 (two) times daily. 200 each 3 05/04/20 25 Active tamsulosin (FLOMAX) 0.4 MG CapIndications:Be nign localized hyperplasia of prostate with urinary obstruction TAKE 1 CAPSULE BY MOUTH EVERY DAY AT BEDTIME 30 capsule 05/04/20 25 Active ELIQUIS 5 MG tabletIndications :Atherosclerosis of [place] coronary artery of [place] heart without angina pectoris TAKE 1 TABLET BY MOUTH EVERY 12 HOURS 60 tablet 05/04/20 25 Active metoprolol tartrate (LOPRESSOR) 50 MG tabletIndications :Atherosclerosis of [place] coronary artery of [place] heart without angina pectoris TAKE 1 TABLET BY MOUTH EVERY 12 HOURS 60 tablet 05/04/20 25 Active aspirin 81 MG tablet Take 1 tablet (81 mg total) by mouth daily. 11/03/19 16 2024 Discontinued(D uplicate Med) fluticasone propionate (FLONASE) 50 MCG/ACT nasal sprayIndications: Non-seasonal allergic rhinitis, unspecified trigger spray 2 sprays into each nostril every day 48 mL 1 11/12/19 24 2024 Discontinued(T herapy completed) simvastatin (ZOCOR) 80 MG tabletIndications :Mixed hyperlipidemia TAKE ONE-HALF(1/2 ) TABLET BY MOUTH NIGHTLY AT BEDTIME 45 tablet 3 03/21/20 24 2024 Discontinued lisinopril (PRINIVIL) 40 MG tabletIndications :Benign essential hypertension TAKE 1 TABLET BY MOUTH EVERY DAY 90 tablet 1 11/04/19 25 2024 Discontinued Insulin Pen Needle (B-D UF III MINI PEN NEEDLES) 31G X 5 MM MiscIndications:T ype 2 diabetes mellitus without complication, with long-term current use of insulin ([facility]) USE TO INJECT INSULIN ONCE DAILY 100 each 1 11/11/19 25 2024 Discontinued amLODIPine (NORVASC) 10 MG tabletIndications :Benign essential hypertension TAKE 1 TABLET BY MOUTH EVERY DAY 90 tablet 3 01/13/20 25 2024 Discontinued(D iscontinued by another clinician) metFORMIN (GLUCOPHAGE) 1000 MG tabletIndications :Type 2 diabetes mellitus without complication, without long-term current use of insulin ([facility]) TAKE 1 TABLET BY MOUTH TWICE A DAY WITH FOOD 180 tablet 3 01/13/20 25 2024 Discontinued(S myla effects) atenolol (TENORMIN) 50 MG tabletIndications :Benign essential hypertension TAKE 1 TABLET BY MOUTH EVERY DAY 90 tablet 3 01/13/20 25 2024 Discontinued(D iscontinued by another clinician) Glucose Blood (COMMUNICATIONS INFRASTRUCTURE INVESTMENTSUCH VERIO) test stripIndications: Type 2 diabetes mellitus with other circulatory complication, with long-term current use of insulin ([facility]),Type 2 diabetes mellitus without complication, with long-term current use of insulin ([facility]),Type 2 diabetes mellitus without complication, without long-term current use of insulin ([facility]) 1 strip by Other route 2 (two) times a day. 200 strip 1 01/28/20 25 2024 Discontinued lisinopril (PRINIVIL) 40 MG tabletIndications :Benign essential hypertension TAKE 1 TABLET BY MOUTH EVERY DAY 90 tablet 3 04/09/20 25 2024 Discontinued(D iscontinued by another clinician) metoprolol tartrate (LOPRESSOR) 50 MG tablet EVERY 12 HOURS 04/04/20 25 2024 Discontinued apixaban (ELIQUIS) 5 MG tablet EVERY 12 HOURS 04/04/20 25 2024 Discontinued tamsulosin (FLOMAX) 0.4 MG Cap Take 1 capsule (0.4 mg total) by mouth nightly. 04/04/20 25 2024 Discontinued Active Problems Problem Noted Date Diagnosed Date Acute cholecystitis 04/16/2025 Vitamin D deficiency 01/22/2023 Elevated PSA 09/21/2021 Diabetic neuropathy ([facility]) 04/08/2021 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 Personal history of diabetic foot ulcer 01/15/20 21 FIELD (dyspnea on exertion) 03/19/2019 Peripheral venous insufficiency 10/22/2018 Trigger ring finger of right hand 04/09/2018 Atherosclerotic heart diseas e of [place] coronary artery without angina pectoris 04/09/2018 History of coronary artery stent placement 04/09 Adult BMI 34.0-34.9 kg/sq m 10/03/2017 Type 2 diabetes mellitus wit h circulatory disorder, with long-term current use of insulin ([facility]) 10/03/2017 Obstructive sleep apnea of adult 03/16/2016 Benign essential hypertension 09/09/2015 Benign localized hyperplasia of prostate with urinary obstruction 09/09/2015 Hyperlipidemia 09/09/2015 Encounters Date Type Department Care Team Description 05/04/2025 Telephone [facility] [address] [phone] Naseem Underwood MD Information 04/27/2025 Scan [facility] SRVCS Scanned, Doc [facility] 04/16/2025 2:00 PM CDT Office Visit [facility] [address] [phone] Naseem Underwood MD TCM (Pt was admitted to [facility] 03/27 - 04/04 for acute cholecysitis and liver abscess. Pt has an appt with surgeon on Sunday, pt notes the surgeon will be out on vacation for the entire week of Apr. ); Diabetes (Pt does c/o hypoglycemic episodes in the morning about 3 times a month. ) 04/16/2025 Travel 04/07/2025 Telephone [facility] [address] [phone] Naseem Underwood MD Information 04/04/2025 Scan [facility]VCS Scanned, Doc Med Group 03/31/2025 Scan [facility] Scanned, Doc Med [facility] Image (SCAN) 03/29/2025 Scan [facility]VCS Scanned, Doc Med Group Image (SCAN) 03/28/2025 Scan [facility]VCS Scanned, Doc [facility] Echo (SCAN) 03/27/2025 Scan [facility] SRVCS Scanned, Doc [facility] Ultrasound (SCAN); Lab (SCAN); CT (SCAN); Image (SCAN) 03/27/2025 Telephone [facility] Family & Internal Medicine [address] [phone] Naseem Underwood MD Information from Last 3 Months Immunizations Immunization Administration Dates Next Due Abrysvo Respiratory Syncytia l Virus (RSV) 0.5 mL, PF 04/22/2024 Dtap (Generic) 03/18/2015 FLUAD (IIV, Trivalent, 0.5 M L Pre-filled Syringe) 04/22/2024 Fluzone High Dose - >Age 65 (Prefilled Syringe) 04/11/2022,04/15/2021,05/04/2020,2018 Influenza (Generic) 04/23/2017, 4,05/03/2013,2011 Influenza Adult (Generic) 04/03/2023,,04/15/2021,2017,05/25/2016,04/04/2015 PFIZER COVID-19 (ORIGINAL FORMULATION, PURPLE CAP) mRNA, LNP-S, PF, 30 MCG/0.3 ML DOSE 07/01/2021,10/22/2020,10/01/2020 Pneumococcal (Pneumovax 23) 11/03/2003 Pneumococcal (Prevnar 13) 07/31/2017 Pneumococcal (Prevnar 20) 04/22/2024 Tdap (Generic) 03/18/2015 Zoster (Zostavax) [address]7930 Unt/0.65Ml 11/02/2012, Family History Medical History Relation Comments Heart Attack Maternal Grandfather Stroke Maternal Grandmother Alzheimers Mother Heart Attack Paternal Grandmother Relation Status Comments Father (Age 47) Maternal Grandfather (Age 68) Maternal Grandmother (Age 66) Mother (Age 73) Paternal Grandfather (Age 82) Paternal Grandmother (Age 60) Social History Tobacco Use Types Packs/Day Years Used Date Smoking Tobacco: Some Days Pipe Cigars Smokeless Tobacco: Never Tobacco Cessation:Ready to Q uit: No; Counseling Given: Yes Comments:1-2 cigars a day. Provider to elder counselor. Alcohol Use Standard Drinks/Week Comments Yes [...] on file Sexual Orientation Not on file Last Filed Vital Signs Vital Sign Reading Time Taken Comments Blood Pressure 130/70 04/16/2025 2:29 PM CDT Pulse 78 04/16/2025 2:29 PM CDT Temperature 36.9 C (98.4 F) 04/16/2025 2:29 PM CDT Respiratory Rate 16 04/16/2025 2:29 PM CDT Oxygen Saturation 98% 04/16/2025 2:29 PM CDT Inhaled Oxygen Concentration - - Weight 109.6 kg (241 lb 9.6 oz) 04/16/2025 2:29 PM CDT Height 182.9 cm (6') 04/16/2025 2:29 PM CDT Body Mass Index 32.77 04/16/2025 2:29 PM CDT Plan of Treatment Health Maintenance Due Date Last Done Comments Annual Medicare Wellness Visit 10/14/2003 Zoster Vaccines (2 of 3) 12/28/2012 11/02/2012, 11/28 DTaP, Tdap and Td Vaccines (3 - Td or Tdap) 03/18/2025 03/18/2015, 03/18/2015, 01/27/2004 COVID-19 Vaccine ( - season) 2025 04/22/2024, 07/01/2021, 10/22/2020, Additional history exists Influenza Adult (#1) 2025 04/22/2024, 04/03/2023, 04/12/2022, Additional history exists ASCVD LDL 05/01/2025 05/01/2024, 08/31, 01/22/2023, Additional history exists Hemoglobin A1C 05/01/2025 10/30/2024, 1009/2023, 09/26/2023, Additional history exists Lipid Panel 05/01/2025 05/01/2024, 08/31, 01/22/2023, Additional history exists Diabetes: Retinopathy Eye Exam 01/07/2027 01/07/2025 Pneumococcal Vaccine: 50+ Years Completed 04/22/2024, 07/31/2017, 11/03/2003 RSV Immunization or 60+ Years Completed 04/22/2024 PHQ-2 (Physician [place]) Completed 10/30/2024 Meningococcal B Vaccine Aged Out No l onger eligible based on patient's age to complete this topic Meningococcal Vaccine Aged Out No rufino christian eligible based on patient's age to complete this topic RSV Immunizations Under 20 Months Aged Out No longer eligible based on patient's age to complete this topic Procedures Procedure Name Priority Date/Time Associated Diagnosis Comments IMAGE GENERIC 03/31/2025 IMAGE GENERIC 03/29/2025 ECHO GENERIC (SCAN ORDER) 03/28/2025 CT GENERIC 03/27/2025 CT GENERIC 03/27/2025 CT GENERIC 03/27/2025 OUTSIDE LAB (SCAN ORDER) 03/27/2025 OUTSIDE PT/INR (SCAN ORDER) 03/27/2025 OUTSIDE LAB (SCAN ORDER) 03/27/2025 OUTSIDE LAB (SCAN ORDER) 03/27/2025 IMAGE GENERIC 03/27/2025 ULTRASOUND GENERIC (SCAN ORDER) 03/27/2025 ULTRASOUND GENERIC (SCAN ORDER) 03/27/2025 DIABETIC RETINOPATHY EXAM (NEGATIVE)(SCAN ORDER) Routine 01/07/2025 HEMOGLOBIN, GLYCOSYLATED Routine 10/30/2024 Type 2 diabetes mellitus with other circulatory complication, with long-term current use of insulin ([facility]) LIPID PANEL Routine 05/01/2024 11:58 AM CDT Type 2 diabetes mellitus with other circulatory complication, with long-term current use of insulin (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 Anatomical Region Laterality Modality Other 03/31/2025 [facility] Scanned SCANNING Final Resu lt * ECHO GENERIC (SCAN ORDER) (03/28/2025) Anatomical Region Laterality Modality Other 03/28/2025 [facility] Scanned SCANNING Final Resu lt * CT GENERIC (03/27/2025) Only the most recent of3 resultswithin the time period is included. Anatomical Region Laterality Modality Other 03/27/2025 [facility] Scanned SCANNING Final Resu lt * OUTSIDE PT/INR (SCAN ORDER) (03/27/2025) 03/27/2025 [facility] Scanned SCANNING Final Resu lt * OUTSIDE LAB (SCAN ORDER) (03/27/2025) Only the most recent of3 resultswithin the time period is included. 03/27/2025 [facility] Scanned SCANNING Final Resu lt * ULTRASOUND GENERIC (SCAN ORDER) (03/27/2025) Only the most recent of2 resultswithin the time period is included. Anatomical Region Laterality Modality Other 03/27/2025 [facility] Scanned SCANNING Final Resu lt * DIABETIC RETINOPATHY EXAM (NEGATIVE) (01/07/2025) [facility] Scanned SCANNING Final Resu lt [facility] ONBASE * (ABNORMAL) HEMOGLOBIN, GLYCOSYLATED (10/30/2024) HGB A1C 7.2(A) % [facility] 10/30/2024 Naseem Underwood MD LABORATORY Final Result [facility] [address] [place] [address], * LIPID PANEL (05/01/2024 11:58 AM CDT) CHOLESTEROL 135 <200 MG/DL 05/02/2024 2:27 PM CDT [facility] TRIGLYCERIDES 120 <150 MG/DL 05/02/2024 2:27 PM CDT [facility] HDL 48 >40 MG/DL 05/02/2024 2:27 PM CDT [facility] LDL-C 63 <100 MG/DL 05/02/2024 2:27 PM CDT [facility] VLDL CALCULATION 24 5 - 28 MG/DL 05/02/2024 2:27 PM CDT [facility] CHOL/HDL RATIO 2.8 0.0 - 4.0 05/02/2024 2:27 PM CDT [facility] LDL/HDL 1.3 0.41 - 2.13 05/02/2024 2:27 PM CDT [facility] NON HDL CHOLESTEROL 87 <140 MG/DL 05/02/2024 2:27 PM CDT [facility] 05/01/2024 11:5 8 AM CDT Naseem Underwood MD LABORATORY Final Result [facility] [address] [place] [address], from Last 3 Months or Most Recently Relevant to Health Maintenance Insurance [facility] MEDICARE Care Teams Saw Sharpener Relationship Specialty Start Date End Date Naseem Underwood MD [address] [place] [id number] PCP - General INTERNAL MEDICINE 10/02/18 Henry Vasques MD [facility] [address] [place] [address] Houston Fry Cook CARDIOVASCULAR DISEASE 02/26/19
[2025-05-04 17:36] LABS: Hematocrit 38.0 % (42.0-52.0); Hemoglobin 12.0 g/dL (14.0-18.0); Immature Granulocyte Percent A 0.4 % (0-0.5); Lymphocytes Absolute Auto 0.98 K/mm3 (0.9-3.2); Mean Corpuscular HGB Conc 31.6 g/dl (32-36); Mean Corpuscular Hemoglobin 29.6 pg (26-34); Mean Corpuscular Volume 93.8 fl (80-100); Nucleated Red Blood Cells Absolute Auto 0.000 K/mm3 (0.0-0.012); Nucleated Red Blood Cells Perc 0.0 % (0.0-0.2); Platelet Count Result 271 k/mm3 (150-375); Red Blood Count 4.05 M/mm3 (4.6-6.20); White Blood Count 6.8 K/mm3 (4.5-10.0)
[2025-05-04 17:47] LABS: INR 1.2; Prothrombin Time 15.1 Seconds (11.1-14.7)
[2025-05-04 17:48] LABS: Partial Thromboplastin Time 34.4 Seconds (22.3-36.8)
[2025-05-04 18:00] LABS: Anion Gap 8 mmol/L (4-12); Blood Urea Nitrogen 11 mg/dL (9-20); Calcium 9.2 mg/dL (8.4-10.2); Carbon Dioxide 29 mmol/L (22-30); Chloride 103 mmol/L (98-107); Estimated Glomerular Filt Rate > 60; Glucose 74 mg/dL (65-110); Potassium 3.9 mmol/L (3.4-5.0); Sodium 140 mmol/L (137-145)
== END 2025-05-04 16:40 | disposition home or self-care (01) ==
PROVIDERS: PCP Internal Medicine; Visit Provider Surgery
DX: K80.33 Calculus of bile duct with acute cholangitis with obstruction (principal); K80.00 Calculus of gallbladder with acute cholecystitis without obstruction
CPT/HCPCS: 36415; 80048; 85025; 85610; 85730; 86850; 86900; 86901

== ENCOUNTER 2025-05-29 13:05 | Outpatient (CLI) | payer MEDICARE, SELFPAY ==
--- OUTSIDE RECORDS SUMMARY | 2010-05-13 03:30 | XMS_ITS | Continuity of Care Document ---
Author Organization [facility] Address [address] [place] [address] [address] [place] [address] Phone Care Team Providers Care Interpreter And Translator Name Role Phone Luis Alberto Luna Unavailable Unavailable Procedures Procedure Date Office/outpatient Visit, Est Eye Exam & Treatment Refraction Eye Exam & Treatment Refraction Office/outpatient Visit, Est Advance Directives Directive Yes / No Effective Date File Name No Information Encounters Encounter Description Practice Location Reason(s) For Visit Diagnoses Date Provider Providers Copied on Encounter Office/outpat ient Visit, Est [facility], [address] [place] [address] [address], [place], [place], [address], tel:[phone] SEC [facility] No Information 5-201 0 Jeremy Sahu. [facility] [place] , [address], [place], [place], [facility], . tel:[phone] [facility], [address] [place] [address] [address], [place], [place], [address], [place] tel:[phone] SEC [facility] [place] No Information Sep- 0-201 0 Jeremy Sahu. [address] [facility] [address], [address], [place], [place], [facility], [place]. tel:[phone] [facility], [address], [place], [place], [address], tel:[phone] SEC [facility] [place] No Information Mar-0 9-200 9 Jeremy Sahu. [address] [facility] , [address], [place], [address], [place]. tel:[phone] Office/outpat ient Visit, [facility], [address], [place], [place], [address], [place] tel:[phone] SEC [facility] No Information 200 8 Jeremy Sahu. [address] [facility] , [address], [place], [address], [place]. tel:[phone] Family History Family Member Type Diagnosis Age [...]
--- NOTE | ~2025-05-29 | XR_ITS ---
Examination: XR chest 2V Clinical History: K80.33 - Calculus of bile duct with acute cholangitis wit... Comparison: 03/29/2025 Technique: PA and Lateral Findings: Cardiomediastinal silhouette normal size and configuration. Lungs clear. No acute bony abnormality. IMPRESSION: 1. No acute cardiopulmonary findings. Reviewed, dictated and finalized at location R.
--- OUTSIDE RECORDS SUMMARY | 2025-05-29 13:11 | XMS_ITS | Clinical Summary ---
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 200 each 1 08/18/19 22 Active ONETOUCH VERIO REFLECT w/Device KitIndications:Ty pe 2 diabetes mellitus ([facility] HHS/HCC) USE TO TEST BLOOD GLUCOSE DAILY [...] complication, with long-term current use of insulin ([facility]) INJECT 10 UNITS INTO THE SKIN NIGHTLY AT BEDTIME 3 Pen 1 10/08/19 25 Active finasteride (PROSCAR) 5 MG tabletIndications :Benign localized hyperplasia of prostate with urinary obstruction TAKE 1 TABLET (5 MG TOTAL) BY MOUTH DAILY. 90 tablet 3 01/13/20 25 Active amoxicillin-clavu lanate (AUGMENTIN) 875-125 MG tablet Take 1 tablet (875 mg total) by mouth every 8 (eight) hours. Active Insulin Pen Needle (BD PEN NEEDLE MINI ULTRAFINE) 31G X 5 MM MiscIndications:T ype 2 diabetes mellitus without complication, with long-term current use of insulin ([facility] HHS/HCC) USE TO INJECT INSULIN ONCE DAILY 100 each 1 04/17/20 25 Active simvastatin (ZOCOR) 80 MG tabletIndications :Mixed hyperlipidemia TAKE ONE-HALF(1/2 ) TABLET BY MOUTH NIGHTLY AT BEDTIME 45 tablet 1 04/29/20 25 Active Glucose Blood (CONTOUR PLUS TEST) test stripIndications: Type 2 diabetes mellitus with other circulatory complication, with long-term current use of insulin ([facility] HHS/HCC) 1 strip by Other route 2 (two) times a day. 200 strip 3 05/04/20 25 Active Microlet Lancets MiscIndications:T ype 2 diabetes mellitus with other circulatory complication, with long-term current use of insulin ([facility] HHS/HCC) 1 Lancet by Does not apply route 2 (two) times daily. 200 each 3 05/04/20 25 Active ELIQUIS 5 MG tabletIndications :Atherosclerosis of [place] coronary artery of [place] heart without angina pectoris TAKE 1 TABLET BY MOUTH EVERY 12 HOURS 60 tablet 05/04/20 25 Active metoprolol tartrate (LOPRESSOR) 50 MG tabletIndications :Atherosclerosis of [place] coronary artery of [place] heart without angina pectoris TAKE 1 TABLET BY MOUTH EVERY 12 HOURS 60 tablet 05/04/20 25 Active glipiZIDE (GLUCOTROL) 10 MG tabletIndications :Type 2 diabetes mellitus without complications ([facility]) TAKE 1 TABLET BY MOUTH EVERY DAY BEFORE BREAKFAST 90 tablet 05/07/20 25 Active tamsulosin (FLOMAX) 0.4 MG CapIndications:Be nign localized hyperplasia of prostate with urinary obstruction TAKE 1 CAPSULE BY MOUTH EVERY DAY AT BEDTIME 90 capsule 05/28/20 25 Active glipiZIDE (GLUCOTROL) 10 MG tabletIndications :Type 2 diabetes mellitus without complication, unspecified whether watermaster insulin use ([facility]) TAKE 1 TABLET BY MOUTH EVERY DAY BEFORE BREAKFAST 90 tablet 1 01/14/20 25 025 Discontinued Glucose Blood (TribesportsUCH VERIO) test stripIndications: Type 2 diabetes mellitus with other circulatory complication, with long-term current use of insulin ([facility]),Type 2 diabetes mellitus without complication, with long-term current use of insulin ([facility]),Type 2 diabetes mellitus without complication, without long-term current use of insulin ([facility]) 1 strip by Other route 2 (two) times a day. 200 strip 1 01/28/20 25 025 Discontinued metoprolol tartrate (LOPRESSOR) 50 MG tablet EVERY 12 HOURS 04/04/20 25 025 Discontinued apixaban (ELIQUIS) 5 MG tablet EVERY 12 HOURS 04/04/20 25 025 Discontinued tamsulosin (FLOMAX) 0.4 MG Cap Take 1 capsule (0.4 mg total) by mouth nightly. 04/04/20 25 025 Discontinued Blood Glucose Monitoring Suppl (CONTOUR PLUS BLUE) w/Device KitIndications:Ty pe 2 diabetes mellitus with other circulatory complication, with long-term current use of insulin ([facility]),Type 2 diabetes mellitus without complication, with long-term current use of insulin ([facility]),Type 2 diabetes mellitus without complication, without long-term current use of insulin ([facility]) 1 kit by Does not apply route once for 1 dose. 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 Personal history of diabetic foot ulcer 01/15/20 21 FIELD (dyspnea on exertion) 03/19/2019 Peripheral venous insufficiency 10/22/2018 Trigger ring finger of right hand 04/09/2018 Atherosclerotic heart diseas e of [place] coronary artery without angina pectoris 04/09/2018 History of coronary artery stent placement 04/09 Adult BMI 34.0-34.9 kg/sq m 10/03/2017 Type 2 diabetes mellitus wit h circulatory disorder, with long-term current use of insulin 10/03/2017 Obstructive sleep apnea of adult 03/16/2016 Benign essential hypertension 09/09/2015 Benign localized hyperplasia of prostate with urinary obstruction 09/09/2015 Hyperlipidemia 09/09/2015 Encounters Date Type Department Care Team Description 05/04/2025 Scan [facility] Scanned, [facility] Lab (SCAN) 05/04/2025 Telephone [facility] Family & Internal Medicine [address] [phone] Naseem Underwood MD Information 05/01/2025 Scan [facility] Scanned, Doc [facility] 04/27/2025 Scan [facility] Scanned, Doc [facility] 04/16/2025 2:00 PM CDT Office Visit [facility] Family & Internal Medicine [address] [phone] Naseem Underwood MD TCM (Pt was admitted to [facility] 03/27 - 04/04 for acute cholecysitis and liver abscess. Pt has an appt with surgeon on Sunday, pt notes the surgeon will be out on vacation for the entire week of ); Diabetes (Pt does c/o hypoglycemic episodes in the morning about 3 times a month. ) 04/16/2025 Travel 04/07/2025 Scan [facility] Scanned, Doc [facility] 04/07/2025 Telephone [facility] Family & Internal [address] [phone] Naseem Undewrood MD Information 04/06/2025 Scan [facility] Scanned, Doc [facility] 04/04/2025 Scan [facility] Scanned, [...] (SCAN); CT (SCAN); Image (SCAN) 03/27/2025 Telephone [facility] Family Internal [address] [phone] Naseem Underwood MD Information from Last 3 [...] 20) 04/22/2024 Tdap (Generic) 03/18/2015 Zoster (Zostavax) 31988 Unt/0.65Ml 11/02/2012, Family History Medical History Relation [...] Yes Comments:1-2 cigars a day. 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 Alcohol Use Standard Drinks/Week Comments Yes [...] Health Maintenance Due Date Last Done Comments Hepatitis A Vaccines (1 of 2 - Risk 2-dose series) 1959 Annual Medicare Wellness Visit 10/14/2003 Zoster Vaccines (2 of 3) 12/28/2012 11/02/2012, 11/28 DTaP, Tdap and Td Vaccines (3 - Td or Tdap) 03/18/2025 03/18/2015, 03/18/2015, 01/27/2004 COVID-19 Vaccine ( season) 2025 04/22/2024, 07/01/2021, 10/22/2020, Additional history exists Influenza Adult (#1) 2025 04/22/2024, 04/03/2023, 04/12/2022, Additional history exists ASCVD LDL 05/01/2025 05/01/2024, 08/31, 01/22/2023, Additional history exists Hemoglobin A1C 05/01/2025 10/30/2024, 09/2023, 09/26/2023, Additional history exists Lipid Panel 05/01/2025 05/01/2024, 08/31, 01/22/2023, Additional history exists Diabetes: Retinopathy Eye Exam 01/07/2027 01/07/2025 Pneumococcal Vaccine: 50+ Years Completed 04/22/2024, 07/31/2017, 11/03/2003 RSV Immunization or 60+ Years Completed 04/22/2024 PHQ-2 (Physician [place]) Completed 10/30/2024 Meningococcal B Vaccine Aged Out No l onger eligible based on patient's age to complete this topic Meningococcal Vaccine Aged Out No rufino christian eligible based on patient's age to complete this topic RSV Immunizations Under 20 Months Aged Out No longer eligible based on patient's age to complete this topic Procedures Procedure Name Priority Date/Time Associated Diagnosis Comments OUTSIDE PT/INR (SCAN ORDER) 05/04/2025 OUTSIDE LAB (SCAN ORDER) 05/04/2025 IMAGE GENERIC 03/31/2025 IMAGE GENERIC 03/29/2025 ECHO [...] complication, with long-term current use of insulin ([facility]) LIPID PANEL Routine 05/01/2024 11:58 AM CDT Type 2 diabetes mellitus with other circulatory complication, with long-term current use of insulin ([facility]) 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 05/04/2025 [employer] [facility] Scanned SCANNING Final Resu lt * OUTSIDE LAB (SCAN ORDER) (05/04/2025) Only the most recent of4 resultswithin the time period is included. 05/04/2025 Result [employer] [facility] Scanned SCANNING Final Resu lt * IMAGE GENERIC (03/31/2025) Only the most recent of3 resultswithin the time period is included. Anatomical Region Laterality Modality Other 03/31/2025 Result [employer] [facility] Scanned SCANNING Final Resu lt * ECHO GENERIC (SCAN ORDER) (03/28/2025) Anatomical Region Laterality Modality Other 03/28/2025 [facility] Scanned SCANNING Final Resu lt * CT GENERIC (03/27/2025) Only the most recent of3 resultswithin the time period is included. Anatomical Region Laterality Modality Other 03/27/2025 Result [facility] Scanned SCANNING Final Resu lt * ULTRASOUND GENERIC (SCAN ORDER) (03/27/2025) Only the most recent of2 resultswithin the time period is included. Anatomical Region Laterality Modality Other 03/27/2025 Result [facility] Scanned SCANNING Final Resu lt * DIABETIC RETINOPATHY EXAM (NEGATIVE) (01/07/2025) Result [facility] Scanned SCANNING Final Resu lt Performing Organization Address City/[facility]/ZIP Co de Phone Number [facility] * (ABNORMAL) HEMOGLOBIN, GLYCOSYLATED (10/30/2024) HGB A1C 7.2(A) % [facility] 10/30/2024 Result [facility] Naseem Underwood MD LABORATORY Final Result Performing Organization Address [facility] Co de Phone Number [facility] [address] [place] [address], [place] * LIPID PANEL (05/01/2024 11:58 AM CDT) CHOLESTEROL 135 <200 MG/DL 05/02/2024 2:27 PM CDT [facility] TRIGLYCERIDES 120 <150 MG/DL 05/02/2024 2:27 PM CDT [facility] HDL 48 >40 MG/DL 05/02/2024 2:27 PM CDT [facility] LDL-C 63 <100 MG/DL 05/02/2024 2:27 PM CDT [facility] VLDL CALCULATION 24 5 - 28 MG/DL 05/02/2024 2:27 PM CDT [facility] CHOL/HDL RATIO 2.8 0.0 - 4.0 05/02/2024 2:27 PM CDT [facility] [place] LDL/HDL 1.3 0.41 - 2.13 05/02/2024 2:27 PM CDT [facility] [place] NON HDL CHOLESTEROL 87 <140 MG/DL 05/02/2024 2:27 PM CDT [facility] [place] 05/01/2024 11:5 8 AM CDT Naseem Underwood MD LABORATORY Final Result [facility] [address] [place] [address], from Last 3 Months or Most Recently Relevant to Health Maintenance Insurance [facility] MEDICARE Care Teams Weekday Babysitter Relationship Specialty Start Date End Date Naseem Underwood MD [address] [place], [place] [id number] PCP - General INTERNAL MEDICINE 10/02/18 Henry Vasques MD [facility] [address] [place] [address] [place] [employer] Sales Representative CARDIOVASCULAR DISEASE 02/26/19
--- OUTSIDE RECORDS SUMMARY | 2025-05-29 13:11 | XMS_ITS | Data Portability ---
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 Infantry Assaultman variances may occur. Despite proofreading, typographical errors may occur. Not available 11/16/2022 12:35:03 08/21/2023 08/21/2023 This note is dictated and transcribed by [employer]. Infantry Assaultman variances may occur. Despite proofreading, typographical errors may occur. Occasional wrong-word or '[id number]-m-[id number]' substitutions may have occurred due to the inherent limitations of voice recording. Read the chart carefully and recognize, using context, where substitutions have occurred. Not available 08/23/2023 11:44:40 09/24/2024 09/24/2024 This note is dictated and transcribed by [employer]. Infantry Assaultman variances may occur. Despite proofreading, typographical errors may occur. Occasional wrong-word or 'xkkij-w-jdnk' substitutions may have occurred due to the inherent limitations of voice recording. Read the chart carefully and recognize, using context, where substitutions have occurred. Not available 09/25/2024 08:59:57 01/06/2025 01/06/2025 This note is dictated and transcribed by [employer]. Infantry Assaultman variances may occur. Despite proofreading, typographical errors may occur. Occasional wrong-word or 'yzooo-t-jvpu' substitutions may have occurred due to the inherent limitations of voice recording. Read the chart carefully and recognize, using context, where substitutions have occurred. Not available 01/06/2025 15:06:41 Plan of Treatment Reminders Order Date Submit Date Provider Last Modified By Organization Details Last Modified Time Details Appointments None record ed. Lab None record ed. Referral None record ed. Procedures None record ed. Surgeries None record ed. Imaging None record ed. Medication Orders None record ed. Patient TargetsNo targets recorded. Patient InstructionsNo instructions recorded. Reason for Referral None Reported. Problems Name Problem SNOMED Code Status Onset Date Resolution Date Notes Provider Name and Address Organization Details Recorded Time Radiothera py follow-up 492812676 Active Not Available [facility] 3 13:54:19 Osteoarthr itis 809325334 Active Not Available [facility] 3 13:54:20 Paronychia of toe of left foot 2395486510419 9100 Active 2018 Not Available [facility] 3 13:54:19 Peripheral venous insufficie ncy 45795220 Active 2018 Not Available [facility] 3 13:54:19 Obesity 010046521 Active 2018 Not Available [facility] 3 13:54:20 Diabetic peripheral neuropathy 281201741 Active 2018 Not Available [facility] 3 13:54:20 Diabetes mellitus 38411676 Active 2018 Not Available [facility] 3 13:54:21 Gout 15984471 Active 2018 Not Available [facility] 3 13:54:21 Unable to cut own nails 411342918 Active 2019 Not Available [facility] 3 13:54:20 Dystrophia unguium 99145074 Active 2019 Not Available [facility] 3 13:54:21 Paronychia of toe of right foot 0941860478630 9102 Active 2019 Not Available [facility] 3 13:54:19 History of diabetic foot ulcer 1440554028198 9100 Active 2020 Not Available [facility] 3 13:54:19 Pain in toe 593672711 Active 2020 Not Available [facility] 3 13:54:20 Pruritic rash 15015837 Active 2020 Not Available [facility] 3 13:54:21 Venous insufficie ncy of lower limb 709842900 Active 2021 Not Available [facility] 3 13:54:19 Peroneal tendinitis of right lower limb 6412161037992 09 Active 2021 Not Available [facility] 3 13:54:20 Lymphedema of lower extremity 108256101 Active 2021 Not Available [facility] 3 13:54:20 Pain in toe 317483934 Active 2024 Quintin Middleton DPM [address], [address], [place], [address] , [employer] 5 09:01:03 Notes:prostate, swollen or p ainful joints, dental problems, sleep apnea Problem Notes None recorded. Procedures Surgical History Date Name Laterality Status Provider Name and Address Organization Details Recorded Time 5 Nail Debridement completed Quintin Middleton DPM [address], [address], [place], [address], [facility] 01/06/2025 15:06:35 5 Nail Debridement completed Quintin Middleton DPM [address], [address], [place], [address], [facility] 09/25/2024 08:59:51 3 Nail Debridement completed Quintin Middleton DPM [address], [address], [place], [address], [facility] 03/27/2023 08:57:05 3 Nail Debridement completed [address], [place], [address], [facility] 11/16/2022 12:51:26 Imaging Results None recorded. Procedure Notes None recorded. Medical Equipment None Reported. Medications Name Sig Start Date Stop Date Status Note LastModified by Organization Details LastModified Time celecoxib 200 mg capsule TAKE 1 CAPSULE EVERY DAY BY ORAL ROUTE WITH MEALS. active Not Available Not Available No t Available amoxicillin 500 mg capsule TAKE 1 CAPSULE BY MOUTH EVERY 8 HOURS UNTIL GONE 03/16 completed Not Available Not Available Not Available atenolol 100 mg tablet active Not Available Not Available Not Available cephalexin 250 mg capsule 05/07 completed Not Available Not Available Not Available hydrocodone 5 mg-acetamin ophen 325 mg tablet TAKE 1 TABLET BY MOUTH EVERY 6 HOURS NEEDED FOR PAIN active Not Available Not Available No t Available glipizide 10 mg tablet TAKE 1 TABLET BY MOUTH EVERY DAY BEFORE BREAKFAST active Not Available Not Available No t Available triamcinolo ne acetonide 0.5 % topical ointment APPLY A THIN LAYER TO THE AFFECTED AREA(S) bilateral foot rash BY TOPICAL ROUTE 2 TIMES PER DAY for 10 days active Not Available Not Available No t Available simvastatin 80 mg tablet TAKE ONE-HALF( 1/2) TABLET BY MOUTH NIGHTLY AT BEDTIME active Not Available Not Available No t Available triamcinolo ne acetonide 0.1 % topical cream APPLY TO AFFECTED AREA 3 TIMES A DAY 03/16 completed Not Available Not Available Not Available tamsulosin 0.4 mg capsule TAKE ONE CAPSULE BY MOUTH AT BEDTIME active Not Available Not Available No t Available amlodipine 10 mg tablet TAKE 1 TABLET BY MOUTH EVERY DAY active Not Available Not Available No t Available cephalexin 500 mg capsule 07/08 completed Not Available Not Available Not Available metformin 1,000 mg tablet TAKE 1 TABLET BY MOUTH TWICE A DAY WITH FOOD active Not Available Not Available No t Available mupirocin 2 % topical ointment APPLY A SMALL AMOUNT TO THE AFFECTED AREA right third toe BY TOPICAL ROUTE 3 TIMES PER DAY active Not Available Not Available No t Available lisinopril 40 mg tablet TAKE 1 TABLET BY MOUTH EVERY DAY active Not Available Not Available No t Available fluticasone propionate 50 mcg/actuati on nasal spray,suspe nsion SPRAY 2 SPRAYS INTO EACH NOSTRIL EVERY DAY active Not Available Not Available No t Available atenolol 50 mg tablet TAKE 1 TABLET BY MOUTH EVERY DAY active Not Available Not Available No t Available finasteride 5 mg tablet TAKE 1 TABLET (5 MG TOTAL) BY MOUTH DAILY. active Not Available Not Available No t Available glipizide 5 mg tablet TAKE 1 TABLET BY MOUTH EVERY MORNING BEFORE BREAKFAST . active Not Available Not Available No t Available amoxicillin 875 mg-korinau m clavulanate 125 mg tablet 05/07 completed Not Available Not Available Not Available oxycodone 5 mg tablet Take 1 tablet every 4 hours by oral route. active PRN PAIN Not Available Not Available Not Available enoxaparin 30 mg/0.3 mL subcutaneou s syringe 03/16 completed Not Available Not Available Not Available BD Ultra-Fine Mini Pen Needle 31 gauge x 3/16 USE TO INJECT INSULIN ONCE DAILY active Not Available Not Available No t Available aspirin 2019 active Not Available Not Available Not Avai lable OneTouch Ultra2 Meter kit 05/07 completed Not Available Not Available Not Available NovoFine 30 30 gauge x 1/3 needle 05/07 completed Not Available Not Available Not Available OneTouch Verio test strips USE ONE STRIP TO TEST BLOOD GLUCOSE TWICE DAILY active Not Available Not Available No t Available Victoza 3-Ricardo 0.6 mg/0.1 mL (18 mg/3 mL) subcutaneou s pen injector INJECT 1.8 MG UNDER THE SKIN ONCE DAILY active Not Available Not Available No t Available Fluzone High-Dose (PF) 180 mcg/0.5 mL intramuscul ar syringe 05/07 completed Not Available Not Available Not Available Tresiba FlexTouch U-100 insulin 100 unit/mL (3 mL) subcutaneou s pen INJECT 10 UNITS INTO THE SKIN NIGHTLY AT BEDTIME active Not Available Not Available No t Available OneTouch Delica Plus Lancet 33 gauge USE TO TEST BLOOD GLUCOSE TWICE DAILY active Not Available Not Available No t Available OneTouch Verio Reflect Meter USE TO TEST BLOOD GLUCOSE DAILY active Not Available Not Available No t Available Vitals Date Recorded Body height Heart rate Respiratory rate Oxygen saturation Oxygen saturation in Arterial blood by Pulse oximetry Systolic And Diastolic Provider Name and Address Organization Details Last Updated DateTime 5 177.8 cm 80 /min 14 /min 98 % 98 % 164/80 mm[Hg] Louisa Hernandez Sophy [place] [facility] [employer] [facility] 5 16:31:14 Date Recorded Body height Heart rate Respiratory rate Oxygen saturation Oxygen saturation in Arterial blood by Pulse oximetry Systolic And Diastolic Provider Name and Address Organization Details Last Updated DateTime 3 177.8 cm 78 /min 14 /min 98 % 98 % 143/77 mm[Hg] Louisa Sanchez [place] [employer] [facility] 3 12:36:44 Date Recorded Body height Oxygen saturation Oxygen saturation in Arterial blood by Pulse oximetry Body temperature Heart rate Body mass index (BMI) Body weight Systolic And Diastolic Provider Name and Address Organization Details Last Updated DateTime 5 177.8 cm 97 % 97 % 97.9 [degF] 78 /min 35.9 kg/m2 987255. 09 g 131/78 mm[Hg] Hayden Barajas FLORA [facility] 5 14:52:36 Date Recorded Body height Heart rate Respiratory rate Oxygen saturation Oxygen saturation in Arterial blood by Pulse oximetry Systolic And Diastolic Provider Name and Address Organization Details Last Updated DateTime 3 177.8 cm 74 /min 14 /min 98 % 98 % 151/79 mm[Hg] Louisa Sanchez [facility] 3 12:04:05 Social History Question Answer Notes LastModified by [employer] Details LastModified Time Tobacco Smoking Status Current Every Day Smoker Hayden BarajasFLORA barnhart [facility] 01/06/2025 14:54:54 What Is Your Level Of Caffeine Consumption? Moderate [email or web address] Information not available 01/06/2025 What Was The Date Of Your Most Recent Tobacco Screening? 01/06/2025 [email or web address] Information not available 01/06/2025 Have You Ever Been Counseled For Unhealthy Alcohol Use? No [email or web address] Information not available 01/06/2025 Sex: Unknown Functional Status Question Answer Note LastModified by [employer] Details LastModified Time Do you use any illicit or recreational drugs? No [email or web address] Information not available 01/06/2025 What is your level of alcohol consumption? Occasional [email or web address] Information not available 01/06/2025 Mental Status None recorded. Family History Nothing Reported. Medical History No medical history recorded. Past Encounters Encounter ID Performer Location Encounter Start Date Encounter Closed Date Diagnosis/Indication Diagnosis SNOMED-CT Code Diagnosis ICD10 Code Diagnosis IMO Codes Diagnosis Note [id number] Quintin Middleton DPM [facility] [place] [address] [address] 01/11/2021 00:00:00 01/14/2021 17:32:19 [id number] Quintin Middleton DPM [facility] [place] [address] [place] [address] 04/14/2021 00:00:00 04/18/2021 10:52:49 [id number] Quintin Middleton DPM [facility] [place] [address] [place] [address] 04/22/2021 00:00:00 04/22/2021 11:25:50 [id number] Quintin Middleton DPM [facility] [address] [address] 10/10/2021 00:00:00 10/10/2021 14:07:34 [id number] Quintin Middleton DPM [facility] [place] [address] [place] [address] 03/16/2022 00:00:00 03/16/2022 14:39:51 [id number] Quintin Middleton DPM [facility] [place] [address] [place] [address] 03/30/2022 00:00:00 03/30/2022 17:20:28 [id number] Quintin Middleton DPM [facility] [place] [address] [place] [address] 07/13/2022 00:00:00 07/13/2022 14:20:35 [id number] Quintin Middleton DPM [facility] [place] [address] [place] [address] 11/16/2022 12:26:47 11/16/2022 12:58:25 Diabetic peripheral neuropathy 161868224 E11.42 Patient educated on neuropathy , diabetes, diabetic diet, and daily foot exams. Patient is to check feet daily for new wounds, blisters, redness to prevent infection and ulceration s to the feet. Patient will return to clinic in 3 months for diabetic foot workup. Dystrophia unguium 51091 009 L60.3 Nails 1 through 10 were debrided with sharp mechanical debridemen t without incident. Nails were debrided and greater than 50% length and thickness where needed. History of diabetic foot ulcer 0552495968 5673815 Z86.31 Continue supportive shoe gear Unable to cut own nails 650911706 Z74.1 [id number] Quintin Middleton DPM [facility] [place] [address] [address] 03/20/2023 11:57:53 03/27/2023 13:09:09 Diabetic peripheral neuropathy 017162570 E11.42 Check feet daily for wounds infectionC ontinue supportive shoe gearContin ue diabetic control per PCPfollow- up 3 months for diabetic foot care Dystrophia unguium 86891 009 L60.3 Nails 1 through 10 were debrided with sharp mechanical debridemen t without incident. Nails were debrided and greater than 50% length and thickness where needed. [id number] [facility] [place] [address] [address] 08/23/2023 08:58:53 08/29/2023 08:02:14 Diabetic peripheral neuropathy 824687269 E11.42 Dystrophia unguium 94756 009 L60.3 Unable to cut own nails 064234415 Z74.1 [id number] Quintin Middleton DPM [facility] [address] [place] [address] 09/24/2024 16:25:48 09/25/2024 17:13:19 Diabetic peripheral neuropathy 379392157 E11.42 Continue diabetic shoe gearCheck feet daily for wounds infectionC ontinue diabetic control per PCP recommenda tionFollow -up in 3 months Dystrophia unguium 67982 009 L60.3 Nails 1 through 10 were debrided with sharp mechanical debridemen t without incident. Nails were debrided and greater than 50% length and thickness where needed. Unable to cut own nails 454753341 Z74.1 Diabetes mellitus 044502 09 E11.9 E11.40 Continue diabetic control per PCP recommenda tions Pain in toe 025802857 M7 9.676 secondary toenails [id number] Quintin Middleton DPM [facility] [place] [address] [facility] [address] [place] [address] 01/06/2025 14:42:24 01/08/2025 15:14:20 History of diabetic foot ulcer 4784199242 2301065 Z86.31 Continue supportive shoe gear Diabetic p eripheral neuropathy 186291483 E11.42 Continue diabetic shoe gearCheck feet daily for wounds infectionC ontinue diabetic control per PCP recommenda tionFollow -up in 3 months Dystrophia unguium 20323 009 L60.3 Nails 1 through 10 were debrided with sharp mechanical debridemen t without incident. Nails were debrided and greater than 50% length and thickness where needed. Health Concerns Section Related Observation LastModified by Organization Detai ls LastModified Time None Recorded Concern Status LastModified by Organization Details LastModified Time None Recorded Advance Directives Directive None Recorded Payers Insurance Date Sequence Insurance Name Policy Number Policy Gomez Covered Member ID Gomez Member ID Guarantor Name 04/04/2025 1 [facility] (MEDICARE REPLACEMENT/A DVANTAGE - HMO) [id number] Alban Graff [id number] Alban Graff Notes Date Note Type Note Provider Name and Address Organization Details Recorded Time 11/16/2022 text/html . Patient is an 82-year-old male diabetic who returns the office for follow-up on diabetic foot exam. Patient states overall he is doing well. Patient has a history of diabetic wounds and denies any foot pain or new wounds. Patient denies any fever, chills, nausea or vomiting. patient states he would like his nails cut as it is difficult for him to bend over to cut them. Quintin Middleton DPM [address] [facility], [facility] [address], [place], [address], [facility] 11/16/2022 12:55:13 03/20/2023 text/html . Patient is 82-year-old male diabetic with neuropathy who returns to the office for diabetic foot care. Patient denies any new pedal complaints and would like his nails cut. Quintin Middleton DPM [address], [address], [place], [address], [email or web address] 03/27/2023 08:57:39 09/24/2024 text/html . Patient is an 83-year-old male diabetic returns for diabetic foot care. Patient has not been seen since 08/21/2023. Patient states that his nails are significantly long and starting to almost cut into his skin he denies any open wounds. Patient states the toenails are painful when walking. Patient denies any other complaints. Quintin Middleton DPM [address], [address], [place], [address], [email or web address] 09/25/2024 09:01:33 01/06/2025 text/html . Patient is 84-year-old male diabetic who returns for diabetic foot care he denies any new complaints. Quintin Middleton DPM [address], [address], [place], [address], [email or web address] 01/06/2025 15:07:10
[2025-05-29 15:05] LABS: Hematocrit 38.2 % (42.0-52.0); Hemoglobin 12.1 g/dL (14.0-18.0); Immature Granulocyte Percent A 0.1 % (0-0.5); Lymphocytes Absolute Auto 0.79 K/mm3 (0.9-3.2); Mean Corpuscular HGB Conc 31.7 g/dl (32-36); Mean Corpuscular Hemoglobin 29.7 pg (26-34); Mean Corpuscular Volume 93.9 fl (80-100); Nucleated Red Blood Cells Absolute Auto 0.000 K/mm3 (0.0-0.012); Nucleated Red Blood Cells Perc 0.0 % (0.0-0.2); Platelet Count Result 209 k/mm3 (150-375); Red Blood Count 4.07 M/mm3 (4.6-6.20); White Blood Count 6.9 K/mm3 (4.5-10.0)
[2025-05-29 15:23] LABS: Amylase 110 U/L (30-110); Lipase 316 U/L (23-300)
[2025-05-29 15:32] LABS: Alanine Aminotransferase 87 U/L (6-50); Albumin Level 3.8 g/dL (3.5-5.1); Alkaline Phosphatase 96 U/L (38-126); Anion Gap 8 mmol/L (4-12); Aspartate Amino Transferase 30 U/L (17-59); Bilirubin,Total 0.3 mg/dL (0.2-1.3); Blood Urea Nitrogen 20 mg/dL (9-20); Calcium 9.2 mg/dL (8.4-10.2); Carbon Dioxide 27 mmol/L (22-30); Chloride 103 mmol/L (98-107); Estimated Glomerular Filt Rate > 60; Glucose 195 mg/dL (65-110); Potassium 4.4 mmol/L (3.4-5.0); Sodium 138 mmol/L (137-145); Total Protein 6.6 g/dL (6.3-8.2)
== END 2025-05-29 13:06 | disposition home or self-care (01) ==
LOC: ANHSURGERY 13:09
PROVIDERS: Surgery; PCP Internal Medicine; Visit Provider Surgery
DX: K80.00 Calculus of gallbladder with acute cholecystitis without obstruction (principal); R78.81 Bacteremia; K80.33 Calculus of bile duct with acute cholangitis with obstruction
CPT/HCPCS: 36415; 71046; 80053; 82150; 83690; 85025

== ENCOUNTER 2025-06-04 09:35 | Outpatient (CLI) | payer MEDICARE, SELFPAY ==
--- OUTSIDE RECORDS SUMMARY | 2010-05-13 02:30 | XMS_ITS | Continuity of Care Document ---
Author Organization [facility] Address [address] [place] [address] [address] [place] [address] Phone Care Team Providers Care Junior Java Developer Name Role Phone Luis Alberto Luna Unavailable Unavailable Procedures Procedure Date Office/outpatient Visit, Est Eye Exam & Treatment Refraction Eye Exam & Treatment Refraction Office/outpatient Visit, Est Advance Directives Directive Yes / No Effective Date File Name No Information Encounters Encounter Description Practice Location Reason(s) For Visit Diagnoses Date Provider Providers Copied on Encounter Office/outpat ient Visit, Est [facility], [address] [place] [address] [address], [place], [place], [address], tel:[phone] SEC [facility] No Information 5-201 0 Jeremy Sahu. [facility] [place] , [address], [place], [place], [facility], . tel:[phone] [facility], [address] [place] [address] [address], [place], [place], [address], [place] tel:[phone] SEC [facility] [place] No Information Sep- 0-201 0 Jeremy Sahu. [address] [facility] [place], [address], [place], [place], [facility], [place]. tel:[phone] [facility], [address], [place], [place], [address], tel:[phone] SEC [facility] [place] No Information Mar-0 9-200 9 Jeremy Sahu. [address] [facility] , [address], [place], [address], [place]. tel:[phone] Office/outpat ient Visit, [facility], [address], [place], [place], [address], [place] tel:[phone] SEC [facility] No Information 200 8 Jeremy Sahu. [address] [facility] , [address], [place], [address], [place]. tel:[phone] Family History Family Member Type Diagnosis Age [...]
[2025-06-04 10:23] LABS: Hematocrit 38.8 % (42.0-52.0); Hemoglobin 12.4 g/dL (14.0-18.0); Immature Granulocyte Percent A 0.5 % (0-0.5); Lymphocytes Absolute Auto 0.73 K/mm3 (0.9-3.2); Mean Corpuscular HGB Conc 32.0 g/dl (32-36); Mean Corpuscular Hemoglobin 29.7 pg (26-34); Mean Corpuscular Volume 92.8 fl (80-100); Nucleated Red Blood Cells Absolute Auto 0.000 K/mm3 (0.0-0.012); Nucleated Red Blood Cells Perc 0.0 % (0.0-0.2); Platelet Count Result 233 k/mm3 (150-375); Red Blood Count 4.18 M/mm3 (4.6-6.20); White Blood Count 6.2 K/mm3 (4.5-10.0)
[2025-06-04 10:45] LABS: Alanine Aminotransferase 32 U/L (6-50); Albumin Level 3.6 g/dL (3.5-5.1); Alkaline Phosphatase 79 U/L (38-126); Anion Gap 7 mmol/L (4-12); Aspartate Amino Transferase 26 U/L (17-59); Bilirubin,Total 0.5 mg/dL (0.2-1.3); Blood Urea Nitrogen 13 mg/dL (9-20); Calcium 8.7 mg/dL (8.4-10.2); Carbon Dioxide 24 mmol/L (22-30); Chloride 108 mmol/L (98-107); Estimated Glomerular Filt Rate > 60; Glucose 141 mg/dL (65-110); Lipase 113 U/L (23-300); Potassium 4.0 mmol/L (3.4-5.0); Sodium 139 mmol/L (137-145); Total Protein 6.5 g/dL (6.3-8.2)
--- OUTSIDE RECORDS SUMMARY | 2025-06-04 18:03 | XMS_ITS | Clinical Summary ---
Author Organization [facility] Address [address] [place] [address] Care Team Providers Care Track Dresser Name Role Phone Naseem Underwood MD Primary Care Provider [phone] Henry Vasques MD Unavailable [phone] Allergies Active Allergy Reactions Criticality Noted Date [...] Lancets 33G MiscIndications:T ype 2 diabetes mellitus ([facility] HHS/[facility]) 1 Device by Does not apply route 2 (two) times a day. 200 each 1 08/18/19 22 Active ONETOUCH VERIO REFLECT w/Device KitIndications:Ty pe 2 diabetes mellitus ([facility] HHS/HCC) USE TO TEST BLOOD [...] complication, with long-term current use of insulin ([facility] HHS/HCC) INJECT 10 UNITS INTO THE SKIN NIGHTLY [...] complication, with long-term current use of insulin ([facility]CC HHS/HCC) USE TO INJECT INSULIN ONCE DAILY 100 each 1 04/17/20 25 Active simvastatin (ZOCOR) 80 MG tabletIndications :Mixed hyperlipidemia TAKE ONE-HALF(1/2 ) TABLET BY MOUTH NIGHTLY AT BEDTIME 45 tablet 1 04/29/20 25 Active Glucose Blood (CONTOUR PLUS TEST) test stripIndications: Type 2 diabetes mellitus with other circulatory complication, with long-term current use of insulin ([facility]CC HHS/HCC) 1 strip by Other route 2 (two) times a day. 200 strip 3 05/04/20 25 Active Microlet Lancets MiscIndications:T ype 2 diabetes mellitus with other circulatory complication, with long-term current use of insulin ([facility]CC HHS/HCC) 1 Lancet by Does not apply route 2 (two) times daily. 200 each 3 05/04/20 25 Active metoprolol tartrate (LOPRESSOR) 50 MG tabletIndications :Atherosclerosis of [place] coronary artery of [place] heart without angina pectoris TAKE 1 TABLET BY MOUTH EVERY 12 HOURS 60 tablet 05/04/20 25 Active glipiZIDE (GLUCOTROL) 10 MG tabletIndications :Type 2 diabetes mellitus without complications (CMS/HCC HHS/HCC) TAKE 1 TABLET BY MOUTH EVERY DAY BEFORE BREAKFAST 90 tablet 05/07/20 25 Active tamsulosin (FLOMAX) 0.4 MG CapIndications:Be nign localized hyperplasia of prostate with urinary obstruction TAKE 1 CAPSULE BY MOUTH EVERY DAY AT BEDTIME 90 capsule 05/28/20 25 Active ELIQUIS 5 MG tabletIndications :Atherosclerosis of [place] coronary artery of [place] heart without angina pectoris TAKE 1 TABLET BY MOUTH EVERY 12 HOURS 60 tablet 06/01/20 25 Active glipiZIDE (GLUCOTROL) 10 MG tabletIndications :Type 2 diabetes mellitus without complication, unspecified whether exterminator helper insulin use ([facility]) TAKE 1 TABLET BY MOUTH EVERY DAY BEFORE BREAKFAST 90 tablet 1 01/14/20 25 025 Discontinued tamsulosin (FLOMAX) 0.4 MG CapIndications:Be nign localized hyperplasia of prostate with urinary obstruction TAKE 1 CAPSULE BY MOUTH EVERY DAY AT BEDTIME 30 capsule 05/04/20 25 025 Discontinued ELIQUIS 5 MG tabletIndications :Atherosclerosis of [place] coronary artery of [place] heart without angina pectoris TAKE 1 TABLET BY MOUTH EVERY 12 HOURS 60 tablet 05/04/20 25 025 Discontinued Active Problems Problem Noted Date Diagnosed Date Acute cholecystitis 04/16/2025 Vitamin D deficiency 01/22/2023 Elevated PSA 09/21/2021 Diabetic neuropathy 04/08/2021 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 Personal history of diabetic foot ulcer 01/15/20 21 FIELD (dyspnea on exertion) 03/19/2019 Peripheral venous insufficiency 10/22/2018 Trigger ring finger of right hand 04/09/2018 Atherosclerotic heart diseas e of [place] coronary artery without angina pectoris 04/09/2018 History of coronary artery stent placement 04/09 Adult BMI 34.0-34.9 kg/sq m 10/03/2017 Type 2 diabetes mellitus wit h circulatory disorder, with long-term current use of insulin 10/03/2017 Obstructive sleep apnea of adult 03/16/2016 Benign essential hypertension 09/09/2015 Benign localized hyperplasia of prostate with urinary obstruction 09/09/2015 Hyperlipidemia 09/09/2015 Encounters Date Type Department Care Team Description 05/09/2025 Scan [facility] SRVCS Scanned, Doc Med Group 05/04/2025 Scan [employer] INFO SRVCS Scanned, Doc Med Group Lab (SCAN) 05/04/[address] [address] Naseem Underwood MD Information 05/01/2025 Scan [facility] Scanned, Doc Med Group 04/27/2025 Scan [facility] Scanned, Doc Med Group 04/16/2025 2:00 PM CDT Office Visit [address] [address] Naseem Underwood MD TCM (Pt was admitted [...] SRVCS Scanned, Doc Med Group 04/07/[address] [address] Naseem Underwood MD Information 04/06/2025 Scan [facility] INFO [...] (SCAN); CT (SCAN); Image (SCAN) 03/27/[address] [address] Naseem Underwood MD Information from Last 3 [...] 20) 04/22/2024 Tdap (Generic) 03/18/2015 Zoster (Zostavax) 63779 Unt/0.65Ml 11/02/2012, Family History Medical History Relation [...] Yes Comments:1-2 cigars a day. 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 Alcohol Use Standard Drinks/Week Comments Yes [...] Additional history exists Hemoglobin A1C 05/01/2025 10/30/2024, 100 09/2023, 09/26/2023, Additional history exists Lipid Panel 05/01/2025 05/01/2024, 08/31, 01/22/2023, Additional history exists Diabetes: Retinopathy Eye Exam 01/07/2027 01/07/2025 Pneumococcal Vaccine: 50+ Years Completed 04/22/2024, 07/31/2017, 11/03/2003 RSV Immunization or 60+ Years Completed 04/22/2024 PHQ-2 (Physician [place]) Completed 10/30/2024 Meningococcal B Vaccine Aged Out [...] complication, with long-term current use of insulin ([facility]) LIPID PANEL Routine 05/01/2024 11:58 AM CDT Type 2 diabetes mellitus with other circulatory complication, with long-term current use of insulin ([facility] HHS/HCC) Atherosclerosis of [place] coronary artery of [place] heart without angina pectoris Benign essential hypertension Mixed hyperlipidemia from Last 3 Months or Most Recently Relevant to Health Maintenance Results * OUTSIDE PT/INR (SCAN ORDER) (05/04/2025) Only the most recent of2 resultswithin the time period is included. 05/04/2025 us [facility] Scanned SCANNING Final Resu lt * OUTSIDE LAB (SCAN ORDER) (05/04/2025) Only the most recent of4 resultswithin the time period is included. 05/04/[address] [facility] Scanned SCANNING Final Resu lt * IMAGE GENERIC (03/31/2025) Only the most recent of3 resultswithin the time period is included. Anatomical Region Laterality Modality Other 03/31/[address] [facility] Scanned SCANNING Final Resu lt * ECHO GENERIC (SCAN ORDER) (03/28/2025) Anatomical Region Laterality Modality Other 03/28/[address] [facility] Group Scanned SCANNING Final Resu lt * CT GENERIC (03/27/2025) Only the most recent of3 resultswithin the time period is included. Anatomical Region Laterality Modality Other 03/27/[address] [facility] Scanned SCANNING Final Resu lt * ULTRASOUND GENERIC (SCAN ORDER) (03/27/2025) Only the most recent of2 resultswithin the time period is included. Anatomical Region Laterality Modality Other 03/27/2025 us [facility] Scanned SCANNING Final Resu lt * DIABETIC RETINOPATHY EXAM (NEGATIVE) (01/07/2025) Result [facility] Scanned SCANNING Final Resu lt [facility] ONBASE * (ABNORMAL) HEMOGLOBIN, GLYCOSYLATED (10/30/2024) HGB A1C 7.2(A) % [facility] 10/30/2024 Naseem Underwood MD LABORATORY Final Result [facility] [address] [place] [address], [place] * LIPID PANEL (05/01/2024 11:58 AM CDT) CHOLESTEROL 135 <200 MG/DL 05/02/2024 2:27 PM CDT [facility] TRIGLYCERIDES 120 <150 MG/DL 05/02/2024 2:27 PM CDT [facility] HDL 48 >40 MG/DL 05/02/2024 2:27 PM CDT [facility] LDL-C 63 <100 MG/DL 05/02/2024 2:27 PM CDT [facility] VLDL CALCULATION 24 5 - 28 MG/DL 05/02/2024 2:27 PM CDT [facility] CHOL/HDL RATIO 2.8 0.0 - 4.0 05/02/2024 2:27 PM CDT [facility] LDL/HDL 1.3 0.41 - 2.13 05/02/2024 2:27 PM CDT [facility] NON HDL CHOLESTEROL 87 <140 MG/DL 05/02/2024 2:27 PM CDT [facility] 05/01/2024 11:5 8 AM CDT Naseem Underwood MD LABORATORY Final Result [facility] [address] [facility] [place] [address], [place] [phone] from Last 3 Months or Most Recently Relevant to Health Maintenance Insurance [facility] MEDICARE Care Teams Track Dresser Relationship Specialty Start Date End Date Naseem Underwood MD [address] [place] [id number] PCP - General INTERNAL MEDICINE 10/02/18 Henry Vasques MD [facility] [address] [place] [address] Misty Dental Mold Maker CARDIOVASCULAR DISEASE 02/26/19
== END 2025-06-04 09:36 | disposition home or self-care (01) ==
LOC: ANHSURGERY 09:36
PROVIDERS: PCP Internal Medicine; Visit Provider Surgery
DX: Z01.818 Encounter for other preprocedural examination (principal); K80.33 Calculus of bile duct with acute cholangitis with obstruction
CPT/HCPCS: 36415; 80053; 83690; 85025

== ENCOUNTER 2025-06-07 13:07 | Inpatient (IN) | payer MEDICARE, SELFPAY ==
--- OUTSIDE RECORDS SUMMARY | 2010-05-13 02:30 | XMS_ITS | Continuity of Care Document ---
Author Organization [facility] Address [address] [place] [address] [address] [place] [address] Phone Care Team Providers Care Benefit Authorizer Name Role Phone Luis Alberto Luna Unavailable Unavailable Procedures Procedure Date Office/outpatient Visit, Est Eye Exam & Treatment Refraction Eye Exam & Treatment Refraction Office/outpatient Visit, Est Advance Directives Directive Yes / No Effective Date File Name No Information Encounters Encounter Description Practice Location Reason(s) For Visit Diagnoses Date Provider Providers Copied on Encounter Office/outpat ient Visit, Est [facility], [address] [place] [address] [address], [place], [place], [address], tel:[phone] SEC [facility] No Information 5-201 0 Jeremy Sahu. [facility] [place] , [address], [place], [place], [facility], . tel:[phone] [facility], [address] [place] [address] [address], [place], [place], [address], [place] tel:[phone] SEC [facility] [place] No Information Sep- 0-201 0 Jeremy Sahu. [address] [facility] [place] , [address], [place], [place], [facility], [place]. tel:[phone] [facility], [address], [place], [place], [address], tel:[phone] SEC [facility] [place] No Information Mar-0 9-200 9 Jeremy Sahu. [address] [facility] , [address], [place], [address], [place]. tel:[phone] Office/outpat ient Visit, [facility] Eye [facility], [address], [place], [place], [address], [place] tel:[phone] SEC [facility] No Information 200 8 Jeremy Sahu. [address] [facility] , [address], [place], [address], [place]. tel:[phone] Family History Family Member Type Diagnosis Age At Onset No Information Payers Payer name Insurance type Covered constitution party ID Authoriza tion(s) No Information Social [...]
--- OUTSIDE RECORDS SUMMARY | 2010-05-13 02:30 | XMS_ITS | Continuity of Care Document ---
Author Organization [facility] Address [address] [place] [address] [address] [place] [address] Phone Care Team Providers Care Tie Inspector Name Role Phone Luis Alberto Luna Unavailable Unavailable Procedures Procedure Date Office/outpatient Visit, Est Eye Exam & Treatment Refraction Eye Exam & Treatment Refraction Office/outpatient Visit, Est Advance Directives Directive Yes / No Effective Date File Name No Information Encounters Encounter Description Practice Location Reason(s) For Visit Diagnoses Date Provider Providers Copied on Encounter Office/outpat ient Visit, Est [facility], [address] [place] [address] [address], [place], [place], [address], tel:[phone] SEC [facility] No Information 5-201 0 Jeremy Sahu. [facility] [facility] [address] [place] , [address], [place], [place], [facility], . tel:[phone] [facility], [address] [place] [address] [address], [place], [place], [address], [place] tel:[phone] SEC [facility] [place] No Information Sep- 0-201 0 Jeremy Sahu. [address] [facility] [place] , [address], [place], [place], [facility], [place]. tel:[phone] [facility], [address], [place], [place], [address], tel:[phone] SEC [facility] [place] No Information Mar-0 9-200 9 Jeremy Sahu. [address] [facility] , [address], [place], [address], [place]. tel:[phone] Office/outpat ient Visit, [facility], [address], [place], [place], [address], [place] tel:[phone] SEC [facility] No Information 200 8 Jeremy Sahu. [address] [facility] , [address], [place], [address], [place]. tel:[phone] Family History Family Member Type Diagnosis Age [...]
--- OUTSIDE RECORDS SUMMARY | 2010-05-13 02:30 | XMS_ITS | Continuity of Care Document ---
Author Organization [facility] Address [address] [place] [address] [address] [place] [address] Phone Care Team Providers Care Welt Stitch Cleaner Name Role Phone Luis Alberto Luna Unavailable Unavailable Procedures Procedure Date Office/outpatient Visit, Est Eye Exam & Treatment Refraction Eye Exam & Treatment Refraction Office/outpatient Visit, Est Advance Directives Directive Yes / No Effective Date File Name No Information Encounters Encounter Description Practice Location Reason(s) For Visit Diagnoses Date Provider Providers Copied on Encounter Office/outpat ient Visit, Est [facility], [address] [place] [address] [address], [place], [place], [address], tel:[phone] SEC [facility] No Information 5-201 0 Jeremy Sahu. [facility] [place] , [address], [place], [place], [facility], . tel:[phone] [facility], [address] [place] [address] [address], [place], [place], [address], [place] tel:[phone] SEC [facility] [place] No Information Sep- 0-201 [address] [facility] [place], [address], [place], [place], [facility], [place]. tel:[phone] [facility], [address], [place], [place], [address], tel:[phone] SEC [facility] [place] No Information Mar-0 9-200 9 Jeremy Sahu. [address] [facility] , [address], [place], [address], [place]. tel:[phone] Office/outpat ient Visit, [facility] Eye [facility], [address], [place], [place], [address], [place] tel:[phone] SEC [facility] No Information 200 8 Jeremy Sahu. [address] [facility] , [address], [place], [address], [place]. tel:[phone] Family History Family Member Type Diagnosis Age [...]
[2025-05-27 13:52] VITALS: BMI 32.7
--- NOTE | 2025-05-27 13:53 | PC.NURSE ---
[facility] has started construction of its new state of the art ER which will open Spring 2026. With this, we anticipate parking may be a challenge for some our surgical patients and families. Parking spaces are limited but are available for all Surgical, obstetrics, and ER patients sharing this lot. If you arrive and find you are having a hard time finding a parking space, please note that we understand the challenges, please drive around the hospital and park near Hospital Entrance 1. When you enter this entrance, you can ask a volunteer to direct or take you back to the surgical waiting area to check in. We appreciate everyone?s understanding of these expected challenges while we build for your future. Report to the Outpatient Waiting Room, entrance under the green pavilion located off [address], at time _1000_ on date _[phone]_. Planned Procedure Time: _1200_.? Time changes happen often and if your time is changed the preop area will call you the afternoon before. - You and your visitor will be asked to self-screen and do not enter if you have any COVID symptoms. Please call surgeon if you need to reschedule. - A mask is optional within the hospital at this time. Patients may have clear liquids (water, carbonated beverages, clear teas, apple juice) until 3 hours prior to surgery with a maximum of 20 ounces. - No food from midnight until time of surgery and no smoking, or chewing tobacco (or any form of nicotine). No chewing gum, candy or mints. Take only the following medications with a SIP of water on the morning of surgery: ___Metoprolol____ DO NOT STOP ANY OF YOUR OTHER PRESCRIPTION MEDICATIONS PRIOR TO SURGERY EXCEPT THE FOLLOWING Hold all vitamins and supplements for 3 days per anesthesiologist. Medications to discontinue per physician Hold Eliquis as instructed by Dr Whelan's office. (I called office and asked them to call patient about Eliquis.) Date to take last dose Please no make-up, nail singaporean, hairspray, perfume, deodorant, or body powder the day of surgery.? No jewelry (including any body piercings) or valuables the day of surgery, leave them at home.? Please take a shower or bath the night before, or the morning of, surgery with an antibacterial soap.? Wear comfortable, loose fitting clothing.? - Jewelry must be removed prior to entering the operating room.? Rings and piercings that are not removed may be cut off. - The hospital will not accept responsibility for valuables.? - Please leave all valuables, including medications, at home the day of surgery. If you are going home after surgery, a licensed short haul driver must drive you home.? - NO public transportation without another adult if you receive anesthesia. - We recommend that an adult stay with you for 24 hours following discharge. - We also recommend that you do not drive, make important decision, drink alcoholic beverages, or take any drugs that were not prescribed by your health care provider for at least 24 hours after your discharge time. Follow any additional instructions given to you from your surgeon. Telephone instructions given to __Nick___and asked if any additional questions and then verbalized understanding. Patient advised to call surgeon office or pre surgery nurse liaison [phone] if any additional questions.
--- NOTE | 2025-06-04 15:51 | PM.IMHP ---
H&P: HPI History of Present Illness Date/Time: 06/04/25 15:51 Chief Complaint: Needs gallbladder removed Narrative: Patient is an 84-year-old gentleman who presented today [facility] with severe sepsis due to acute cholecystitis on 03/27/2025. A cholecystostomy tube was placed to relieve the cholecystitis. He had E coli bacteremia and grew E coli from his bile. He had rapid atrial fibrillation likely due to his septic condition. He is also diabetic and has a history of obstructive sleep apnea. He had a preoperative evaluation with Cardiology in early April and was felt to be medically optimized for cholecystectomy. Patient is taken to surgery at this time for removal of his cholecystostomy tube and laparoscopic cholecystectomy. Review of Systems Review of Systems: All systems reviewed & are unremarkable except as noted in HPI and below (HPI) [facility] Past Medical History Medical History Umbilical hernia DJD (degenerative joint disease) BPH (benign prostatic hyperplasia) DMII (diabetes mellitus, type 2) Hypertension Hyperlipidemia IVETT (obstructive sleep apnea) CPAP CAD (coronary artery disease) Surgical History Surgical History H/O hemorrhoidectomy (~1979) Status post total left knee replacement (~07/07/19) History of total right knee replacement (~2006) History of coronary artery stent placement (~12/1998) 1998 Family History Family History Mother Family history of Alzheimer's disease Father Family history of heart disease in male family member before age 55 Social History Social History Social History: Patient lives with , Aggie, whom he designates as his surrogate decision maker. He is listed as a full code. His primary is Dr. Underwood. 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) Smoking status: Current every day smoker Tobacco type: cigars Additional smoking assessment comments: 2 cigars/day Alcohol intake: current Drinks per week: 3 Substance use: never Substance use type: does not use Lack of Transportation: No Lack of Food: Never True Current Housing: I Have Housing Concerned About Future Housing: No Difficulty Paying Gas/Electric Bills: No Difficulty Paying for Meds: No Currently Unemployed: No Education: Decline to Answer Difficulty w/ Childcare or Family Care: No Living arrangements: with family Additional living arrangements comments: Lives with at home Occupation/Education: retired Gender identity (if verbalized by the patient): Male Spiritual care concerns: No Agree to blood products: Yes Meds Home Medications and Allergies Home Medications ?Medication ?Instructions ?Recorded ?Confirmed ?Type cetirizine 10 mg capsule (Zyrtec) 10 mg PO DAILY 06/25/19 05/27/25 History finasteride 5 mg tablet 5 mg PO DAILY 06/25/19 05/27/25 History glipizide 5 mg tablet 10 mg PO DAILY 06/25/19 05/27/25 History ahdsfovo-ma-wlsne 300 mcg-K 60 1 tablet PO DAILY 06/25/19 05/27/25 History mcg-lycop 600 mcg-lutein 300 mcg tablet (Centrum Silver Men) omega 1-zob-dkx-fish oil 1,000 mg 1 cap PO DAILY 06/25/19 05/27/25 History (120 mg-180 mg) capsule (Fish Oil) simvastatin 80 mg tablet 40 mg PO HS 06/25/19 05/27/25 History insulin degludec 100 unit/mL (3 10 unit subcut QPM 03/28/25 05/27/25 History mL) subcutaneous pen (Tresiba FlexTouch U-100 insulin) Prevagen w/Apoaequorin and Vitamin 50 mg PO DAILY 03/29/25 05/27/25 History D vitamins A,C,A-dwhj-gpkgvk 4,296 1 cap PO DAILY 03/29/25 05/27/25 History mcg-226 mg-90 mg capsule (PreserVision AREDS) apixaban 5 mg tablet (Eliquis) 5 mg PO Q12HR #60 tabs 04/04/25 05/27/25 Rx tamsulosin 0.4 mg capsule 0.4 mg PO HS #30 caps 04/04/25 05/27/25 Rx metoprolol tartrate 50 mg tablet 50 mg PO BID 04/27/25 05/27/25 History Allergies Allergy/AdvReac Type Severity Reaction Status Date / Time No Known Allergies Allergy Verified 05/27/25 13:33 Exam Const: General: comfortable, no acute distress, alert and awake HENMT: Head: normocephalic and atraumatic Mouth: Yes Normal oral and palatal mucosa present Eyes: Conjunctivae: conjunctivae normal Pupils: Equal, round and reactive pupils present EOM: EOMs intact bilaterally Neck: Neck: normal visual inspection, no lymphadenopathy and nontender Resp: Effort & Inspection: normal respiratory effort Auscultation: clear to auscultation bilaterally Cardio: Rate: regular rate Rhythm: regular rhythm Heart sounds: no gallops, no murmurs and no rubs GI: Inspection: non-distended and other (Cholecystostomy tube in place, draining bile) GI Palp: Yes Soft to palpation, No Tenderness to palpation present (GI), No Hepatomegaly present and No Splenomegaly present Skin: Lesions: no lesions Rashes: no rashes Neuro: General: no focal motor deficits and CN's II-XI intact bilaterally Cranial nerves: Yes Equal, round and reactive pupils present, Yes Bilaterally intact EOM present, Yes facial symmetry and Yes Midline tongue present Speech: normal speech Motor exam (neuro): 5/5 motor strength present throughout and Motor abnormalities not present Extrem: General: no clubbing, cyanosis or edema and edema Psych: Affect: normal affect Thought process: Normal thought process present Insight: Good insight present (Psych) Assessment and Plan Assessment and plan (1) Acute cholecystitis: Code(s): K81.0 - Acute cholecystitis Status: Chronic Assessment and Plan: Patient has recovered substantially from sepsis and acute cholecystitis in late February and March. He is taken to surgery at this time for laparoscopic cholecystectomy as well as removal of his cholecystostomy tube. The procedure, risks, benefits, alternatives have been discussed. The usual recovery has been discussed. All questions were answered. Patient is obviously high risk and I expect his cholecystectomy to be difficult due to the severity of the cholecystitis that was present. He wishes to proceed. 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
[2025-06-05] VITALS (18 sets, daily range): BP systolic 138–223; BP diastolic 69–100; PULSE 73–123; RESP 16–28; TEMP 36.4–37.1; O2SAT 92–99
--- OUTSIDE RECORDS SUMMARY | 2025-06-05 01:22 | XMS_ITS | Clinical Summary ---
Author Organization [facility] Address [address] [place] [address] Care Team Providers Care Producer Assistant Name Role Phone Naseem Underwood MD Primary Care Provider [phone] Henry Vasques MD Unavailable [phone] Allergies Active Allergy Reactions Criticality Noted Date [...] Lancets 33G MiscIndications:T ype 2 diabetes mellitus ([facility]) 1 Device by Does not apply route 2 (two) times a day. 200 each 1 08/18/19 22 Active ONETOUCH VERIO REFLECT w/Device KitIndications:Ty pe 2 diabetes mellitus ([facility] HHS/HCC) USE TO TEST BLOOD GLUCOSE DAILY [...] complication, with long-term current use of insulin ([facility] HHS/HCC) INJECT 10 UNITS INTO THE SKIN [...] complication, with long-term current use of insulin ([facility]/HCC HHS/HCC) USE TO INJECT INSULIN ONCE DAILY 100 each 1 04/17/20 25 Active simvastatin (ZOCOR) 80 MG tabletIndications :Mixed hyperlipidemia TAKE ONE-HALF(1/2 ) TABLET BY MOUTH NIGHTLY AT BEDTIME 45 tablet 1 04/29/20 25 Active Glucose Blood (CONTOUR PLUS TEST) test stripIndications: Type 2 diabetes mellitus with other circulatory complication, with long-term current use of insulin ([facility]/HCC HHS/HCC) 1 strip by Other route 2 (two) times a day. 200 strip 3 05/04/20 25 Active Microlet Lancets MiscIndications:T ype 2 diabetes mellitus with other circulatory complication, with long-term current use of insulin ([facility]/HCC HHS/HCC) 1 Lancet by Does not apply route 2 (two) times daily. 200 each 3 05/04/20 25 Active metoprolol tartrate (LOPRESSOR) 50 MG tabletIndications :Atherosclerosis of [place] coronary artery of [place] heart without angina pectoris TAKE 1 TABLET [...] Active ELIQUIS 5 MG tabletIndications :Atherosclerosis of [place] coronary artery of [place] heart without angina pectoris TAKE 1 TABLET BY MOUTH EVERY 12 HOURS 60 tablet 06/01/20 25 Active glipiZIDE (GLUCOTROL) 10 MG tabletIndications :Type 2 diabetes mellitus without complication, unspecified whether intermodal customer service insulin use ([facility]) TAKE 1 TABLET BY MOUTH EVERY DAY BEFORE BREAKFAST 90 tablet 1 01/14/20 25 025 Discontinued tamsulosin (FLOMAX) 0.4 MG CapIndications:Be nign localized hyperplasia of prostate with urinary obstruction TAKE 1 CAPSULE BY MOUTH EVERY DAY AT BEDTIME 30 capsule 05/04/20 25 025 Discontinued ELIQUIS 5 MG tabletIndications :Atherosclerosis of [place] coronary artery of [place] heart without angina pectoris TAKE 1 TABLET [...] hand 04/09/2018 Atherosclerotic heart diseas e of [place] coronary artery without angina pectoris 04/09/2018 History [...] Type Department Care Team Description 05/09/2025 Scan [place] [facility] Scanned, Doc Med Group 05/04/2025 Scan [employer] INFO SRVCS Scanned, Doc Med Group Lab (SCAN) 05/04/[address] [address] Naseem Underwood MD Information 05/01/2025 Scan [facility] Scanned, Doc Med Group 04/27/2025 Scan [facility] Scanned, Doc Med Group 04/16/2025 2:00 PM CDT Office Visit [address] [address] Naseem Underwood MD TCM (Pt was admitted to [facility] 03/27 - 04/04 for acute cholecysitis and liver abscess. Pt has an appt with surgeon on Sunday, pt notes the surgeon will be out on vacation for the entire week of ); Diabetes (Pt does c/o hypoglycemic episodes in the morning about 3 times a month. ) 04/16/2025 Travel 04/07/2025 Scan [facility] Scanned, Doc Med Group 04/07/[address] [address] Naseem Underwood MD Information 04/06/2025 Scan MG [...] (SCAN); CT (SCAN); Image (SCAN) 03/27/[address] [address] Naseem Underwood MD Information from Last 3 [...] 20) 04/22/2024 Tdap (Generic) 03/18/2015 Zoster (Zostavax) 80806 Unt/0.65Ml 11/02/2012, Family History Medical History Relation [...] Yes Comments:1-2 cigars a day. 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 Alcohol Use Standard Drinks/Week Comments Yes [...] or 60+ Years Completed 04/22/2024 PHQ-2 (Physician [place]) Completed 10/30/2024 Meningococcal B Vaccine Aged Out [...] complication, with long-term current use of insulin ([facility]) LIPID PANEL Routine 05/01/2024 11:58 AM CDT Type 2 diabetes mellitus with other circulatory complication, with long-term current use of insulin ([facility] HHS/HCC) Atherosclerosis of [place] coronary artery of [place] heart without angina pectoris Benign essential hypertension Mixed hyperlipidemia from Last 3 Months or Most Recently Relevant to Health Maintenance Results * OUTSIDE PT/INR (SCAN ORDER) (05/04/2025) Only the most recent of2 resultswithin the time period is included. 05/04/2025 us [facility] Scanned SCANNING Final Resu lt * OUTSIDE LAB (SCAN ORDER) (05/04/2025) Only the most recent of4 resultswithin the time period is included. 05/04/2025 Result [facility] Scanned SCANNING Final Resu lt * IMAGE GENERIC (03/31/2025) Only the most recent of3 resultswithin the time period is included. Anatomical Region Laterality Modality Other 03/31/2025 Result [facility] Scanned SCANNING Final Resu lt * ECHO GENERIC (SCAN ORDER) (03/28/2025) Anatomical Region Laterality Modality Other 03/28/2025 Result [facility] Scanned SCANNING Final Resu lt * CT GENERIC (03/27/2025) Only the most recent of3 resultswithin the time period is included. Anatomical Region Laterality Modality Other 03/27/2025 Result [facility] Scanned SCANNING Final Resu lt * ULTRASOUND GENERIC (SCAN ORDER) (03/27/2025) Only the most recent of2 resultswithin the time period is included. Anatomical Region Laterality Modality Other 03/27/2025 us [facility] Scanned SCANNING Final Resu lt * DIABETIC RETINOPATHY EXAM (NEGATIVE) (01/07/2025) Result [facility] Scanned SCANNING Final Resu lt [facility] ONBASE * (ABNORMAL) HEMOGLOBIN, GLYCOSYLATED (10/30/2024) HGB A1C 7.2(A) % [facility] 10/30/2024 Naseem Underwood MD LABORATORY Final Result [facility] [address] [place] [address], [place] * LIPID PANEL (05/01/2024 11:58 AM CDT) CHOLESTEROL 135 <200 MG/DL 05/02/2024 2:27 PM CDT [facility] TRIGLYCERIDES 120 <150 MG/DL 05/02/2024 2:27 PM CDT [facility] HDL 48 >40 MG/DL 05/02/2024 2:27 PM CDT [facility] LDL-C 63 <100 MG/DL 05/02/2024 2:27 PM CDT [facility] VLDL CALCULATION 24 5 - 28 MG/DL 05/02/2024 2:27 PM CDT [facility] CHOL/HDL RATIO 2.8 0.0 - 4.0 05/02/2024 2:27 PM CDT [facility] LDL/HDL 1.3 0.41 - 2.13 05/02/2024 2:27 PM CDT [facility] NON HDL CHOLESTEROL 87 <140 MG/DL 05/02/2024 2:27 PM CDT [facility] 05/01/2024 11:5 8 AM CDT Naseem Underwood MD LABORATORY Final Result [facility] [address] [facility] [place] [address], [place] [phone] from Last 3 Months or Most Recently Relevant to Health Maintenance Insurance [facility] MEDICARE Care Teams Producer Assistant Relationship Specialty Start Date End Date Naseem Underwood MD [address] [place] [id number] PCP - General INTERNAL MEDICINE 10/02/[address] [facility] [address] [place] [address] Misty Pressure Supervisor CARDIOVASCULAR DISEASE 02/26/19
--- OUTSIDE RECORDS SUMMARY | 2025-06-05 01:22 | XMS_ITS | Data Portability ---
Author Organization [place] - [facility] [employer] [facility], Main Office Address [address] [place] [address] Care Team Providers Care Heating Unit Installer Name Role Phone PAULINA GRANT Primary Care Provider [phone] Assessment Encounter Date Assessment Date Assessment LastModified by Organization Details LastModified Time 11/16/2022 11/16/2022 This note is dictated and transcribed by [employer]. Trolley Coach Driver variances may occur. Despite proofreading, typographical errors may occur. Not available 11/16/2022 12:35:03 08/21/2023 08/21/2023 This note is dictated and transcribed by [employer]. Trolley Coach Driver variances may occur. Despite proofreading, typographical errors may occur. Occasional wrong-word or 'ocjoj-q-bovr' substitutions may have occurred due to the inherent limitations of voice recording. Read the chart carefully and recognize, using context, where substitutions have occurred. Not available 08/23/2023 11:44:40 09/24/2024 09/24/2024 This note is dictated and transcribed by [employer]. Trolley Coach Driver variances may occur. Despite proofreading, typographical errors may occur. Occasional wrong-word or 'knaia-x-wtub' substitutions may have occurred due to the inherent limitations of voice recording. Read the chart carefully and recognize, using context, where substitutions have occurred. Not available 09/25/2024 08:59:57 01/06/2025 01/06/2025 This note is dictated and transcribed by [employer]. Trolley Coach Driver variances may occur. Despite proofreading, typographical errors may occur. Occasional wrong-word or 'hgkrt-s-omux' substitutions may have occurred due to the [...] Organization Details Recorded Time [employer] py follow-up 445306730 Active Not Available [facility] 3 13:54:19 Osteoarthr itis 318804274 Active Not Available [facility] 3 13:54:20 Paronychia of toe of left foot 9722928523445 9100 Active 2018 Not Available [facility] 3 13:54:19 Peripheral venous insufficie ncy 67909960 Active 2018 Not Available [facility] 3 13:54:19 Obesity 737515815 Active 2018 Not Available [facility] 3 13:54:20 Diabetic peripheral neuropathy 820535170 Active 2018 Not Available [facility] 3 13:54:20 Diabetes mellitus 48819510 Active 2018 Not Available [facility] 3 13:54:21 Gout 88234182 Active 2018 Not Available [facility] 3 13:54:21 Unable to cut own nails 178802102 Active 2019 Not Available [facility] 3 13:54:20 Dystrophia unguium 76993039 Active 2019 Not Available [facility] 3 13:54:21 Paronychia of toe of right foot 1864232854856 9102 Active 2019 Not Available [facility] 3 13:54:19 History of diabetic foot ulcer 7233885651787 9100 Active 2020 Not Available [facility] 3 13:54:19 Pain in toe 903357831 Active 2020 Not Available [facility] 3 13:54:20 Pruritic rash 39607829 Active 2020 Not Available [facility] 3 13:54:21 Venous insufficie ncy of lower limb 360952852 Active 2021 Not Available [facility] 3 13:54:19 Peroneal tendinitis of right lower limb 1557511183558 09 Active 2021 Not Available [facility] 3 13:54:20 Lymphedema of lower extremity 936914523 Active 2021 Not Available [facility] 3 13:54:20 Pain in toe 308104222 Active 2024 Quintin Middleton DPM [address], [address], [place], [address] , [employer] 5 09:01:03 Notes:prostate, swollen or p ainful joints, dental problems, sleep apnea Problem Notes None recorded. Procedures Surgical History Date Name Laterality Status Provider Name and Address Organization Details Recorded Time 5 Nail Debridement completed Quintin Middleton DPM [address], [address], [place], [address], [employer] 01/06/2025 15:06:35 5 Nail Debridement completed Quintin Middleton DPM [address], [address], [place], [address], [employer] 09/25/2024 08:59:51 3 Nail Debridement completed Quintin Middleton DPM [address], [address], [place], [address], [employer] 03/27/2023 08:57:05 3 Nail Debridement completed [address], [place], [address], [employer] 11/16/2022 12:51:26 Imaging Results None recorded. Procedure [...] 98 % 164/80 mm[Hg] Louisa Hernandez S[place] [employer] [facility] 5 16:31:14 Date Recorded Body height Heart rate Respiratory rate Oxygen saturation Oxygen saturation in Arterial blood by Pulse oximetry Systolic And Diastolic Provider Name and Address Organization Details Last Updated DateTime 3 177.8 cm 78 /min 14 /min 98 % 98 % 143/77 mm[Hg] Louisa Sanchez [place] [employer] [facility] [employer] [facility] 3 12:36:44 Date Recorded Body height Oxygen saturation Oxygen saturation in Arterial blood by Pulse oximetry Body temperature Heart rate Body mass index (BMI) Body weight Systolic And Diastolic Provider Name and Address Organization Details Last Updated DateTime 5 177.8 cm 97 % 97 % 97.9 [degF] 78 /min 35.9 kg/m2 856335. 09 g 131/78 mm[Hg] Hayden Barajas [facility] [employer] [facility] 5 14:52:36 Date Recorded Body height Heart rate Respiratory rate Oxygen saturation Oxygen saturation in Arterial blood by Pulse oximetry Systolic And Diastolic Provider Name and Address Organization Details Last Updated DateTime 3 177.8 cm 74 /min 14 /min 98 % 98 % 151/79 mm[Hg] Louisa Sanchez [facility] [employer] [facility] 3 12:04:05 Social History Question Answer Notes LastModified by [employer] Details LastModified Time Tobacco Smoking Status Current Every Day Smoker Hayden BarajasFLORA barnhart [facility] [employer] 01/06/2025 14:54:54 What Is Your Level Of Caffeine Consumption? Moderate [email or web address] Information not available 01/06/2025 What Was The Date Of Your Most Recent Tobacco Screening? 01/06/2025 [email or web address] Information not available 01/06/2025 Have You Ever Been Counseled For Unhealthy Alcohol Use? No [email or web address] Information not available 01/06/2025 Sex: Unknown Functional Status Question Answer Note LastModified by [employer] Details LastModified Time Do you use any illicit or recreational drugs? No [email or web address] Information not available 01/06/2025 What is your level of alcohol consumption? Occasional [email or web address] Information not available 01/06/2025 Mental Status None recorded. Family History Nothing Reported. Medical History No medical history recorded. Past Encounters Encounter ID Performer Location Encounter Start Date Encounter Closed Date Diagnosis/Indication Diagnosis SNOMED-CT Code Diagnosis ICD10 Code Diagnosis IMO Codes Diagnosis Note [id number] Quintin Middleton DPM [facility] [place] [address] [address] 01/11/2021 00:00:00 01/14/2021 17:32:19 [id number] Quintin Middleton DPM [facility] [place] [address] [place] [address] 04/14/2021 00:00:00 04/18/2021 10:52:49 [id number] Quintin Middleton DPM [facility] [place] [address] [place] [address] 04/22/2021 00:00:00 04/22/2021 11:25:50 [id number] Quintin Middleton DPM [facility] [address] [address] 10/10/2021 00:00:00 10/10/2021 14:07:34 [id number] Quintin Middleton DPM [facility] [place] [address] [place] [address] 03/16/2022 00:00:00 03/16/2022 14:39:51 [id number] Quintin Middleton DPM [facility] [place] [address] [place] [address] 03/30/2022 00:00:00 03/30/2022 17:20:28 [id number] Quintin Middleton DPM [facility] [place] [address] [place] [address] 07/13/2022 00:00:00 07/13/2022 14:20:35 [id number] Quintin Middleton DPM [facility] [place] [address] [place] [address] 11/16/2022 12:26:47 11/16/2022 12:58:25 Diabetic peripheral neuropathy 300058886 E11.42 Patient educated on neuropathy , diabetes, diabetic diet, and daily foot exams. Patient is to check feet daily for new wounds, blisters, redness to prevent infection and ulceration s to the feet. Patient will return to clinic in 3 months for diabetic foot workup. Dystrophia unguium 73829 009 L60.3 Nails 1 through 10 were debrided with sharp mechanical debridemen t without incident. Nails were debrided and greater than 50% length and thickness where needed. History of diabetic foot ulcer 9761989669 5786760 Z86.31 Continue supportive shoe gear Unable to cut own nails 938146859 Z74.1 [id number] Quintin Middleton DPM [facility] [place] [address] [address] 03/20/2023 11:57:53 03/27/2023 13:09:09 Diabetic peripheral neuropathy 649211877 E11.42 Check feet daily for wounds infectionC ontinue supportive shoe gearContin ue diabetic control per PCPfollow- up 3 months for diabetic foot care Dystrophia unguium 13740 009 L60.3 Nails 1 through 10 were debrided with sharp mechanical debridemen t without incident. Nails were debrided and greater than 50% length and thickness where needed. [id number] [facility] [place] [address] [address] 08/23/2023 08:58:53 08/29/2023 08:02:14 Diabetic peripheral neuropathy 433221675 E11.42 Dystrophia unguium 24876 009 L60.3 Unable to cut own nails 672408416 Z74.1 [id number] Quintin Middleton DPM [facility] [address] [place] [address] 09/24/2024 16:25:48 09/25/2024 17:13:19 Diabetic peripheral neuropathy 231483065 E11.42 Continue diabetic shoe gearCheck feet daily for wounds infectionC ontinue diabetic control per PCP recommenda tionFollow -up in 3 months Dystrophia unguium 64195 009 L60.3 Nails 1 through 10 were debrided with sharp mechanical debridemen t without incident. Nails were debrided and greater than 50% length and thickness where needed. Unable to cut own nails 695844569 Z74.1 Diabetes mellitus 151114 09 E11.9 E11.40 Continue diabetic control per PCP recommenda tions Pain in toe 448200531 M7 9.676 secondary toenails [id number] Quintin Middleton DPM [facility] [place] [address] [facility] [address] [place] [address] 01/06/2025 14:42:24 01/08/2025 15:14:20 History of diabetic foot ulcer 4595994718 2149194 Z86.31 Continue supportive shoe gear Diabetic p eripheral neuropathy 379908466 E11.42 Continue diabetic shoe gearCheck feet daily for wounds infectionC ontinue diabetic control per PCP recommenda tionFollow -up in 3 months Dystrophia unguium 64117 009 L60.3 Nails 1 through 10 were [...] Gomez Member ID Guarantor Name 04/04/2025 1 [facility] (MEDICARE REPLACEMENT/A DVANTAGE - HMO) [id number] Alban Graff [id number] Alban Graff Notes Date Note Type Note [...] to cut them. Quintin Middleton DPM [address] [facility], [facility] [address], [place], [address], [facility] 11/16/2022 12:55:13 03/20/2023 text/html . Patient is 82-year-old male diabetic with neuropathy who returns to the office for diabetic foot care. Patient denies any new pedal complaints and would like his nails cut. Quintin Middleton DPM [address], [address], [place], [address], [employer] 03/27/2023 08:57:39 09/24/2024 text/html . Patient is [...] Middleton DPM [address], [address], [place], [address], [employer] 09/25/2024 09:01:33 01/06/2025 text/html . Patient is 84-year-old male diabetic who returns for diabetic foot care he denies any new complaints. Quintin Middleton DPM [address], [address], [place], [address], [employer] 01/06/2025 15:07:10
[2025-06-05] MEDS: KETOROLAC 15 MG/ML VIAL (*BKC) IV PUSH (10:20)
[2025-06-05] MEDS: ACETAMINOPHEN 500 MG TABLET 1000 MG PO (10:20)
--- NOTE | 2025-06-05 11:49 | WPDHPUPDATE1 ---
History and Physical Update Update Date/Time: 06/05/25 11:49 History and Physical has been reviewed, including an updated exam of the patient. There are NO changes in the patient's condition. Risks, benefits, and alternatives have been discussed and questions answered. Patient agrees to proceed with procedure.
--- NOTE | 2025-06-05 11:49 | WPDANESEPPF ---
Anes - Initial Pre Proc Eval Procedure: Operation Date: 06/05/25 12:00 Proposed Procedures p Laparoscopic Cholecystectomy - Osvaldo Whelan MD Date/Time: 06/05/25 11:49 Surgeon: Osvaldo Whelan MD Pre Op Diagnosis: Acute Cholecystitis Cholelithiasis wth Obstruction Patient Data Age: 84 Gender: M Height: 1.83 m Weight: 107.2 kg Last Vital Signs Temp 37.1 C 06/05/25 10:45 Pulse 88 06/05/25 10:45 Resp 16 06/05/25 10:45 BP 189/99 H 06/05/25 10:45 Pulse Ox 98 06/05/25 10:45 O2 Del Method Room Air 06/05/25 10:45 Allergies Allergy/AdvReac Type Severity Reaction Status Date / Time No Known Allergies Allergy Verified 06/05/25 10:55 Home Medications ?Medication ?Instructions ?Recorded ?Confirmed ?Type cetirizine 10 mg capsule (Zyrtec) 10 mg PO DAILY 06/25/19 05/27/25 History finasteride 5 mg tablet 5 mg PO DAILY 06/25/19 06/05/25 History glipizide 5 mg tablet 10 mg PO DAILY 06/25/19 05/27/25 History dfsgksxr-tu-izghw 300 mcg-K 60 1 tablet PO DAILY 06/25/19 06/05/25 History mcg-lycop 600 mcg-lutein 300 mcg tablet (Centrum Silver Men) omega 5-mfu-iwv-fish oil 1,000 mg 1 cap PO DAILY 06/25/19 06/05/25 History (120 mg-180 mg) capsule (Fish Oil) simvastatin 80 mg tablet 40 mg PO HS 06/25/19 06/05/25 History insulin degludec 100 unit/mL (3 10 unit subcut QPM 03/28/25 05/27/25 History mL) subcutaneous pen (Tresiba FlexTouch U-100 insulin) Prevagen w/Apoaequorin and Vitamin 50 mg PO DAILY 03/29/25 06/05/25 History D vitamins A,C,N-opsh-fjumiq 4,296 1 cap PO DAILY 03/29/25 06/05/25 History mcg-226 mg-90 mg capsule (PreserVision AREDS) apixaban 5 mg tablet (Eliquis) 5 mg PO Q12HR #60 tabs 04/04/25 06/05/25 Rx tamsulosin 0.4 mg capsule 0.4 mg PO HS #30 caps 04/04/25 06/05/25 Rx metoprolol tartrate 50 mg tablet 50 mg PO BID 04/27/25 06/05/25 History Laboratory Tests 06/05/25 10:09 POC Capillary Glucose 135 H mg/dl (65-105) Patient hx anesthesia problems: none Family hx anesthesia problems: none Results Review: All pre-operative results and documents have been reviewed as part of the pre-operative evaluation. [facility] Past Medical History Medical History Umbilical hernia DJD (degenerative joint disease) BPH (benign prostatic hyperplasia) DMII (diabetes mellitus, type 2) Hypertension Hyperlipidemia IVETT (obstructive sleep apnea) CPAP CAD (coronary artery disease) Surgical History Surgical History H/O hemorrhoidectomy (~1979) Status post total left knee replacement (~07/07/19) History of total right knee replacement (~2006) History of coronary artery stent placement (~12/1998) 1998 Family History Family History Mother Family history of Alzheimer's disease Father Family history of heart disease in male family member before age 55 Social History Social History Social History: Patient lives with , Aggie, whom he designates as his surrogate decision maker. He is listed as a full code. His primary is Dr. Underwood. 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) Smoking status: Current every day smoker Tobacco type: cigars Additional smoking assessment comments: 2 cigars/day Alcohol intake: current Drinks per week: 3 Substance use: never Substance use type: does not use Lack of Transportation: No Lack of Food: Never True Current Housing: I Have Housing Concerned About Future Housing: No Difficulty Paying Gas/Electric Bills: No Difficulty Paying for Meds: No Currently Unemployed: No Education: Decline to Answer Difficulty w/ Childcare or Family Care: No Living arrangements: with family Additional living arrangements comments: Lives with at home Occupation/Education: retired Gender identity (if verbalized by the patient): Male Spiritual care concerns: No Agree to blood products: Yes Anes - Eval Final PreProcedure Day of Procedure 06/05/25 11:49 Patient weight: obese Heart: regular rate and rhythm Lungs: decreased breath sounds Airway: Mallampati scale class II Neurological: alert and oriented Last oral intake: >/= 8 hours ASA classification: III Emergent: no Anesthetic plan: proceed Anesthesia type and monitoring: general ETT and standard monitoring Results Review: All pre-operative results and documents have been reviewed as part of the pre-operative evaluation. Informed Consent: The patient's anesthetic plan and its attendant risks and benefits were discussed with the patient/family/POA. Questions were solicited and answers provided to the satisfaction of the patient/family/POA.
[2025-06-05] MEDS: BUPIVACAINE/EPINEPHRINE 0.5% 50 ML VIAL 30 ML INFILTRATE (11:52)
[2025-06-05] MEDS: ceFAZolin 2 GM in SODIUM CHLORIDE 0.9% IV 50 ML 100 ML IVPB (12:04)
--- NOTE | 2025-06-05 12:13 | S_PTH ---
PATIENT: Alban Graff LOC: [id number] U#:[id number] AGE/SX: 84/M ROOM: 317 RE06/07/[address]: Osvaldo Whelan MD : 1940 BED: 02 DIS: 06/10/2025 SPEC #: [id number] RECD: 06/08/25 08:27 STATUS: GILBERTO REQ #: [id number] CECE: 06/05/25 12:[address]: Osvaldo Whelan DEPT: [facility] Surgical RECD BY: Edwina Cowan ENTERED: 06/08/25 08:27 SP TYPE: Surgical OTHR DR: Naseem Underwood, MD Cherelle Castro, AME Tissues: A - Gallbladder Procedures: Hematoxylin and Eosin Stain Gross and Microscopic Level 3
[2025-06-05] MEDS: LACTATED RINGERS 1,000 ML 30 ML IV CONT ×2 (16:00→16:02)
--- NOTE | 2025-06-05 16:18 | W.PM.PROC2 ---
Procedure Note - Detailed Date of Procedure 06/05/25 Pre-op Diagnosis Acute And chronic Cholecystitis, Cholelithiasis, with cystic duct Obstruction Post-op Diagnosis Same Procedure Performed laparoscopic cholecystectomy with attempted intraoperative cholangiogram Surgeon Osvaldo Whelan MD Jig Hand Teho May D.O. Anesthesia General and Local Indications patient is an 84-year-old man who presented in late February with severe acute cholecystitis. Imaging showed not only acute cholecystitis but also an abscess associated with the gallbladder. He had E coli bacteremia and also grew E coli from his bile. This was treated with a cholecystostomy tube placed under ultrasound by Radiology. He has had his cholecystostomy tube in place since discharge. He has gone through rehab and his health is much improved. He is taken to surgery now for removal of his cholecystostomy tube and laparoscopic cholecystectomy. Findings It was expected that this would be a difficult laparoscopic cholecystectomy. I had warned the patient preoperatively that he would most likely have a drain placed during surgery even know the cholecystostomy tube would be removed. Will the difficulty of the surgery was about twice what I expected. The gallbladder was fibrotic and densely adherent to the liver. Numerous adhesions to the liver had to be taken down and all of these were bloody despite using cautery and careful dissection. The gallbladder was so adherent to the liver that 2/3 of the gallbladder had to be removed by taking some superficial liver substance. This also resulted in some oozing of blood. No single vessel or vein caused significant bleeding, it was more of a continue was ooze with literally all dissection performed. An extra 5 mm port had to be placed in the left side of the abdomen to facilitate retraction of the liver from the edges of the gallbladder as well as to facilitate retraction of the transverse colon which rode up an occluded the lower half of the gallbladder and the cholecystohepatic triangle. In addition to the difficulty with the gallbladder being adherent to the liver, the infundibular area of the gallbladder and the ductal structures were covered with a fibrotic, dense, peritoneum due to the chronic inflammation as well. This was very difficult to penetrate even using sharp dissection or cautery. It also tended to bleed with any dissection at all. Despite taking the gallbladder down from the fundus towards the infundibulum, the thick and dense tissue surrounding the cystic duct and cystic artery made it extremely difficult to perform dissection safely. The length of time for the surgery was 3 hours and 20 minutes which is exceptionally long. Typically even very difficult gallbladder surgery will be completed in 2 hours or less. Blood loss was more than usual at about 250 cc. Multiple attempts were made to perform a cholangiogram but I could never find a lumen for the cystic duct. Dissection eventually showed what appeared to be a long cystic duct, cystic artery, but the common hepatic duct and hepatic artery were left undisturbed. A small opening was made in the more distal cystic duct but this was not leaking much at all and should heal easily with a right upper quadrant drain. To try to dissect out this area of cystic duct would have been extremely hazardous and could have resulted in a common bile duct injury. Description of Procedure The patient was taken to surgery and induced into general anesthesia. The right upper quadrant cholecystostomy tube was removed by the surgeon. The abdomen was prepped and draped. Initial trocars were placed in the usual fashion. A 5 mm camera was used. Once trocars had been placed And insufflation adequate, it was easily seen that the gallbladder was completely covered by the proximal transverse colon, omentum and many adhesions. Carefully and tedious leave these adhesions were elevated and, using sharp dissection and cautery, carefully taken down. The gallbladder was eventually exposed and was very fibrotic as mentioned above. We took down many adhesions to the undersurface of the liver, in hopes of retracting the gallbladder anterior 0 superiorly as is typically done in this surgery. Despite that, and possibly due to some fibrosis in the liver, cephalad retraction of the gallbladder and liver was really never accomplished to any significant degree. We continued our careful dissection of adhesions from the gallbladder and eventually were able to free the gallbladder completely. As I mentioned, the upper half of the gallbladder was very fibrotic and densely adherent to the liver. The infundibulum and ductal structures were more pliable but were encased with fibrotic and thickened peritoneum that was very difficult to penetrate or developed a tissue plane. After many attempts at delineating the infundibulum and freeing the gallbladder medial and laterally from the liver, I felt that it would be safest to take the gallbladder off the liver from the top down. We went ahead and perform this. This was quite difficult as well. Holes were made in the gallbladder and bile was suctioned away. There were few stones and whatever stones were there were removed. Much of this retrograde dissection of the gallbladder involved taking some superficial liver with the gallbladder due to the dense adherence. Mild oozing of the liver occurred. Much of this was controlled with either cautery or gentle pressure. Eventually, we dissected the gallbladder down to the peritoneal investment encasing the cystic duct and artery as well as the other ductal structures. Dissection of this was carried out. We tried to free some of the surface peritoneum. In doing this, a small opening was made in what was later felt to be the distal cystic duct. Once this was seen, dissection in this area was stopped. We went back to the distal gallbladder. It had a lot of thickened tissue over its surface. I attempted to open the distal aspect of the gallbladder to place a cholangiogram catheter. At this point in the surgery, Dr. Child came to the operating room and participated in discussion and assistance by reviewing the procedure in real-time on the monitors. This discussion and advice was quite helpful during this very difficult portion of the surgery. I succeeded in finding what appeared to be a distal lumen of the gallbladder. It appeared that a cholangiogram catheter was placed there as desired. Fluoroscopy and C-arm were then brought into the room. I attempted multiple times to perform a cholangiogram. Even though the dye seemed to pass into the this gallbladder and cystic duct, there was no dye to see on the screen. This was puzzling as, even if the dye was leaking out of the gallbladder and duct, there should have been some diet to see under cine fluoroscopy. This would tried 4 different times and on the last couple of tries different positioning of the cholangiogram catheter was formed. None the less, no cholangiogram was able to be accomplished. Cholangiogram would of been very helpful in determining the location of the small bile leak - distal cystic duct or common hepatic duct.I dissected further in the cholecystohepatic triangle and found the cystic artery. This artery was quite large and was securely clipped and divided. There appeared to be a ductal structure adjacent to the cystic artery. This was also dissected and attempts were made to identify the cystic duct and the cystic duct lumen. Despite careful dissection and multiple attempts to identify the cystic duct and its lumen, no lumen could be found. The duct felt to be the cystic duct seemed to be very long with the common bile duct and right hepatic artery being more posterior. I securely clipped the ductal structure. We reviewed and re reviewed the area where the bile leak had occurred. It was by this point very minimal and obviously small. It seemed likely to both Dr. Child and that the leak was in the more distal cystic duct. To dissect further to delineate that anatomy would certainly have posed a high risk for more significant duct injury. I think this has an excellent chance of healing without further intervention. We then irrigated and suctioned the right upper quadrant. The gallbladder was disconnected and removed from the abdominal cavity. It was sent to pathology in formalin. The gallbladder fossa was quite dry and there was no longer any leaking of bile that I could see. A 19 [place] Livan drain was placed in the right subhepatic space and brought out through the right-sided trocar site. It was sutured securely to the skin with 2-0 silk suture. I then used the Roman cone and an 0 Vicryl suture. I closed the fascia at the 11 mm epigastric trocar site. We then evacuated CO2 and removed the remaining trocar sleeves. All skin wounds were closed with subcuticular 4-0 Monocryl skin suture. The wounds were dressed with Exofin surgical adhesive. The Livan drain was placed to bulb suction and a drain bandage was placed over its exit site. The patient was then awakened and extubated. He was transferred to recovery in good condition. Sponge and needle counts were correct x2. Estimated Blood Loss -250 Drains Yes ( Right upper quadrant OBED drain in subhepatic space.) Packing No Pathology Yes ( Gallbladder) Complications None Condition Stable Disposition PACU [facility] Billing Surgery - Charge Forward: Surgery Billing ( difficult laparoscopic cholecystectomy with attempted intraoperative cholangiogram, add - 22 modifier for increased difficulty.)
[2025-06-05] MEDS: fentaNYL CITRATE INJ (*CRX) 100 MCG/2 ML VIAL 25 MCG IV PUSH ×5 (16:40→17:43)
--- NOTE | 2025-06-05 18:04 | SUR.PHASEI ---
KACEY OLIVER CRNA CALLED RE: BP 220/92; ORDERED TO GIVE 10 MG LABETOLOL AND TO HAVE FLOOR RESUME REGULAR DOSE OF METOPROLOL.
[2025-06-05] MEDS: METOPROLOL TARTRATE 50 MG TAB PO (18:51)
--- NOTE | 2025-06-05 19:14 | PC.NURSE ---
RN spoke with hospitalist Cherelle Castro and updated her on patient's blood pressure (see vitals).
--- NOTE | 2025-06-05 19:29 | P.CONIM_ITS ---
Assessment and Plan Assessment and plan (1) Hypertensive urgency: Code(s): I16.0 - Hypertensive urgency Status: Acute Assessment and Plan: Hydralazine p.r.n. Patient was on atenolol, lisinopril, and amlodipine and was taken off during last hospitalization not restarted. Will restart low-dose lisinopril Adjust blood pressure medications as needed (2) Paroxysmal atrial fibrillation: Code(s): I48.0 - Paroxysmal atrial fibrillation Status: Chronic Assessment and Plan: Continue metoprolol (3) DMII (diabetes mellitus, type 2): Qualifiers: Diabetes mellitus complication status: without complication Diabetes mellitus long chain beamer insulin use: without long chain beamer use Qualified Code(s): E11.9 - Type 2 diabetes mellitus without complications Code(s): E11.9 - Type 2 diabetes mellitus without complications Status: Chronic Assessment and Plan: Joel CONTE SSI Diet per surgery (4) Acute cholecystitis: Code(s): K81.0 - Acute cholecystitis Status: Chronic Assessment and Plan: Patient had acute gangrenous cholecystitis less than use in the hospital was sent home with per continues to he is now status post cholecystectomy. Robaxin added for pain management (5) BPH (benign prostatic hyperplasia): Code(s): N40.0 - Benign prostatic hyperplasia without lower urinary tract symptoms Status: Acute Assessment and Plan: Continue home meds HPI Date of Consult Consult date: 06/05/25 Requesting Physician: Osvaldo Whelan MD Primary Care Provider: Naseem Underwood, Consult Narrative Reason for consult: Hypertensive urgency Narrative: Alban Graff is a 84 year old male who was admitted to the hospital for sepsis due to acute cholecystitis on 03/27/2025. He had a part coli tube placed at that time, and had E coli bacteremia. Today he presented to the hospital for a planned cholecystectomy. On 06 05 2025 the hospitalist team has been consulted for hypertensive urgency postop with the patient's blood pressure being 223/100. During patient's last hospital admission due to rhabdomyolysis on admission acute sepsis with severe hypotension he was taken off 3 different blood pressure medications. He was on lisinopril, amlodipine and atenolol. He was recommended to follow-up with his PCP. These were not restarted. Review of Systems Review of Systems: 12 systems were reviewed and are negativ e except for as per HPI. [facility] Past Medical History Medical History Umbilical hernia DJD (degenerative joint disease) BPH (benign prostatic hyperplasia) DMII (diabetes mellitus, type 2) Hypertension Hyperlipidemia IVETT (obstructive sleep apnea) CPAP CAD (coronary artery disease) Surgical History Surgical History H/O hemorrhoidectomy (~1979) Status post total left knee replacement (~07/07/19) History of total right knee replacement (~2006) History of coronary artery stent placement (~12/1998) 1998 Family History Family History Mother Family history of Alzheimer's disease Father Family history of heart disease in male family member before age 55 Social History Social History Social History: Patient lives with , Aggie, whom he designates as his surrogate decision maker. He is listed as a full code. His primary is Dr. Underwood. 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) Smoking status: Current every day smoker Tobacco type: cigars Additional smoking assessment comments: 2 cigars/day Alcohol intake: current Drinks per week: 3 Substance use: never Substance use type: prescription drug Last use: Eliquis stopped 06/02/25 Lack of Transportation: No Lack of Food: Never True Current Housing: I Have Housing Concerned About Future Housing: No Difficulty Paying Gas/Electric Bills: No Difficulty Paying for Meds: No Currently Unemployed: No Education: High School Diploma/GED Difficulty w/ Childcare or Family Care: No Living arrangements: with family Additional living arrangements comments: Lives with at home Occupation/Education: retired Gender identity (if verbalized by the patient): Male Spiritual care concerns: No Agree to blood products: Yes Meds Home Medications and Allergies Home Medications ?Medication ?Instructions ?Recorded ?Confirmed ?Type cetirizine 10 mg capsule (Zyrtec) 10 mg PO DAILY 06/2505/27/25 History finasteride 5 mg tablet 5 mg PO DAILY 06/25/1906/05 History glipizide 5 mg tablet 10 mg PO DAILY 06/25/1904/30 History jhaimssf-eq-usrfa 300 mcg-K 60 1 tablet PO DAILY 06/2506/05/25 History mcg-lycop 600 mcg-lutein 300 mcg tablet (Centrum Silver Men) omega 2-zgj-hba-fish oil 1,000 mg 1 cap PO DAILY 06/2506/05/25 History (120 mg-180 mg) capsule (Fish Oil) simvastatin 80 mg tablet 40 mg PO HS 06/25/19 5 History insulin degludec 100 unit/mL (3 10 unit subcut QPM 05/27/25 History mL) subcutaneous pen (Tresiba FlexTouch U-100 insulin) Prevagen w/Apoaequorin and Vitamin 50 mg PO DAILY 03/0106/05/25 History D vitamins A,C,P-ycrn-dgzizq 4,296 1 cap PO DAILY 06/05/25 History mcg-226 mg-90 mg capsule (PreserVision AREDS) apixaban 5 mg tablet (Eliquis) 5 mg PO Q12HR #60 tabs 04/04/25 06/05/25 Rx tamsulosin 0.4 mg capsule 0.4 mg PO HS #30 caps 06/05/25 Rx metoprolol tartrate 50 mg tablet 50 mg PO BID 04/27/25 06/05/25 History Allergies Allergy/AdvReac Type Severity Reaction Status Date / Time No Known Allergies Allergy Verified 06/05/25 20:07 Vital Signs Vital Signs - 24 hr 06/05/25 10:45 06/05/25 16:01 06/05/25 16:15 Temperature 98.7 F 98.2 F Pulse Rate 88 103 H 120 H Respiratory Rate 16 18 24 H Blood Pressure 189/99 H 159/79 H 159/70 H Pulse Oximetry 98 99 99 Oxygen Delivery Room Air Simple Face Mask Simple Face Mask Oxygen Flow Rate 10 10 06/05/25 16:30 06/05/25 16:45 06/05/25 17:00 Temperature Pulse Rate 88 87 82 Respiratory Rate 22 H 20 20 Blood Pressure 138/70 169/75 H 181/82 H Pulse Oximetry 96 96 96 Oxygen Delivery Room Air Room Air Oxygen Flow Rate 06/05/25 17:15 06/05/25 17:25 06/05/25 17:30 Temperature Pulse Rate 79 80 106 H Respiratory Rate 26 H 25 H Blood Pressure 183/76 H 206/90 H Pulse Oximetry 95 95 Oxygen Delivery Room Air Room Air Oxygen Flow Rate 06/05/25 17:42 06/05/25 17:45 06/05/25 18:00 Temperature Pulse Rate 123 H 111 H 73 Respiratory Rate 26 H 28 H Blood Pressure 192/84 H 220/92 H Pulse Oximetry 92 96 Oxygen Delivery Room Air Room Air Oxygen Flow Rate 06/05/25 18:15 06/05/25 18:45 06/05/25 18:51 Temperature 97.6 F Pulse Rate 76 83 83 Respiratory Rate 22 H 20 Blood Pressure 199/86 H 219/94 H Pulse Oximetry 96 99 Oxygen Delivery Room Air Oxygen Flow Rate 06/05/25 19:00 Temperature 97.5 F L Pulse Rate 76 Respiratory Rate 18 Blood Pressure 223/100 H Pulse Oximetry 98 Oxygen Delivery Oxygen Flow Rate Exam Narrative: General: well appearing, appears stated age. HEENT: normocephalic, atraumatic. Mucous membranes moist. EOMI, PERRLA, bilateral sclera anicteric, no conjunctival injection. Neck supple without JVD, lymphadenopathy, or bruit. Respiratory: clear bilaterally. No rales/rhonic/wheezes. Cardiovascular: Regular rate and rhythm, normal S1-S2. No murmurs, rubs, or clicks. PMI is nondisplaced, capillary refill less than 3 second. Abdomen: Soft, round, no pulsatile masses, nondistended and nontender. No rebound, no guarding. Bowel sounds present to all four quadrants. No high pitch or tinkling sounds, resonant to percussion. Extremities: No cyanosis, clubbing, or edema present. Pulses are palpable 2/2. Active ROM to all four extremities. Laparoscopic sites Neuro: Alert and orientated x 4. PERRLA. Cranial nerves 2-12 intact without focal deficit. Skin: Warm, dry, and intact, without rash, erythema, or lesion. Psych: pleasant, cooperative, normal speech, normal affect, no hallucinations, no dysarthia Quality VTE Prophylaxis VTE prophylaxis: mechanical ordered and pharmacologic ordered Hospitalist [facility] Advance Care Plan I have confirmed that the patient's Advanced Care Plan is present, code status is documented, or surrogate decision maker is listed in patient medical record.: Yes Medication Reconciliation I have utilized all available resources to obtain, update and review the patients current medications (includes all prescriptions, OTC, herbals, ca nnabis, and nutritional supplements).: Yes
[2025-06-05] MEDS: oxyCODONE/ACETAMINOPHEN (*CRX) 5-325 MG TABLET 0.5 TABLET PO ×2 (19:38→21:42)
[2025-06-05] MEDS: LACTATED RINGERS 1,000 ML 100 ML IV CONT (19:42)
[2025-06-05] MEDS: SIMVASTATIN 20 MG TABLET 40 MG PO (20:22)
[2025-06-05] MEDS: INSULIN ASPART (*BKC) 100 UNITS/ML SUB-Q (23:32)
[2025-06-06] VITALS (12 sets, daily range): BP systolic 112–168; BP diastolic 53–85; PULSE 64–97; RESP 17–28; TEMP 36.5–37.5; O2SAT 94–100
[2025-06-06] MEDS: WATER FOR IRRIGATION, STERILE 500 ML BOTTLE (01:20)
--- NOTE | 2025-06-06 01:45 | PC.NURSE ---
Pt stated he felt like he needed to void. Pt tried to use the urinal, was unable to void and stated he had unbearable pressure. Bladder scan showed 499. Discussed & educated pt regarding straight cath. Per policy. Straight cath was performed, with 450 ml output.
[2025-06-06] MEDS: oxyCODONE/ACETAMINOPHEN (*CRX) 5-325 MG TABLET 0.5 TABLET PO (01:47)
--- NOTE | 2025-06-06 04:32 | PC.NURSE ---
Notified Dr. Tian regarding pt continues to try and is unable to void. Bladder scan - 350ml. New orders given to place Jeffrey cath.
[2025-06-06] MEDS: LACTATED RINGERS 1,000 ML 100 ML IV CONT ×2 (06:33→13:04)
[2025-06-06 07:43] LABS: Hematocrit 33.4 % (42.0-52.0); Hemoglobin 10.7 g/dL (14.0-18.0); Mean Corpuscular HGB Conc 32.0 g/dl (32-36); Mean Corpuscular Hemoglobin 30.1 pg (26-34); Mean Corpuscular Volume 93.8 fl (80-100); Platelet Count Result 204 k/mm3 (150-375); Red Blood Count 3.56 M/mm3 (4.6-6.20); White Blood Count 13.7 K/mm3 (4.5-10.0)
[2025-06-06] MEDS: FINASTERIDE 5 MG TABLET PO (08:02)
[2025-06-06] MEDS: OPTI-GEN TAB 1 TABLET PO (08:03)
[2025-06-06 08:06] LABS: Alanine Aminotransferase 89 U/L (6-50); Albumin Level 3.0 g/dL (3.5-5.1); Alkaline Phosphatase 63 U/L (38-126); Anion Gap 6 mmol/L (4-12); Aspartate Amino Transferase 100 U/L (17-59); Bilirubin,Total 0.7 mg/dL (0.2-1.3); Blood Urea Nitrogen 17 mg/dL (9-20); Calcium 8.3 mg/dL (8.4-10.2); Carbon Dioxide 26 mmol/L (22-30); Chloride 102 mmol/L (98-107); Estimated CRCL calculation 60 ml/min; Estimated Glomerular Filt Rate > 60; Glucose 174 mg/dL (65-110); Potassium 3.8 mmol/L (3.4-5.0); Sodium 134 mmol/L (137-145); Total Protein 5.5 g/dL (6.3-8.2)
[2025-06-06] MEDS: ENOXAPARIN 40 MG/0.4 ML SYRINGE SUB-Q (08:06)
[2025-06-06] MEDS: INSULIN ASPART (*BKC) 100 UNITS/ML SUB-Q (09:02)
[2025-06-06] MEDS: METOPROLOL TARTRATE 50 MG TAB PO ×2 (09:05→21:13)
--- NOTE | 2025-06-06 11:10 | PM.PNGS ---
Progress Note: A&P Assessment and Plan (1) Cholelithiasis and acute cholecystitis without obstruction: Code(s): K80.00 - Calculus of gallbladder with acute cholecystitis without obstruction Status: Acute Assessment and Plan: doing well overall, continue drain and antibiotics, will advance diet as tolerated, encourage out of bed and incentive spirometer use, continue to hold anticoagulation Subjective Subjective Date/Time Seen: 06/06/25 11:10 Interval history: feels pretty good this morning, some incisional soreness Review of Systems Review of Systems: All systems reviewed & are unremarkable except as noted in HPI and below Exam Const: General: cooperative, comfortable and no acute distress Resp: Auscultation: diminished lung sounds Cardio: Rate: regular rate Rhythm: regular rhythm GI: Inspection: normal to inspection, distended and incision GI Palp: Yes abdominal tenderness, Yes Soft to palpation, No Guarding due to palpation present (GI) and No Rigid due to palpation Other: OBED with scant bilious drainage Objective Data Vital Signs Vital Signs: Vital Signs - 24 hr 06/05/25 16:01 06/05/25 16:15 06/05/25 16:30 Temperature 36.8 C Pulse Rate 103 H 120 H 88 Respiratory Rate 18 24 H 22 H Blood Pressure 159/79 H 159/70 H 138/70 Pulse Oximetry 99 99 96 Oxygen Delivery Simple Face Mask Simple Face Mask Room Air Oxygen Flow Rate 10 10 06/05/25 16:45 06/05/25 17:00 06/05/25 17:15 Temperature Pulse Rate 87 82 79 Respiratory Rate 20 20 26 H Blood Pressure 169/75 H 181/82 H 183/76 H Pulse Oximetry 96 96 95 Oxygen Delivery Room Air Room Air Oxygen Flow Rate 06/05/25 17:25 06/05/25 17:30 06/05/25 17:42 Temperature Pulse Rate 80 106 H 123 H Respiratory Rate 25 H Blood Pressure 206/90 H Pulse Oximetry 95 Oxygen Delivery Room Air Oxygen Flow Rate 06/05/25 17:45 06/05/25 18:00 06/05/25 18:15 Temperature Pulse Rate 111 H 73 76 Respiratory Rate 26 H 28 H 22 H Blood Pressure 192/84 H 220/92 H 199/86 H Pulse Oximetry 92 96 96 Oxygen Delivery Room Air Room Air Room Air Oxygen Flow Rate 06/05/25 18:45 06/05/25 18:51 06/05/25 19:00 Temperature 36.4 C 36.4 C L Pulse Rate 83 83 76 Respiratory Rate 20 18 Blood Pressure 219/94 H 223/100 H Pulse Oximetry 99 98 Oxygen Delivery Oxygen Flow Rate 06/05/25 20:12 06/05/25 23:05 06/06/25 00:12 Temperature 37.0 C 36.8 C Pulse Rate 77 79 80 Respiratory Rate 17 21 H 18 Blood Pressure 172/69 H 168/85 H Pulse Oximetry 99 94 98 Oxygen Delivery CPAP Oxygen Flow Rate 06/06/25 04:00 06/06/25 04:00 06/06/25 08:09 Temperature 36.8 C 37.0 C Pulse Rate 64 79 86 Respiratory Rate 17 28 H Blood Pressure 120/60 130/56 L Pulse Oximetry 94 97 Oxygen Delivery Oxygen Flow Rate 06/06/25 08:32 06/06/25 09:05 06/06/25 10:35 Temperature Pulse Rate 86 86 78 Respiratory Rate Blood Pressure 130/56 L 112/53 L Pulse Oximetry Oxygen Delivery Oxygen Flow Rate Intake/Output Intake/Output: Intake & Output 06/03/25 06/04/25 06/05/25 06/06/25 23:59 23:59 23:59 23:59 Intake Total 1350 1240 Output Total 655 1540 Balance 695 -300 Meds/Results Medications: Active Medications Generic Name Dose Route Start Last Admin Trade Name Freq PRN Reason Stop Dose Admin Acetaminophen 500 mg 06/05/25 18:27 Acetaminophen 500 Mg Tablet PO Q6H PRN Pain Rated 1-3 Dextrose 12.5 gm 06/05/25 18:27 Dextrose 50% 25 Gm/50 Ml Syringe IV PUSH PRN PRN Hypoglycemia Protocol Enoxaparin Sodium 40 mg 06/06/25 09:00 06/06/25 08:06 Enoxaparin 40 Mg/0.4 Ml Syringe SUB-Q 40 mg DAILY CEE Administration Fentanyl Citrate 12.5 mcg 06/05/25 18:27 Fentanyl Citrate Inj (*Crx) 100 Mcg/2 Ml Vial IV PUSH Q2H PRN Breakthrough Pain Rated 4-6 or NPO Fentanyl Citrate 25 mcg 06/05/25 18:27 Fentanyl Citrate Inj (*Crx) 100 Mcg/2 Ml Vial IV PUSH Q2H PRN Breakthrough Pain Rated 7-10 or NPO Finasteride 5 mg 06/06/25 09:00 06/06/25 08:02 Finasteride 5 Mg Tablet PO 5 mg DAILY CEE Administration Glipizide 10 mg 06/06/25 09:00 06/06/25 08:05 Glipizide 5 Mg Tablet PO 10 mg DAILY CEE Administration Glucagon 1 mg 06/05/25 18:27 Glucagon For Inj 1 Mg Vial IM PRN PRN Hypoglycemia Protocol Glucose 15 gm 06/05/25 18:27 Glucose Oral Gel 15 Gm Of Glucse In 37.5 Gm Tube PO PRN PRN Hypoglycemia Protocol Lactated Ringer's 1,000 mls @ 100 mls/hr 06/05/25 18:27 06/06/25 06:33 Lr - Lactated Ringers Iv IV CONT 100 mls/hr .Q10H CEE Administration Ibuprofen 800 mg in 200 mls @ 400 mls/hr 06/05/25 18:27 Caldolor 800 Mg/200 Ml IVPB Q6H PRN Breakthrough Pain Rated 1-3 or NPO Dextrose 1,000 mls @ 100 mls/hr 06/05/25 18:27 Dextrose 5% 1,000 Ml IVPB PRN PRN Hypoglycemia Protocol Insulin Aspart 3 - 6 units 06/06/25 08:00 06/06/25 09:02 Insulin Aspart (*Bkc) 100 Units/Ml SUB-Q 3 units TIDWM CEE Administration Protocol Insulin Aspart 1 - 3 units 06/05/25 21:00 06/05/25 23:32 Insulin Aspart (*Bkc) 100 Units/Ml SUB-Q 1 units HS CEE Administration Protocol Lisinopril 20 mg 06/05/25 21:05 06/06/25 09:15 Lisinopril 20 Mg Tablet PO 20 mg QAM CEE Administration Methocarbamol 500 mg 06/05/25 23:05 06/06/25 08:02 Methocarbamol 500 Mg Tablet PO 500 mg QID CEE Administration Metoprolol Tartrate 50 mg 06/05/25 18:50 06/06/25 09:05 Metoprolol Tartrate 50 Mg Tab PO 50 mg Q12HR [facility]EE Administration Multivitamins/Minerals 1 tablet 06/06/25 09:00 06/06/25 08:03 Opti-Gen Tab PO 1 tablet DAILY CEE Administration Naloxone HCl 0.1 mg 06/05/25 18:27 Naloxone Hcl 0.4 Mg/Ml Vial IV PUSH Q2M PRN Opiate Reversal Ondansetron HCl 4 mg 06/05/25 18:27 Ondansetron Inj 4 Mg/2 Ml Vial IV PUSH Q4H PRN Nausea And Vomiting Oxycodone/Acetaminophen 0.5 tablet 06/05/25 18:27 06/06/25 01:47 Oxycodone/Acetaminophen (*Crx) 5-325 Mg Tablet PO 0.5 tablet Q4H PRN Administration Pain Rated 4-6 Simvastatin 40 mg 06/05/25 21:00 06/05/25 20:22 Simvastatin 20 Mg Tablet PO 40 mg HS CEE Administration Tamsulosin HCl 0.4 mg 06/05/25 21:00 06/05/25 21:14 Tamsulosin Hcl 0.4 Mg Capsule PO Not Given HS [facility] Labs Labs: Laboratory Results - last 24 hr 06/05/25 06/05/25 06/06/25 16:21 21:31 06:16 WBC 13.7 H RBC 3.56 L Hgb 10.7 L Hct 33.4 L MCV 93.8 MCH 30.1 MCHC 32.0 RDW 14.1 Plt Count 204 MPV 11.5 H Sodium 134 L Potassium 3.8 Chloride 102 Carbon Dioxide 26 Anion Gap 6 BUN 17 Creatinine 0.98 Estim Creat Clear Calc 60 Estimated GFR > 60 Glucose 174 H POC Capillary Glucose 151 H 209 H Calcium 8.3 L Total Bilirubin 0.7 AST 100 H ALT 89 H Alkaline Phosphatase 63 Total Protein 5.5 L Albumin 3.0 L 06/06/25 07:59 WBC RBC Hgb Hct MCV MCH MCHC RDW Plt Count MPV Sodium Potassium Chloride Carbon Dioxide Anion Gap BUN Creatinine Estim Creat Clear Calc Estimated GFR Glucose POC Capillary Glucose 207 H Calcium Total Bilirubin AST ALT Alkaline Phosphatase Total Protein Albumin
--- NOTE | 2025-06-06 13:24 | P.PNIM_ITS ---
Progress Note: A&P Assessment and Plan (1) Hypertensive urgency: Code(s): I16.0 - Hypertensive urgency Status: Acute Assessment and Plan: Hydralazine p.r.n. Patient was on atenolol, lisinopril, and amlodipine and was taken off during last hospitalization not restarted. Will restart low-dose lisinopril Adjust blood pressure medications as needed (2) Paroxysmal atrial fibrillation: Code(s): I48.0 - Paroxysmal atrial fibrillation Status: Chronic Assessment and Plan: Continue metoprolol (3) DMII (diabetes mellitus, type 2): Qualifiers: Diabetes mellitus custodial insulin use: without buttermaker continuous churn use Diabetes mellitus complication status: without complication Qualified Code(s): E11.9 - Type 2 diabetes mellitus without complications Code(s): E11.9 - Type 2 diabetes mellitus without complications Status: Chronic Assessment and Plan: Joel CONTE SSI Diet per surgery (4) Acute cholecystitis: Code(s): K81.0 - Acute cholecystitis Status: Chronic Assessment and Plan: Patient had acute gangrenous cholecystitis less than use in the hospital was sent home with per continues to he is now status post cholecystectomy. Robaxin added for pain management (5) BPH (benign prostatic hyperplasia): Code(s): N40.0 - Benign prostatic hyperplasia without lower urinary tract symptoms Status: Acute Assessment and Plan: Continue home meds Plan Patient had cholecystectomy on 06/05/25 POD#1, patient stats feeling much better had his breakfast clear liquids and tolerated, seen by his surgeon and advance his diet as tolerated, and encouraged patient to be out of bed and use incentive spirometer, will hold anticoagulation, will monitor. Subjective Date/time seen: 06/06/25 13:24 Interval history: H&P-Narrative: Alban Graff is a 84 year old male who was admitted to the hospital for sepsis due to acute cholecystitis on 03/27/2025. He had a part coli tube placed at that time, and had E coli bacteremia. Today he presented to the hospital for a planned cholecystectomy. On 06 05 2025 the hospitalist team has been consulted for hypertensive urgency postop with the patient's blood pressure being 223/100. During patient's last hospital admission due to rhabdomyolysis on admission acute sepsis with severe hypotension he was taken off 3 different blood pressure medications. He was on lisinopril, amlodipine and atenolol. He was recommended to follow-up with his PCP. These were not restarted. Patient had cholecystectomy on 06/05/25 POD#1, patient stats feeling much better had his breakfast clear liquids and tolerated, seen by his surgeon and advance his diet as tolerated, and encouraged patient to be out of bed and use incentive spirometer, will hold anticoagulation, will monitor. Review of Systems Review of Systems: 12 systems were reviewed and are negativ e except for as per HPI. All systems reviewed & are unremarkable except as noted in HPI and below Exam Narrative: Patient is comfortable, NAD HEENT: eyes are clear and none icteric LUNGS:CTA HEART: RR S1S2 ABD: BS+, Soft and nontender Lower extremities: no edema SKIN: nonjaundiced Neuro: grossly intact. Objective Data Vital Signs Vital Signs: Vital Signs - 24 hr 06/05/25 16:01 06/05/25 16:15 06/05/25 16:30 Temperature 36.8 C Pulse Rate 103 H 120 H 88 Respiratory Rate 18 24 H 22 H Blood Pressure 159/79 H 159/70 H 138/70 Pulse Oximetry 99 99 96 Oxygen Delivery Simple Face Mask Simple Face Mask Room Air Oxygen Flow Rate 10 10 06/05/25 16:45 06/05/25 17:00 06/05/25 17:15 Temperature Pulse Rate 87 82 79 Respiratory Rate 20 20 26 H Blood Pressure 169/75 H 181/82 H 183/76 H Pulse Oximetry 96 96 95 Oxygen Delivery Room Air Room Air Oxygen Flow Rate 06/05/25 17:25 06/05/25 17:30 06/05/25 17:42 Temperature Pulse Rate 80 106 H 123 H Respiratory Rate 25 H Blood Pressure 206/90 H Pulse Oximetry 95 Oxygen Delivery Room Air Oxygen Flow Rate 06/05/25 17:45 06/05/25 18:00 06/05/25 18:15 Temperature Pulse Rate 111 H 73 76 Respiratory Rate 26 H 28 H 22 H Blood Pressure 192/84 H 220/92 H 199/86 H Pulse Oximetry 92 96 96 Oxygen Delivery Room Air Room Air Room Air Oxygen Flow Rate 06/05/25 18:45 06/05/25 18:51 06/05/25 19:00 Temperature 36.4 C 36.4 C L Pulse Rate 83 83 76 Respiratory Rate 20 18 Blood Pressure 219/94 H 223/100 H Pulse Oximetry 99 98 Oxygen Delivery Oxygen Flow Rate 06/05/25 20:12 06/05/25 23:05 06/06/25 00:12 Temperature 37.0 C 36.8 C Pulse Rate 77 79 80 Respiratory Rate 17 21 H 18 Blood Pressure 172/69 H 168/85 H Pulse Oximetry 99 94 98 Oxygen Delivery CPAP Oxygen Flow Rate 06/06/25 04:00 06/06/25 04:00 06/06/25 08:00 Temperature 36.8 C Pulse Rate 64 79 Respiratory Rate 17 Blood Pressure 120/60 Pulse Oximetry 94 Oxygen Delivery CPAP Oxygen Flow Rate 06/06/25 08:00 06/06/25 08:09 06/06/25 08:32 Temperature 37.0 C Pulse Rate 97 86 86 Respiratory Rate 28 H Blood Pressure 130/56 L 130/56 L Pulse Oximetry 97 Oxygen Delivery Oxygen Flow Rate 06/06/25 09:05 06/06/25 10:35 06/06/25 11:28 Temperature 36.5 C Pulse Rate 86 78 77 Respiratory Rate 28 H Blood Pressure 112/53 L 116/62 Pulse Oximetry 100 Oxygen Delivery Oxygen Flow Rate 06/06/25 12:00 Temperature 37.5 C Pulse Rate 70 Respiratory Rate 22 H Blood Pressure 122/65 Pulse Oximetry 98 Oxygen Delivery Oxygen Flow Rate Intake/Output Intake/Output: Intake & Output 06/03/25 06/04/25 06/05/25 06/06/25 23:59 23:59 23:59 23:59 Intake Total 1350 1891.7 Output Total 655 1540 Balance 695 351.7 Meds/Results Medications: Active Medications Generic Name Dose Route Start Last Admin Trade Name Freq PRN Reason Stop Dose Admin Acetaminophen 500 mg 06/05/25 18:27 Acetaminophen 500 Mg Tablet PO Q6H PRN Pain Rated 1-3 Dextrose 12.5 gm 06/05/25 18:27 Dextrose 50% 25 Gm/50 Ml Syringe IV PUSH PRN PRN Hypoglycemia Protocol Enoxaparin Sodium 40 mg 06/06/25 09:00 06/06/25 08:06 Enoxaparin 40 Mg/0.4 Ml Syringe SUB-Q 40 mg DAILY CEE Administration Fentanyl Citrate 12.5 mcg 06/05/25 18:27 Fentanyl Citrate Inj (*Crx) 100 Mcg/2 Ml Vial IV PUSH Q2H PRN Breakthrough Pain Rated 4-6 or NPO Fentanyl Citrate 25 mcg 06/05/25 18:27 Fentanyl Citrate Inj (*Crx) 100 Mcg/2 Ml Vial IV PUSH Q2H PRN Breakthrough Pain Rated 7-10 or NPO Finasteride 5 mg 06/06/25 09:00 06/06/25 08:02 Finasteride 5 Mg Tablet PO 5 mg DAILY CEE Administration Glipizide 10 mg 06/06/25 09:00 06/06/25 08:05 Glipizide 5 Mg Tablet PO 10 mg DAILY CEE Administration Glucagon 1 mg 06/05/25 18:27 Glucagon For Inj 1 Mg Vial IM PRN PRN Hypoglycemia Protocol Glucose 15 gm 06/05/25 18:27 Glucose Oral Gel 15 Gm Of Glucse In 37.5 Gm Tube PO PRN PRN Hypoglycemia Protocol Lactated Ringer's 1,000 mls @ 100 mls/hr 06/05/25 18:27 06/06/25 13:04 Lr - Lactated Ringers Iv IV CONT 100 mls/hr .Q10H CEE Administration Ibuprofen 800 mg in 200 mls @ 400 mls/hr 06/05/25 18:27 Caldolor 800 Mg/200 Ml IVPB Q6H PRN Breakthrough Pain Rated 1-3 or NPO Dextrose 1,000 mls @ 100 mls/hr 06/05/25 18:27 Dextrose 5% 1,000 Ml IVPB PRN PRN Hypoglycemia Protocol Insulin Aspart 3 - 6 units 06/06/25 08:00 06/06/25 12:21 Insulin Aspart (*Bkc) 100 Units/Ml SUB-Q Not Given TIDWM CEE Protocol Insulin Aspart 1 - 3 units 06/05/25 21:00 06/05/25 23:32 Insulin Aspart (*Bkc) 100 Units/Ml SUB-Q 1 units HS CEE Administration Protocol Lisinopril 20 mg 06/05/25 21:05 06/06/25 09:15 Lisinopril 20 Mg Tablet PO 20 mg QAM CEE Administration Methocarbamol 500 mg 06/05/25 23:05 06/06/25 13:03 Methocarbamol 500 Mg Tablet PO 500 mg QID CEE Administration Metoprolol Tartrate 50 mg 06/05/25 18:50 06/06/25 09:05 Metoprolol Tartrate 50 Mg Tab PO 50 mg Q12HR CEE Administration Multivitamins/Minerals 1 tablet 06/06/25 09:00 06/06/25 08:03 Opti-Gen Tab PO 1 tablet DAILY CEE Administration Naloxone HCl 0.1 mg 06/05/25 18:27 Naloxone Hcl 0.4 Mg/Ml Vial IV PUSH Q2M PRN Opiate Reversal Ondansetron HCl 4 mg 06/05/25 18:27 Ondansetron Inj 4 Mg/2 Ml Vial IV PUSH Q4H PRN Nausea And Vomiting Oxycodone/Acetaminophen 0.5 tablet 06/05/25 18:27 06/06/25 01:47 Oxycodone/Acetaminophen (*Crx) 5-325 Mg Tablet PO 0.5 tablet Q4H PRN Administration Pain Rated 4-6 Simvastatin 40 mg 06/05/25 21:00 06/05/25 20:22 Simvastatin 20 Mg Tablet PO 40 mg HS CEE Administration Tamsulosin HCl 0.4 mg 06/05/25 21:00 06/05/25 21:14 Tamsulosin Hcl 0.4 Mg Capsule PO Not Given HS [facility]EE Labs Labs: Laboratory Results - last 24 hr 06/05/25 06/05/25 06/06/25 16:21 21:31 06:16 WBC 13.7 H RBC 3.56 L Hgb 10.7 L Hct 33.4 L MCV 93.8 MCH 30.1 MCHC 32.0 RDW 14.1 Plt Count 204 MPV 11.5 H Sodium 134 L Potassium 3.8 Chloride 102 Carbon Dioxide 26 Anion Gap 6 BUN 17 Creatinine 0.98 Estim Creat Clear Calc 60 Estimated GFR > 60 Glucose 174 H POC Capillary Glucose 151 H 209 H Calcium 8.3 L Total Bilirubin 0.7 AST 100 H ALT 89 H Alkaline Phosphatase 63 Total Protein 5.5 L Albumin 3.0 L 06/06/25 06/06/25 07:59 11:10 WBC RBC Hgb Hct MCV MCH MCHC RDW Plt Count MPV Sodium Potassium Chloride Carbon Dioxide Anion Gap BUN Creatinine Estim Creat Clear Calc Estimated GFR Glucose POC Capillary Glucose 207 H 90 Calcium Total Bilirubin AST ALT Alkaline Phosphatase Total Protein Albumin Quality VTE Prophylaxis VTE prophylaxis: mechanical ordered and pharmacologic ordered
[2025-06-06] MEDS: SIMVASTATIN 20 MG TABLET 40 MG PO (21:17)
[2025-06-06] MEDS: TAMSULOSIN HCL 0.4 MG CAPSULE PO (21:17)
[2025-06-07] VITALS (10 sets, daily range): BP systolic 110–160; BP diastolic 45–95; PULSE 61–93; RESP 12–21; TEMP 36.1–37; O2SAT 96–99
--- NOTE | ~2025-06-07 | CT_ITS ---
EXAM/PROCEDURE: CT abdomen pelvis wo con HISTORY: postop continuing to drain from prior drain site COMPARISON: March 27, 2025 TECHNIQUE: Noncontrast CT of abdomen and pelvis FINDINGS: Patient has undergone cholecystectomy. Mild strandy changes in the surgical bed noted and traces of free fluid but no discretely defined fluid collection or abscess seen. Moderate size omentum containing umbilical hernia is similar in size, however small amount of pneumoperitoneum is present in the nondependent portion of the hernia as seen on image 126 series 3. There are also several scattered punctate foci of emphysematous changes or subcutaneous air in the extraperitoneal soft tissues. Diffuse strandy changes are present but no extraperitoneal abscess or fluid attenuation identified. The bowel gas pattern is nonobstructive with no pneumatosis. No hydroureteronephrosis or AAA. The appendix appears normal in size. Solid organs appear stable for technique. Mild fibrotic and atelectatic changes in the lung bases, with trace right-sided pleural effusion. Moderately enlarged prostate gland. Diffuse degenerative changes in the bones which otherwise appear intact. IMPRESSION: 1. Directed noncontrast exam demonstrating small amount of free fluid and trace amount of free fluid along with tiny amount of free air is seen in the umbilical hernia. Developing infection is not excluded, although no abscess is identified. 2. Diffuse punctate subcutaneous emphysematous changes also present throughout the retroperitoneal subcutaneous soft tissues of uncertain significance and origin, may be benign. Correlate clinically to exclude possibility of necrotizing fasciitis. 3. Other changes as above. Reviewed, dictated and finalized at location A. TLE OPERATOR IMPRESSION: 1. Directed noncontrast exam demonstrating small amount of free fluid and trace amount of free fluid along with tiny amount of free air is seen in the umbilic al hernia. Developing infection is not excluded, although no abscess is identif ied. 2. Diffuse punctate subcutaneous emphysematous changes also present throughout the retroperitoneal subcutaneous soft tissues of uncertain significance and ravi gin, may be benign. Correlate clinically to exclude possibility of necrotizing fasciitis. 3. Other changes as above.
--- NOTE | ~2025-06-07 | XR_ITS ---
EXAMINATION: XR cholangiogram surg 1st inj DATE: 06/05/2025 16:28 INDICATION: Laparoscopic cholecystectomy. TECHNIQUE: 2 fluoroscopic images of the abdomen were obtained procedure performed by Dr. Whelan. Radiologist was not present for the imaging or procedure. The amount of fluoroscopy time used during this procedure was 1.9 minutes. The dose area product was 8.98 Gycm^2. COMPARISON: None. FINDINGS/IMPRESSION: Images demonstrate trochar and wire ejecting over the central abdomen. See procedure note for further detail. Reviewed, dictated and finalized at location A. SCAPE ARCHITECTURE PROFESSOR
--- NOTE | ~2025-06-07 | NM_ITS ---
EXAMINATION: NM_HEPATWOEF_NM DATE: 06/08/2025 11:58 INDICATION: Bile leak. COMPARISON: None. TECHNIQUE: 5.7 mCi Tc-99m mebrofenin (Choletec) was administered intravenously. Scintigraphic images of the abdomen were obtained for one hour and 35 minutes. FINDINGS: There is delayed clearance of radiotracer from the blood pool, consistent with hepatobiliary dysfunction. There is homogeneous tracer uptake by the liver. Activity progresses to the bowel. IMPRESSION: 1. No bile leak. 2. Delayed clearance of radiotracer from the blood pool, consistent with hepatobiliary dysfunction. Reviewed, dictated and finalized at location E. PATIONAL SAFETY SPECIALIST IMPRESSION: 1. No bile leak. 2. Delayed clearance of radiotracer from the blood pool, consistent with hepato biliary dysfunction.
[2025-06-07] MEDS: oxyCODONE/ACETAMINOPHEN (*CRX) 5-325 MG TABLET 0.5 TABLET PO (04:45)
[2025-06-07] MEDS: LACTATED RINGERS 1,000 ML 100 ML IV CONT ×2 (05:52→16:03)
[2025-06-07 06:37] LABS: Hematocrit 30.8 % (42.0-52.0); Hemoglobin 9.9 g/dL (14.0-18.0); Mean Corpuscular HGB Conc 32.1 g/dl (32-36); Mean Corpuscular Hemoglobin 30.3 pg (26-34); Mean Corpuscular Volume 94.2 fl (80-100); Platelet Count Result 152 k/mm3 (150-375); Red Blood Count 3.27 M/mm3 (4.6-6.20); White Blood Count 9.5 K/mm3 (4.5-10.0)
[2025-06-07 06:45] LABS: Alanine Aminotransferase 90 U/L (6-50); Albumin Level 3.0 g/dL (3.5-5.1); Alkaline Phosphatase 60 U/L (38-126); Anion Gap 4 mmol/L (4-12); Aspartate Amino Transferase 78 U/L (17-59); Bilirubin,Total 0.7 mg/dL (0.2-1.3); Blood Urea Nitrogen 16 mg/dL (9-20); Calcium 8.4 mg/dL (8.4-10.2); Carbon Dioxide 26 mmol/L (22-30); Chloride 106 mmol/L (98-107); Estimated CRCL calculation 66 ml/min; Estimated Glomerular Filt Rate > 60; Glucose 138 mg/dL (65-110); Magnesium 2.0 mg/dL (1.6-2.3); Potassium 3.6 mmol/L (3.4-5.0); Sodium 136 mmol/L (137-145); Total Protein 5.5 g/dL (6.3-8.2)
[2025-06-07] MEDS: OPTI-GEN TAB 1 TABLET PO (09:07)
[2025-06-07] MEDS: METOPROLOL TARTRATE 50 MG TAB PO ×2 (09:07→20:07)
[2025-06-07] MEDS: FINASTERIDE 5 MG TABLET PO (09:08)
[2025-06-07] MEDS: ENOXAPARIN 40 MG/0.4 ML SYRINGE SUB-Q (09:08)
--- NOTE | 2025-06-07 09:46 | P.PNGS_ITS ---
Progress Note: A&P Assessment and Plan (1) Acute cholecystitis: Code(s): K81.0 - Acute cholecystitis Status: Chronic Assessment and Plan: doing well, continue drain and antibiotics, continue to hold anticoagulation at this time Subjective Subjective Date/Time Seen: 06/07/25 09:46 Interval history: feels pretty good, tolerating diet, denies any abdominal pain Review of Systems Review of Systems: All systems reviewed & are unremarkable except as noted in HPI and below Exam Const: General: cooperative, comfortable and no acute distress Resp: Auscultation: clear to auscultation bilaterally Cardio: Rate: regular rate Rhythm: regular rhythm GI: Inspection: normal to inspection, non-distended and incision GI Palp: No abdominal tenderness and Yes Soft to palpation Other: OBED with serosanguineous output, according to nursing approximately 50 mL per shift Objective Data Vital Signs Vital Signs: Vital Signs - 24 hr 06/06/25 10:35 06/06/25 11:28 06/06/25 12:00 Temperature 36.5 C 37.5 C Pulse Rate 78 77 70 Respiratory Rate 28 H 22 H Blood Pressure 112/53 L 116/62 122/65 Pulse Oximetry 100 98 Oxygen Delivery 06/06/25 12:00 06/06/25 16:00 06/06/25 20:00 Temperature 36.6 C 36.9 C Pulse Rate 72 76 80 Respiratory Rate 22 H 18 Blood Pressure 147/78 H 133/54 L Pulse Oximetry 99 97 Oxygen Delivery 06/06/25 20:00 06/06/25 21:13 06/07/25 00:00 Temperature 36.9 C Pulse Rate 86 61 Respiratory Rate 18 Blood Pressure 112/45 L Pulse Oximetry 96 Oxygen Delivery CPAP 06/07/25 00:00 06/07/25 04:00 06/07/25 04:00 Temperature 36.9 C Pulse Rate 77 85 81 Respiratory Rate 18 Blood Pressure 138/57 L Pulse Oximetry 97 Oxygen Delivery 06/07/25 09:07 Temperature Pulse Rate 80 Respiratory Rate Blood Pressure Pulse Oximetry Oxygen Delivery Intake/Output Intake/Output: Intake & Output 06/04/25 06/05/25 06/06/25 06/07/25 23:59 23:59 23:59 23:59 Intake Total 1350 3309.7 Output Total 655 3320 1530 Balance 695 -10.3 -1530 Meds/Results Medications: Active Medications Generic Name Dose Route Start Last Admin Trade Name Freq PRN Reason Stop Dose Admin Acetaminophen 500 mg 06/05/25 18:27 Acetaminophen 500 Mg Tablet PO Q6H PRN Pain Rated 1-3 Dextrose 12.5 gm 06/05/25 18:27 Dextrose 50% 25 Gm/50 Ml Syringe IV PUSH PRN PRN Hypoglycemia Protocol Enoxaparin Sodium 40 mg 06/06/25 09:00 06/07/25 09:08 Enoxaparin 40 Mg/0.4 Ml Syringe SUB-Q 40 mg DAILY CEE Administration Fentanyl Citrate 12.5 mcg 06/05/25 18:27 Fentanyl Citrate Inj (*Crx) 100 Mcg/2 Ml Vial IV PUSH Q2H PRN Breakthrough Pain Rated 4-6 or NPO Fentanyl Citrate 25 mcg 06/05/25 18:27 Fentanyl Citrate Inj (*Crx) 100 Mcg/2 Ml Vial IV PUSH Q2H PRN Breakthrough Pain Rated 7-10 or NPO Finasteride 5 mg 06/06/25 09:00 06/07/25 09:08 Finasteride 5 Mg Tablet PO 5 mg DAILY CEE Administration Glipizide 10 mg 06/06/25 09:00 06/07/25 09:07 Glipizide 5 Mg Tablet PO 10 mg DAILY CEE Administration Glucagon 1 mg 06/05/25 18:27 Glucagon For Inj 1 Mg Vial IM PRN PRN Hypoglycemia Protocol Glucose 15 gm 06/05/25 18:27 Glucose Oral Gel 15 Gm Of Glucse In 37.5 Gm Tube PO PRN PRN Hypoglycemia Protocol Lactated Ringer's 1,000 mls @ 100 mls/hr 06/05/25 18:27 06/07/25 05:52 Lr - Lactated Ringers Iv IV CONT 100 mls/hr .Q10H CEE Administration Ibuprofen 800 mg in 200 mls @ 400 mls/hr 06/05/25 18:27 Caldolor 800 Mg/200 Ml IVPB Q6H PRN Breakthrough Pain Rated 1-3 or NPO Dextrose 1,000 mls @ 100 mls/hr 06/05/25 18:27 Dextrose 5% 1,000 Ml IVPB PRN PRN Hypoglycemia Protocol Insulin Aspart 3 - 6 units 06/06/25 08:00 06/07/25 09:06 Insulin Aspart (*Bkc) 100 Units/Ml SUB-Q Not Given TIDWM [facility] Protocol Insulin Aspart 1 - 3 units 06/05/25 21:00 06/06/25 21:09 Insulin Aspart (*Bkc) 100 Units/Ml SUB-Q Not Given HS [facility] Protocol Lisinopril 20 mg 06/05/25 21:05 06/06/25 09:15 Lisinopril 20 Mg Tablet PO 20 mg QAM [facility] Administration Methocarbamol 500 mg 06/05/25 23:05 06/07/25 09:07 Methocarbamol 500 Mg Tablet PO 500 mg QID [facility] Administration Metoprolol Tartrate 50 mg 06/05/25 18:50 06/07/25 09:07 Metoprolol Tartrate 50 Mg Tab PO 50 mg Q12HR [facility] Administration Multivitamins/Minerals 1 tablet 06/06/25 09:00 06/07/25 09:07 Opti-Gen Tab PO 1 tablet DAILY [facility] Administration Naloxone HCl 0.1 mg 06/05/25 18:27 Naloxone Hcl 0.4 Mg/Ml Vial IV PUSH Q2M PRN Opiate Reversal Ondansetron HCl 4 mg 06/05/25 18:27 Ondansetron Inj 4 Mg/2 Ml Vial IV PUSH Q4H PRN Nausea And Vomiting Oxycodone/Acetaminophen 0.5 tablet 06/05/25 18:27 06/07/25 04:45 Oxycodone/Acetaminophen (*Crx) 5-325 Mg Tablet PO 0.5 tablet Q4H PRN Administration Pain Rated 4-6 Simvastatin 40 mg 06/05/25 21:00 06/06/25 21:17 Simvastatin 20 Mg Tablet PO 40 mg HS [facility] Administration Tamsulosin HCl 0.4 mg 06/05/25 21:00 06/06/25 21:17 Tamsulosin Hcl 0.4 Mg Capsule PO 0.4 mg HS [facility] Administration Labs Labs: Laboratory Results - last 24 hr 06/06/25 06/06/25 06/06/25 11:10 16:53 19:38 WBC RBC Hgb Hct MCV MCH MCHC RDW Plt Count MPV Sodium Potassium Chloride Carbon Dioxide Anion Gap BUN Creatinine Estim Creat Clear Calc Estimated GFR Glucose POC Capillary Glucose 90 97 139 H Calcium Magnesium Total Bilirubin AST ALT Alkaline Phosphatase Total Protein Albumin 06/07/25 06/07/25 06:19 08:07 WBC 9.5 RBC 3.27 L Hgb 9.9 L Hct 30.8 L MCV 94.2 MCH 30.3 MCHC 32.1 RDW 14.6 H Plt Count 152 MPV 11.0 H Sodium 136 L Potassium 3.6 Chloride 106 Carbon Dioxide 26 Anion Gap 4 BUN 16 Creatinine 0.89 Estim Creat Clear Calc 66 Estimated GFR > 60 Glucose 138 H POC Capillary Glucose 150 H Calcium 8.4 Magnesium 2.0 Total Bilirubin 0.7 AST 78 H ALT 90 H Alkaline Phosphatase 60 Total Protein 5.5 L Albumin 3.0 L
--- NOTE | 2025-06-07 14:51 | P.PNIM_ITS ---
Progress Note: A&P Assessment and Plan (1) Hypertensive urgency: Code(s): I16.0 - Hypertensive urgency Status: Acute Assessment and Plan: Hydralazine p.r.n. Patient was on atenolol, lisinopril, and amlodipine and was taken off during last hospitalization not restarted. Will restart low-dose lisinopril Adjust blood pressure medications as needed (2) Paroxysmal atrial fibrillation: Code(s): I48.0 - Paroxysmal atrial fibrillation Status: Chronic Assessment and Plan: Continue metoprolol (3) DMII (diabetes mellitus, type 2): Qualifiers: Diabetes mellitus [facility] insulin use: without bed bug exterminator use Diabetes mellitus complication status: without complication Qualified Code(s): E11.9 - Type 2 diabetes mellitus without complications Code(s): E11.9 - Type 2 diabetes mellitus without complications Status: Chronic Assessment and Plan: Joel CONTE SSI Diet per surgery (4) Acute cholecystitis: Code(s): K81.0 - Acute cholecystitis Status: Chronic Assessment and Plan: Patient had acute gangrenous cholecystitis less than use in the hospital was sent home with per continues to he is now status post cholecystectomy. Robaxin added for pain management (5) BPH (benign prostatic hyperplasia): Code(s): N40.0 - Benign prostatic hyperplasia without lower urinary tract symptoms Status: Acute Assessment and Plan: Continue home meds Plan Patient had cholecystectomy on 06/05/25 POD#2, patient stats feeling much better had his breakfast and tolerated, no BM or gas yet, seen by his surgeon and advance his diet as tolerated, and encouraged patient to be out of bed and use incentive spirometer, will continue drain, will hold anticoagulation, will monitor. Subjective Date/time seen: 06/07/25 14:51 Interval history: H&P-Narrative: Alban Graff is a 84 year old male who was admitted to the hospital for sepsis due to acute cholecystitis on 03/27/2025. He had a part coli tube placed at that time, and had E coli bacteremia. Today he presented to the hospital for a planned cholecystectomy. On 06 05 2025 the hospitalist team has been consulted for hypertensive urgency postop with the patient's blood pressure being 223/100. During patient's last hospital admission due to rhabdomyolysis on admission acute sepsis with severe hypotension he was taken off 3 different blood pressure medications. He was on lisinopril, amlodipine and atenolol. He was recommended to follow-up with his PCP. These were not restarted. Patient had cholecystectomy on 06/05/25 POD#2, patient stats feeling much better had his breakfast and tolerated, no BM or gas yet, seen by his surgeon and advance his diet as tolerated, and encouraged patient to be out of bed and use incentive spirometer, will continue drain, will hold anticoagulation, will monitor. Review of Systems Review of Systems: 12 systems were reviewed and are negativ e except for as per HPI. All systems reviewed & are unremarkable except as noted in HPI and below Exam Narrative: Patient is comfortable, NAD HEENT: eyes are clear and none icteric LUNGS:CTA HEART: RR S1S2 ABD: BS+, Soft and nontender Lower extremities: no edema SKIN: nonjaundiced Neuro: grossly intact. Objective Data Vital Signs Vital Signs: Vital Signs - 24 hr 06/06/25 16:00 06/06/25 20:00 06/06/25 20:00 Temperature 36.6 C 36.9 C Pulse Rate 76 80 Respiratory Rate 22 H 18 Blood Pressure 147/78 H 133/54 L Pulse Oximetry 99 97 Oxygen Delivery CPAP 06/06/25 21:13 06/07/25 00:00 06/07/25 00:00 Temperature 36.9 C Pulse Rate 86 61 77 Respiratory Rate 18 Blood Pressure 112/45 L Pulse Oximetry 96 Oxygen Delivery 06/07/25 04:00 06/07/25 04:00 06/07/25 08:00 Temperature 36.9 C Pulse Rate 85 81 Respiratory Rate 18 Blood Pressure 138/57 L Pulse Oximetry 97 Oxygen Delivery Room Air 06/07/25 08:00 06/07/25 09:07 06/07/25 12:00 Temperature Pulse Rate 90 80 64 Respiratory Rate Blood Pressure Pulse Oximetry Oxygen Delivery Intake/Output Intake/Output: Intake & Output 06/04/25 06/05/25 06/06/25 06/07/25 23:59 23:59 23:59 23:59 Intake Total 1350 3309.7 Output Total 655 3320 1550 Balance 695 -10.3 -1550 Meds/Results Medications: Active Medications Generic Name Dose Route Start Last Admin Trade Name Freq PRN Reason Stop Dose Admin Acetaminophen 500 mg 06/05/25 18:27 Acetaminophen 500 Mg Tablet PO Q6H PRN Pain Rated 1-3 Dextrose 12.5 gm 06/05/25 18:27 Dextrose 50% 25 Gm/50 Ml Syringe IV PUSH PRN PRN Hypoglycemia Protocol Enoxaparin Sodium 40 mg 06/06/25 09:00 06/07/25 09:08 Enoxaparin 40 Mg/0.4 Ml Syringe SUB-Q 40 mg DAILY CEE Administration Fentanyl Citrate 12.5 mcg 06/05/25 18:27 Fentanyl Citrate Inj (*Crx) 100 Mcg/2 Ml Vial IV PUSH Q2H PRN Breakthrough Pain Rated 4-6 or NPO Fentanyl Citrate 25 mcg 06/05/25 18:27 Fentanyl Citrate Inj (*Crx) 100 Mcg/2 Ml Vial IV PUSH Q2H PRN Breakthrough Pain Rated 7-10 or NPO Finasteride 5 mg 06/06/25 09:00 06/07/25 09:08 Finasteride 5 Mg Tablet PO 5 mg DAILY CEE Administration Glipizide 10 mg 06/06/25 09:00 06/07/25 09:07 Glipizide 5 Mg Tablet PO 10 mg DAILY CEE Administration Glucagon 1 mg 06/05/25 18:27 Glucagon For Inj 1 Mg Vial IM PRN PRN Hypoglycemia Protocol Glucose 15 gm 06/05/25 18:27 Glucose Oral Gel 15 Gm Of Glucse In 37.5 Gm Tube PO PRN PRN Hypoglycemia Protocol Lactated Ringer's 1,000 mls @ 100 mls/hr 06/05/25 18:27 06/07/25 05:52 Lr - Lactated Ringers Iv IV CONT 100 mls/hr .Q10H CEE Administration Ibuprofen 800 mg in 200 mls @ 400 mls/hr 06/05/25 18:27 Caldolor 800 Mg/200 Ml IVPB Q6H PRN Breakthrough Pain Rated 1-3 or NPO Dextrose 1,000 mls @ 100 mls/hr 06/05/25 18:27 Dextrose 5% 1,000 Ml IVPB PRN PRN Hypoglycemia Protocol Insulin Aspart 3 - 6 units 06/06/25 08:00 06/07/25 12:08 Insulin Aspart (*Bkc) 100 Units/Ml SUB-Q Not Given TIDWM CEE Protocol Insulin Aspart 1 - 3 units 06/05/25 21:00 06/06/25 21:09 Insulin Aspart (*Bkc) 100 Units/Ml SUB-Q Not Given HS CEE Protocol Lisinopril 20 mg 06/05/25 21:05 06/06/25 09:15 Lisinopril 20 Mg Tablet PO 20 mg QAM CEE Administration Methocarbamol 500 mg 06/05/25 23:05 06/07/25 12:24 Methocarbamol 500 Mg Tablet PO 500 mg QID CEE Administration Metoprolol Tartrate 50 mg 06/05/25 18:50 06/07/25 09:07 Metoprolol Tartrate 50 Mg Tab PO 50 mg Q12HR CEE Administration Multivitamins/Minerals 1 tablet 06/06/25 09:00 06/07/25 09:07 Opti-Gen Tab PO 1 tablet DAILY CEE Administration Naloxone HCl 0.1 mg 06/05/25 18:27 Naloxone Hcl 0.4 Mg/Ml Vial IV PUSH Q2M PRN Opiate Reversal Ondansetron HCl 4 mg 06/05/25 18:27 Ondansetron Inj 4 Mg/2 Ml Vial IV PUSH Q4H PRN Nausea And Vomiting Oxycodone/Acetaminophen 0.5 tablet 06/05/25 18:27 06/07/25 04:45 Oxycodone/Acetaminophen (*Crx) 5-325 Mg Tablet PO 0.5 tablet Q4H PRN Administration Pain Rated 4-6 Simvastatin 40 mg 06/05/25 21:00 06/06/25 21:17 Simvastatin 20 Mg Tablet PO 40 mg HS CEE Administration Tamsulosin HCl 0.4 mg 06/05/25 21:00 06/06/25 21:17 Tamsulosin Hcl 0.4 Mg Capsule PO 0.4 mg HS CEE Administration Labs Labs: Laboratory Results - last 24 hr 06/06/25 06/06/25 06/07/25 16:53 19:38 06:19 WBC 9.5 RBC 3.27 L Hgb 9.9 L Hct 30.8 L MCV 94.2 MCH 30.3 MCHC 32.1 RDW 14.6 H Plt Count 152 MPV 11.0 H Sodium 136 L Potassium 3.6 Chloride 106 Carbon Dioxide 26 Anion Gap 4 BUN 16 Creatinine 0.89 Estim Creat Clear Calc 66 Estimated GFR > 60 Glucose 138 H POC Capillary Glucose 97 139 H Calcium 8.4 Magnesium 2.0 Total Bilirubin 0.7 AST 78 H ALT 90 H Alkaline Phosphatase 60 Total Protein 5.5 L Albumin 3.0 L 06/07/25 06/07/25 08:07 11:50 WBC RBC Hgb Hct MCV MCH MCHC RDW Plt Count MPV Sodium Potassium Chloride Carbon Dioxide Anion Gap BUN Creatinine Estim Creat Clear Calc Estimated GFR Glucose POC Capillary Glucose 150 H 200 H Calcium Magnesium Total Bilirubin AST ALT Alkaline Phosphatase Total Protein Albumin Quality VTE Prophylaxis VTE prophylaxis: mechanical ordered and pharmacologic ordered
[2025-06-07] MEDS: SIMVASTATIN 20 MG TABLET 40 MG PO (20:07)
[2025-06-07] MEDS: TAMSULOSIN HCL 0.4 MG CAPSULE PO (20:07)
[2025-06-08] VITALS (9 sets, daily range): BP systolic 157–190; BP diastolic 67–94; PULSE 63–88; RESP 16–20; TEMP 36.6–37.1; O2SAT 96–99
[2025-06-08] MEDS: LACTATED RINGERS 1,000 ML 100 ML IV CONT (03:16)
--- OUTSIDE RECORDS SUMMARY | 2025-06-08 06:21 | XMS_ITS | Encounter Summary ---
Author Organization [facility] Address [address] [place] [id number] Care Team Providers Care Waiter Waitress Name Role Phone Naseem Underwood MD Primary Care Provider [phone] Henry Vasques MD Unavailable [phone] Reason for Visit * Reason Comments Lab (SCAN) Encounter Details Date Type Department Care Team (Latest Contact Info) Description 03/27/2025 Scan [facility] Scanned, [facility] Lab (SCAN) Social History Tobacco Use Types Packs/Day Years Used Date Smoking Tobacco: Some Days Pipe Cigars Smokeless Tobacco: Never Comments:1-2 cigars a day. P rovider to rehabilitation counselor. Alcohol Use Standard Drinks/Week Comments Yes [...] on file documented as of this encounter Procedures Procedure Name Priority Date/Time Associated Diagnosis Comments OUTSIDE LAB COVID-19 (SCAN ORDER) Routine 03/27/2025 documented in this encounter Results * OUTSIDE LAB COVID-19 (03/27/2025) CORONAVIRUS SARS COV 2 PCR (RESP) NOT DETECTED NOT DETECTED [facility] 03/27/2025 us [facility] Scanned SCANNING Edited Res ult - Final [facility] documented in this encounter Visit Diagnoses Not on filedocumented in this encounter Additional Health Concerns Assessment Noted Time PHQ-9 Depression Total Score: 0 09/21/19 22 1:12 PM TECHNOLOGY PROJECT MANAGER documented as of this encounter Care Teams Waiter Waitress Relationship Specialty Start Date End Date Naseme Underwood MD [address] [place] [id number] PCP - General INTERNAL MEDICINE 10/02/18 Henry Vasques MD [facility] [address] [place] [address] [place] Piggyback Clerk CARDIOVASCULAR DISEASE 02/26/19 documented as of this encounter
--- OUTSIDE RECORDS SUMMARY | 2025-06-08 06:21 | XMS_ITS | Clinical Summary ---
Author Organization [facility] Address [address] [place] [address] Care Team Providers Care Insurance Special Agent Name Role Phone Naseem Underwood MD Primary Care Provider [phone] Henry Vasques MD Unavailable [phone] Allergies Active Allergy Reactions Criticality Noted Date [...] Lancets 33G MiscIndications:T ype 2 diabetes mellitus ([facility]) 1 Device by Does not apply route 2 (two) times a day. 200 each 1 08/18/19 22 Active ONETOUCH VERIO REFLECT w/Device KitIndications:Ty pe 2 diabetes mellitus ([facility]/HCC) USE TO [...] complication, with long-term current use of insulin ([facility]) INJECT 10 [...] complication, with long-term current use of insulin ([facility]/HCC) USE TO INJECT INSULIN ONCE DAILY 100 each 1 04/17/20 25 Active simvastatin (ZOCOR) 80 MG tabletIndications :Mixed hyperlipidemia TAKE ONE-HALF(1/2 ) TABLET BY MOUTH NIGHTLY AT BEDTIME 45 tablet 1 04/29/20 25 Active Glucose Blood (CONTOUR PLUS TEST) test stripIndications: Type 2 diabetes mellitus with other circulatory complication, with long-term current use of insulin ([facility] H[facility]/HCC) 1 strip by Other route 2 (two) times a day. 200 strip 3 05/04/20 25 Active Microlet Lancets MiscIndications:T ype 2 diabetes mellitus with other circulatory complication, with long-term current use of insulin ([facility] HHS/HCC) 1 Lancet by Does not apply route 2 (two) times daily. 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 TAKE 1 TABLET BY MOUTH EVERY 12 HOURS 60 tablet 06/01/20 25 Active tamsulosin (FLOMAX) 0.4 MG CapIndications:Be nign localized hyperplasia of prostate with urinary obstruction TAKE 1 CAPSULE BY MOUTH EVERY DAY AT BEDTIME 30 capsule 05/04/20 25 025 Discontinued ELIQUIS 5 MG tabletIndications :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 TAKE 1 TABLET [...] hand 04/09/2018 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 04/09/2018 History of coronary artery stent placement 04/09 Adult BMI 34.0-34.9 kg/sq m 10/03/2017 Type 2 diabetes mellitus wit h circulatory disorder, with long-term current use of insulin 10/03/2017 Obstructive sleep apnea of adult 03/16/2016 Benign essential hypertension 09/09/2015 Benign localized hyperplasia of prostate with urinary obstruction 09/09/2015 Hyperlipidemia 09/09/2015 Encounters Date Type Department Care Team Description 05/29/2025 Scan [facility] Scanned, [facility] Image (SCAN) 05/26/2025 Scan [facility] Scanned, [facility] 05/09/2025 Scan [facility] Scanned, Doc [facility] 05/04/2025 Scan [facility] Scanned, Doc [facility] Lab (SCAN) 05/04/2025 Telephone [facility] Family & Internal Medicine [address] [phone] Naseem Underwood MD Information 05/01/2025 Scan [facility] Scanned, [facility] 04/27/2025 Scan [facility] Scanned, [facility] 04/16/2025 2:00 PM CDT Office Visit [address] [phone] Naseem Underwood MD TCM (Pt was admitted to [facility] 03/27 - 04/04 for acute cholecysitis and liver abscess. Pt has an appt with surgeon on Sunday, pt notes the surgeon will be out on vacation for the entire week of Apr. ); Diabetes (Pt does c/o hypoglycemic episodes in the morning about 3 times a month. ) 04/16/2025 Travel 04/07/2025 Scan [facility] Scanned, [facility] 04/07/[address] [phone] Naseem Underwood MD Information 04/06/2025 Scan MG [...] SRVCS Scanned, Doc Med [facility] Lab (SCAN) 03/27/2025 Scan [facility] Scanned, [facility] Ultrasound (SCAN); Lab (SCAN); CT (SCAN); Image (SCAN) 03/27/[address] [address] Naseem Underwood MD Information from Last 3 [...] 20) 04/22/2024 Tdap (Generic) 03/18/2015 Zoster (Zostavax) 68763 Unt/0.65Ml 11/02/2012, Family History Medical History Relation [...] Yes Comments:1-2 cigars a day. Provider to commercial counsel. Alcohol Use Standard Drinks/Week Comments Yes 3.3 [...] or 60+ Years Completed 04/22/2024 PHQ-2 (Physician Eckert) Completed 10/30/2024 Meningococcal B Vaccine Aged Out No l onger eligible based on patient's age to complete this topic Meningococcal Vaccine Aged Out No rufino christian eligible based on patient's age to complete this topic RSV Immunizations Under 20 Months Aged Out No longer eligible based on patient's age to complete this topic Procedures Procedure Name Priority Date/Time Associated Diagnosis Comments IMAGE GENERIC 05/29/2025 OUTSIDE PT/INR (SCAN ORDER) 05/04/2025 OUTSIDE LAB (SCAN ORDER) 05/04/2025 IMAGE GENERIC 03/31/2025 IMAGE GENERIC 03/29/2025 ECHO GENERIC (SCAN ORDER) 03/28/2025 CT GENERIC 03/27/2025 CT GENERIC 03/27/2025 CT GENERIC 03/27/2025 OUTSIDE LAB COVID-19 (SCAN ORDER) Routine 03/27/2025 OUTSIDE LAB (SCAN ORDER) 03/27/2025 OUTSIDE PT/INR (SCAN ORDER) 03/27/2025 OUTSIDE LAB (SCAN ORDER) 03/27/2025 OUTSIDE LAB (SCAN ORDER) 03/27/2025 IMAGE GENERIC 03/27/2025 ULTRASOUND GENERIC (SCAN ORDER) 03/27/2025 ULTRASOUND GENERIC (SCAN ORDER) 03/27/2025 DIABETIC RETINOPATHY EXAM (NEGATIVE)(SCAN ORDER) Routine 01/07/2025 HEMOGLOBIN, GLYCOSYLATED Routine 10/30/2024 Type 2 diabetes mellitus with other circulatory complication, with long-term current use of insulin ([facility]) LIPID PANEL Routine 05/01/2024 11:58 AM CDT Type 2 diabetes mellitus with other circulatory complication, with long-term current use of insulin ([facility]) 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 Anatomical Region Laterality Modality Other 05/29/2025 Result [facility] Group Scanned SCANNING Final Resu lt * OUTSIDE PT/INR (SCAN ORDER) (05/04/2025) Only the most recent of2 resultswithin the time period is included. 05/04/2025 [facility] Scanned SCANNING Final Resu lt * OUTSIDE LAB (SCAN ORDER) (05/04/2025) Only the most recent of4 resultswithin the time period is included. 05/04/2025 Result [facility] Scanned SCANNING Final Resu lt * ECHO GENERIC (SCAN ORDER) (03/28/2025) Anatomical Region Laterality Modality Other 03/28/2025 Result [facility] Scanned SCANNING Final Resu lt * OUTSIDE LAB COVID-19 (03/27/2025) CORONAVIRUS SARS COV 2 PCR (RESP) NOT DETECTED NOT DETECTED [facility] 03/27/2025 Result [facility] Scanned SCANNING Edited Res ult - Final [facility] * CT GENERIC (03/27/2025) Only the most recent of3 resultswithin the time period is included. Anatomical Region Laterality Modality Other 03/27/2025 [facility] Group Scanned SCANNING Final Resu lt * ULTRASOUND GENERIC (SCAN ORDER) (03/27/2025) Only the most recent of2 resultswithin the time period is included. Anatomical Region Laterality Modality Other 03/27/2025 [facility] Scanned SCANNING Final Resu lt * DIABETIC RETINOPATHY EXAM (NEGATIVE) (01/07/2025) [facility] Scanned SCANNING Final Resu lt [facility] * (ABNORMAL) HEMOGLOBIN, GLYCOSYLATED (10/30/2024) HGB A1C 7.2(A) % [facility] 10/30/2024 Naseem Underwood MD LABORATORY Final Result Performing Organization Address [facility]/ZIP Co de Phone Number [facility] [address] [place] [address], * LIPID PANEL (05/01/2024 11:58 AM CDT) CHOLESTEROL 135 <200 MG/DL 05/02/2024 2:27 PM CDT [facility] TRIGLYCERIDES 120 <150 MG/DL 05/02/2024 2:27 PM CDT [facility] HDL 48 >40 MG/DL 05/02/2024 2:27 PM CDT [facility] LDL-C 63 <100 MG/DL 05/02/2024 2:27 PM CDT [facility] VLDL CALCULATION 24 5 - 28 MG/DL 05/02/2024 2:27 PM CDT [facility] CHOL/HDL RATIO 2.8 0.0 - 4.0 05/02/2024 2:27 PM CDT [facility] LDL/HDL 1.3 0.41 - 2.13 05/02/2024 2:27 PM CDT [facility] NON HDL CHOLESTEROL 87 <140 MG/DL 05/02/2024 2:27 PM CDT [facility] 05/01/2024 11:5 8 AM CDT Naseem Underwood MD LABORATORY Final Result [facility] [address] [place] [address], from Last 3 Months or Most Recently Relevant to Health Maintenance Insurance MEDICARE Care Teams Insurance Special Agent Relationship Specialty Start Date End Date Naseem Underwood MD [address] [place] [id number] PCP - General INTERNAL MEDICINE 10/02/18 Henry Vasques MD [facility]. [facility] [address] [place] [address] Misty Enginehouse Brakeman CARDIOVASCULAR DISEASE 02/26/19
--- OUTSIDE RECORDS SUMMARY | 2025-06-08 06:21 | XMS_ITS | Data Portability ---
Author Organization [place] - [facility] [employer], Main Office Address [address] [place] [address] Care Team Providers Care Outfitter [place]in Name Role Phone PAULINA GRANT Primary Care Provider Assessment Encounter Date Assessment Date Assessment LastModified by Organization Details LastModified Time 11/16/2022 11/16/2022 This note is dictated and transcribed by [employer]. House Calls Nurse Practitioner variances may occur. Despite proofreading, typographical errors may occur. Not available 11/16/2022 12:35:03 08/21/2023 08/21/2023 This note is dictated and transcribed by [employer]. House Calls Nurse Practitioner variances may occur. Despite proofreading, typographical errors may occur. Occasional wrong-word or 'ehcwz-t-endc' substitutions may have occurred due to the inherent limitations of voice recording. Read the chart carefully and recognize, using context, where substitutions have occurred. Not available 08/23/2023 11:44:40 09/24/2024 09/24/2024 This note is dictated and transcribed by [employer]. House Calls Nurse Practitioner variances may occur. Despite proofreading, typographical errors may occur. Occasional wrong-word or 'mppda-m-qodj' substitutions may have occurred due to the inherent limitations of voice recording. Read the chart carefully and recognize, using context, where substitutions have occurred. Not available 09/25/2024 08:59:57 01/06/2025 01/06/2025 This note is dictated and transcribed by [employer]. House Calls Nurse Practitioner variances may occur. Despite proofreading, typographical errors may occur. Occasional wrong-word or 'ohure-q-kosu' substitutions may have occurred due to the [...] Organization Details Recorded Time [employer] py follow-up 187199888 Active Not Available [facility] 3 13:54:19 Osteoarthr itis 314162339 Active Not Available [facility] 3 13:54:20 Paronychia of toe of left foot 6189104009230 9100 Active 2018 Not Available [facility] 3 13:54:19 Peripheral venous insufficie ncy 34032622 Active 2018 Not Available [facility] 3 13:54:19 Obesity 424164937 Active 2018 Not Available [facility] 3 13:54:20 Diabetic peripheral neuropathy 309419647 Active 2018 Not Available [facility] 3 13:54:20 Diabetes mellitus 94412856 Active 2018 Not Available [facility] 3 13:54:21 Gout 44395409 Active 2018 Not Available [facility] 3 13:54:21 Unable to cut own nails 655675204 Active 2019 Not Available [facility] 3 13:54:20 Dystrophia unguium 52535381 Active 2019 Not Available [facility] 3 13:54:21 Paronychia of toe of right foot 0700108915837 9102 Active 2019 Not Available [facility] 3 13:54:19 History of diabetic foot ulcer 0538110387078 9100 Active 2020 Not Available [facility] 3 13:54:19 Pain in toe 955492687 Active 2020 Not Available [facility] 3 13:54:20 Pruritic rash 14802603 Active 2020 Not Available [facility] 3 13:54:21 Venous insufficie ncy of lower limb 113361748 Active 2021 Not Available [facility] 3 13:54:19 Peroneal tendinitis of right lower limb 2459178896549 09 Active 2021 Not Available [facility] 3 13:54:20 Lymphedema of lower extremity 675894073 Active 2021 Not Available [facility] 3 13:54:20 Pain in toe 483937110 Active 2024 Quintin Middleton DPM [address], [address], [place], [address] , [employer] 5 09:01:03 Notes:prostate, swollen or p ainful joints, dental problems, sleep apnea Problem Notes None recorded. Procedures Surgical History Date Name Laterality Status Provider Name and Address Organization Details Recorded Time 5 Nail Debridement completed Quintin Middleton DPM [address], [address], [place], [address], [employer] 01/06/2025 15:06:35 5 Nail Debridement completed Quintin Middleton DPM [address], [address], [place], [address], [employer] 09/25/2024 08:59:51 3 Nail Debridement completed Quintin Middleton DPM [address], [address], [place], [address], [employer] 03/27/2023 08:57:05 3 Nail Debridement completed [address], [address], [place], [address], [employer] 11/16/2022 12:51:26 Imaging Results None recorded. Procedure [...] % 164/80 mm[Hg] Louisa Hernandez Sophy [place] [employer] [facility] 5 16:31:14 Date Recorded Body height Heart rate Respiratory rate Oxygen saturation Oxygen saturation in Arterial blood by Pulse oximetry Systolic And Diastolic Provider Name and Address Organization Details Last Updated DateTime 3 177.8 cm 78 /min 14 /min 98 % 98 % 143/77 mm[Hg] Louisa Sanchez [place] [employer] [facility] [employer] 3 12:36:44 Date Recorded Body height Oxygen saturation Oxygen saturation in Arterial blood by Pulse oximetry Body temperature Heart rate Body mass index (BMI) Body weight Systolic And Diastolic Provider Name and Address Organization Details Last Updated DateTime 5 177.8 cm 97 % 97 % 97.9 [degF] 78 /min 35.9 kg/m2 367050. 09 g 131/78 mm[Hg] Hayden Barajas [facility] [employer] 5 14:52:36 Date Recorded Body height Heart rate Respiratory rate Oxygen saturation Oxygen saturation in Arterial blood by Pulse oximetry Systolic And Diastolic Provider Name and Address Organization Details Last Updated DateTime 3 177.8 cm 74 /min 14 /min 98 % 98 % 151/79 mm[Hg] Louisa Sanchez [facility] [employer] 3 12:04:05 Social History Question Answer Notes LastModified by [employer] Details LastModified Time Tobacco Smoking Status Current Every Day Smoker Hayden BarajasFLORA barnhart [facility] [employer] 01/06/2025 14:54:54 What Is Your Level Of Caffeine Consumption? Moderate [email or web address] Information not available 01/06/2025 What Was The Date Of Your Most Recent Tobacco Screening? 01/06/2025 Information not available 01/06/2025 Have You Ever Been Counseled For Unhealthy Alcohol Use? No [email or web address] Information not available 01/06/2025 Sex: Unknown Functional Status Question Answer Note LastModified by [employer] Details LastModified Time Do you use any illicit or recreational drugs? No Information not available 01/06/2025 What is your level of alcohol consumption? Occasional [email or web address] Information not available 01/06/2025 Mental Status None recorded. Family History Nothing Reported. Medical History No medical history recorded. Past Encounters Encounter ID Performer Location Encounter Start Date Encounter Closed Date Diagnosis/Indication Diagnosis SNOMED-CT Code Diagnosis ICD10 Code Diagnosis IMO Codes Diagnosis Note [id number] Quintin Middleton DPM [facility] [place] [address] [address] 01/11/2021 00:00:00 01/14/2021 17:32:19 [id number] Quintin Middleton DPM [facility] [place] [address] [place] [address] 04/14/2021 00:00:00 04/18/2021 10:52:49 [id number] Quintin Middleton DPM [facility] [place] [address] [place] [address] 04/22/2021 00:00:00 04/22/2021 11:25:50 [id number] Quintin Middleton DPM [facility] [address] [address] 10/10/2021 00:00:00 10/10/2021 14:07:34 [id number] Quintin Middleton DPM [facility] [place] [address] [place] [address] 03/16/2022 00:00:00 03/16/2022 14:39:51 [id number] Quintin Middleton DPM [facility] [place] [address] [place] [address] 03/30/2022 00:00:00 03/30/2022 17:20:28 [id number] Quintin Middleton DPM [facility] [place] [address] [place] [address] 07/13/2022 00:00:00 07/13/2022 14:20:35 [id number] Quintin Middleton DPM [facility] [place] [address] [place] [address] 11/16/2022 12:26:47 11/16/2022 12:58:25 Diabetic peripheral neuropathy 167760288 E11.42 Patient educated on neuropathy , diabetes, diabetic diet, and daily foot exams. Patient is to check feet daily for new wounds, blisters, redness to prevent infection and ulceration s to the feet. Patient will return to clinic in 3 months for diabetic foot workup. Dystrophia unguium 94541 009 L60.3 Nails 1 through 10 were debrided with sharp mechanical debridemen t without incident. Nails were debrided and greater than 50% length and thickness where needed. History of diabetic foot ulcer 1357628970 9743053 Z86.31 Continue supportive shoe gear Unable to cut own nails 371720806 Z74.1 [id number] [address] Midd[address] DPM [facility] [place] [address] [address] 03/20/2023 11:57:53 03/27/2023 13:09:09 Diabetic peripheral neuropathy 708639848 E11.42 Check feet daily for wounds infectionC ontinue supportive shoe gearContin ue diabetic control per PCPfollow- up 3 months for diabetic foot care Dystrophia unguium 41522 009 L60.3 Nails 1 through 10 were debrided with sharp mechanical debridemen t without incident. Nails were debrided and greater than 50% length and thickness where needed. [id number] [facility] [place] [place] [address] [address] 08/23/2023 08:58:53 08/29/2023 08:02:14 Diabetic peripheral neuropathy 809554913 E11.42 Dystrophia unguium 74699 009 L60.3 Unable to cut own nails 216148726 Z74.1 [id number] Quintin Middleton DPM [facility] [address] [place] [address] 09/24/2024 16:25:48 09/25/2024 17:13:19 Diabetic peripheral neuropathy 365974121 E11.42 Continue diabetic shoe gearCheck feet daily for wounds infectionC ontinue diabetic control per PCP recommenda tionFollow -up in 3 months Dystrophia unguium 50801 009 L60.3 Nails 1 through 10 were debrided with sharp mechanical debridemen t without incident. Nails were debrided and greater than 50% length and thickness where needed. Unable to cut own nails 632420540 Z74.1 Diabetes mellitus 433147 09 E11.9 E11.40 Continue diabetic control per PCP recommenda tions Pain in toe 074705830 M7 9.676 secondary toenails [id number] Quintin Middleton DPM [facility] [place] [address] [facility] [address] [place] [address] 01/06/2025 14:42:24 01/08/2025 15:14:20 History of diabetic foot ulcer 1300329274 9739553 Z86.31 Continue supportive shoe gear Diabetic p eripheral neuropathy 854898688 E11.42 Continue diabetic shoe gearCheck feet daily for wounds infectionC ontinue diabetic control per PCP recommenda tionFollow -up in 3 months Dystrophia unguium 66363 009 L60.3 Nails 1 through 10 were [...] Gomez Member ID Guarantor Name 04/04/2025 1 [facility] (MEDICARE REPLACEMENT/A DVANTAGE - HMO) [id number] Alban Graff [id number] Alban Graff Notes Date Note Type Note [...] to cut them. Quintin Middleton DPM [address] [facility], [facility], [place], [address], [facility] 11/16/2022 12:55:13 03/20/2023 text/html . Patient is 82-year-old male diabetic with neuropathy who returns to the office for diabetic foot care. Patient denies any new pedal complaints and would like his nails cut. Quintin Middleton DPM [address], [address], [place], [address], [employer] 03/27/2023 08:57:39 09/24/2024 text/html . Patient is [...] Middleton DPM [address], [address], [place], [address], [employer] 09/25/2024 09:01:33 01/06/2025 text/html . Patient is 84-year-old male diabetic who returns for diabetic foot care he denies any new complaints. Quintin Middleton DPM [address], [address], [place], [address], [employer] 01/06/2025 15:07:10
--- OUTSIDE RECORDS SUMMARY | 2025-06-08 06:21 | XMS_ITS | Encounter Summary ---
Author Organization [facility] Address [address] [place] [address] Care Team Providers Care Corporate Planner Name Role Phone Naseem Underwood MD Primary Care Provider [phone] Henry Vasques MD Unavailable [phone] Reason for Visit * Reason Comments Image (SCAN) Encounter Details Date Type Department Care Team (Latest Contact Info) Description 05/29/2025 Scan [facility] Scanned, Doc Med Group Image (SCAN) Social History Tobacco Use Types Packs/Day Years Used Date Smoking Tobacco: Some Days Pipe Cigars Smokeless Tobacco: Never Comments:1-2 cigars a day. P rovider to summer counselor. Alcohol Use Standard Drinks/Week Comments Yes [...] Date/Time Associated Diagnosis Comments IMAGE GENERIC 05/29/2025 documented in this encounter Results * IMAGE GENERIC (05/29/2025) Anatomical Region Laterality Modality Other 05/29/2025 us Doc [facility] Scanned SCANNING Final Resu lt documented in this encounter Visit Diagnoses Not on filedocumented in this encounter Additional Health Concerns Assessment Noted Time PHQ-9 Depression Total Score: 0 09/21/19 22 1:12 PM AGRICULTURAL EXTENSION OFFICER documented as of this encounter Care Teams Corporate Planner Relationship Specialty Start Date End Date Naseem Underwood MD [address] [place] [address] PCP - General INTERNAL MEDICINE 10/02/18 Henry Vasques MD [facility]. [facility] [address] [place] [address] [place] [employer] Driver CARDIOVASCULAR DISEASE 02/26/19 documented as of this encounter
--- OUTSIDE RECORDS SUMMARY | 2025-06-08 06:21 | XMS_ITS | Encounter Summary ---
Author Organization [facility] Address [address] [place] [address] Care Team Providers Care House Furnishings Supervisor Name Role Phone Naseem Underwood MD Primary Care Provider [phone] Henry Vasques MD Unavailable [phone] Encounter Details Date Type Department Care Team (Latest Contact Info) Description 05/26/2025 Scan [facility] Scanned, Doc Med Group Social History Tobacco Use Types Packs/Day Years Used Date Smoking Tobacco: Some Days Pipe Cigars Smokeless Tobacco: Never Comments:1-2 cigars a day. P rovider to area counselor. Alcohol Use Standard Drinks/Week Comments Yes [...] Total Score: 0 09/21/19 22 1:12 PM MATERIAL MOVER documented as of this encounter Care Teams House Furnishings Supervisor Relationship Specialty Start Date End Date Naseem Underwood MD [address] [place] [address] PCP - General INTERNAL MEDICINE 10/02/18 Henry Vasques MD Three [facility]. [id number] [place], [place] [id number] [place] Pulley Man CARDIOVASCULAR DISEASE 02/26/19 documented as of this encounter
[2025-06-08 06:41] LABS: Hematocrit 31.8 % (42.0-52.0); Hemoglobin 9.9 g/dL (14.0-18.0); Mean Corpuscular HGB Conc 31.1 g/dl (32-36); Mean Corpuscular Hemoglobin 29.5 pg (26-34); Mean Corpuscular Volume 94.6 fl (80-100); Platelet Count Result 150 k/mm3 (150-375); Red Blood Count 3.36 M/mm3 (4.6-6.20); White Blood Count 7.7 K/mm3 (4.5-10.0)
[2025-06-08 07:02] LABS: Alanine Aminotransferase 71 U/L (6-50); Albumin Level 3.1 g/dL (3.5-5.1); Alkaline Phosphatase 68 U/L (38-126); Anion Gap 4 mmol/L (4-12); Aspartate Amino Transferase 47 U/L (17-59); Bilirubin,Total 0.6 mg/dL (0.2-1.3); Blood Urea Nitrogen 12 mg/dL (9-20); Calcium 8.3 mg/dL (8.4-10.2); Carbon Dioxide 26 mmol/L (22-30); Chloride 106 mmol/L (98-107); Estimated CRCL calculation 78 ml/min; Estimated Glomerular Filt Rate > 60; Glucose 141 mg/dL (65-110); Magnesium 2.1 mg/dL (1.6-2.3); Potassium 3.5 mmol/L (3.4-5.0); Sodium 136 mmol/L (137-145); Total Protein 5.8 g/dL (6.3-8.2)
--- NOTE | 2025-06-08 08:08 | P.PNGS_ITS ---
Progress Note: A&P Assessment and Plan (1) Cholelithiasis with acute on chronic cholecystitis with biliary obstruction: Qualifiers: Cholelithiasis location: gallbladder Qualified Code(s): K80.13 - Calculus of gallbladder with acute and chronic cholecystitis with obstruction Code(s): K80.13 - Calculus of gallbladder with acute and chronic cholecystitis with obstruction Status: Acute Assessment and Plan: Patient doing well. Tolerating diabetic regular diet. Had some confusion last night and pulled out his Duke-Hernandez drain. Reportedly, this was draining only serosanguineous fluid. I will go ahead and get a HIDA scan today to ensure there is no bile leak. Plan was to leave the drain in after he went home and remove it in approximately a week. Will go ahead and discontinue Jeffrey catheter today. Continue postoperative care. (2) Acute postoperative anemia due to expected blood loss: Code(s): D62 - Acute posthemorrhagic anemia Status: Acute Assessment and Plan: Anemic but stable. Will give a dose of Bumex and some potassium. (3) Paroxysmal atrial fibrillation: Code(s): I48.0 - Paroxysmal atrial fibrillation Status: Chronic Assessment and Plan: No abnormal heart rates detected this admission (4) [facility] current use of anticoagulant: Code(s): Z79.01 - franchise consultant (current) use of anticoagulants Status: Chronic Assessment and Plan: Continue to hold Eliquis today, especially since patient pulled out his OBED drain. (5) DMII (diabetes mellitus, type 2): Qualifiers: Diabetes mellitus detention insulin use: without client support professional use Diabetes mellitus complication status: without complication Qualified Code(s): E11.9 - Type 2 diabetes mellitus without complications Code(s): E11.9 - Type 2 diabetes mellitus without complications Status: Chronic (6) IVETT (obstructive sleep apnea): Code(s): G47.33 - Obstructive sleep apnea (adult) (pediatric) Status: Chronic Assessment and Plan: On CPAP at night (7) Umbilical hernia: Qualifiers: Obstruction and gangrene presence: without obstruction or gangrene Qualified Code(s): K42.9 - Umbilical hernia without obstruction or gangrene Code(s): K42.9 - Umbilical hernia without obstruction or gangrene Status: Chronic Assessment and Plan: Asymptomatic Subjective Subjective Date/Time Seen: 06/08/25 08:08 Post Op day: 3 Patient reports: no new complaints, pain is less (no complaints of pain), tolerating a regular diet, bowel movement and afebrile Interval history: Patient pulled out OBED drain early this morning. Dressing being replaced now. Exam Const: General: comfortable, alert and awake; No acute distress Orientation/consciousness: oriented to place and oriented to time GI: Inspection: non-distended, incision (healing well, drain site dressing blood soaked) and visible herniation GI Palp: Yes Soft to palpation, No Tenderness to palpation present (GI), No Guarding due to palpation present (GI), Yes Hernia present umbilical and No Palpable mass present Objective Data Vital Signs Vital Signs: Vital Signs - 24 hr 06/07/25 09:07 06/07/25 12:00 06/07/25 12:00 Temperature 36.3 C L Pulse Rate 80 64 77 Respiratory Rate 12 Blood Pressure 134/74 Pulse Oximetry 98 Oxygen Delivery 06/07/25 15:55 06/07/25 16:00 06/07/25 20:00 Temperature 36.1 C L Pulse Rate 79 93 93 Respiratory Rate 20 20 Blood Pressure 110/95 H Pulse Oximetry 98 98 Oxygen Delivery Room Air 06/07/25 20:00 06/07/25 20:00 06/07/25 20:07 Temperature 37.0 C Pulse Rate 82 73 93 Respiratory Rate 16 Blood Pressure 160/71 H Pulse Oximetry 99 Oxygen Delivery 06/07/25 22:08 06/08/25 00:00 06/08/25 00:00 Temperature 36.7 C Pulse Rate 73 74 77 Respiratory Rate 21 H 19 Blood Pressure 167/67 H Pulse Oximetry 98 98 Oxygen Delivery CPAP 06/08/25 04:00 06/08/25 04:00 06/08/25 08:00 Temperature 36.6 C 36.9 C Pulse Rate 88 67 78 Respiratory Rate 17 18 Blood Pressure 177/72 H 180/93 H Pulse Oximetry 99 99 Oxygen Delivery Intake/Output Intake/Output: Intake & Output 06/05/25 06/06/25 06/07/25 06/08/25 23:59 23:59 23:59 23:59 Intake Total 1350 3309.7 2030 1000 Output Total 655 3320 2350 350 Balance 695 -10.3 -320 650 Meds/Results Medications: Active Medications Generic Name Dose Route Start Last Admin Trade Name Freq PRN Reason Stop Dose Admin Acetaminophen 500 mg 06/05/25 18:27 Acetaminophen 500 Mg Tablet PO Q6H PRN Pain Rated 1-3 Dextrose 12.5 gm 06/05/25 18:27 Dextrose 50% 25 Gm/50 Ml Syringe IV PUSH PRN PRN Hypoglycemia Protocol Enoxaparin Sodium 40 mg 06/06/25 09:00 06/07/25 09:08 Enoxaparin 40 Mg/0.4 Ml Syringe SUB-Q 40 mg DAILY CEE Administration Fentanyl Citrate 12.5 mcg 06/05/25 18:27 Fentanyl Citrate Inj (*Crx) 100 Mcg/2 Ml Vial IV PUSH Q2H PRN Breakthrough Pain Rated 4-6 or NPO Fentanyl Citrate 25 mcg 06/05/25 18:27 Fentanyl Citrate Inj (*Crx) 100 Mcg/2 Ml Vial IV PUSH Q2H PRN Breakthrough Pain Rated 7-10 or NPO Finasteride 5 mg 06/06/25 09:00 06/07/25 09:08 Finasteride 5 Mg Tablet PO 5 mg DAILY CEE Administration Glipizide 10 mg 06/06/25 09:00 06/07/25 09:07 Glipizide 5 Mg Tablet PO 10 mg DAILY CEE Administration Glucagon 1 mg 06/05/25 18:27 Glucagon For Inj 1 Mg Vial IM PRN PRN Hypoglycemia Protocol Glucose 15 gm 06/05/25 18:27 Glucose Oral Gel 15 Gm Of Glucse In 37.5 Gm Tube PO PRN PRN Hypoglycemia Protocol Lactated Ringer's 1,000 mls @ 100 mls/hr 06/05/25 18:27 06/08/25 03:16 Lr - Lactated Ringers Iv IV CONT 100 mls/hr .Q10H CEE Administration Ibuprofen 800 mg in 200 mls @ 400 mls/hr 06/05/25 18:27 Caldolor 800 Mg/200 Ml IVPB Q6H PRN Breakthrough Pain Rated 1-3 or NPO Dextrose 1,000 mls @ 100 mls/hr 06/05/25 18:27 Dextrose 5% 1,000 Ml IVPB PRN PRN Hypoglycemia Protocol Insulin Aspart 3 - 6 units 06/06/25 08:00 06/07/25 17:41 Insulin Aspart (*Bkc) 100 Units/Ml SUB-Q Not Given TIDWM CEE Protocol Insulin Aspart 1 - 3 units 06/05/25 21:00 06/07/25 20:11 Insulin Aspart (*Bkc) 100 Units/Ml SUB-Q Not Given HS [facility] Protocol Lisinopril 20 mg 06/05/25 21:05 06/06/25 09:15 Lisinopril 20 Mg Tablet PO 20 mg QAM CEE Administration Methocarbamol 500 mg 06/05/25 23:05 06/07/25 20:07 Methocarbamol 500 Mg Tablet PO 500 mg QID CEE Administration Metoprolol Tartrate 50 mg 06/05/25 18:50 06/07/25 20:07 Metoprolol Tartrate 50 Mg Tab PO 50 mg Q12HR CEE Administration Multivitamins/Minerals 1 tablet 06/06/25 09:00 06/07/25 09:07 Opti-Gen Tab PO 1 tablet DAILY CEE Administration Naloxone HCl 0.1 mg 06/05/25 18:27 Naloxone Hcl 0.4 Mg/Ml Vial IV PUSH Q2M PRN Opiate Reversal Ondansetron HCl 4 mg 06/05/25 18:27 Ondansetron Inj 4 Mg/2 Ml Vial IV PUSH Q4H PRN Nausea And Vomiting Oxycodone/Acetaminophen 0.5 tablet 06/05/25 18:27 06/07/25 04:45 Oxycodone/Acetaminophen (*Crx) 5-325 Mg Tablet PO 0.5 tablet Q4H PRN Administration Pain Rated 4-6 Simvastatin 40 mg 06/05/25 21:00 06/07/25 20:07 Simvastatin 20 Mg Tablet PO 40 mg HS [facility] Administration Tamsulosin HCl 0.4 mg 06/05/25 21:00 06/07/25 20:07 Tamsulosin Hcl 0.4 Mg Capsule PO 0.4 mg HS [facility] Administration Labs Labs: Laboratory Results - last 24 hr 06/07/25 06/07/25 06/07/25 08:07 11:50 16:52 WBC RBC Hgb Hct MCV MCH MCHC RDW Plt Count MPV Sodium Potassium Chloride Carbon Dioxide Anion Gap BUN Creatinine Estim Creat Clear Calc Estimated GFR Glucose POC Capillary Glucose 150 H 200 H 78 Calcium Magnesium Total Bilirubin AST ALT Alkaline Phosphatase Total Protein Albumin 06/07/25 06/08/25 06/08/25 20:10 06:27 07:44 WBC 7.7 RBC 3.36 L Hgb 9.9 L Hct 31.8 L MCV 94.6 MCH 29.5 MCHC 31.1 L RDW 14.4 Plt Count 150 MPV 10.8 H Sodium 136 L Potassium 3.5 Chloride 106 Carbon Dioxide 26 Anion Gap 4 BUN 12 Creatinine 0.74 Estim Creat Clear Calc 78 Estimated GFR > 60 Glucose 141 H POC Capillary Glucose 184 H 140 H Calcium 8.3 L Magnesium 2.1 Total Bilirubin 0.6 AST 47 ALT 71 H Alkaline Phosphatase 68 Total Protein 5.8 L Albumin 3.1 L
--- NOTE | 2025-06-08 08:34 | PM.PNGS ---
Progress Note: A&P Assessment and Plan (1) Cholelithiasis with acute on chronic cholecystitis with biliary obstruction: Qualifiers: Cholelithiasis location: gallbladder Qualified Code(s): K80.13 - Calculus of gallbladder with acute and chronic cholecystitis with obstruction Code(s): K80.13 - Calculus of gallbladder with acute and chronic cholecystitis with obstruction Status: Acute Assessment and Plan: Patient doing well. Tolerating diabetic regular diet. Had some confusion last night and pulled out his Duke-Hernandez drain. Reportedly, this was draining only serosanguineous fluid. I will go ahead and get a HIDA scan today to ensure there is no bile leak. Plan was to leave the drain in after he went home and remove it in approximately a week. Will go ahead and discontinue Jeffrey catheter today. Continue postoperative care. (2) Acute postoperative anemia due to expected blood loss: Code(s): D62 - Acute posthemorrhagic anemia Status: Acute Assessment and Plan: Anemic but stable. Will give a dose of Bumex and some potassium. 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 (5) DMII (diabetes mellitus, type 2): Qualifiers: Diabetes mellitus retirement insulin use: without instrument operator use Diabetes mellitus complication status: without complication Qualified Code(s): E11.9 - Type 2 diabetes mellitus without complications Code(s): E11.9 - Type 2 diabetes mellitus without complications Status: Chronic (6) IVETT (obstructive sleep apnea): Code(s): G47.33 - Obstructive sleep apnea (adult) (pediatric) Status: Chronic Assessment and Plan: On CPAP at night (7) Umbilical hernia: Qualifiers: Obstruction and gangrene presence: without obstruction or gangrene Qualified Code(s): K42.9 - Umbilical hernia without obstruction or gangrene Code(s): K42.9 - Umbilical hernia without obstruction or gangrene Status: Chronic Assessment and Plan: Asymptomatic Subjective Subjective Date/Time Seen: 06/08/25 08:34 Interval history: Patient removed his drain last night, dressing in place with some saturation and staining. Drain was clearing up and becoming more SS over weekend and output significantly decreasing. Tolerating diet. Having BMs. Ambulating. Pain controlled. Incisions CDI Review of Systems Review of Systems: 12 systems were reviewed and are negative except for as per HPI. All systems reviewed & are unremarkable except as noted in HPI and below Exam Const: General: cooperative, comfortable and no acute distress Resp: Auscultation: diminished lung sounds Cardio: Rate: regular rate Rhythm: regular rhythm GI: Inspection: normal to inspection, distended and incision GI Palp: Yes abdominal tenderness, Yes Soft to palpation, No Guarding due to palpation present (GI) and No Rigid due to palpation Other: Staining on dressing where OBED drain was removed, remainder of incisions CDI Objective Data Vital Signs Vital Signs: Vital Signs - 24 hr 06/07/25 09:07 06/07/25 12:00 06/07/25 12:00 Temperature 97.4 F L Pulse Rate 80 64 77 Respiratory Rate 12 Blood Pressure 134/74 Pulse Oximetry 98 Oxygen Delivery 06/07/25 15:55 06/07/25 16:00 06/07/25 20:00 Temperature 96.9 F L Pulse Rate 79 93 93 Respiratory Rate 20 20 Blood Pressure 110/95 H Pulse Oximetry 98 98 Oxygen Delivery Room Air 06/07/25 20:00 06/07/25 20:00 06/07/25 20:07 Temperature 98.6 F Pulse Rate 82 73 93 Respiratory Rate 16 Blood Pressure 160/71 H Pulse Oximetry 99 Oxygen Delivery 06/07/25 22:08 06/08/25 00:00 06/08/25 00:00 Temperature 98.0 F Pulse Rate 73 74 77 Respiratory Rate 21 H 19 Blood Pressure 167/67 H Pulse Oximetry 98 98 Oxygen Delivery CPAP 06/08/25 04:00 06/08/25 04:00 06/08/25 08:00 Temperature 97.8 F 98.4 F Pulse Rate 88 67 78 Respiratory Rate 17 18 Blood Pressure 177/72 H 180/93 H Pulse Oximetry 99 99 Oxygen Delivery 06/08/25 08:00 Temperature Pulse Rate Respiratory Rate Blood Pressure Pulse Oximetry 99 Oxygen Delivery Room Air Intake/Output Intake/Output: Intake & Output 06/05/25 06/06/25 06/07/25 06/08/25 23:59 23:59 23:59 23:59 Intake Total 1350 3309.7 2030 1000 Output Total 655 6900 2350 350 Balance 695 -10.3 -320 650 Meds/Results Medications: Active Medications Generic Name Dose Route Start Last Admin Trade Name Freq PRN Reason Stop Dose Admin Acetaminophen 500 mg 06/05/25 18:27 Acetaminophen 500 Mg Tablet PO Q6H PRN Pain Rated 1-3 Dextrose 12.5 gm 06/05/25 18:27 Dextrose 50% 25 Gm/50 Ml Syringe IV PUSH PRN PRN Hypoglycemia Protocol Enoxaparin Sodium 40 mg 06/06/25 09:00 06/07/25 09:08 Enoxaparin 40 Mg/0.4 Ml Syringe SUB-Q 40 mg DAILY CEE Administration Fentanyl Citrate 12.5 mcg 06/05/25 18:27 Fentanyl Citrate Inj (*Crx) 100 Mcg/2 Ml Vial IV PUSH Q2H PRN Breakthrough Pain Rated 4-6 or NPO Fentanyl Citrate 25 mcg 06/05/25 18:27 Fentanyl Citrate Inj (*Crx) 100 Mcg/2 Ml Vial IV PUSH Q2H PRN Breakthrough Pain Rated 7-10 or NPO Finasteride 5 mg 06/06/25 09:00 06/07/25 09:08 Finasteride 5 Mg Tablet PO 5 mg DAILY CEE Administration Glipizide 10 mg 06/06/25 09:00 06/07/25 09:07 Glipizide 5 Mg Tablet PO 10 mg DAILY CEE Administration Glucagon 1 mg 06/05/25 18:27 Glucagon For Inj 1 Mg Vial IM PRN PRN Hypoglycemia Protocol Glucose 15 gm 06/05/25 18:27 Glucose Oral Gel 15 Gm Of Glucse In 37.5 Gm Tube PO PRN PRN Hypoglycemia Protocol Lactated Ringer's 1,000 mls @ 100 mls/hr 06/05/25 18:27 06/08/25 03:16 Lr - Lactated Ringers Iv IV CONT 100 mls/hr .Q10H CEE Administration Ibuprofen 800 mg in 200 mls @ 400 mls/hr 06/05/25 18:27 Caldolor 800 Mg/200 Ml IVPB Q6H PRN Breakthrough Pain Rated 1-3 or NPO Dextrose 1,000 mls @ 100 mls/hr 06/05/25 18:27 Dextrose 5% 1,000 Ml IVPB PRN PRN Hypoglycemia Protocol Insulin Aspart 3 - 6 units 06/06/25 08:00 06/07/25 17:41 Insulin Aspart (*Bkc) 100 Units/Ml SUB-Q Not Given TIDWM CEE Protocol Insulin Aspart 1 - 3 units 06/05/25 21:00 06/07/25 20:11 Insulin Aspart (*Bkc) 100 Units/Ml SUB-Q Not Given HS [facility] Protocol Lisinopril 20 mg 06/05/25 21:05 06/06/25 09:15 Lisinopril 20 Mg Tablet PO 20 mg QAM CEE Administration Methocarbamol 500 mg 06/05/25 23:05 06/07/25 20:07 Methocarbamol 500 Mg Tablet PO 500 mg QID CEE Administration Metoprolol Tartrate 50 mg 06/05/25 18:50 06/07/25 20:07 Metoprolol Tartrate 50 Mg Tab PO 50 mg Q12HR CEE Administration Multivitamins/Minerals 1 tablet 06/06/25 09:00 06/07/25 09:07 Opti-Gen Tab PO 1 tablet DAILY CEE Administration Naloxone HCl 0.1 mg 06/05/25 18:27 Naloxone Hcl 0.4 Mg/Ml Vial IV PUSH Q2M PRN Opiate Reversal Ondansetron HCl 4 mg 06/05/25 18:27 Ondansetron Inj 4 Mg/2 Ml Vial IV PUSH Q4H PRN Nausea And Vomiting Oxycodone/Acetaminophen 0.5 tablet 06/05/25 18:27 06/07/25 04:45 Oxycodone/Acetaminophen (*Crx) 5-325 Mg Tablet PO 0.5 tablet Q4H PRN Administration Pain Rated 4-6 Simvastatin 40 mg 06/05/25 21:00 06/07/25 20:07 Simvastatin 20 Mg Tablet PO 40 mg HS CEE Administration Tamsulosin HCl 0.4 mg 06/05/25 21:00 06/07/25 20:07 Tamsulosin Hcl 0.4 Mg Capsule PO 0.4 mg HS CEE Administration Labs Labs: Laboratory Results - last 24 hr 06/07/25 06/07/25 06/07/25 11:50 16:52 20:10 WBC RBC Hgb Hct MCV MCH MCHC RDW Plt Count MPV Sodium Potassium Chloride Carbon Dioxide Anion Gap BUN Creatinine Estim Creat Clear Calc Estimated GFR Glucose POC Capillary Glucose 200 H 78 184 H Calcium Magnesium Total Bilirubin AST ALT Alkaline Phosphatase Total Protein Albumin 06/08/25 06/08/25 06:27 07:44 WBC 7.7 RBC 3.36 L Hgb 9.9 L Hct 31.8 L MCV 94.6 MCH 29.5 MCHC 31.1 L RDW 14.4 Plt Count 150 MPV 10.8 H Sodium 136 L Potassium 3.5 Chloride 106 Carbon Dioxide 26 Anion Gap 4 BUN 12 Creatinine 0.74 Estim Creat Clear Calc 78 Estimated GFR > 60 Glucose 141 H POC Capillary Glucose 140 H Calcium 8.3 L Magnesium 2.1 Total Bilirubin 0.6 AST 47 ALT 71 H Alkaline Phosphatase 68 Total Protein 5.8 L Albumin 3.1 L
[2025-06-08] MEDS: POTASSIUM CHLORIDE 20 MEQ PACKET (FOR LIQUID) 40 MEQ PO (09:11)
[2025-06-08] MEDS: BUMETANIDE INJ 2.5 MG/10 ML VIAL 2 MG IV PUSH (09:11)
[2025-06-08] MEDS: ENOXAPARIN 40 MG/0.4 ML SYRINGE SUB-Q (09:13)
[2025-06-08] MEDS: OPTI-GEN TAB 1 TABLET PO (09:13)
[2025-06-08] MEDS: METOPROLOL TARTRATE 50 MG TAB PO ×2 (09:13→21:06)
[2025-06-08] MEDS: FINASTERIDE 5 MG TABLET PO (09:13)
[2025-06-08] MEDS: POTASSIUM CHLORIDE 20 MEQ ER TABLET 40 MEQ PO (09:14)
--- NOTE | 2025-06-08 10:00 | PC.NURSE ---
To NM per wheelchair for Hida Scan.
--- NOTE | 2025-06-08 12:07 | P.PNIM_ITS ---
Progress Note: A&P Assessment and Plan (1) Hypertensive urgency: Code(s): I16.0 - Hypertensive urgency Status: Acute Assessment and Plan: Hydralazine p.r.n. Patient was on atenolol, lisinopril, and amlodipine and was taken off during last hospitalization not restarted. Will restart low-dose lisinopril Adjust blood pressure medications as needed (2) Paroxysmal atrial fibrillation: Code(s): I48.0 - Paroxysmal atrial fibrillation Status: Chronic Assessment and Plan: Continue metoprolol (3) DMII (diabetes mellitus, type 2): Qualifiers: Diabetes mellitus fpc insulin use: without rn staff use Diabetes mellitus complication status: without complication Qualified Code(s): E11.9 - Type 2 diabetes mellitus without complications Code(s): E11.9 - Type 2 diabetes mellitus without complications Status: Chronic Assessment and Plan: Joel CONTE SSI Diet per surgery (4) Acute cholecystitis: Code(s): K81.0 - Acute cholecystitis Status: Chronic Assessment and Plan: Patient had acute gangrenous cholecystitis less than use in the hospital was sent home with per continues to he is now status post cholecystectomy. Robaxin added for pain management (5) BPH (benign prostatic hyperplasia): Code(s): N40.0 - Benign prostatic hyperplasia without lower urinary tract symptoms Status: Acute Assessment and Plan: Continue home meds Plan Patient had cholecystectomy on 06/05/25 POD#3, last night patient pulled out his Duke-Hernandez drain. seen by the surgery service and ordered HIDA scan to further evaluate if there is any bile leaks, patient stats feeling much better had his breakfast and tolerated, no BM or gas yet, and encouraged patient to be out of bed and use incentive spirometer, will continue drain, will hold anticoagulation, will monitor. patient daughter is present in the room and gave updates. Subjective Date/time seen: 06/08/25 12:07 Interval history: H&P-Narrative: Alban Graff is a 84 year old male who was admitted to the hospital for sepsis due to acute cholecystitis on 03/27/2025. He had a part coli tube placed at that time, and had E coli bacteremia. Today he presented to the hospital for a planned cholecystectomy. On 06 05 2025 the hospitalist team has been consulted for hypertensive urgency postop with the patient's blood pressure being 223/100. During patient's last hospital admission due to rhabdomyolysis on admission acute sepsis with severe hypotension he was taken off 3 different blood pressure medications. He was on lisinopril, amlodipine and atenolol. He was recommended to follow-up with his PCP. These were not restarted. Patient had cholecystectomy on 06/05/25 POD#3, last night patient pulled out his Duke-Hernandez drain. seen by the surgery service and ordered HIDA scan to further evaluate if there is any bile leaks, patient stats feeling much better had his breakfast and tolerated, no BM or gas yet, and encouraged patient to be out of bed and use incentive spirometer, will continue drain, will hold anticoagulation, will monitor. patient daughter is present in the room and gave updates. Review of Systems Review of Systems: All systems reviewed & are unremarkable except as noted in HPI and below Exam Narrative: Patient is comfortable, NAD HEENT: eyes are clear and none icteric LUNGS:CTA HEART: RR S1S2 ABD: BS+, Soft and nontender Lower extremities: no edema SKIN: nonjaundiced Neuro: grossly intact. Objective Data Vital Signs Vital Signs: Vital Signs - 24 hr 06/07/25 15:55 06/07/25 16:00 06/07/25 20:00 Temperature 36.1 C L Pulse Rate 79 93 93 Respiratory Rate 20 20 Blood Pressure 110/95 H Pulse Oximetry 98 98 Oxygen Delivery Room Air 06/07/25 20:00 06/07/25 20:00 06/07/25 20:07 Temperature 37.0 C Pulse Rate 82 73 93 Respiratory Rate 16 Blood Pressure 160/71 H Pulse Oximetry 99 Oxygen Delivery 06/07/25 22:08 06/08/25 00:00 06/08/25 00:00 Temperature 36.7 C Pulse Rate 73 74 77 Respiratory Rate 21 H 19 Blood Pressure 167/67 H Pulse Oximetry 98 98 Oxygen Delivery CPAP 06/08/25 04:00 06/08/25 04:00 06/08/25 08:00 Temperature 36.6 C 36.9 C Pulse Rate 88 67 78 Respiratory Rate 17 18 Blood Pressure 177/72 H 180/93 H Pulse Oximetry 99 99 Oxygen Delivery 06/08/25 08:00 06/08/25 08:00 06/08/25 09:13 Temperature Pulse Rate 85 78 Respiratory Rate Blood Pressure Pulse Oximetry 99 Oxygen Delivery Room Air 06/08/25 12:00 Temperature 36.9 C Pulse Rate 75 Respiratory Rate 16 Blood Pressure 190/94 H Pulse Oximetry 99 Oxygen Delivery Intake/Output Intake/Output: Intake & Output 06/05/25 06/06/25 06/07/25 06/08/25 23:59 23:59 23:59 23:59 Intake Total 1350 3309.7 2030 1240 Output Total 655 3320 2350 1300 Balance 695 -10.3 -320 -60 Meds/Results Medications: Active Medications Generic Name Dose Route Start Last Admin Trade Name Wayneq PRN Reason Stop Dose Admin Acetaminophen 500 mg 06/05/25 18:27 Acetaminophen 500 Mg Tablet PO Q6H PRN Pain Rated 1-3 Dextrose 12.5 gm 06/05/25 18:27 Dextrose 50% 25 Gm/50 Ml Syringe IV PUSH PRN PRN Hypoglycemia Protocol Enoxaparin Sodium 40 mg 06/06/25 09:00 06/08/25 09:13 Enoxaparin 40 Mg/0.4 Ml Syringe SUB-Q 40 mg DAILY CEE Administration Fentanyl Citrate 12.5 mcg 06/05/25 18:27 Fentanyl Citrate Inj (*Crx) 100 Mcg/2 Ml Vial IV PUSH Q2H PRN Breakthrough Pain Rated 4-6 or NPO Fentanyl Citrate 25 mcg 06/05/25 18:27 Fentanyl Citrate Inj (*Crx) 100 Mcg/2 Ml Vial IV PUSH Q2H PRN Breakthrough Pain Rated 7-10 or NPO Finasteride 5 mg 06/06/25 09:00 06/08/25 09:13 Finasteride 5 Mg Tablet PO 5 mg DAILY CEE Administration Glipizide 10 mg 06/06/25 09:00 06/08/25 09:13 Glipizide 5 Mg Tablet PO 10 mg DAILY CEE Administration Glucagon 1 mg 06/05/25 18:27 Glucagon For Inj 1 Mg Vial IM PRN PRN Hypoglycemia Protocol Glucose 15 gm 06/05/25 18:27 Glucose Oral Gel 15 Gm Of Glucse In 37.5 Gm Tube PO PRN PRN Hypoglycemia Protocol Lactated Ringer's 1,000 mls @ 100 mls/hr 06/05/25 18:27 06/08/25 03:16 Lr - Lactated Ringers Iv IV CONT 100 mls/hr .Q10H CEE Administration Ibuprofen 800 mg in 200 mls @ 400 mls/hr 06/05/25 18:27 Caldolor 800 Mg/200 Ml IVPB Q6H PRN Breakthrough Pain Rated 1-3 or NPO Dextrose 1,000 mls @ 100 mls/hr 06/05/25 18:27 Dextrose 5% 1,000 Ml IVPB PRN PRN Hypoglycemia Protocol Insulin Aspart 3 - 6 units 06/06/25 08:00 06/08/25 09:04 Insulin Aspart (*Bkc) 100 Units/Ml SUB-Q Not Given TIDWM [facility] Protocol Insulin Aspart 1 - 3 units 06/05/25 21:00 06/07/25 20:11 Insulin Aspart (*Bkc) 100 Units/Ml SUB-Q Not Given HS [facility] Protocol Lisinopril 20 mg 06/05/25 21:05 06/08/25 09:13 Lisinopril 20 Mg Tablet PO 20 mg QAM CEE Administration Methocarbamol 500 mg 06/05/25 23:05 06/08/25 09:13 Methocarbamol 500 Mg Tablet PO 500 mg QID CEE Administration Metoprolol Tartrate 50 mg 06/05/25 18:50 06/08/25 09:13 Metoprolol Tartrate 50 Mg Tab PO 50 mg Q12HR CEE Administration Multivitamins/Minerals 1 tablet 06/06/25 09:00 06/08/25 09:13 Opti-Gen Tab PO 1 tablet DAILY CEE Administration Naloxone HCl 0.1 mg 06/05/25 18:27 Naloxone Hcl 0.4 Mg/Ml Vial IV PUSH Q2M PRN Opiate Reversal Ondansetron HCl 4 mg 06/05/25 18:27 Ondansetron Inj 4 Mg/2 Ml Vial IV PUSH Q4H PRN Nausea And Vomiting Oxycodone/Acetaminophen 0.5 tablet 06/05/25 18:27 06/07/25 04:45 Oxycodone/Acetaminophen (*Crx) 5-325 Mg Tablet PO 0.5 tablet Q4H PRN Administration Pain Rated 4-6 Potassium Chloride 20 meq 06/09/25 08:00 Potassium Chloride 20 Meq Er Tablet PO DAILY@0800 [facility] Simvastatin 40 mg 06/05/25 21:00 06/07/25 20:07 Simvastatin 20 Mg Tablet PO 40 mg HS CEE Administration Tamsulosin HCl 0.4 mg 06/05/25 21:00 06/07/25 20:07 Tamsulosin Hcl 0.4 Mg Capsule PO 0.4 mg HS CEE Administration Radiology Results: ITS Impressions Hepatobiliary Scan Nuclear Medicine 06/08/25 12:01 IMPRESSION: 1. No bile leak. 2. Delayed clearance of radiotracer from the blood pool, consistent with hepatobiliary dysfunction. Labs Labs: Laboratory Results - last 24 hr 06/07/25 06/07/25 06/07/25 11:50 16:52 20:10 WBC RBC Hgb Hct MCV MCH MCHC RDW Plt Count MPV Sodium Potassium Chloride Carbon Dioxide Anion Gap BUN Creatinine Estim Creat Clear Calc Estimated GFR Glucose POC Capillary Glucose 200 H 78 184 H Calcium Magnesium Total Bilirubin AST ALT Alkaline Phosphatase Total Protein Albumin 06/08/25 06/08/25 06:27 07:44 WBC 7.7 RBC 3.36 L Hgb 9.9 L Hct 31.8 L MCV 94.6 MCH 29.5 MCHC 31.1 L RDW 14.4 Plt Count 150 MPV 10.8 H Sodium 136 L Potassium 3.5 Chloride 106 Carbon Dioxide 26 Anion Gap 4 BUN 12 Creatinine 0.74 Estim Creat Clear Calc 78 Estimated GFR > 60 Glucose 141 H POC Capillary Glucose 140 H Calcium 8.3 L Magnesium 2.1 Total Bilirubin 0.6 AST 47 ALT 71 H Alkaline Phosphatase 68 Total Protein 5.8 L Albumin 3.1 L Quality VTE Prophylaxis VTE prophylaxis: mechanical ordered and pharmacologic ordered
[2025-06-08] MEDS: SIMVASTATIN 20 MG TABLET 40 MG PO (21:06)
[2025-06-08] MEDS: TAMSULOSIN HCL 0.4 MG CAPSULE PO (21:06)
[2025-06-08] MEDS: oxyCODONE/ACETAMINOPHEN (*CRX) 5-325 MG TABLET 0.5 TABLET PO (21:07)
[2025-06-09] VITALS (7 sets, daily range): BP systolic 143–195; BP diastolic 71–94; PULSE 75–89; RESP 17–20; TEMP 36.3–37.1; O2SAT 97–99
[2025-06-09 06:11] LABS: Hematocrit 34.3 % (42.0-52.0); Hemoglobin 11.1 g/dL (14.0-18.0); Mean Corpuscular HGB Conc 32.4 g/dl (32-36); Mean Corpuscular Hemoglobin 30.3 pg (26-34); Mean Corpuscular Volume 93.7 fl (80-100); Platelet Count Result 202 k/mm3 (150-375); Red Blood Count 3.66 M/mm3 (4.6-6.20); White Blood Count 6.8 K/mm3 (4.5-10.0)
[2025-06-09 06:38] LABS: Alanine Aminotransferase 71 U/L (6-50); Albumin Level 3.6 g/dL (3.5-5.1); Alkaline Phosphatase 80 U/L (38-126); Anion Gap 5 mmol/L (4-12); Aspartate Amino Transferase 50 U/L (17-59); Bilirubin,Total 0.9 mg/dL (0.2-1.3); Blood Urea Nitrogen 12 mg/dL (9-20); Calcium 8.8 mg/dL (8.4-10.2); Carbon Dioxide 30 mmol/L (22-30); Chloride 103 mmol/L (98-107); Estimated CRCL calculation 70 ml/min; Estimated Glomerular Filt Rate > 60; Glucose 154 mg/dL (65-110); Magnesium 2.1 mg/dL (1.6-2.3); Potassium 4.0 mmol/L (3.4-5.0); Sodium 138 mmol/L (137-145); Total Protein 6.6 g/dL (6.3-8.2)
--- NOTE | 2025-06-09 08:22 | P.PNGS_ITS ---
Progress Note: A&P Assessment and Plan (1) Cholelithiasis with acute on chronic cholecystitis with biliary obstruction: Qualifiers: Cholelithiasis location: gallbladder Qualified Code(s): K80.13 - Calculus of gallbladder with acute and chronic cholecystitis with obstruction <Theo E. May, DO - Last Filed: 06/09/25 08:27> Code(s): K80.13 - Calculus of gallbladder with acute and chronic cholecystitis with obstruction <Theo E. May, DO - Last Filed: 06/09/25 08:27> Status: Acute <Theo E. May, DO - Last Filed: 06/09/25 08:27> Assessment and Plan: Patient doing well. Tolerating diabetic regular diet. HIDA scan without evidence of bile leak. WBC, LFTs, and t bili remain normal. Clinically doing well and okay for discharge, will discuss discharge disposition with patient and CM. See attending attestation for final plan and updates <Theo E. May, DO - Last Filed: 06/09/25 08:27> (2) Acute postoperative anemia due to expected blood loss: Code(s): D62 - Acute posthemorrhagic anemia <Theo E. May, DO - Last Filed: 06/09/25 08:27> Status: Acute <Theo E. May, DO - Last Filed: 06/09/25 08:27> Assessment and Plan: Anemic, but up to 11.1 today after diuresis yesterday <Theo Daryl. May, DO - Last Filed: 06/09/25 08:27> (3) Paroxysmal atrial fibrillation: Code(s): I48.0 - Paroxysmal atrial fibrillation <Theo E. May, DO - Last Filed: 06/09/25 08:27> Status: Chronic <Theo E. May, DO - Last Filed: 06/09/25 08:27> Assessment and Plan: No abnormal heart rates detected this admission <Theo E. May, DO - Last Filed: 06/09/25 08:27> (4) intermediate current use of anticoagulant: Code(s): Z79.01 - intermediate (current) use of anticoagulants <Theo E. May, DO - Last Filed: 06/09/25 08:27> Status: Chronic <Theo E. May, DO - Last Filed: 06/09/25 08:27> Assessment and Plan: Continue to hold Eliquis, will resume at discharge <Theo E. 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 May, DO - Last Filed: 06/09/25 08:27> Code(s): E11.9 - Type 2 diabetes mellitus without complications <Theo E. May, DO - Last Filed: 06/09/25 08:27> Status: Chronic <Theo E. May, DO - Last Filed: 06/09/25 08:27> (6) IVETT (obstructive sleep apnea): Code(s): G47.33 - Obstructive sleep apnea (adult) (pediatric) <Theo E. May, DO - Last Filed: 06/09/25 08:27> Status: Chronic <Theo E. May, DO - Last Filed: 06/09/25 08:27> Assessment and Plan: On CPAP at night <Theo E. May, DO - Last Filed: 06/09/25 08:27> (7) Umbilical hernia: Qualifiers: Obstruction and gangrene presence: without obstruction or gangrene Qualified Code(s): K42.9 - Umbilical hernia without obstruction or gangrene <Theo E. May, DO - Last Filed: 06/09/25 08:27> Code(s): K42.9 - Umbilical hernia without obstruction or gangrene <Theo E. May, DO - Last Filed: 06/09/25 08:27> Status: Chronic <Theo E. May, DO - Last Filed: 06/09/25 08:27> Assessment and Plan: Asymptomatic <Theo E. May, DO - Last Filed: 06/09/25 08:27> Subjective Subjective Date/Time Seen: 06/09/25 08:22 <Theo E. May, DO - Last Filed: 06/09/25 08:27> Interval history: NAEON. HIDA scan negative for any bile leak. Labs remain grossly WNL. VSS. Tolerating diet. Ambulating. States that he feels well and is ready to discharge home. Incisions CDI. Drain site healing, minimal staining on dressing from yesterday. <Theo May, DO - Last Filed: 06/09/25 08:27> Review of Systems Review of Systems: All systems reviewed & are unremarkable except as noted in HPI and below <Theo May, DO - Last Filed: 06/09/25 08:27> Exam Const: General: comfortable, alert and awake; No acute distress <Theo May, DO - Last Filed: 06/09/25 08:27> Orientation/consciousness: oriented to place and oriented to time <Theo May, DO - Last Filed: 06/09/25 08:27> GI: Inspection: non-distended and visible herniation <Theo May, DO - Last Filed: 06/09/25 08:27> GI Palp: Yes Soft to palpation, No Tenderness to palpation present (GI), No Guarding due to palpation present (GI), Yes Hernia present umbilical and No Palpable mass present <Theo May, DO - Last Filed: 06/09/25 08:27> Other: incisions healing well, drain site dressing minimally stained this am, drain incision with scab over it this am, healing well <Theo May, DO - Last Filed: 06/09/25 08:27> Objective Data Vital Signs Vital Signs: Vital Signs - 24 hr 06/08/25 09:13 06/08/25 12:00 06/08/25 12:00 Temperature 98.5 F Pulse Rate 78 75 73 Respiratory Rate 16 Blood Pressure 190/94 H Pulse Oximetry 99 Oxygen Delivery Fraction of Inspired Oxygen 06/08/25 16:00 06/08/25 16:00 06/08/25 20:00 Temperature 98.7 F 98.3 F Pulse Rate 78 69 78 Respiratory Rate 16 18 Blood Pressure 190/93 H 157/77 H Pulse Oximetry 97 96 Oxygen Delivery Fraction of Inspired Oxygen 06/08/25 20:22 06/08/25 21:06 06/09/25 00:00 Temperature 98.4 F Pulse Rate 82 63 75 Respiratory Rate 20 18 Blood Pressure 143/78 H Pulse Oximetry 97 97 Oxygen Delivery Room Air Fraction of Inspired Oxygen 21 06/09/25 04:00 06/09/25 08:00 Temperature 97.9 F 97.4 F L Pulse Rate 80 75 Respiratory Rate 20 18 Blood Pressure 171/75 H 190/89 H Pulse Oximetry 97 97 Oxygen Delivery Fraction of Inspired Oxygen <Theo May, DO - Last Filed: 06/09/25 08:27> Intake/Output Intake/Output: Intake & Output 06/06/25 06/07/25 06/08/25 06/09/25 23:59 23:59 23:59 23:59 Intake Total 3309.7 2030 2200 340 Output Total 3320 2350 2575 100 Balance -10.3 -320 -375 240 <Theo May, DO - Last Filed: 06/09/25 08:27> Meds/Results Medications: Active Medications Generic Name Dose Route Start Last Admin Trade Name Freq PRN Reason Stop Dose Admin Acetaminophen 500 mg 06/05/25 18:27 Acetaminophen 500 Mg Tablet PO Q6H PRN Pain Rated 1-3 Dextrose 12.5 gm 06/05/25 18:27 Dextrose 50% 25 Gm/50 Ml Syringe IV PUSH PRN PRN Hypoglycemia Protocol Enoxaparin Sodium 40 mg 06/06/25 09:00 06/08/25 09:13 Enoxaparin 40 Mg/0.4 Ml Syringe SUB-Q 40 mg DAILY [facility]EE Administration Fentanyl Citrate 12.5 mcg 06/05/25 18:27 Fentanyl Citrate Inj (*Crx) 100 Mcg/2 Ml Vial IV PUSH Q2H PRN Breakthrough Pain Rated 4-6 or NPO Fentanyl Citrate 25 mcg 06/05/25 18:27 Fentanyl Citrate Inj (*Crx) 100 Mcg/2 Ml Vial IV PUSH Q2H PRN Breakthrough Pain Rated 7-10 or NPO Finasteride 5 mg 06/06/25 09:00 06/08/25 09:13 Finasteride 5 Mg Tablet PO 5 mg DAILY [facility]EE Administration Glipizide 10 mg 06/06/25 09:00 06/08/25 09:13 Glipizide 5 Mg Tablet PO 10 mg DAILY [facility]EE Administration Glucagon 1 mg 06/05/25 18:27 Glucagon For Inj 1 Mg Vial IM PRN PRN Hypoglycemia Protocol Glucose 15 gm 06/05/25 18:27 Glucose Oral Gel 15 Gm Of Glucse In 37.5 Gm Tube PO PRN PRN Hypoglycemia Protocol Ibuprofen 800 mg in 200 mls @ 400 mls/hr 06/05/25 18:27 Caldolor 800 Mg/200 Ml IVPB Q6H PRN Breakthrough Pain Rated 1-3 or NPO Dextrose 1,000 mls @ 100 mls/hr 06/05/25 18:27 Dextrose 5% 1,000 Ml IVPB PRN PRN Hypoglycemia Protocol Insulin Aspart 3 - 6 units 06/06/25 08:00 06/08/25 16:51 Insulin Aspart (*Bkc) 100 Units/Ml SUB-Q Not Given TIDWM [facility]EE Protocol Insulin Aspart 1 - 3 units 06/05/25 21:00 06/08/25 21:14 Insulin Aspart (*Bkc) 100 Units/Ml SUB-Q Not Given HS [facility] Protocol Lisinopril 20 mg 06/05/25 21:05 06/08/25 09:13 Lisinopril 20 Mg Tablet PO 20 mg QAM [facility]EE Administration Methocarbamol 500 mg 06/05/25 23:05 06/08/25 21:06 Methocarbamol 500 Mg Tablet PO 500 mg QID [facility]EE Administration Metoprolol Tartrate 50 mg 06/05/25 18:50 06/08/25 21:06 Metoprolol Tartrate 50 Mg Tab PO 50 mg Q12HR [facility] Administration Multivitamins/Minerals 1 tablet 06/06/25 09:00 06/08/25 09:13 Opti-Gen Tab PO 1 tablet DAILY [facility] Administration Naloxone HCl 0.1 mg 06/05/25 18:27 Naloxone Hcl 0.4 Mg/Ml Vial IV PUSH Q2M PRN Opiate Reversal Ondansetron HCl 4 mg 06/05/25 18:27 Ondansetron Inj 4 Mg/2 Ml Vial IV PUSH Q4H PRN Nausea And Vomiting Oxycodone/Acetaminophen 0.5 tablet 06/05/25 18:27 06/08/25 21:07 Oxycodone/Acetaminophen (*Crx) 5-325 Mg Tablet PO 0.5 tablet Q4H PRN Administration Pain Rated 4-6 Potassium Chloride 20 meq 06/09/25 08:00 Potassium Chloride 20 Meq Er Tablet PO DAILY@0800 CEE Simvastatin 40 mg 06/05/25 21:00 06/08/25 21:06 Simvastatin 20 Mg Tablet PO 40 mg HS [facility]EE Administration Tamsulosin HCl 0.4 mg 06/05/25 21:00 06/08/25 21:06 Tamsulosin Hcl 0.4 Mg Capsule PO 0.4 mg HS CEE Administration <Theo May DO - Last Filed: 06/09/25 08:27> Radiology Results: ITS Impressions Hepatobiliary Scan Nuclear Medicine 06/08/25 12:01 IMPRESSION: 1. No bile leak. 2. Delayed clearance of radiotracer from the blood pool, consistent with hepatobiliary dysfunction. <Theo May DO - Last Filed: 06/09/25 08:27> Labs Labs: Laboratory Results - last 24 hr 06/08/25 06/08/25 06/08/25 12:59 16:32 20:38 WBC RBC Hgb Hct MCV MCH MCHC RDW Plt Count MPV Sodium Potassium Chloride Carbon Dioxide Anion Gap BUN Creatinine Estim Creat Clear Calc Estimated GFR Glucose POC Capillary Glucose 184 H 99 138 H Calcium Magnesium Total Bilirubin AST ALT Alkaline Phosphatase Total Protein Albumin 06/09/25 06/09/25 06:02 07:15 WBC 6.8 RBC 3.66 L Hgb 11.1 L Hct 34.3 L MCV 93.7 MCH 30.3 MCHC 32.4 RDW 14.3 Plt Count 202 MPV 11.1 H Sodium 138 Potassium 4.0 Chloride 103 Carbon Dioxide 30 Anion Gap 5 BUN 12 Creatinine 0.84 Estim Creat Clear Calc 70 Estimated GFR > 60 Glucose 154 H POC Capillary Glucose 152 H Calcium 8.8 Magnesium 2.1 Total Bilirubin 0.9 AST 50 ALT 71 H Alkaline Phosphatase 80 Total Protein 6.6 Albumin 3.6 <Theo May DO - Last Filed: 06/09/25 08:27> Attestation Supervising Provider Attestation Patient seen and examined. I discussed the patient with Dr. May. I agree with his documentation as noted below. I provided a substantive portion of the care of this patient. I personally performed the medical decision making and much of the history and exam for this encounter. <Osvaldo Whelan MD - Last Filed: 06/09/25 14:32>
[2025-06-09] MEDS: POTASSIUM CHLORIDE 20 MEQ ER TABLET PO (09:34)
[2025-06-09] MEDS: OPTI-GEN TAB 1 TABLET PO (09:34)
[2025-06-09] MEDS: ENOXAPARIN 40 MG/0.4 ML SYRINGE SUB-Q (09:34)
[2025-06-09] MEDS: METOPROLOL TARTRATE 50 MG TAB PO ×2 (09:34→21:54)
[2025-06-09] MEDS: FINASTERIDE 5 MG TABLET PO (09:35)
--- NOTE | 2025-06-09 15:54 | P.PNIM_ITS ---
Progress Note: A&P Assessment and Plan (1) Hypertensive urgency: Code(s): I16.0 - Hypertensive urgency Status: Acute Assessment and Plan: Hydralazine p.r.n. Patient was on atenolol, lisinopril, and amlodipine and was taken off during last hospitalization not restarted. 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 Robaxin added for pain management (5) BPH (benign prostatic hyperplasia): Code(s): N40.0 - Benign prostatic hyperplasia without lower urinary tract symptoms Status: Acute Assessment and Plan: Continue home meds Plan Patient had cholecystectomy on 06/05/25 POD#4, on 06/08 patient pulled out his Duke-Hernandez drain. seen by the surgery service and ordered HIDA scan to further evaluate, the scan did not show any bile leak, patient stats feeling much better had his breakfast and tolerated, no BM or gas yet, and encouraged patient to be out of bed and use incentive spirometer, will continue monitor will hold anticoagulation, will monitor. patient daughter is present in the room and gave updates. Subjective Date/time seen: 06/09/25 15:54 Interval history: H&P-Narrative: Alban Graff is a 84 year old male who was admitted to the hospital for sepsis due to acute cholecystitis on 03/27/2025. He had a part coli tube placed at that time, and had E coli bacteremia. Today he presented to the hospital for a planned cholecystectomy. On 06 05 2025 the hospitalist team has been consulted for hypertensive urgency postop with the patient's blood pressure being 223/100. During patient's last hospital admission due to rhabdomyolysis on admission acute sepsis with severe hypotension he was taken off 3 different blood pressure medications. He was on lisinopril, amlodipine and atenolol. He was recommended to follow-up with his PCP. These were not restarted. Patient had cholecystectomy on 06/05/25 POD#4, on 06/08 patient pulled out his Duke-Hernandez drain. seen by the surgery service and ordered HIDA scan to further evaluate, the scan did not show any bile leak, patient stats feeling much better had his breakfast and tolerated, no BM or gas yet, and encouraged patient to be out of bed and use incentive spirometer, will continue monitor will hold anticoagulation, will monitor. patient daughter is present in the room and gave updates. Review of Systems Review of Systems: 12 systems were reviewed and are negativ e except for as per HPI. Exam Narrative: Patient is comfortable, NAD HEENT: eyes are clear and none icteric LUNGS:CTA HEART: RR S1S2 ABD: BS+, Soft and nontender Lower extremities: no edema SKIN: nonjaundiced Neuro: grossly intact. Objective Data Vital Signs Vital Signs: Vital Signs - 24 hr 06/08/25 16:00 06/08/25 16:00 06/08/25 20:00 Temperature 37.1 C 36.8 C Pulse Rate 78 69 78 Respiratory Rate 16 18 Blood Pressure 190/93 H 157/77 H Pulse Oximetry 97 96 Oxygen Delivery Fraction of Inspired Oxygen 06/08/25 20:22 06/08/25 21:06 06/09/25 00:00 Temperature 36.9 C Pulse Rate 82 63 75 Respiratory Rate 20 18 Blood Pressure 143/78 H Pulse Oximetry 97 97 Oxygen Delivery Room Air Fraction of Inspired Oxygen 21 06/09/25 04:00 06/09/25 08:00 06/09/25 08:00 Temperature 36.6 C 36.3 C L Pulse Rate 80 75 Respiratory Rate 20 18 Blood Pressure 171/75 H 190/89 H Pulse Oximetry 97 97 Oxygen Delivery Room Air Fraction of Inspired Oxygen 06/09/25 08:00 06/09/25 12:00 Temperature 36.9 C Pulse Rate 75 83 Respiratory Rate 20 Blood Pressure 190/94 H Pulse Oximetry 99 Oxygen Delivery Fraction of Inspired Oxygen Intake/Output Intake/Output: Intake & Output 06/06/25 06/07/25 06/08/25 06/09/25 23:59 23:59 23:59 23:59 Intake Total 3309.7 2030 2200 1300 Output Total 3320 2350 2575 100 Balance -10.3 -320 -375 1200 Meds/Results Medications: Active Medications Generic Name Dose Route Start Last Admin Trade Name Freq PRN Reason Stop Dose Admin Acetaminophen 500 mg 06/05/25 18:27 Acetaminophen 500 Mg Tablet PO Q6H PRN Pain Rated 1-3 Amoxicillin/Clavulanate Potassium 1 tablet 06/09/25 21:00 Amoxicillin/Clavulanate K 875-125 Mg Tab PO Q12HR [facility] Dextrose 12.5 gm 06/05/25 18:27 Dextrose 50% 25 Gm/50 Ml Syringe IV PUSH PRN PRN Hypoglycemia Protocol Enoxaparin Sodium 40 mg 06/06/25 09:00 06/09/25 09:34 Enoxaparin 40 Mg/0.4 Ml Syringe SUB-Q 40 mg DAILY [facility] Administration Fentanyl Citrate 12.5 mcg 06/05/25 18:27 Fentanyl Citrate Inj (*Crx) 100 Mcg/2 Ml Vial IV PUSH Q2H PRN Breakthrough Pain Rated 4-6 or NPO Fentanyl Citrate 25 mcg 06/05/25 18:27 Fentanyl Citrate Inj (*Crx) 100 Mcg/2 Ml Vial IV PUSH Q2H PRN Breakthrough Pain Rated 7-10 or NPO Finasteride 5 mg 06/06/25 09:00 06/09/25 09:35 Finasteride 5 Mg Tablet PO 5 mg DAILY [facility] Administration Glipizide 10 mg 06/06/25 09:00 06/09/25 09:34 Glipizide 5 Mg Tablet PO 10 mg DAILY [facility] Administration Glucagon 1 mg 06/05/25 18:27 Glucagon For Inj 1 Mg Vial IM PRN PRN Hypoglycemia Protocol Glucose 15 gm 06/05/25 18:27 Glucose Oral Gel 15 Gm Of Glucse In 37.5 Gm Tube PO PRN PRN Hypoglycemia Protocol Ibuprofen 800 mg in 200 mls @ 400 mls/hr 06/05/25 18:27 Caldolor 800 Mg/200 Ml IVPB Q6H PRN Breakthrough Pain Rated 1-3 or NPO Dextrose 1,000 mls @ 100 mls/hr 06/05/25 18:27 Dextrose 5% 1,000 Ml IVPB PRN PRN Hypoglycemia Protocol Insulin Aspart 3 - 6 units 06/06/25 08:00 06/09/25 11:39 Insulin Aspart (*Bkc) 100 Units/Ml SUB-Q Not Given TIDWM [facility] Protocol Insulin Aspart 1 - 3 units 06/05/25 21:00 06/08/25 21:14 Insulin Aspart (*Bkc) 100 Units/Ml SUB-Q Not Given HS [facility] Protocol Lisinopril 20 mg 06/05/25 21:05 06/09/25 09:34 Lisinopril 20 Mg Tablet PO 20 mg QAM [facility]EE Administration Methocarbamol 500 mg 06/05/25 23:05 06/09/25 12:47 Methocarbamol 500 Mg Tablet PO 500 mg QID [facility]EE Administration Metoprolol Tartrate 50 mg 06/05/25 18:50 06/09/25 09:34 Metoprolol Tartrate 50 Mg Tab PO 50 mg Q12HR [facility]EE Administration Multivitamins/Minerals 1 tablet 06/06/25 09:00 06/09/25 09:34 Opti-Gen Tab PO 1 tablet DAILY [facility]EE Administration Naloxone HCl 0.1 mg 06/05/25 18:27 Naloxone Hcl 0.4 Mg/Ml Vial IV PUSH Q2M PRN Opiate Reversal Ondansetron HCl 4 mg 06/05/25 18:27 Ondansetron Inj 4 Mg/2 Ml Vial IV PUSH Q4H PRN Nausea And Vomiting Oxycodone/Acetaminophen 0.5 tablet 06/05/25 18:27 06/08/25 21:07 Oxycodone/Acetaminophen (*Crx) 5-325 Mg Tablet PO 0.5 tablet Q4H PRN Administration Pain Rated 4-6 Potassium Chloride 20 meq 06/09/25 08:00 06/09/25 09:34 Potassium Chloride 20 Meq Er Tablet PO 20 meq DAILY@0800 [facility]EE Administration Simvastatin 40 mg 06/05/25 21:00 06/08/25 21:06 Simvastatin 20 Mg Tablet PO 40 mg HS [facility]EE Administration Tamsulosin HCl 0.4 mg 06/05/25 21:00 06/08/25 21:06 Tamsulosin Hcl 0.4 Mg Capsule PO 0.4 mg HS CEE Administration Radiology Results: ITS Impressions Hepatobiliary Scan Nuclear Medicine 06/08/25 12:01 IMPRESSION: 1. No bile leak. 2. Delayed clearance of radiotracer from the blood pool, consistent with hepatobiliary dysfunction. Labs Labs: Laboratory Results - last 24 hr 06/08/25 06/08/25 06/09/25 16:32 20:38 06:02 WBC 6.8 RBC 3.66 L Hgb 11.1 L Hct 34.3 L MCV 93.7 MCH 30.3 MCHC 32.4 RDW 14.3 Plt Count 202 MPV 11.1 H Sodium 138 Potassium 4.0 Chloride 103 Carbon Dioxide 30 Anion Gap 5 BUN 12 Creatinine 0.84 Estim Creat Clear Calc 70 Estimated GFR > 60 Glucose 154 H POC Capillary Glucose 99 138 H Calcium 8.8 Magnesium 2.1 Total Bilirubin 0.9 AST 50 ALT 71 H Alkaline Phosphatase 80 Total Protein 6.6 Albumin 3.6 06/09/25 06/09/25 07:15 11:32 WBC RBC Hgb Hct MCV MCH MCHC RDW Plt Count MPV Sodium Potassium Chloride Carbon Dioxide Anion Gap BUN Creatinine Estim Creat Clear Calc Estimated GFR Glucose POC Capillary Glucose 152 H 141 H Calcium Magnesium Total Bilirubin AST ALT Alkaline Phosphatase Total Protein Albumin Quality VTE Prophylaxis VTE prophylaxis: mechanical ordered and pharmacologic ordered
[2025-06-09] MEDS: SIMVASTATIN 20 MG TABLET 40 MG PO (21:53)
[2025-06-09] MEDS: TAMSULOSIN HCL 0.4 MG CAPSULE PO (21:53)
[2025-06-10] VITALS: BP 175/81; PULSE 75; RESP 16; TEMP 37.2; O2SAT 99
[2025-06-10 04:00] VITALS: BP 179/87; PULSE 85; RESP 19; TEMP 36.9; O2SAT 98
[2025-06-10 05:33] LABS: Hematocrit 33.7 % (42.0-52.0); Hemoglobin 10.9 g/dL (14.0-18.0); Mean Corpuscular HGB Conc 32.3 g/dl (32-36); Mean Corpuscular Hemoglobin 29.9 pg (26-34); Mean Corpuscular Volume 92.3 fl (80-100); Platelet Count Result 207 k/mm3 (150-375); Red Blood Count 3.65 M/mm3 (4.6-6.20); White Blood Count 6.0 K/mm3 (4.5-10.0)
[2025-06-10 05:50] LABS: Alanine Aminotransferase 60 U/L (6-50); Albumin Level 3.5 g/dL (3.5-5.1); Alkaline Phosphatase 78 U/L (38-126); Anion Gap 6 mmol/L (4-12); Aspartate Amino Transferase 38 U/L (17-59); Bilirubin,Total 0.7 mg/dL (0.2-1.3); Blood Urea Nitrogen 14 mg/dL (9-20); Calcium 8.5 mg/dL (8.4-10.2); Carbon Dioxide 26 mmol/L (22-30); Chloride 106 mmol/L (98-107); Estimated CRCL calculation 72 ml/min; Estimated Glomerular Filt Rate > 60; Glucose 158 mg/dL (65-110); Magnesium 2.1 mg/dL (1.6-2.3); Potassium 3.9 mmol/L (3.4-5.0); Sodium 138 mmol/L (137-145); Total Protein 6.5 g/dL (6.3-8.2)
--- NOTE | 2025-06-10 07:09 | PM.PNGS ---
Progress Note: A&P Assessment and Plan (1) Cholelithiasis with acute on chronic cholecystitis with biliary obstruction: Qualifiers: Cholelithiasis location: gallbladder Qualified Code(s): K80.13 - Calculus of gallbladder with acute and chronic cholecystitis with obstruction <Theo E. May, DO - Last Filed: 06/10/25 08:00> Code(s): K80.13 - Calculus of gallbladder with acute and chronic cholecystitis with obstruction <Theo E. May, DO - Last Filed: 06/10/25 08:00> Status: Acute <Theo E. May, DO - Last Filed: 06/10/25 08:00> Assessment and Plan: Patient doing well. Tolerating diabetic regular diet. HIDA scan without evidence of bile leak. WBC, LFTs, and t bili remain normal. Some saturation of drain gauze, does have slight yellow tinge to it. Change as needed. Will obtain CT AP this am, if okay, we will continue discharge planning. Patient's daughter to pick patient up at 1500 today. Please see attending attestation for final plan and updates <Theo Daryl. May, DO - Last Filed: 06/10/25 08:00> (2) Acute postoperative anemia due to expected blood loss: Code(s): D62 - Acute posthemorrhagic anemia <Theo E. May, DO - Last Filed: 06/10/25 08:00> Status: Acute <Theo E. May, DO - Last Filed: 06/10/25 08:00> Assessment and Plan: Anemic, but stable at 10.9. <Theo E. May, DO - Last Filed: 06/10/25 08:00> (3) Paroxysmal atrial fibrillation: Code(s): I48.0 - Paroxysmal atrial fibrillation <Theo E. May, DO - Last Filed: 06/10/25 08:00> Status: Chronic <Theo E. May, DO - Last Filed: 06/10/25 08:00> Assessment and Plan: No abnormal heart rates detected this admission <Theo E. 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 May, DO - Last Filed: 06/10/25 08:00> Status: Chronic <Theo E. May, DO - Last Filed: 06/10/25 08:00> Assessment and Plan: Continue to hold Eliquis, will resume at discharge <Theo E. May, DO - Last Filed: 06/10/25 08:00> (5) DMII (diabetes mellitus, type 2): Qualifiers: Diabetes mellitus complication status: without complication Diabetes mellitus intermodal customer service insulin use: without senior care use Qualified Code(s): E11.9 - Type 2 diabetes mellitus without complications <Theo E. May, DO - Last Filed: 06/10/25 08:00> Code(s): E11.9 - Type 2 diabetes mellitus without complications <Theo E. May, DO - Last Filed: 06/10/25 08:00> Status: Chronic <Theo E. May, DO - Last Filed: 06/10/25 08:00> (6) IVETT (obstructive sleep apnea): Code(s): G47.33 - Obstructive sleep apnea (adult) (pediatric) <Theo E. May, DO - Last Filed: 06/10/25 08:00> Status: Chronic <Theo E. May, DO - Last Filed: 06/10/25 08:00> Assessment and Plan: On CPAP at night <Theo E. May, DO - Last Filed: 06/10/25 08:00> (7) Umbilical hernia: Qualifiers: Obstruction and gangrene presence: without obstruction or gangrene Qualified Code(s): K42.9 - Umbilical hernia without obstruction or gangrene <Theo E. May, DO - Last Filed: 06/10/25 08:00> Code(s): K42.9 - Umbilical hernia without obstruction or gangrene <Theo E. May, DO - Last Filed: 06/10/25 08:00> Status: Chronic <Theo E. May, DO - Last Filed: 06/10/25 08:00> Assessment and Plan: Asymptomatic <Theo E. May, DO - Last Filed: 06/10/25 08:00> Subjective Subjective Date/Time Seen: 06/10/25 07:09 <Theo E. May, DO - Last Filed: 06/10/25 08:00> Interval history: NAEON. Still having some drainage from drain site, saturated 2 dressings over interval. Hypertensive, vitals otherwise stable. Hgb stable. LFTs and t bili WNL. WBC WNL. Urinating, reportedly having some postvoid retention. Tolerating diet. 3 BMs over interval. <Theo Daryl. May, DO - Last Filed: 06/10/25 08:00> Review of Systems Review of Systems: All systems reviewed & are unremarkable except as noted in HPI and below <Theo E. May, DO - Last Filed: 06/10/25 08:00> Exam Const: General: comfortable, alert and awake; No acute distress <Theo Brito. May, DO - Last Filed: 06/10/25 08:00> Orientation/consciousness: oriented to place and oriented to time <Theo Brito. May, DO - Last Filed: 06/10/25 08:00> GI: Inspection: non-distended and visible herniation <Theo Daryl. May, DO - Last Filed: 06/10/25 08:00> GI Palp: Yes Soft to palpation, No Tenderness to palpation present (GI), No Guarding due to palpation present (GI), Yes Hernia present umbilical and No Palpable mass present <Theo Daryl. May, DO - Last Filed: 06/10/25 08:00> Other: incisions healing well, drain site dressing stained this am, drain incision continuing to drain some <Theo E. Yadira, DO - Last Filed: 06/10/25 08:00> Objective Data Vital Signs Vital Signs: Vital Signs - 24 hr 06/09/25 08:00 06/09/25 08:00 06/09/25 08:00 Temperature 97.4 F L Pulse Rate 75 75 Respiratory Rate 18 Blood Pressure 190/89 H Pulse Oximetry 97 Oxygen Delivery Room Air 06/09/25 12:00 06/09/25 16:00 06/09/25 20:00 Temperature 98.4 F 98.2 F 98.8 F Pulse Rate 83 78 89 Respiratory Rate 20 18 17 Blood Pressure 190/94 H 195/92 H 166/71 H Pulse Oximetry 99 97 98 Oxygen Delivery 06/09/25 21:54 06/10/25 00:00 06/10/25 04:00 Temperature 99.0 F 98.4 F Pulse Rate 89 75 85 Respiratory Rate 16 19 Blood Pressure 175/81 H 179/87 H Pulse Oximetry 99 98 Oxygen Delivery <Theo May, DO - Last Filed: 06/10/25 08:00> Intake/Output Intake/Output: Intake & Output 06/07/25 06/08/25 06/09/25 06/10/25 23:59 23:59 23:59 23:59 Intake Total 2030 2200 1780 100 Output Total 2350 2575 100 Balance -320 -375 1680 100 <Theo May, DO - Last Filed: 06/10/25 08:00> Meds/Results Medications: Active Medications Generic Name Dose Route Start Last Admin Trade Name Freq PRN Reason Stop Dose Admin Acetaminophen 500 mg 06/05/25 18:27 Acetaminophen 500 Mg Tablet PO Q6H PRN Pain Rated 1-3 Amoxicillin/Clavulanate Potassium 1 tablet 06/09/25 21:00 06/09/25 21:53 Amoxicillin/Clavulanate K 875-125 Mg Tab PO 1 tablet Q12HR CEE Administration Dextrose 12.5 gm 06/05/25 18:27 Dextrose 50% 25 Gm/50 Ml Syringe IV PUSH PRN PRN Hypoglycemia Protocol Enoxaparin Sodium 40 mg 06/06/25 09:00 06/09/25 09:34 Enoxaparin 40 Mg/0.4 Ml Syringe SUB-Q 40 mg DAILY CEE Administration Fentanyl Citrate 12.5 mcg 06/05/25 18:27 Fentanyl Citrate Inj (*Crx) 100 Mcg/2 Ml Vial IV PUSH Q2H PRN Breakthrough Pain Rated 4-6 or NPO Fentanyl Citrate 25 mcg 06/05/25 18:27 Fentanyl Citrate Inj (*Crx) 100 Mcg/2 Ml Vial IV PUSH Q2H PRN Breakthrough Pain Rated 7-10 or NPO Finasteride 5 mg 06/06/25 09:00 06/09/25 09:35 Finasteride 5 Mg Tablet PO 5 mg DAILY CEE Administration Glipizide 10 mg 06/06/25 09:00 06/09/25 09:34 Glipizide 5 Mg Tablet PO 10 mg DAILY CEE Administration Glucagon 1 mg 06/05/25 18:27 Glucagon For Inj 1 Mg Vial IM PRN PRN Hypoglycemia Protocol Glucose 15 gm 06/05/25 18:27 Glucose Oral Gel 15 Gm Of Glucse In 37.5 Gm Tube PO PRN PRN Hypoglycemia Protocol Hydralazine HCl 10 mg 06/10/25 01:03 Hydralazine Hcl 20 Mg/Ml Vial IV PUSH Q6HR PRN Blood Pressure - High Ibuprofen 800 mg in 200 mls @ 400 mls/hr 06/05/25 18:27 Caldolor 800 Mg/200 Ml IVPB Q6H PRN Breakthrough Pain Rated 1-3 or NPO Dextrose 1,000 mls @ 100 mls/hr 06/05/25 18:27 Dextrose 5% 1,000 Ml IVPB PRN PRN Hypoglycemia Protocol Insulin Aspart 3 - 6 units 06/06/25 08:00 06/09/25 17:05 Insulin Aspart (*Bkc) 100 Units/Ml SUB-Q Not Given TIDWM CEE Protocol Insulin Aspart 1 - 3 units 06/05/25 21:00 06/09/25 21:51 Insulin Aspart (*Bkc) 100 Units/Ml SUB-Q Not Given HS CEE Protocol Lisinopril 20 mg 06/05/25 21:05 06/09/25 09:34 Lisinopril 20 Mg Tablet PO 20 mg QAM CEE Administration Methocarbamol 500 mg 06/05/25 23:05 06/09/25 21:53 Methocarbamol 500 Mg Tablet PO 500 mg QID CEE Administration Metoprolol Tartrate 50 mg 06/05/25 18:50 06/09/25 21:54 Metoprolol Tartrate 50 Mg Tab PO 50 mg Q12HR CEE Administration Multivitamins/Minerals 1 tablet 06/06/25 09:00 06/09/25 09:34 Opti-Gen Tab PO 1 tablet DAILY CEE Administration Naloxone HCl 0.1 mg 06/05/25 18:27 Naloxone Hcl 0.4 Mg/Ml Vial IV PUSH Q2M PRN Opiate Reversal Ondansetron HCl 4 mg 06/05/25 18:27 Ondansetron Inj 4 Mg/2 Ml Vial IV PUSH Q4H PRN Nausea And Vomiting Oxycodone/Acetaminophen 0.5 tablet 06/05/25 18:27 06/08/25 21:07 Oxycodone/Acetaminophen (*Crx) 5-325 Mg Tablet PO 0.5 tablet Q4H PRN Administration Pain Rated 4-6 Potassium Chloride 20 meq 06/09/25 08:00 06/09/25 09:34 Potassium Chloride 20 Meq Er Tablet PO 20 meq DAILY@0800 CEE Administration Simvastatin 40 mg 06/05/25 21:00 06/09/25 21:53 Simvastatin 20 Mg Tablet PO 40 mg HS CEE Administration Tamsulosin HCl 0.4 mg 06/05/25 21:00 06/09/25 21:53 Tamsulosin Hcl 0.4 Mg Capsule PO 0.4 mg HS CEE Administration <Theo May DO - Last Filed: 06/10/25 08:00> Radiology Results: ITS Impressions Hepatobiliary Scan Nuclear Medicine 06/08/25 12:01 IMPRESSION: 1. No bile leak. 2. Delayed clearance of radiotracer from the blood pool, consistent with hepatobiliary dysfunction. <Theo May DO - Last Filed: 06/10/25 08:00> Labs Labs: Laboratory Results - last 24 hr 06/09/25 06/09/25 06/09/25 07:15 11:32 16:21 WBC RBC Hgb Hct MCV MCH MCHC RDW Plt Count MPV Sodium Potassium Chloride Carbon Dioxide Anion Gap BUN Creatinine Estim Creat Clear Calc Estimated GFR Glucose POC Capillary Glucose 152 H 141 H 101 Calcium Magnesium Total Bilirubin AST ALT Alkaline Phosphatase Total Protein Albumin 06/09/25 06/10/25 21:42 05:18 WBC 6.0 RBC 3.65 L Hgb 10.9 L Hct 33.7 L MCV 92.3 MCH 29.9 MCHC 32.3 RDW 14.2 Plt Count 207 MPV 10.9 H Sodium 138 Potassium 3.9 Chloride 106 Carbon Dioxide 26 Anion Gap 6 BUN 14 Creatinine 0.81 Estim Creat Clear Calc 72 Estimated GFR > 60 Glucose 158 H POC Capillary Glucose 137 H Calcium 8.5 Magnesium 2.1 Total Bilirubin 0.7 AST 38 ALT 60 H Alkaline Phosphatase 78 Total Protein 6.5 Albumin 3.5 <Theo May DO - Last Filed: 06/10/25 08:00> Attestation Supervising Provider Attestation I agree with progress note written above by Dr. May. CT scan was negative and we will go ahead and discharge the patient today. Please see the discharge summary as well. <Osvaldo Whelan MD - Last Filed: 06/10/25 12:29>
[2025-06-10 08:00] VITALS: BP 190/85; PULSE 83; RESP 20; TEMP 36.4; O2SAT 94
[2025-06-10 08:09] VITALS: PULSE 82
[2025-06-10] MEDS: OPTI-GEN TAB 1 TABLET PO (08:09)
[2025-06-10] MEDS: POTASSIUM CHLORIDE 20 MEQ ER TABLET PO (08:09)
[2025-06-10] MEDS: FINASTERIDE 5 MG TABLET PO (08:09)
[2025-06-10] MEDS: METOPROLOL TARTRATE 50 MG TAB PO (08:09)
[2025-06-10] MEDS: ENOXAPARIN 40 MG/0.4 ML SYRINGE SUB-Q (08:19)
[2025-06-10 12:00] VITALS: BP 186/96; PULSE 86; RESP 18; TEMP 36.9; O2SAT 97
--- NOTE | 2025-06-10 12:30 | P.DS_ITS ---
DS: Admitting Diagnosis Discharge Date 06/10/2025 Admitting Diagnosis * acute cholecystitis with cholelithiasis * status post cholecystostomy tube placement * paroxysmal atrial fibrillation * chronic anticoagulation * essential hypertension * obstructive sleep apnea, on CPAP * type 2 diabetes * Asymptomatic umbilical hernia DS: Discharge Diagnosis Discharge Diagnosis (1) Cholelithiasis with acute on chronic cholecystitis with biliary obstruction: Qualifiers: Cholelithiasis location: gallbladder Qualified Code(s): K80.13 - Calculus of gallbladder with acute and chronic cholecystitis with obstruction Code(s): K80.13 - Calculus of gallbladder with acute and chronic cholecystitis with obstruction Status: Chronic Assessment and Plan: extremely difficult cholecystectomy. Patient pulled out his right upper quadrant drain at night on postop day number 3. He has continued to have serosanguineous drainage from the drain site. HIDA scan was performed after the drain was removed. There was no evidence of a bile leak. CT scan of the abdomen and pelvis did not show any significant fluid collection that could be draining through the right-sided drain site. He is discharged on 1 week of Augmentin antibiotics. 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 Patient was started on lisinopril 20 mg daily by hospitalist and will go home on lisinopril as well. (5) DMII (diabetes mellitus, type 2): Qualifiers: Diabetes mellitus mcfp insulin use: without joint terminal attack controller use Diabetes mellitus complication status: without complication Qualified Code(s): E11.9 - Type 2 diabetes mellitus without complications Code(s): E11.9 - Type 2 diabetes mellitus without complications Status: Chronic (6) Acute postoperative anemia due to expected blood loss: Code(s): D62 - Acute posthemorrhagic anemia Status: Chronic Assessment and Plan: Stable at discharge. Will be rechecked again in 2 days as an outpatient (7) IVETT (obstructive sleep apnea): Code(s): G47.33 - Obstructive sleep apnea (adult) (pediatric) Status: Chronic (8) Umbilical hernia: Qualifiers: Obstruction and gangrene presence: without obstruction or gangrene Qualified Code(s): K42.9 - Umbilical hernia without obstruction or gangrene Code(s): K42.9 - Umbilical hernia without obstruction or gangrene Status: Chronic Assessment and Plan: not painful except when tried to reduce after surgery. Remains asymptomatic. DS: Summary Hospital Course Hospital Course: patient was taken to surgery on the day of admission, 06/05/2025. The cholecystectomy was expected to be difficult but surpassed that expectation by quite a large margin. Tissues were very bloody to try to dissect. Gallbladder was plastered with dense adhesions to the liver, possibly from the abscess noted at his original admission. The peritoneum and tissues surrounding the cystic duct and cystic artery as well as the infundibulum of the gallbladder were extremely dense and difficult to penetrate with sharp dissection, blunt dissection, or cautery. The gallbladder had to be removed from the liver from the top down. Dissection of the back wall of the gallbladder from the liver resulted in removal of superficial liver tissue due to the fusion of the 2 organs at this point. Gallbladder had multiple holes but no spillage of stones was noted. Attempts at dissecting out the infundibulum and cystic duct resulted in a small area of bile leakage. This seemed to be the distal cystic duct rath er than the common hepatic or bile duct. Multiple attempts were made to perform a cholangiogram but none were successful as I could never cannulate the cystic duct or pass a catheter through the more distal aspect of the gallbladder. The surgery took nearly 3-1/2 hours and had 250 cc of blood loss which is much more than even difficult gallbladder surgery entails. A 19 Polish OBED the drain was p laced in the right upper quadrant. On the 1st postoperative day there was some bile colored drainage coming from the drain. This was completely gone by postoperative day 2. While I had plan to leave the drain in for approximately a week, the patient unfortunately was confused in the early hours of the morning, postoperative day 3. , and pulled his drain out. HIDA scan was performed and showed no evidence of bile leak. Patient gradually improved throughout the hospitalization and was tolerating solid food diabetic diet. Hospitalist service saw him in consultation for management of diabetes, hypertension and other medical conditions. The patient's blood pressure was high during the hospitalization and he was started on lisinopril 20 mg daily as a new medication. His Eliquis was held throughout the surgery but is being resumed at discharge. He was ambulating independently, comfortable with little or no analgesics, eating and having bowel movements. He was quite anxious to go home on 06/09/2025. He was having more serosanguineous drainage from his drain site than expected. He was stable but also anemic postoperatively. We watched him until today. I did get a CT scan of the abdomen and pelvis, noncontrast, on the day of discharge. This did not show any significant fluid collections or other suggestions of significant intra-abdominal pathology. His abdominal exam was benign and he is discharged in good condition on 06/10/2025. Status at Discharge Functional status at discharge: independent ambulation Overall status at discharge: patient is progressing back to baseline Time Spent with Patient Time attestation: Total time spent providing and/or coordinating discharge services: Time spent: Less than 30 minutes DS: Data Data Completed and Pending Completed studies during hospitalization: Pending at discharge 06/05/25 12:13 Surgical [PTH] Routine Labs on day of discharge: Labs from last 24 hours 06/10/25 06/10/25 06/10/25 11:19 07:23 05:18 WBC 6.0 RBC 3.65 L Hgb 10.9 L Hct 33.7 L MCV 92.3 MCH 29.9 MCHC 32.3 RDW 14.2 Plt Count 207 MPV 10.9 H Sodium 138 Potassium 3.9 Chloride 106 Carbon Dioxide 26 Anion Gap 6 BUN 14 Creatinine 0.81 Estim Creat Clear Calc 72 Estimated GFR > 60 Glucose 158 H POC Capillary Glucose 119 H 169 H Calcium 8.5 Magnesium 2.1 Total Bilirubin 0.7 AST 38 ALT 60 H Alkaline Phosphatase 78 Total Protein 6.5 Albumin 3.5 06/09/25 06/09/25 21:42 16:21 WBC RBC Hgb Hct MCV MCH MCHC RDW Plt Count MPV Sodium Potassium Chloride Carbon Dioxide Anion Gap BUN Creatinine Estim Creat Clear Calc Estimated GFR Glucose POC Capillary Glucose 137 H 101 Calcium Magnesium Total Bilirubin AST ALT Alkaline Phosphatase Total Protein Albumin Discharge Plan Discharge Attending physician on discharge: Osvaldo Whelan Consulting providers: Cherelle Castro Discharging Clinician: Osvaldo Whelan Anticipated Discharge Date/Time: 06/10/25 12:48 Patient Disposition: Home Activity: may shower, no straining, no driving and as tolerated Diet: diabetic Wound Care Instructions: keep dressing dry, remove dressing to shower and change dressing daily Discharge Instructions: * Ambulate 3-4 x per day and as tolerated. * No lifting over 15lbs. * May bathe or shower. OK to wash incisions and drain site with soap and water. * Stairs are OK. * No driving * Remove any dressings before shower and replace after. * Change dressing on right sided drain site daily and when saturated. Use dry gauze and medipore tape. * See Dr. Whelan in the office on , June 18. Please call to make appointment * Call or go to the Emergency Room if you experience chest pain, shortness of breathe, severe abdominal pain, severe bruising, Temperature over 100.5, or other significant change in condition. * Take antibiotics and potassium until they are gone. * Get outpatient blood drawn on Sunday as ordered by Dr. Whelan Patient Language: Ethiopian Stand Alone Forms: General Discharge Instructions Follow-up/Referrals: Osvaldo Whelan MD [Physician, General Surgery] - 06/18/25 Referral Note: Call Dr. Childress office to make appointment Kj,Naseem Maddox MD [Primary Care Provider] - 2 Weeks Referral Note: Call to make appointment with Dr. Underwood in 2 weeks Discharge Medications: New lisinopril 20 mg Tablet 20 mg PO QAM Qty: 30 0RF amoxicillin-pot clavulanate 875-125 mg tablet 1 tablet PO Q12H Qty: 14 0RF potassium chloride 20 mEq tablet extended release 20 meq PO DAILY Qty: 7 0RF Continued metoprolol tartrate 50 mg tablet 50 mg PO BID simvastatin 80 mg Tablet 40 mg PO HS finasteride 5 mg Tablet 5 mg PO DAILY glipizide 5 mg Tablet 10 mg PO DAILY Rx Instructions: Take before breakfast. omega 8-zbi-std-fish oil [Fish Oil] 1,000 mg (120 mg-180 mg) Capsule 1 cap PO DAILY Zyrtec 10 mg Capsule 10 mg PO DAILY Patient Comments: Says takes as needed. Centrum Silver Men 300-600-300 mcg Tablet 1 tablet PO DAILY insulin degludec [Tresiba FlexTouch U-100] 100 unit/mL (3 mL) insulin pen 10 unit SUBCUT QPM PreserVision AREDS 4,296 mcg-226 mg-90 mg capsule 1 cap PO DAILY Prevagen w/Apoaequorin and Vitamin D 50 mg PO DAILY Eliquis 5 mg Tablet 5 mg PO Q12HR Qty: 60 0RF tamsulosin 0.4 mg Capsule 0.4 mg PO HS Qty: 30 0RF Other Ambulatory Orders: Basic Metabolic Panel (Routine) Timeframe: 20250612 Location: Determined by Patient Ordered By: Osvaldo Whelan Complete Blood Count no Diff (Routine) Timeframe: 20250612 Location: Determined by Patient Ordered By: Osvaldo Whelan Date of admission: 06/07/25 13:07 Primary Care Provider: KjNaseem Admitting Provider: Osvaldo Whelan Attending physician on admission: Osvaldo Whelan Condition: Improved
--- NOTE | 2025-06-10 13:04 | P.DS_ITS ---
DS: Summary Time Spent with Patient Time attestation: Total time spent providing and/or coordinating discharge services: DS: Data Data Completed and Pending Completed studies during hospitalization: Pending at discharge 06/05/25 12:13 Surgical [PTH] Routine Labs on day of discharge: Labs from last 24 hours 06/10/25 06/10/25 06/10/25 11:19 07:23 05:18 WBC 6.0 RBC 3.65 L Hgb 10.9 L Hct 33.7 L MCV 92.3 MCH 29.9 MCHC 32.3 RDW 14.2 Plt Count 207 MPV 10.9 H Sodium 138 Potassium 3.9 Chloride 106 Carbon Dioxide 26 Anion Gap 6 BUN 14 Creatinine 0.81 Estim Creat Clear Calc 72 Estimated GFR > 60 Glucose 158 H POC Capillary Glucose 119 H 169 H Calcium 8.5 Magnesium 2.1 Total Bilirubin 0.7 AST 38 ALT 60 H Alkaline Phosphatase 78 Total Protein 6.5 Albumin 3.5 06/09/25 06/09/25 21:42 16:21 WBC RBC Hgb Hct MCV MCH MCHC RDW Plt Count MPV Sodium Potassium Chloride Carbon Dioxide Anion Gap BUN Creatinine Estim Creat Clear Calc Estimated GFR Glucose POC Capillary Glucose 137 H 101 Calcium Magnesium Total Bilirubin AST ALT Alkaline Phosphatase Total Protein Albumin Discharge Plan Discharge Attending physician on discharge: Osvaldo Whelan Consulting providers: Cherelle Castro Discharging Clinician: Osvaldo Whelan Anticipated Discharge Date/Time: 06/10/25 12:48 Patient Disposition: Home Activity: may shower, no straining, no driving and as tolerated Diet: diabetic Wound Care Instructions: keep dressing dry, remove dressing to shower and change dressing daily Discharge Instructions: * Ambulate 3-4 x per day and as tolerated. * No lifting over 15lbs. * May bathe or shower. OK to wash incisions and drain site with soap and water. * Stairs are OK. * No driving * Remove any dressings before shower and replace after. * Change dressing on right sided drain site daily and when saturated. Use dry gauze and medipore tape. * See Dr. Whelan in the office on June 18. Please call to make appointment * Call or go to the Emergency Room if you experience chest pain, shortness of breathe, severe abdominal pain, severe bruising, Temperature over 100.5, or other significant change in condition. * Take antibiotics and potassium until they are gone. * Get outpatient blood drawn on Sunday as ordered by Dr. Whelan * * Patient to follow discharge care instruction from his surgeon and follow up as scheduled, patient to follow up with his primary care provider as soon as possible, patient is instructed if any symptoms worsen to go to nearest ER . Patient Language: Mexican Stand Alone Forms: General Discharge Instructions Follow-up/Referrals: Osvaldo Whelan MD [Physician, General Surgery] - 06/18/25 Referral Note: Call Dr. Childress office to make appointment Kj,Naseem Maddox MD [Primary Care Provider] - 2 Weeks Referral Note: Call to make appointment with Dr. Underwood in 2 weeks Discharge Medications: New lisinopril 20 mg Tablet 20 mg PO QAM Qty: 30 0RF amoxicillin-pot clavulanate 875-125 mg tablet 1 tablet PO Q12H Qty: 14 0RF potassium chloride 20 mEq tablet extended release 20 meq PO DAILY Qty: 7 0RF Continued metoprolol tartrate 50 mg tablet 50 mg PO BID simvastatin 80 mg Tablet 40 mg PO HS finasteride 5 mg Tablet 5 mg PO DAILY glipizide 5 mg Tablet 10 mg PO DAILY Rx Instructions: Take before breakfast. omega 4-xbe-rdc-fish oil [Fish Oil] 1,000 mg (120 mg-180 mg) Capsule 1 cap PO DAILY Zyrtec 10 mg Capsule 10 mg PO DAILY Patient Comments: Says takes as needed. Centrum Silver Men 300-600-300 mcg Tablet 1 tablet PO DAILY insulin degludec [Tresiba FlexTouch U-100] 100 unit/mL (3 mL) insulin pen 10 unit SUBCUT QPM PreserVision AREDS 4,296 mcg-226 mg-90 mg capsule 1 cap PO DAILY Prevagen w/Apoaequorin and Vitamin D 50 mg PO DAILY Eliquis 5 mg Tablet 5 mg PO Q12HR Qty: 60 0RF tamsulosin 0.4 mg Capsule 0.4 mg PO HS Qty: 30 0RF Other Ambulatory Orders: Basic Metabolic Panel (Routine) Timeframe: 20250612 Location: Determined by Patient Ordered By: Osvaldo Whelan Complete Blood Count no Diff (Routine) Timeframe: 20250612 Location: Determined by Patient Ordered By: Osvaldo Whelan Date of admission: 06/07/25 13:07 Primary Care Provider: Kj,Naseem Maddox Admitting Provider: Osvaldo Whelan Attending physician on admission: Osvaldo Whelan Condition: Improved
--- NOTE | 2025-06-17 08:23 | P.PNIM_ITS ---
Progress Note: A&P Assessment and Plan (1) Hypertensive urgency: Code(s): I16.0 - Hypertensive urgency Status: Acute Assessment and Plan: Hydralazine p.r.n. Patient was on atenolol, lisinopril, and amlodipine and was taken off during last hospitalization not restarted. Will restart low-dose lisinopril Adjust blood pressure medications as needed (2) Paroxysmal atrial fibrillation: Code(s): I48.0 - Paroxysmal atrial fibrillation Status: Chronic Assessment and Plan: Continue metoprolol (3) DMII (diabetes mellitus, type 2): Qualifiers: Diabetes mellitus mcc insulin use: without salvage determiner use Diabetes mellitus complication status: without complication Qualified Code(s): E11.9 - Type 2 diabetes mellitus without complications Code(s): E11.9 - Type 2 diabetes mellitus without complications Status: Chronic Assessment and Plan: Joel CONTE SSI Diet per surgery (4) Acute cholecystitis: Code(s): K81.0 - Acute cholecystitis Status: Chronic Assessment and Plan: Patient had acute gangrenous cholecystitis less than use in the hospital was sent home with per continues to he is now status post cholecystectomy. Robaxin added for pain management (5) BPH (benign prostatic hyperplasia): Code(s): N40.0 - Benign prostatic hyperplasia without lower urinary tract symptoms Status: Acute Assessment and Plan: Continue home meds Plan Patient had cholecystectomy on 06/05/25 POD#4, on 06/08 patient pulled out his Duke-Hernandez drain. seen by the surgery service and ordered HIDA scan to further evaluate, the scan did not show any bile leak, patient stats feeling much better had his breakfast and tolerated, no BM or gas yet, and encouraged patient to be out of bed and use incentive spirometer, will continue monitor will hold anticoagulation, will monitor. patient daughter is present in the room and gave updates. Today patient is clinically stable, and seen by the surgery service and patient will be discharged today. Subjective Date/time seen: 06/17/25 08:23 Interval history: H&P-Narrative: Alban Graff is a 84 year old male who was admitted to the hospital for sepsis due to acute cholecystitis on 03/27/2025. He had a part coli tube placed at that time, and had E coli bacteremia. Today he presented to the hospital for a planned cholecystectomy. On 06 05 2025 the hospitalist team has been consulted for hypertensive urgency postop with the patient's blood pressure being 223/100. During patient's last hospital admission due to rhabdomyolysis on admission acute sepsis with severe hypotension he was taken off 3 different blood pressure medications. He was on lisinopril, amlodipine and atenolol. He was recommended to follow-up with his PCP. These were not restarted. Patient had cholecystectomy on 06/05/25 POD#4, on 06/08 patient pulled out his Duke-Hernandez drain. seen by the surgery service and ordered HIDA scan to further evaluate, the scan did not show any bile leak, patient stats feeling much better had his breakfast and tolerated, no BM or gas yet, and encouraged patient to be out of bed and use incentive spirometer, will continue monitor will hold anticoagulation, will monitor. patient daughter is present in the room and gave updates. Today patient is clinically stable, and seen by the surgery service and patient will be discharged today. Review of Systems Review of Systems: 12 systems were reviewed and are negativ e except for as per HPI. All systems reviewed & are unremarkable except as noted in HPI and below Exam Narrative: Patient is comfortable, NAD HEENT: eyes are clear and none icteric LUNGS:CTA HEART: RR S1S2 ABD: BS+, Soft and nontender Lower extremities: no edema SKIN: nonjaundiced Neuro: grossly intact. Objective Data Meds/Results Radiology Results: ITS Impressions Hepatobiliary Scan Nuclear Medicine 06/08/25 12:01 IMPRESSION: 1. No bile leak. 2. Delayed clearance of radiotracer from the blood pool, consistent with hepatobiliary dysfunction. Abdomen/Pelvis CT 06/10/25 08:27 IMPRESSION: 1. Directed noncontrast exam demonstrating small amount of free fluid and trace amount of free fluid along with tiny amount of free air is seen in the umbilical hernia. Developing infection is not excluded, although no abscess is identified. 2. Diffuse punctate subcutaneous emphysematous changes also present throughout the retroperitoneal subcutaneous soft tissues of uncertain significance and origin, may be benign. Correlate clinically to exclude possibility of necrotizing fasciitis. 3. Other changes as above. Quality VTE Prophylaxis VTE prophylaxis: mechanical ordered and pharmacologic ordered
== END 2025-06-10 13:55 | disposition home or self-care (01) | DRG 418 ==
LOC: ANHSURGERY 14:26 → ANH3MEDSUR 06-08 09:34
PROVIDERS: Family Medicine; Admitting Provider Surgery; PCP Internal Medicine; Visit Provider Surgery
PROC: 0FT44ZZ Resection of Gallbladder, Percutaneous Endoscopic Approach (ICD-10-PCS; CPT 47562; principal; 2025-06-05 12:00)
DX: K80.13 Calculus of gallbladder with acute and chronic cholecystitis with obstruction (principal); D62 Acute posthemorrhagic anemia; I97.3 Postprocedural hypertension; I16.0 Hypertensive urgency; I48.0 Paroxysmal atrial fibrillation; K42.9 Umbilical hernia without obstruction or gangrene; E11.9 Type 2 diabetes mellitus without complications; G47.33 Obstructive sleep apnea (adult) (pediatric); R41.0 Disorientation, unspecified; N40.0 Benign prostatic hyperplasia without lower urinary tract symptoms; Z96.653 Presence of artificial knee joint, bilateral; F17.290 Nicotine dependence, other tobacco product, uncomplicated; F10.90 Alcohol use, unspecified, uncomplicated; I25.10 Atherosclerotic heart disease of native coronary artery without angina pectoris; Z79.01 Long term (current) use of anticoagulants; Z99.89 Dependence on other enabling machines and devices; Z95.5 Presence of coronary angioplasty implant and graft; Z79.4 Long term (current) use of insulin
CPT/HCPCS: 36415; 74176; 74300; 78226; 80053; 82948; 83735; 85027; 88304; J0690; A9270; A9537; J0360; J1650; J1815; J1885; J1939; J2003; J2405; J2704; J3010; J7120; Q9966

== ENCOUNTER 2025-06-12 16:37 | Outpatient (CLI) | payer MEDICARE, SELFPAY ==
--- OUTSIDE RECORDS SUMMARY | 2010-05-13 02:30 | XMS_ITS | Continuity of Care Document ---
Author Organization [facility] Address [address] [place] [address] [address] [place] [address] Phone Care Team Providers Care Steam Bone Press Tender Name Role Phone Luis Alberto Luna Unavailable Unavailable Procedures Procedure Date Office/outpatient Visit, Est Eye Exam & Treatment Refraction Eye Exam & Treatment Refraction Office/outpatient Visit, Est Advance Directives Directive Yes / No Effective Date File Name No Information Encounters Encounter Description Practice Location Reason(s) For Visit Diagnoses Date Provider Providers Copied on Encounter Office/outpat ient Visit, Est [facility], [address] [place] [address] [address], [place], [place], [address], tel:[phone] [facility] No Information 5-201 0 Jeremy Sahu. [facility] [place] , [address], [place], [place], [facility], . tel:[phone] [facility], [address] [place] [address] [address], [place], [place], [address], [place] tel:[phone] SEC [facility] [place] No Information Sep- 0-201 0 Jeremy Sahu. [address] [facility] [place] , [address], [place], [place], [facility], [place]. tel:[phone] [facility], [address], [place], [place], [address], tel:[phone] SEC [facility] [place] No Information Mar-0 9-200 9 Jeremy Sahu. [address] [facility] , [address], [place], [address], [place]. tel:[phone] Office/outpat ient Visit, [facility], [address], [place], [place], [address], [place] tel:[phone] [facility] No Information 200 8 Jeremy Sahu. [address] [facility] , [address], [place], [address], [place]. tel:[phone] Family History Family Member Type Diagnosis Age At Onset No Information Payers Payer name Insurance type Covered alliance party ID Authoriza tion(s) No Information Social History Type Description Quantity Date Captured Comments Sex Male Smoking Status No Information Chief Complaint And Reason For Visit No Information Reason For Referral Reason For Referral No Information History Of Present Illness Encounter Date Complaint History Of Prese nt Illness No Information Functional Status Date Functional Assessmen t No Information Instructions Date Instruction Additional Infor mation No Information Assessments Type Assessment Date No Information Patient Care Teams Name Effective Dates (start - stop) Status Members No Information
--- OUTSIDE RECORDS SUMMARY | 2010-05-13 02:30 | XMS_ITS | Continuity of Care Document ---
Author Organization [facility] Address [address] [place] [address] [address] [place] [address] Phone Care Team Providers Care Director Of Scout Work Name Role Phone Luis Alberto Luna Unavailable Unavailable Procedures Procedure Date Office/outpatient Visit, Est Eye Exam & Treatment Refraction Eye Exam & Treatment Refraction Office/outpatient Visit, Est Advance Directives Directive Yes / No Effective Date File Name No Information Encounters Encounter Description Practice Location Reason(s) For Visit Diagnoses Date Provider Providers Copied on Encounter Office/outpat ient Visit, Est [facility], [address] [place] [address] [address], [place], [place], [address], tel:[phone] [facility] No Information 5-201 0 Jeremy Sahu. [facility] [place] , [address], [place], [place], [facility], . tel:[phone] [facility], [address] [place] [address] [address], [place], [place], [address], [place] tel:[phone] SEC [facility] [place] No Information Sep- 0-201 0 Jeremy Sahu. [address] [facility] [place] , [address], [place], [place], [facility], [place]. tel:[phone] [facility], [address], [place], [place], [address], tel:[phone] SEC [facility] [place] No Information Mar-0 9-200 9 Jeremy Sahu. [address] [facility] , [address], [place], [address], [place]. tel:[phone] Office/outpat ient Visit, [facility] Eye [facility], [address], [place], [place], [address], [place] tel:[phone] [facility] No Information 200 8 Jeremy Sahu. [address] [facility] , [address], [place], [address], [place]. tel:[phone] Family History Family Member Type Diagnosis Age At Onset No Information Payers Payer name Insurance type Covered green party ID Authoriza tion(s) No Information Social [...]
--- OUTSIDE RECORDS SUMMARY | 2010-05-13 02:30 | XMS_ITS | Continuity of Care Document ---
Author Organization [facility] Address [address] [place] [address] [address] [place] [address] Phone Care Team Providers Care Bike Technician Name Role Phone Luis Alberto Luna Unavailable Unavailable Procedures Procedure Date Office/outpatient Visit, Est Eye Exam & Treatment Refraction Eye Exam & Treatment Refraction Office/outpatient Visit, Est Advance Directives Directive Yes / No Effective Date File Name No Information Encounters Encounter Description Practice Location Reason(s) For Visit Diagnoses Date Provider Providers Copied on Encounter Office/outpat ient Visit, Est [facility], [address] [place] [address] [address], [place], [place], [address], tel:[phone] SEC [facility] No Information 5-201 0 Jeremy Sahu. [facility] [place] , [address], [place], [place], [facility], . tel:[phone] [facility], [address] [place] [address] [address], [place], [place], [address], [place] tel:[phone] SEC [facility] [place] No Information Sep- 0-201 0 Jeremy Sahu. [address] [facility] [place] , [address], [place], [place], [facility], [place]. tel:[phone] [facility], [address], [place], [place], [address], tel:[phone] SEC [facility] [place] No Information Mar-0 9-200 9 Jeremy Sahu. [address] [facility] , [address], [place], [address], [place]. tel:[phone] Office/outpat ient Visit, [facility], [address], [place], [place], [address], [place] tel:[phone] SEC [facility] No Information 200 8 Jeremy Sahu. [address] [facility] , [address], [place], [address], [place]. tel:[phone] Family History Family Member Type Diagnosis Age [...]
--- OUTSIDE RECORDS SUMMARY | 2010-05-13 02:30 | XMS_ITS | Continuity of Care Document ---
Author Organization [facility] Address [address] [place] [address] [address] [place] [address] Phone Care Team Providers Care Cutter In Name Role Phone Luis Alberto Luna Unavailable Unavailable Procedures Procedure Date Office/outpatient Visit, Est Eye Exam & Treatment Refraction Eye Exam & Treatment Refraction Office/outpatient Visit, Est Advance Directives Directive Yes / No Effective Date File Name No Information Encounters Encounter Description Practice Location Reason(s) For Visit Diagnoses Date Provider Providers Copied on Encounter Office/outpat ient Visit, Est [facility], [address] [place] [address] [address], [place], [place], [address], tel:[phone] SEC [facility] No Information 5-201 0 Jeremy Sahu. [facility] [place] , [address], [place], [place], [facility], . tel:[phone] [facility], [address] [place] [address] [address], [place], [place], [address], [place] tel:[phone] SEC [facility] [place] No Information Sep- 0-201 0 Jeremy Sahu. [address] [facility] [place] , [address], [place], [place], [facility], [place]. tel:[phone] [facility], [address], [place], [place], [address], tel:[phone] SEC [facility] [place] No Information Mar-0 9-200 9 Jeremy Sahu. [address] [facility] , [address], [place], [address], [place]. tel:[phone] Office/outpat ient Visit, [facility], [address], [place], [place], [address], [place] tel:[phone] SEC [facility] No Information 200 8 Jeremy Sahu. [address] [facility] , [address], [place], [address], [place]. tel:[phone] Family History Family Member Type Diagnosis Age At Onset No Information Payers Payer name Insurance type Covered republican ID Authoriza tion(s) No Information Social History [...]
--- OUTSIDE RECORDS SUMMARY | 2010-05-13 02:30 | XMS_ITS | Continuity of Care Document ---
Author Organization [facility] Address [address] [place] [address] [address] [place] [address] Phone Care Team Providers Care Logger Name Role Phone Luis Alberto Luna Unavailable Unavailable Procedures Procedure Date Office/outpatient Visit, Est Eye Exam & Treatment Refraction Eye Exam & Treatment Refraction Office/outpatient Visit, Est Advance Directives Directive Yes / No Effective Date File Name No Information Encounters Encounter Description Practice Location Reason(s) For Visit Diagnoses Date Provider Providers Copied on Encounter Office/outpat ient Visit, Est [facility], [address] [place] [address] [address], [place], [place], [address], tel:[phone] SEC [facility] No Information 5-201 0 Jeremy Sahu. [facility] [place] , [address], [place], [place], [facility], . tel:[phone] [facility], [address] [place] [address] [address], [place], [place], [address], [place] tel:[phone] SEC [facility] [place] No Information Sep- 0-201 0 Jeremy Sahu. [address] [facility] [place] , [address], [place], [place], [facility], [place]. tel:[phone] [facility], [address], [place], [place], [address], tel:[phone] SEC [facility] [place] No Information Mar-0 9-200 9 Jeremy Sahu. [address] [facility] , [address], [place], [address], [place]. tel:[phone] Office/outpat ient Visit, [facility], [address], [place], [place], [address], [place] tel:[phone] SEC [facility] No Information 200 8 Jeremy Sahu. [address] [facility] , [address], [place], [address], [place]. tel:[phone] Family History Family Member Type Diagnosis Age [...]
--- OUTSIDE RECORDS SUMMARY | 2010-05-13 02:30 | XMS_ITS | Continuity of Care Document ---
Author Organization [facility] Address [address] [place] [address] [address] [place] [address] Phone Care Team Providers Care World Geography Teacher Name Role Phone Luis Alberto Luna Unavailable Unavailable Procedures Procedure Date Office/outpatient Visit, Est Eye Exam & Treatment Refraction Eye Exam & Treatment Refraction Office/outpatient Visit, Est Advance Directives Directive Yes / No Effective Date File Name No Information Encounters Encounter Description Practice Location Reason(s) For Visit Diagnoses Date Provider Providers Copied on Encounter Office/outpat ient Visit, Est [facility], [address] [place] [address] [address], [place], [place], [address], tel:[phone] [facility] No Information 5-201 0 Jeremy Sahu. [facility] [place] , [address], [place], [place], [facility], . tel:[phone] [facility], [address] [place] [address] [address], [place], [place], [address], [place] tel:[phone] SEC [facility] [place] No Information Sep- 0-201 0 Jeremy Sahu. [address] [facility] , [address], [place], [place], [facility], [place]. tel:[phone] [facility], [address], [place], [place], [address], tel:[phone] SEC [facility] [place] No Information Mar-0 9-200 9 Jeremy Sahu. [address] [facility] , [address], [place], [address], [place]. tel:[phone] Office/outpat ient Visit, [facility], [address], [place], [place], [address], [place] tel:[phone] [facility] No Information 200 8 Jeremy Sahu. [address] [facility] , [address], [place], [address], [place]. tel:[phone] Family History Family Member Type Diagnosis Age At Onset No Information Payers Payer name Insurance type Covered democrat ID Authoriza tion(s) No Information Social History [...]
--- OUTSIDE RECORDS SUMMARY | 2010-05-13 02:30 | XMS_ITS | Continuity of Care Document ---
Author Organization [facility] Address [address] [place] [address] [address] [place] [address] Phone Care Team Providers Care Glaze Handler Name Role Phone Luis Alberto Luna Unavailable Unavailable Procedures Procedure Date Office/outpatient Visit, Est Eye Exam & Treatment Refraction Eye Exam & Treatment Refraction Office/outpatient Visit, Est Advance Directives Directive Yes / No Effective Date File Name No Information Encounters Encounter Description Practice Location Reason(s) For Visit Diagnoses Date Provider Providers Copied on Encounter Office/outpat ient Visit, Est [facility], [address] [place] [address] [address], [place], [place], [address], tel:[phone] SEC [facility] No Information 5-201 0 Jeremy Sahu. [facility] [place] , [address], [place], [place], [facility], . tel:[phone] [facility], [address] [place] [address] [address], [place], [place], [address], [place] tel:[phone] SEC [facility] [place] No Information Sep- 0-201 0 Jeremy Sahu. [address] [facility] [place] , [address], [place], [place], [facility], [place]. tel:[phone] [facility], [address], [place], [place], [address], tel:[phone] SEC [facility] [place] No Information Mar-0 9-200 9 Jeremy Sahu. [address] [facility] , [address], [place], [address], [place]. tel:[phone] Office/outpat ient Visit, [facility], [address], [place], [place], [address], [place] tel:[phone] SEC [facility] No Information 200 8 Jeremy Sahu. [address] [facility] , [address], [place], [address], [place]. tel:[phone] Family History Family Member Type Diagnosis Age [...]
--- OUTSIDE RECORDS SUMMARY | 2010-05-13 02:30 | XMS_ITS | Continuity of Care Document ---
Author Organization [facility] Address [address] [place] [address] [address] [place] [address] Phone Care Team Providers Care Band And Cuff Cutter Name Role Phone Luis Alberto uLna Unavailable Unavailable Procedures Procedure Date Office/outpatient Visit, Est Eye Exam & Treatment Refraction Eye Exam & Treatment Refraction Office/outpatient Visit, Est Advance Directives Directive Yes / No Effective Date File Name No Information Encounters Encounter Description Practice Location Reason(s) For Visit Diagnoses Date Provider Providers Copied on Encounter Office/outpat ient Visit, Est [facility], [address] [place] [address] [address], [place], [place], [id number], tel:[phone] SEC [facility] No Information 5-201 0 Jeremy Sahu. [facility] [place] , [address], [place], [place], [facility], . tel:[phone] [facility], [address] [place] [address] [address], [place], [place], [address], [place] tel:[phone] SEC [facility] [place] No Information Sep- 0-201 0 Jeremy Sahu. [address] [facility] [place] , [address], [place], [place], [facility], [place]. tel:[phone] [facility], [address], [place], [place], [address], tel:[phone] SEC [facility] [place] No Information Mar-0 9-200 9 Jeremy Sahu. [address] [facility] , [address], [place], [address], [place]. tel:[phone] Office/outpat ient Visit, [facility] Eye [facility], [address], [place], [place], [address], [place] tel:[phone] SEC [facility] No Information 200 8 Jeremy Sahu. [address] [facility] , [address], [place], [address], [place]. tel:[phone] Family History Family Member Type Diagnosis Age [...]
--- OUTSIDE RECORDS SUMMARY | 2010-05-13 02:30 | XMS_ITS | Continuity of Care Document ---
Author Organization [facility] Address [address] [place] [address] [address] [place] [address] Phone Care Team Providers Care Glass Forming Crew Member Name Role Phone Luis Alberto Luna Unavailable Unavailable Procedures Procedure Date Office/outpatient Visit, Est Eye Exam & Treatment Refraction Eye Exam & Treatment Refraction Office/outpatient Visit, Est Advance Directives Directive Yes / No Effective Date File Name No Information Encounters Encounter Description Practice Location Reason(s) For Visit Diagnoses Date Provider Providers Copied on Encounter Office/outpat ient Visit, Est [facility], [address] [place] [address] [address], [place], [place], [address], tel:[phone] SEC [facility] No Information 5-201 0 Jeremy Sahu. [facility] [place] , [address], [place], [place], [facility], . tel:[phone] [facility], [address] [place] [address] [address], [place], [place], [address], [place] tel:[phone] SEC [facility] [place] No Information Sep- 0-201 0 Jeremy Sahu. [address] [facility] [place] , [address], [place], [place], [facility], [place]. tel:[phone] [facility], [address], [place], [place], [address], tel:[phone] SEC [facility] [place] No Information Mar-0 9-200 9 Jeremy Sahu. [address] [facility] , [address], [place], [address], [place]. tel:[phone] Office/outpat ient Visit, [facility] Eye [facility], [address], [place], [place], [address], [place] tel:[phone] SEC [facility] No Information 200 8 Jeremy Sahu. [address] [facility] , [address], [place], [address], [place]. tel:[phone] Family History Family Member Type Diagnosis Age [...]
--- OUTSIDE RECORDS SUMMARY | 2010-05-13 02:30 | XMS_ITS | Continuity of Care Document ---
Author Organization [facility] Address [address] [place] [address] [address] [place] [address] Phone Care Team Providers Care Loan Officer Assistant Name Role Phone Luis Alberto Luna Unavailable Unavailable Procedures Procedure Date Office/outpatient Visit, Est Eye Exam & Treatment Refraction Eye Exam & Treatment Refraction Office/outpatient Visit, Est Advance Directives Directive Yes / No Effective Date File Name No Information Encounters Encounter Description Practice Location Reason(s) For Visit Diagnoses Date Provider Providers Copied on Encounter Office/outpat ient Visit, Est [facility], [address] [place] [address] [address], [place], [place], [address], tel:[phone] SEC [facility] No Information 5-201 0 Jeremy Sahu. [facility] [place] , [address], [place], [place], [facility], . tel:[phone] [facility], [address] [place] [address] [address], [place], [place], [address], [place] tel:[phone] SEC [facility] [place] No Information Sep- 0-201 0 Jeremy Sahu. [address] [facility] [place] , [address], [place], [place], [facility], [place]. tel:[phone] [facility], [address], [place], [place], [address], tel:[phone] SEC [facility] [place] No Information Mar-0 9-200 9 Jeremy Sahu. [address] [facility] , [address], [place], [address], [place]. tel:[phone] Office/outpat ient Visit, [facility] Eye [facility], [address], [place], [place], [address], [place] tel:[phone] SEC [facility] No Information 200 8 Jeremy Sahu. [address] [facility] , [address], [place], [address], [place]. tel:[phone] Family History Family Member Type Diagnosis Age [...]
[2025-06-12 17:39] LABS: Hematocrit 35.4 % (42.0-52.0); Hemoglobin 11.2 g/dL (14.0-18.0); Mean Corpuscular HGB Conc 31.6 g/dl (32-36); Mean Corpuscular Hemoglobin 29.4 pg (26-34); Mean Corpuscular Volume 92.9 fl (80-100); Platelet Count Result 239 k/mm3 (150-375); Red Blood Count 3.81 M/mm3 (4.6-6.20); White Blood Count 7.2 K/mm3 (4.5-10.0)
[2025-06-12 18:22] LABS: Anion Gap 7 mmol/L (4-12); Blood Urea Nitrogen 12 mg/dL (9-20); Calcium 9.2 mg/dL (8.4-10.2); Carbon Dioxide 25 mmol/L (22-30); Chloride 105 mmol/L (98-107); Estimated Glomerular Filt Rate > 60; Glucose 82 mg/dL (65-110); Potassium 4.2 mmol/L (3.4-5.0); Sodium 137 mmol/L (137-145)
--- OUTSIDE RECORDS SUMMARY | 2025-06-12 20:18 | XMS_ITS | Clinical Summary ---
Author Organization [facility] Address [address] [place] [address] Care Team Providers Care Base Loader Name Role Phone Naseem Underwood MD Primary Care Provider [phone] Henry Vasques MD Unavailable [phone] Allergies Active Allergy Reactions Criticality Noted Date [...] Lancets 33G MiscIndications:T ype 2 diabetes mellitus ([facility]) 1 Device by Does not apply route 2 (two) times a day. 200 each 1 08/18/19 22 Active ONETOUCH VERIO REFLECT w/Device KitIndications:Ty pe 2 diabetes mellitus ([facility]) USE TO TEST [...] complication, with long-term current use of insulin ([facility]) INJECT 10 UNITS INTO [...] complication, with long-term current use of insulin ([facility]) USE TO INJECT INSULIN ONCE DAILY 100 each 1 04/17/20 25 Active simvastatin (ZOCOR) 80 MG tabletIndications :Mixed hyperlipidemia TAKE ONE-HALF(1/2 ) TABLET BY MOUTH NIGHTLY AT BEDTIME 45 tablet 1 04/29/20 25 Active Glucose Blood (CONTOUR PLUS TEST) test stripIndications: Type 2 diabetes mellitus with other circulatory complication, with long-term current use of insulin ([facility]) 1 strip by Other route 2 (two) times a day. 200 strip 3 05/04/20 25 Active Microlet Lancets MiscIndications:T ype 2 diabetes mellitus with other circulatory complication, with long-term current use of insulin ([facility]) 1 Lancet by Does not apply route 2 (two) times daily. 200 each 3 05/04/20 25 Active metoprolol tartrate (LOPRESSOR) 50 MG tabletIndications :Atherosclerosis of [place] coronary artery of [place] heart without angina pectoris TAKE 1 TABLET [...] Active ELIQUIS 5 MG tabletIndications :Atherosclerosis of [place] coronary artery of [place] heart without angina pectoris TAKE 1 TABLET BY MOUTH EVERY 12 HOURS 60 tablet 06/01/20 25 Active tamsulosin (FLOMAX) 0.4 MG CapIndications:Be nign localized hyperplasia of prostate with urinary obstruction TAKE 1 CAPSULE BY MOUTH EVERY DAY AT BEDTIME 30 capsule 05/04/20 25 025 Discontinued ELIQUIS 5 MG tabletIndications :Atherosclerosis of [place] coronary artery of [place] heart without angina pectoris TAKE 1 TABLET [...] hand 04/09/2018 Atherosclerotic heart diseas e of [place] coronary artery without angina pectoris 04/09/2018 History of coronary artery stent placement 04/09 Adult BMI 34.0-34.9 kg/sq m 10/03/2017 Type 2 diabetes mellitus wit h circulatory disorder, with long-term current use of insulin 10/03/2017 Obstructive sleep apnea of adult 03/16/2016 Benign essential hypertension 09/09/2015 Benign localized hyperplasia of prostate with urinary obstruction 09/09/2015 Hyperlipidemia 09/09/2015 Encounters Date Type Department Care Team Description 06/08/2025 Scan Kranem INFO SRVCS Scanned, Doc [facility] Procedure (SCAN) 06/05/2025 Scan Kranem INFO SRVCS Scanned, [facility] Lab (SCAN); Pathology (SCAN); Procedure (SCAN) 06/04/2025 Scan MG Kranem INFO SRVCS Scanned, Doc [facility] Lab (SCAN) 05/29/2025 Scan navigaya SRVCS Scanned, Doc [facility] Group Image (SCAN) 05/26/2025 Scan MG HEALTH INFO SRVCS Scanned, Doc Med Group 05/09/2025 Scan MG [facility] INFO SRVCS Scanned, Doc Med Group 05/04/2025 Scan [facility] INFO SRVCS Scanned, Doc [facility] Lab (SCAN) 05/04/[address] [phone] Naseem Underwood MD Information 05/01/2025 Scan MG [facility] INFO SRVCS Scanned, Doc [facility] 04/27/2025 Scan [facility] INFO SRVCS Scanned, Doc [facility] 04/16/2025 2:00 PM CDT Office Visit [address] [phone] Naseem Underwood MD TCM (Pt was admitted to [facility] 03/27 - 04/04 for acute cholecysitis and liver abscess. Pt has an appt with surgeon on Sunday, pt notes the surgeon will be out on vacation for the entire week of Apr. ); Diabetes (Pt does c/o hypoglycemic episodes in the morning about 3 times a month. ) 04/16/2025 Travel 04/07/2025 Scan MG [facility] INFO SRVCS Scanned, Doc [facility] 04/07/[address] [address] Naseem Underwood MD Information 04/06/2025 Scan MG [...] (SCAN); CT (SCAN); Image (SCAN) 03/27/2025 Telephone [facility] Family & Internal Medicine [address] [address] Naseem Underwood MD Information from [...] 20) 04/22/2024 Tdap (Generic) 03/18/2015 Zoster (Zostavax) 47296 Unt/0.65Ml 11/02/2012, Family History Medical History Relation [...] Yes Comments:1-2 cigars a day. Provider to mitochondrial disorders counselor. Alcohol Use Standard Drinks/Week Comments Yes [...] Additional history exists Hemoglobin A1C 05/01/2025 10/30/2024, 10/0 09/2023, 09/26/2023, Additional history exists Lipid Panel 05/01/2025 05/01/2024, 08/31, 01/22/2023, Additional history exists Diabetes: Retinopathy Eye Exam 01/07/2027 01/07/2025 Pneumococcal Vaccine: 50+ Years Completed 04/22/2024, 07/31/2017, 11/03/2003 RSV Immunization or 60+ Years Completed 04/22/2024 PHQ-2 (Physician Arvilla) Completed 10/30/2024 Meningococcal B Vaccine Aged Out No l onger eligible based on patient's age to complete this topic Meningococcal Vaccine Aged Out No rufino christian eligible based on patient's age to complete this topic RSV Immunizations Under 20 Months Aged Out No longer eligible based on patient's age to complete this topic Procedures Procedure Name Priority Date/Time Associated Diagnosis Comments PROCEDURE GENERIC (SCAN ORDER) 06/08/2025 PATHOLOGY GENERIC (SCAN ORDER) 06/05/2025 OUTSIDE LAB (SCAN ORDER) 06/05/2025 OUTSIDE LAB (SCAN ORDER) 06/05/2025 OUTSIDE LAB (SCAN ORDER) 06/05/2025 PROCEDURE GENERIC (SCAN ORDER) 06/05/2025 PROCEDURE GENERIC (SCAN ORDER) 06/05/2025 OUTSIDE LAB (SCAN ORDER) 06/04/2025 IMAGE GENERIC 05/29/2025 OUTSIDE PT/INR (SCAN ORDER) [...] complication, with long-term current use of insulin ([facility]) LIPID PANEL Routine 05/01/2024 11:58 AM CDT Type 2 diabetes mellitus with other circulatory complication, with long-term current use of insulin ([facility]) Atherosclerosis of [place] coronary artery of [place] heart without angina pectoris Benign essential hypertension Mixed hyperlipidemia from Last 3 Months or Most Recently Relevant to Health Maintenance Results * PROCEDURE GENERIC (SCAN ORDER) (06/08/2025) 06/08/2025 Result [facility] Scanned SCANNING Final Resu lt * PATHOLOGY GENERIC (SCAN ORDER) (06/05/2025) 06/05/2025 Result [facility] Scanned SCANNING Final Resu lt * OUTSIDE LAB (SCAN ORDER) (06/05/2025) Only the most recent of8 resultswithin the time period is included. 06/05/2025 Result [facility] Scanned SCANNING Final Resu lt * PROCEDURE GENERIC (SCAN ORDER) (06/05/2025) 06/05/2025 Result [facility] Scanned SCANNING Final Resu lt * PROCEDURE GENERIC (SCAN ORDER) (06/05/2025) 06/05/2025 Result [facility] Scanned SCANNING Final Resu lt * IMAGE GENERIC (05/29/2025) Only the most recent of4 resultswithin the time period is included. Anatomical Region Laterality Modality Other 05/29/2025 us [facility] Scanned SCANNING Final Resu lt * OUTSIDE PT/INR (SCAN ORDER) (05/04/2025) Only the most recent of2 resultswithin the time period is included. 05/04/2025 us [facility] Scanned SCANNING Final [...] Med Group Scanned SCANNING Final Resu lt [facility] ONBASE * (ABNORMAL) HEMOGLOBIN, GLYCOSYLATED (10/30/2024) HGB A1C 7.2(A) % [facility] 10/30/2024 Naseem Underwood MD LABORATORY Final Result [facility] [address] [place] [address], * LIPID PANEL (05/01/2024 11:58 AM CDT) CHOLESTEROL 135 <200 MG/DL 05/02/2024 2:27 PM CDT [facility] TRIGLYCERIDES 120 <150 MG/DL 05/02/2024 2:27 PM CDT [facility] HDL 48 >40 MG/DL 05/02/2024 2:27 PM CDT [facility] LDL-C 63 <100 MG/DL 05/02/2024 2:27 PM CDT [facility] VLDL CALCULATION 24 5 - 28 MG/DL 05/02/2024 2:27 PM CDT [facility] CHOL/HDL RATIO 2.8 0.0 - 4.0 05/02/2024 2:27 PM CDT [facility] LDL/HDL 1.3 0.41 - 2.13 05/02/2024 2:27 PM CDT [facility] NON HDL CHOLESTEROL 87 <140 MG/DL 05/02/2024 2:27 PM CDT [facility] 05/01/2024 11:5 8 AM CDT Naseem Underwood MD LABORATORY Final Result [facility] [place] [address] [place] [address], from Last 3 Months or Most Recently Relevant to Health Maintenance Insurance [facility] MEDICARE Care Teams Base Loader Relationship Specialty Start Date End Date Naseem Underwood MD [address] [place] [id number] PCP - General INTERNAL MEDICINE 10/02/18 Henry Vasques MD [facility]. [address] [place] [address] [place] Tuber Operator CARDIOVASCULAR DISEASE 02/26/19
--- OUTSIDE RECORDS SUMMARY | 2025-06-12 20:18 | XMS_ITS | Encounter Summary ---
Author Organization [facility] Address [address] [place] [id number] Care Team Providers Care Van Loader Name Role Phone Naseem Underwood MD Primary Care Provider Henry Vasques MD Unavailable [phone] Reason for Visit * Reason Comments Lab (SCAN) Encounter Details Date Type Department Care Team (Latest Contact Info) Description 06/04/2025 Scan MG HEALTH INFO SRVCS Scanned, Doc [facility] Lab (SCAN) Social History Tobacco Use Types Packs/Day Years Used Date Smoking Tobacco: Some Days Pipe Cigars Smokeless Tobacco: Never Comments:1-2 cigars a day. P rovider to student counsellor. Alcohol Use Standard Drinks/Week Comments Yes 3.3 [...] Priority Date/Time Associated Diagnosis Comments OUTSIDE LAB (SCAN ORDER) 06/04/2025 documented in this encounter Results * OUTSIDE LAB (SCAN ORDER) (06/04/2025) 06/04/2025 us [facility] Scanned SCANNING Final Resu lt documented in this encounter Visit Diagnoses Not on filedocumented in this encounter Additional Health Concerns Assessment Noted Time PHQ-9 Depression Total Score: 0 09/21/19 22 1:12 PM UNIT MANAGER documented as of this encounter Care Teams Van Loader Relationship Specialty Start Date End Date Naseem Underwood MD [address] [place] [id number] PCP - General INTERNAL MEDICINE 10/02/18 Henry Vasques MD [facility]. [facility] [address] [place] [address] [place] Transfer Driver CARDIOVASCULAR DISEASE 02/26/19 documented as of this encounter
--- OUTSIDE RECORDS SUMMARY | 2025-06-12 20:18 | XMS_ITS | Encounter Summary ---
Author Organization [facility] Address [address] [place] [id number] Care Team Providers Care First Coat Operator Name Role Phone Naseem Underwood MD Primary Care Provider [phone] Henry Vasques MD Unavailable [phone] Reason for Visit * Reason Comments Procedure (SCAN) Encounter Details Date Type Department Care Team ([facility] Contact Info) Description 06/08/2025 Scan HEALTH INFO SRVCS Scanned, Doc Med Group Procedure (SCAN) Social History Tobacco Use Types Packs/Day Years Used Date Smoking Tobacco: Some Days Pipe Cigars Smokeless Tobacco: Never Comments:1-2 cigars a day. P rovider to christian counselor. Alcohol Use Standard Drinks/Week Comments Yes [...] Diagnosis Comments PROCEDURE GENERIC (SCAN ORDER) 06/08/2025 documented in this encounter Results * PROCEDURE GENERIC (SCAN ORDER) (06/08/2025) 06/08/2025 us [facility] Scanned SCANNING Final Resu lt documented in this encounter Visit Diagnoses Not on filedocumented in this encounter Additional Health Concerns Assessment Noted Time PHQ-9 Depression Total Score: 0 09/21/19 22 1:12 PM SUMMER CAMP COUNSELOR documented as of this encounter Care Teams First Coat Operator Relationship Specialty Start Date End Date Naseem Underwood MD [address] [place] [id number] PCP - General INTERNAL MEDICINE 10/02/18 Henyr Vasques MD Three [facility]. [facility] [address] [place] [address] [place] Agricultural Purchasing Agent CARDIOVASCULAR DISEASE 02/26/19 documented as of this encounter
--- OUTSIDE RECORDS SUMMARY | 2025-06-12 20:18 | XMS_ITS | Encounter Summary ---
Author Organization [facility] Address [address] [place] [id number] Care Team Providers Care Model Home Sales Greeter Name Role Phone Naseem Underwood MD Primary Care Provider [phone] Henry Vasques MD Unavailable [phone] Reason for Visit * Reason Comments Lab (SCAN) Pathology (SCAN) Procedure (SCAN) Encounter Details Date Type Department Care Team ([facility] Contact Info) Description 06/05/2025 Scan HEALTH INFO SRVCS Scanned, Doc Med Group Lab (SCAN); Pathology (SCAN); Procedure (SCAN) Social History Tobacco Use Types Packs/Day Years Used Date Smoking Tobacco: Some Days Pipe Cigars Smokeless Tobacco: Never Comments:1-2 cigars a day. P rovider to pet adoption counselor. Alcohol Use Standard Drinks/Week Comments Yes [...] Procedure Name Priority Date/Time Associated Diagnosis Comments PATHOLOGY GENERIC (SCAN ORDER) 06/05/2025 OUTSIDE LAB (SCAN ORDER) 06/05/2025 OUTSIDE LAB (SCAN ORDER) 06/05/2025 OUTSIDE LAB (SCAN ORDER) 06/05/2025 PROCEDURE GENERIC (SCAN ORDER) 06/05/2025 PROCEDURE GENERIC (SCAN ORDER) 06/05/2025 documented in this encounter Results * PROCEDURE GENERIC (SCAN ORDER) (06/05/2025) 06/05/2025 us [facility] Scanned SCANNING Final Resu lt * PROCEDURE GENERIC (SCAN ORDER) (06/05/2025) 06/05/2025 us [facility] Scanned SCANNING Final Resu lt * PATHOLOGY GENERIC (SCAN ORDER) (06/05/2025) 06/05/2025 us Doc [facility] Scanned SCANNING Final Resu lt * OUTSIDE LAB (SCAN ORDER) (06/05/2025) 06/05/2025 us Doc [facility] Scanned SCANNING Final Resu lt * OUTSIDE LAB (SCAN ORDER) (06/05/2025) 06/05/2025 us Doc [facility] Scanned SCANNING Final Resu lt * OUTSIDE LAB (SCAN ORDER) (06/05/2025) 06/05/2025 us Doc [facility] Scanned SCANNING Final Resu lt documented in this encounter Visit Diagnoses Not on filedocumented in this encounter Additional Health Concerns Assessment Noted Time PHQ-9 Depression Total Score: 0 09/21/19 22 1:12 PM CPA TAX documented as of this encounter Care Teams Model Home Sales Greeter Relationship Specialty Start Date End Date Naseem Underwood MD [address] [place] [phone] PCP - General INTERNAL MEDICINE 10/02/18 Henry Vasques MD [facility] [address] [place] [address] [place] Geothermal Field Technician CARDIOVASCULAR DISEASE 02/26/19 documented as of this encounter
== END 2025-06-12 16:38 | disposition home or self-care (01) ==
PROVIDERS: PCP Internal Medicine; Visit Provider Surgery
DX: D62 Acute posthemorrhagic anemia (principal); E11.9 Type 2 diabetes mellitus without complications
CPT/HCPCS: 36415; 80048; 85027

== ENCOUNTER 2025-07-07 12:33 | Outpatient (CLI) | payer MEDICARE, SELFPAY ==
--- NOTE | ~2025-07-07 | US_ITS ---
EXAMINATION: US venous doppler [facility] DATE: 07/07/2025 13:20 INDICATION: Swelling TECHNIQUE: Grayscale ultrasound images without and with compression and Doppler ultrasound images of the bilateral lower extremity veins were obtained. COMPARISON: None. FINDINGS: The visualized portions of right common femoral vein, profunda (deep) femoral vein, femoral vein, popliteal vein, peroneal veins, posterior tibial veins, and greater saphenous vein outflow are patent. The visualized portions of left common femoral vein, profunda femoral vein, femoral vein, popliteal vein, peroneal veins, posterior tibial veins, and greater saphenous vein outflow are patent. IMPRESSION: 1. No deep venous thrombosis seen. Reviewed, dictated and finalized at location A. [facility]
== END 2025-07-07 12:34 | disposition home or self-care (01) ==
PROVIDERS: PCP Internal Medicine; Visit Provider Student in an Organized Health Care Education/Training Program
DX: M79.89 Other specified soft tissue disorders (principal)
CPT/HCPCS: 93970